=== PATIENT | female | born 1940 | race Caucasian/White ===

== ENCOUNTER 2021-01-26 09:14 | Inpatient (IN) | payer BC, OTHER ==
[2021-01-26 09:42] LABS: Absolute Lymphocytes (CBC) 0.4 K/uL (0.7-4.9); Basophils % 0.3 % (0-1.3); Hematocrit 36.2 % (36.0-45.0); Lymphocytes % 4.7 % (15.3-44.8); MPV 8.6 fL (7.6-11.3)
[2021-01-26 09:48] LABS: Protime INR 1.58
[2021-01-26 10:13] LABS: ALT/SGPT 12 U/L (12-78); AST/SGOT 20 U/L (15-37); Albumin 2.8 g/dL (3.4-5.0); Alkaline Phosphatase 105 U/L (45-117); BUN Blood Urea Nitrogen 10 mg/dL (7-18); Bicarbonate 30 mmol/L (21-32); Bilirubin Direct 0.7 mg/dL (0-0.2); Bilirubin Total 1.5 mg/dL (0.2-1.0); Glucose Level 140 mg/dL (74-106); Magnesium 1.9 mg/dL (1.8-2.4); NT PRO-BNP 5844 pg/mL (<450); Protein, Total 7.3 g/dL (6.4-8.2); Sodium Level 141 mmol/L (136-145); Troponin (Emerg Dept Use Only) < 0.02 ng/mL (0.0-0.045)
[2021-01-26 10:16] LABS: Potassium 2.9 mmol/L (3.5-5.1)
--- NOTE | 2021-01-26 10:32 | RAD REPORT ---
EXAM DESCRIPTION: RAD - Chest Single View - 01/26/2021 10:00 am CLINICAL HISTORY: Weakness COMPARISON: None TECHNIQUE: AP portable chest image was obtained 01/26/2021 10:00 am . FINDINGS: Lung volumes are very low which accentuates heart, vasculature and lung markings. Intersti tial edema or infiltrate could be masked in this setting. Mild failure that could also be masked. Rig ht hemidiaphragm elevation is present. Heart size is upper normal. Trachea is midline. No measurable pleural effusion and no pneumothorax. No acute bony abnormality seen. No acute aortic findings suspec mora. IMPRESSION: Significantly limited portable study shows no peripheral mass or consolidation. Interstitial edema, interstitial infiltrate or mild failure could be masked by the exam limitations.
[2021-01-26 10:35] LABS: Blood Morphology Comment NOT SEEN (NOT SEEN); Platelet Estimate ADEQ; White Blood Cell Scan OK (OK)
[2021-01-26] MEDS ORDERED: KCL 20 MEQ/100 mL IVPB 20 MEQ/100 ML BAG IV ONE (12:06)
[2021-01-26] MEDS ORDERED: POTASSIUM CL SA 10 MEQ TAB PO ONE (12:06)
--- NOTE | 2021-01-26 12:21 | ER ---
Nurse's Notes [facility] Name: Nanci Balderas Age: 80 yrs Sex: Female : 1940 Arrival Date: 01/26/2021 Time: :17 Bed 2 Private MD: Diagnosis: Weakness;Hypokalemia;Unspecified atrial fibrillation;Chronic atrial fibrillation-Poorly controlled Presentation: 01/26 09:19 Chief complaint: EMS states: pt from home. was using bedside commode and slid off it. tw2 denies LOC. pt can bear weight but just pivots. c/o RIGHT hip pain on palpation only. on EKG was A-fib w/RVR. we initially gave 10 mg Cardizem. it slowed her rated down a little bit but it came right back up. so we gave 15 mg Cardizem then with the same results. she does report taking Eliquis. c/o weakness increasing over the past 2 weeks with 2 falls that she refused to come to the ER for. family requested she come here d/t insurance. Coronavirus screen: At this time, the client does not indicate any symptoms associated with coronavirus-19. Ebola Screen: Patient denies travel to an Ebola-affected area in the 21 days before illness onset. Initial Sepsis Screen: Does the patient meet any 2 criteria? HR > 90 bpm. Does the patient have a suspected source of infection? No. Patient's initial sepsis screen is negative. Risk Assessment: Do you want to hurt yourself or someone else? Patient reports no desire to harm self or others. Note provider at bedside at this time. Onset of symptoms was January 26, 2021. 09:19 Acuity: PEPPER 2 tw2 09:19 Method Of Arrival: EMS: [facility] tw2 Triage Assessment: 09:25 General: Appears in no apparent distress. obese, Behavior is calm, cooperative, tw2 appropriate for age. General: Smells of body odor. Pain: Complains of pain in RIGHT hip. Respiratory: Airway is patent Respiratory effort is even, unlabored, Respiratory pattern is regular. Musculoskeletal: Range of motion: intact in all extremities. Historical: - Allergies: 09:23 Codeine; tw2 - Home Meds: :23 Amiodarone Oral [Active]; Eliquis oral [Active]; gabapentin oral [Active]; atorvastatin tw2 oral [Active]; valsartan oral [Active]; amlodipine-benazepril oral [Active]; - PMHx: 09:23 Atrial fibrillation; Hypercholesterolemia; Hypertensive disorder; tw2 - Immunization history:: Adult Immunizations. - Social history:: Smoking status: . Screenin:37 Abuse screen: Denies threats or abuse. Nutritional screening: No deficits noted. tw2 Tuberculosis screening: No symptoms or risk factors identified. Fall Risk None identified. Assessment: 09:37 Reassessment: see triage assessment. tw2 11:04 Reassessment: Patient appears in no apparent distress at this time. No changes from tw2 previously documented assessment. Patient and/or family updated on plan of care and expected duration. Pain level reassessed. Patient is alert, oriented x 3, equal unlabored respirations, skin warm/dry/pink. 11:30 Reassessment: No changes from previously documented assessment. Patient and/or family tw2 updated on plan of care and expected duration. Pain level reassessed. Patient is alert, oriented x 3, equal unlabored respirations, skin warm/dry/pink. Step Daughter's number [phone]. Step daughter states she is at home with patient's and to call with any update or if needing any additional information. 12:31 Reassessment: Dr. Cai at bedside at this time. tw2 12:35 Reassessment: Patient appears in no apparent distress at this time. No changes from tw2 previously documented assessment. Patient and/or family updated on plan of care and expected duration. Pain level reassessed. Patient is alert, oriented x 3, equal unlabored respirations, skin warm/dry/pink. 14:14 Reassessment: pt c/o back pain. medicated with Ultram per Shirley Mae's. 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 pt placed on bed moss. Angelo tw2 Tech assisted pt in rolling to side and then back on bedpan at this time. 18:09 Reassessment: Patient appears in no apparent distress at this time. No changes from tw2 previously documented assessment. Patient and/or family updated on plan of care and expected duration. Pain level reassessed. Patient is alert, oriented x 3, equal unlabored respirations, skin warm/dry/pink. Vital Signs: 09:19 Pulse 97; Resp 20; Temp 98.6(TE); Pulse Ox 96% on R/A; tw2 09:45 BP 160 / 77; Pulse 96; Resp 20; Pulse Ox 96% on R/A; tw2 11:03 BP 144 / 85; Pulse 85; Resp 19; Pulse Ox 97% on R/A; tw2 12:16 BP 122 / 84; Pulse 127; Resp 22; Pulse Ox 96% ; jl7 13:00 BP 107 / 89; Pulse 114; Resp 19; Pulse Ox 97% on R/A; tw2 14:47 BP 142 / 97; Pulse 112; Resp 19; Pulse Ox 95% on R/A; tw2 16:38 BP 150 / 106; Pulse 113; Resp 22; Pulse Ox 97% on R/A; tw2 17:33 BP 168 / 97; Pulse 107; Resp 19; Pulse Ox 95% on R/A; tw2 18:08 BP 146 / 89; Pulse 99; Resp 19; Pulse Ox 99% on R/A; tw2 ED Course: 09:17 Patient arrived in ED. ss 09:17 Bed in low position. Call light in reach. Side rails up X2. color television console monitor on. Pulse tw2 ox on. NIBP on. Warm blanket given. 09:19 Aaliyah Esparza RN is Primary Nurse. tw2 09:22 Triage completed. tw2 09:22 Arm band placed on. EKG completed in triage. Results shown to MD. tw2 09:23 Viktor Bearden MD is Attending Physician. kdr 09:37 Maintain EMS IV. Dressing intact. Good blood return noted. Site clean \T\ dry. Gauge \T\ tw 2 site: 20 G RIGHT ac. 10:00 XRAY Chest (1 view) In Process Unspecified. EDMS 12:19 Jorge Cai DO is Hospitalizing Provider. kdr 12:46 White cath inserted, using sterile technique, 18 Fr., by nh, balloon inflated, to tw2 gravity drainage, urine specimen collected. lou Trinh RN served as wood tile installer. returned negro urine. Patient tolerated well. 13:04 CT Head Brain wo Cont In Process Unspecified. EDMS 13:15 Hip Right 2 View XRAY In Process Unspecified. EDMS 18:08 No provider procedures requiring assistance completed. Patient admitted, IV remains in tw2 place. Administered Medications: 12:15 Drug: Potassium Chloride 20 mEq Route: IV; Rate: calculated rate; Site: right jl7 antecubital; 15:00 Follow up: IV Status: Completed infusion; IV Intake: 100ml tw2 12:15 Drug: Potassium Chloride 40 mEq Route: PO; jl7 12:31 Follow up: Response: No adverse reaction tw2 Intake: 15:00 IV: 100ml; Total: 100ml. tw2 Output: 14:31 Urine: 400ml (Straight Cath); Total: 400ml. tw2 Outcome: 12:21 Decision to Hospitalize by Provider. kdr 18:12 Admitted to Med/surg accompanied by tech, via stretcher, room 230, with chart, Report tw2 called to AMANDA Chirinos 18:12 Condition: stable 18:12 Instructed on the need for admit. 18:23 Patient left the ED. tw2 Signatures: Dispatcher [employer] EDMS Viktor Bearden MD MD kdr Annie Todd RN RN Aaliyah Esparza RN RN tw2 Ed Childress RN RN jl7 Corrections: (The following items were deleted from the chart) 09:27 09:19 Chief complaint: EMS states: pt from home. was using bedside commode and slid off tw2 it. denies LOC. c/o RIGHT hip pain on palpation only. on EKG was A-fib w/RVR. we initially gave 10 mg Cardizem. it slowed her rated down a little bit but it came right back up. so we gave 15 mg Cardizem then with the same results. she does report taking Eliquis. c/o weakness increasing over the past 2 weeks with 2 falls that she refused to come to the ER for. family requested she come here d/t insurance. tw2 12:35 11:30 Reassessment: Step Daughter's number [phone]. Step daughter states she is at tw2 home with patient's and to call with any update or if needing any additional information. 14:47 13:00 BP 142 / 97; Pulse 112bpm; Resp 19bpm; Pulse Ox 95% RA; tw2 tw2
--- NOTE | 2021-01-26 12:21 | EDPHYS ---
Physician Documentation [facility] Name: Nanci Balderas Age: 80 yrs Sex: Female : 1940 Arrival Date: 01/26/2021 Time: : Bed 2 Private MD: ED Physician Viktor Bearden HPI: 01/26 09:24 This 80 yrs old Female presents to ER via EMS with complaints of Weakness, kdr fall from standing. 09:24 The patient is essentially bed bound for the past week. This morning she attempted to kdr get up to the bedside commode and she slipped and fell on the floor. She indicated that she did not fall abruptly but rather eased herself to the floor without injury. She denies any head injury or any current pain anywhere in her body.. Onset: The symptoms/episode began/occurred gradually, 1 week(s) ago. Severity of symptoms: At their worst the symptoms were mild incapacitating just prior to arrival, in the emergency department the symptoms are unchanged. The patient has not experienced similar symptoms in the past. The patient has not recently seen a physician, Her physician is Dr. Pacheco and she has not been to this facility previously. 11:56 Patient was also noted by EMS to have atrial fibrillation with rapid ventricular kdr response. She was given an initial 10 mg dose of Cardizem. That had minimal effect. She then was given the additional 15 mg IV. That subsequently brought her rate down to approximately 100 bpm. Her rate has been stable since her arrival to the ED. Historical: - Allergies: 09:23 Codeine; tw2 - Home Meds: 09:23 Amiodarone Oral [Active]; Eliquis oral [Active]; gabapentin oral [Active]; atorvastatin tw2 oral [Active]; valsartan oral [Active]; amlodipine-benazepril oral [Active]; - PMHx: 09:23 Atrial fibrillation; Hypercholesterolemia; Hypertensive disorder; tw2 - Immunization history:: Adult Immunizations. - Social history:: Smoking status: . ROS: 09:24 Constitutional: Negative for fever, chills, and weight loss, Eyes: Negative for injury, kdr pain, redness, and discharge, ENT: Negative for injury, pain, and discharge, Neck: Negative for injury, pain, and swelling, Cardiovascular: Negative for chest pain, palpitations, and edema, Respiratory: Negative for shortness of breath, cough, wheezing, and pleuritic chest pain, Abdomen/GI: Negative for abdominal pain, nausea, vomiting, diarrhea, and constipation, Back: Negative for injury and pain, : Negative for injury, bleeding, discharge, and swelling, MS/Extremity: Negative for injury and deformity, Skin: Negative for injury, rash, and discoloration, Psych: Negative for depression, anxiety, suicide ideation, homicidal ideation, and hallucinations, Allergy/Immunology: Negative for hives, rash, and allergies, Endocrine: Negative for neck swelling, polydipsia, polyuria, polyphagia, and marked weight changes, Hematologic/Lymphatic: Negative for swollen nodes, abnormal bleeding, and unusual bruising. 09:24 Neuro: Positive for weakness, Negative for altered mental status, dizziness, gait disturbance, headache, hearing loss, numbness, seizure activity, speech changes, syncope, near syncope, tremor. Exam: 09:24 Constitutional: This is a well developed, well nourished obese patient who is awake, kdr alert, and in no acute distress. Head/Face: Normocephalic, atraumatic. Eyes: Pupils equal round and reactive to light, extra-ocular motions intact. Lids and lashes normal. Conjunctiva and sclera are non-icteric and not injected. Cornea within normal limits. Periorbital areas with no swelling, redness, or edema. Neck: Trachea midline, no thyromegaly or masses palpated, and no cervical lymphadenopathy. Supple, full range of motion without nuchal rigidity, or vertebral point tenderness. No Meningismus. Chest/axilla: Normal chest wall appearance and motion. Nontender with no deformity. No lesions are appreciated. Cardiovascular: Regular rate and rhythm with a normal S1 and S2. No gallops, murmurs, or rubs. Normal PMI, no JVD. No pulse deficits. Respiratory: Lungs have equal breath sounds bilaterally, clear to auscultation and percussion. No rales, rhonchi or wheezes noted. No increased work of breathing, no retractions or nasal flaring. Abdomen/GI: Soft, non-tender, with normal bowel sounds. No distension or tympany. No guarding or rebound. No evidence of tenderness throughout. Back: No spinal tenderness. No costovertebral tenderness. Full range of motion. Skin: Warm, dry with normal turgor. Normal color with no rashes, no lesions, and no evidence of cellulitis. MS/ Extremity: Pulses equal, no cyanosis. Neurovascular intact. Full, normal range of motion. Neuro: Awake and alert, GCS 15, oriented to person, place, time, and situation. Cranial nerves II-XII grossly intact. Motor strength 5/5 in all extremities. Sensory grossly intact. Cerebellar exam normal. Normal gait. Psych: Awake, alert, with orientation to person, place and time. Behavior, mood, and affect are within normal limits. 09:24 Abdomen/GI: Inspection: obese 10:43 ECG was reviewed by the Attending Physician. kdr Vital Signs: 09:19 Pulse 97; Resp 20; Temp 98.6(TE); Pulse Ox 96% on R/A; tw2 09:45 BP 160 / 77; Pulse 96; Resp 20; Pulse Ox 96% on R/A; tw2 11:03 BP 144 / 85; Pulse 85; Resp 19; Pulse Ox 97% on R/A; tw2 12:16 BP 122 / 84; Pulse 127; Resp 22; Pulse Ox 96% ; jl7 13:00 BP 107 / 89; Pulse 114; Resp 19; Pulse Ox 97% on R/A; tw2 14:47 BP 142 / 97; Pulse 112; Resp 19; Pulse Ox 95% on R/A; tw2 16:38 BP 150 / 106; Pulse 113; Resp 22; Pulse Ox 97% on R/A; tw2 17:33 BP 168 / 97; Pulse 107; Resp 19; Pulse Ox 95% on R/A; tw2 18:08 BP 146 / 89; Pulse 99; Resp 19; Pulse Ox 99% on R/A; tw2 MDM: 11:57 Data reviewed: vital signs, nurses notes, lab test result(s), EKG, radiologic studies. kdr Counseling: I had a detailed discussion with the patient and/or guardian regarding: the historical points, exam findings, and any diagnostic results supporting the discharge/admit diagnosis, lab results, radiology results. 12:21 Patient medically screened. kdr 01/26 09:24 Order name: Basic Metabolic Panel; Complete Time: 11:54 kdr 01/26 09:24 Order name: CBC with Diff; Complete Time: 11:54 kdr 01/26 09:24 Order name: LFT's; Complete Time: 11:54 kdr 01/26 09:24 Order name: Magnesium; Complete Time: :54 kdr 01/26 09:24 Order name: NT PRO-BNP; Complete Time: 11:54 kdr 01/26 09:24 Order name: PT-INR; Complete Time: 11:54 kdr 01/26 09:24 Order name: Troponin (emerg Dept Use Only); Complete Time: 11:54 kdr 01/26 09:24 Order name: XRAY Chest (1 view); Complete Time: 11:54 kdr 01/26 10:35 Order name: CBC Smear Scan; Complete Time: 11:54 EDMS 01/26 12:37 Order name: Hip Right 2 View XRAY kdr 01/26 13:07 Order name: Urine Microscopic Only eb 01/26 13:08 Order name: COVID-19 SARS RT PCR (Document "Date of Onset" if Symptomatic) eb 01/26 13:08 Order name: Urine Dipstick-Ancillary EDNC 01/26 13:09 Order name: SARS-COV-2 RT PCR EDNC 01/26 09:24 Order name: EKG; Complete Time: 09:25 kdr 01/26 09:24 Order name: Cardiac monitoring; Complete Time: 09:24 kdr 01/26 09:24 Order name: EKG - Nurse/Tech; Complete Time: 09:25 kdr 01/26 09:24 Order name: IV Saline Lock; Complete Time: 09:25 kdr 01/26 09:24 Order name: Labs collected and sent; Complete Time: 09:25 kdr 01/26 09:24 Order name: O2 Per Protocol; Complete Time: 09:25 kdr 01/26 09:24 Order name: O2 Sat Monitoring; Complete Time: 09:25 kdr 01/26 12:16 Order name: Urine Dipstick-Ancillary (obtain specimen); Complete Time: 12:54 kdr 01/26 12:37 Order name: CT Head Brain wo Cont kdr 01/26 12:50 Order name: White; Complete Time: 12:50 tw2 EC:43 Rate is 96 beats/min. Rhythm is irregularly irregular, A fib with No ectopy. QRS [place] kdr is Normal. IA interval is normal. QRS interval is normal. QT interval is normal. Clinical impression: Atrial Fibrillation. Administered Medications: 12:15 Drug: Potassium Chloride 20 mEq Route: IV; Rate: calculated rate; Site: right jl7 antecubital; 15:00 Follow up: IV Status: Completed infusion; IV Intake: 100ml tw2 12:15 Drug: Potassium Chloride 40 mEq Route: PO; jl7 12:31 Follow up: Response: No adverse reaction tw2 Disposition Summary: 01/26/21 12:21 Hospitalization Ordered Hospitalization Status: Observation kdr Provider: Jorge Cai kdr Condition: Fair kdr Problem: an acute exacerbation kdr Symptoms: have improved kdr Bed/Room Type: Standard kdr Location: Telemetry/MedSurg (observation)(01/26/21 16:40) eb Room Assignment: 230(01/26/21 16:40) eb Diagnosis - Weakness kdr - Hypokalemia kdr - Unspecified atrial fibrillation kdr - Chronic atrial fibrillation - Poorly controlled kdr Forms: - Medication Reconciliation Form kdr - SBAR form kdr Signatures: Dispatcher [employer] EDViktor Terrell MD MD kdr Aaliyah Esparza RN RN tw2 Ed Childress RN RN jl7 Tomasz Brewer RN RN ja1 Mare Carranza Corrections: (The following items were deleted from the chart) 15:21 12:21 kdr eb 15:22 12:21 Telemetry/MedSurg (observation) kdr ja1 15:22 15:21 218 eb ja1 16:40 15:22 [facility] ER HOLD ja1 eb 16:40 15:22 ja1 eb
[2021-01-26 13:08] LABS: Urine Blood Trace-intact (Negative); Urine Glucose Negative (Negative); Urine Protein 2+ (Negative); Urine Specific Gravity 1.025 (1.005-1.030); Urine pH 6.5 (5.0-7.0)
--- NOTE | 2021-01-26 13:16 | RAD REPORT ---
EXAM DESCRIPTION: CT - Head Brain Wo Cont - 01/26/2021 1:04 pm CLINICAL HISTORY: Fall from standing COMPARISON: No comparisons TECHNIQUE: All CT scans are performed using dose optimization technique as appropriate and may inclu de automated exposure control or mA/KV adjustment according to patient size. FINDINGS: No intracranial hemorrhage, hydrocephalus or extra-axial fluid collection.No areas of brai n edema or evidence of midline shift. The paranasal sinuses and mastoids are clear. The calvarium is intact. IMPRESSION: No acute intracranial abnormality.
--- NOTE | 2021-01-26 13:22 | RAD REPORT ---
EXAM DESCRIPTION: RAD - Hip Right 2 View - 01/26/2021 1:15 pm CLINICAL HISTORY: PAIN COMPARISON: No comparisons FINDINGS: No pelvic fracture is identified. Status post left total hip arthroplasty. No evidence of hardware complications. The right hip is located. No right hip fracture seen. Degenerative changes ar e present in the lower spine. IMPRESSION: No pelvic or right hip fractures identified. No left hip arthroplasty is intact.
[2021-01-26] MEDS ORDERED: HYDROCODONE/APAP 7.5/325 MG TAB PO PRN (13:39)
[2021-01-26] MEDS ORDERED: TRAMADOL HCL 50 MG TAB PO PRN (13:39)
--- NOTE | 2021-01-26 13:39 | P.HP ---
Certification for Inpatient Patient admitted to: Observation With expected LOS: <2 Midnights Patient will require the following post-hospital care: Other (Home with home health and caregiver services) Practitioner: I am a practitioner with admitting privileges, knowledge of patient current condition, hospital course, and medical plan of care. Services: Services provided to patient in accordance with Admission requirements found in Title 42 Section 412.3 of the Code of Federal Regulations Patient History Date of Service: 01/26/21 Physical Examination - Studies Laboratory Data (last 24 hrs) 01/26/21 09:30: PT 18.2 H, INR 1.58 01/26/21 09:30: WBC 8.20, Hgb 11.7 L, Hct 36.2, Plt Count 160 01/26/21 09:30: Sodium 141, Potassium 2.9 L*, BUN 10, Creatinine 0.94, Glucose 140 H, Magnesium 1.9, Total Bilirubin 1.5 H, AST 20, ALT 12, Alkaline Phosphatase 105 Assessment and Plan - Plan COVID: Pending Chest x-ray: COMPARISON: None TECHNIQUE: AP portable chest image was obtained 01/26/2021 10:00 am . FINDINGS: Lung volumes are very low which accentuates heart, vasculature and lung markings. Interstitial edema or infiltrate could be masked in this setting. Mild failure that could also be masked. Right hemidiaphragm elevation is present. Heart size is upper normal. Trachea is midline. No measurable pleural effusion and no pneumothorax. No acute bony abnormality seen. No acute aortic findings suspected. IMPRESSION: Significantly limited portable study shows no peripheral mass or consolidation. Interstitial edema, interstitial infiltrate or mild failure could be masked by the exam limitations. CT head: COMPARISON: No comparisons TECHNIQUE: All CT scans are performed using dose optimization technique as appropriate and may include automated exposure control or mA/KV adjustment according to patient size. FINDINGS: No intracranial hemorrhage, hydrocephalus or extra-axial fluid collection.No areas of brain edema or evidence of midline shift. The paranasal sinuses and mastoids are clear. The calvarium is intact. IMPRESSION: No acute intracranial abnormality. Right Hip xray: COMPARISON: No comparisons FINDINGS: No pelvic fracture is identified. Status post left total hip arthroplasty. No evidence of hardware complications. The right hip is located. No right hip fracture seen. Degenerative changes are present in the lower spine. IMPRESSION: No pelvic or right hip fractures identified. No left hip arthroplasty is intact. Physical Exam: GENERAL: The patient is a well-developed, well-nourished, in no apparent distress. Alert and oriented x3. VITAL SIGNS: Reviewed HEENT: Head is normocephalic and atraumatic. Extraocular muscles are intact. Pupils are equal, round, and reactive to light and accommodation. Nares appeared normal. Mouth is well hydrated and without lesions. Mucous membranes are moist. NECK: Supple. No carotid bruits. No lymphadenopathy or thyromegaly. LUNGS: Clear to auscultation. No crackles or wheezes are heard. HEART: Regular rate and rhythm, no appreciable gallops, rubs, murmurs or extra heart sounds ABDOMEN: Soft, nontender, and nondistended. Positive bowel sounds. No hepatosplenomegaly was noted. EXTREMITIES: Without any cyanosis, clubbing, rash, lesions or peripheral edema. NEUROLOGIC: The patient is oriented to person, place and time. Strength and sensation are grossly intact. Face is symmetric. SKIN: Normal color, turgor and temperature. No ulcerations or rashes noted. Impression: Weakness and fall from sitting position Atrial fibrillation on chronic anticoagulation therapy Chronic diastolic CHF Hypokalemia Hypertension CAD with prior stents Chronic pain Obesity Plan: Weakness and fall from sitting position: Patient will be admitted for further evaluation and treatment. We will continue with home medications but will need to obtain and reconcile medications. Will have physical therapy and Occupational Therapy evaluate. Electrolyte protocol in place to replace potassium. Patient uses a walker at home. She is mainly homebound. Patient has home care at home. Will need to continue with home care and home health and physical therapy at discharge. Anticipate discharge likely tomorrow. Atrial fibrillation on chronic anticoagulation therapy: Will need to continue with metoprolol and Eliquis. Will need to verify home medication. Chronic diastolic CHF: Will continue with Lasix. Will replace potassium. Continue 1500 cc/day fluid restriction and low-salt diet. Hypokalemia: Replace potassium Hypertension: Continue metoprolol and losartan. Will make adjustments accordingly. Need to update home medication CAD with prior stents: Continue with home medication will need to verify home medication Chronic pain: We will provide medication for pain. Obesity: Lifestyle modification education provided Code Status: This was discussed in detail with patient. Patient is DO NOT RESUSCITATE. DVT prophylaxis: Eliquis Advanced Care Planning-30 minutes: Patient will be discharged home with home health and physical therapy along with home care that she has at home. Discharge Plan: Home Plan to discharge in: 24 Hours - Advance Directives Does patient have a Living Will: No Does patient have a Durable POA for Healthcare: No - Code Status/Comfort Care Code Status Assessed: Yes (Patient is DO NOT RESUSCITATE) Time Spent Managing Pts Care (In Minutes): 55
[2021-01-26 13:48] LABS: Urine Bacteria LOADED /HPF (<20); Urine RBC NONE SEEN /HPF (NONE SEEN)
[2021-01-26] MEDS ORDERED: TRAMADOL HCL 50 MG TAB ONE (14:08)
[2021-01-26] MEDS ORDERED: ONDANSETRON 4 MG/2 ML VIAL IV PRN (18:28)
[2021-01-26 19:28] LABS: Creatine Phosphokinase 14 U/L (26-192); Troponin I < 0.02 ng/mL (0.0-0.045)
[2021-01-26 19:31] LABS: CKMB Creatine Kinase MB < 1.0 ng/mL (1.0-3.6)
[2021-01-26] MEDS: ATORVASTATIN 40 MG TAB PO SCH (20:18)
[2021-01-26] MEDS: APIXABAN 5 MG TABLET PO SCH (20:19)
[2021-01-26] MEDS: METOPROLOL TAR 25 MG TAB PO SCH (20:19)
[2021-01-26] MEDS: MELATONIN 5 MG TABLET PO PRN (20:19)
[2021-01-26] MEDS: LOSARTAN POTASSIUM 50 MG TABLET PO SCH (20:19)
[2021-01-26] MEDS: FAMOTIDINE 20 MG TAB PO SCH (21:00)
[2021-01-27 01:45] LABS: Creatine Phosphokinase 14 U/L (26-192)
[2021-01-27 01:47] LABS: CKMB Creatine Kinase MB < 1.0 ng/mL (1.0-3.6)
[2021-01-27] MEDS: METOPROLOL TAR 25 MG TAB PO SCH ×4 (05:23→18:00)
[2021-01-27 05:47] LABS: Absolute Lymphocytes (CBC) 0.5 K/uL (0.7-4.9); Basophils % 0.6 % (0-1.3); Hematocrit 34.5 % (36.0-45.0); Lymphocytes % 6.6 % (15.3-44.8); MPV 9.2 fL (7.6-11.3); RBC Red Blood Cell Count 3.87 M/uL (3.86-4.86)
--- NOTE | 2021-01-27 05:54 | P.DS ---
Admission Date: 01/26/21 Discharge Date: 01/27/21 Primary Care Provider: Dr. Pacheco Disposition: DC HOME/HOME HEALTH CARE Discharge Condition: GOOD Reason for Admission: Fall Consultations: none Procedures: COVID: negative Chest x-ray: COMPARISON: None TECHNIQUE: AP portable chest image was obtained 01/26/2021 10:00 am . FINDINGS: Lung volumes are very low which accentuates heart, vasculature and lung markings. Interstitial edema or infiltrate could be masked in this setting. Mild failure that could also be masked. Right hemidiaphragm elevation is present. Heart size is upper normal. Trachea is midline. No measurable pleural effusion and no pneumothorax. No acute bony abnormality seen. No acute aortic findings suspected. IMPRESSION: Significantly limited portable study shows no peripheral mass or consolidation. Interstitial edema, interstitial infiltrate or mild failure could be masked by the exam limitations. CT head: COMPARISON: No comparisons TECHNIQUE: All CT scans are performed using dose optimization technique as appropriate and may include automated exposure control or mA/KV adjustment according to patient size. FINDINGS: No intracranial hemorrhage, hydrocephalus or extra-axial fluid collection.No areas of brain edema or evidence of midline shift. The paranasal sinuses and mastoids are clear. The calvarium is intact. IMPRESSION: No acute intracranial abnormality. Right Hip xray: COMPARISON: No comparisons FINDINGS: No pelvic fracture is identified. Status post left total hip arthroplasty. No evidence of hardware complications. The right hip is located. No right hip fracture seen. Degenerative changes are present in the lower spine. IMPRESSION: No pelvic or right hip fractures identified. No left hip arthroplasty is intact. Medical Problem List: Weakness and fall from sitting position Atrial fibrillation on chronic anticoagulation therapy Chronic diastolic CHF Hypokalemia Hypertension CAD with prior stents Chronic pain Obesity Brief History of Present Illness: 80-year-old female with history of atrial fibrillation, CHF, chronic anticoagulation therapy, hypertension, CAD with prior stent, hyperlipidemia, and obesity. Patient presented to emergency room after she fell from a sitting position at home. Patient is homebound. She has home care 5 days out of the week with home health and physical therapy. She was not able to get out of the floor. She laid on the ground. She continued to have increasing back pain. EMS was called. EMS noted elevated heart rate. Patient was given Cardizem. By the time she arrived blood pressure and heart rate were better controlled. Patient denied any fever, chills. No shortness of breath noted. In the ER patient was evaluated. Vital signs stable. Chest x-ray unremarkable. CT head unremarkable. Right hip showed no fracture. White count 8.2, hemoglobin 11.7. Sodium 141. Potassium 2.9. Creatinine 0.9 with a GFR 57. Glucose 140. BNP 5000. Troponin unremarkable. Calcium 10.8. Patient was admitted for further evaluation and treatment. Hospital Course: Plan: Weakness and fall from sitting position: Patient will be admitted for further evaluation and treatment. We will continue with home medications but will need to obtain and reconcile medications. Will have physical therapy and Occupational Therapy evaluate. Electrolyte protocol in place to replace potassium. Patient uses a walker at home. She is mainly homebound. Patient has home care at home. Will need to continue with home care and home health and physical therapy at discharge. Anticipate discharge likely tomorrow. Atrial fibrillation on chronic anticoagulation therapy: Will need to continue with metoprolol and Eliquis. Will need to verify home medication. Chronic diastolic CHF: Will continue with Lasix. Will replace potassium. Continue 1500 cc/day fluid restriction and low-salt diet. Hypokalemia: Replace potassium Hypertension: Continue metoprolol and losartan. Will make adjustments accordingly. Need to update home medication CAD with prior stents: Continue with home medication will need to verify home medication Chronic pain: We will provide medication for pain. Obesity: Lifestyle modification education provided Code Status: This was discussed in detail with patient. Patient is DO NOT RESUSCITATE. DVT prophylaxis: Eliquis Advanced Care Planning-30 minutes: Patient will be discharged home with home health and physical therapy along with home care that she has at home. Discharge Plan: Home Plan to discharge in: 24 Hours - Advance Directives Does patient have a Living Will: No Does patient have a Durable POA for Healthcare: No - Code Status/Comfort Care Code Status Assessed: Yes (Patient is DO NOT RESUSCITATE) Time Spent Managing Pts Care (In Minutes): 55 Vital Signs/Physical Exam: Temp Pulse Resp BP Pulse Ox 98.1 F 68 16 125/60 98 01/27/21 05:35 01/27/21 05:35 01/27/21 05:35 01/27/21 05:35 01/27/21 05:35 Laboratory Data at Discharge: WBC 7.80 K/uL (4.3-10.9) 01/27/21 05:31 Hgb 11.1 g/dL (12.0-15.0) L 01/27/21 05:31 Hct 34.5 % (36.0-45.0) L 01/27/21 05:31 Plt Count 162 K/uL (152-406) 01/27/21 05:31 PT 18.2 SECONDS (9.5-12.5) H 01/26/21 09:30 INR 1.58 01/26/21 09:30 Sodium 141 mmol/L (136-145) 01/26/21 09:30 Potassium 2.9 mmol/L (3.5-5.1) L* 01/26/21 09:30 BUN 10 mg/dL (7-18) 01/26/21 09:30 Creatinine 0.94 mg/dL (0.55-1.3) 01/26/21 09:30 Glucose 140 mg/dL (74-106) H 01/26/21 09:30 Magnesium 1.9 mg/dL (1.8-2.4) 01/26/21 09:30 Total Bilirubin 1.5 mg/dL (0.2-1.0) H 01/26/21 09:30 AST 20 U/L (15-37) 01/26/21 09:30 ALT 12 U/L (12-78) 01/26/21 09:30 Alkaline Phosphatase 105 U/L (45-117) 01/26/21 09:30 Troponin I < 0.02 ng/mL (0.0-0.045) 01/26/21 19:02 Home Medications: Unobtainable 01/27/21 Followup: NONE,NONE [Primary Care Provider] -
[2021-01-27 06:09] LABS: Albumin 2.6 g/dL (3.4-5.0); Bilirubin Total 1.4 mg/dL (0.2-1.0); Magnesium 2.1 mg/dL (1.8-2.4); Potassium 3.5 mmol/L (3.5-5.1); Protein, Total 6.8 g/dL (6.4-8.2); Thyroid Stimulating Hormone 2.3 uIU/mL (0.360-3.740)
[2021-01-27] MEDS: APIXABAN 5 MG TABLET PO SCH ×2 (08:43→20:15)
[2021-01-27] MEDS: FUROSEMIDE 40 MG TABLET PO SCH (08:43)
[2021-01-27] MEDS: FOLIC ACID 1 MG TABLET PO SCH (08:43)
[2021-01-27] MEDS: THIAMINE HCL 100 MG TABLET PO SCH (08:43)
[2021-01-27] MEDS: LOSARTAN POTASSIUM 50 MG TABLET PO SCH (08:44)
[2021-01-27] MEDS: FAMOTIDINE 20 MG TAB PO SCH ×2 (08:48→20:15)
[2021-01-27] MEDS ORDERED: POTASSIUM CL SA 10 MEQ TAB PO ONE (09:00)
--- NOTE | 2021-01-27 09:03 | P.PN ---
Subjective Date of Service: 01/27/21 Primary Care Provider: Dr. Pacheco Chief Complaint: Fall Subjective: Other (Patient still reports some weakness.) Physical Examination - Vital Signs Temperature: 98.1 F Blood Pressure: 196/105 Pulse: 93 Respirations: 16 Pulse Ox (%): 98 - Studies Laboratory Data (last 24 hrs) 01/26/21 09:30: PT 18.2 H, INR 1.58 01/26/21 09:30: WBC 8.20, Hgb 11.7 L, Hct 36.2, Plt Count 160 01/26/21 09:30: Sodium 141, Potassium 2.9 L*, BUN 10, Creatinine 0.94, Glucose 140 H, Magnesium 1.9, Total Bilirubin 1.5 H, AST 20, ALT 12, Alkaline Phosphatase 105 Assessment & Plan Discharge Plan: Home Plan to discharge in: 24 Hours Physician Review Additional Text: COVID: Negative Chest x-ray: COMPARISON: None TECHNIQUE: AP portable chest image was obtained 01/26/2021 10:00 am . FINDINGS: Lung volumes are very low which accentuates heart, vasculature and lung markings. Interstitial edema or infiltrate could be masked in this setting. Mild failure that could also be masked. Right hemidiaphragm elevation is present. Heart size is upper normal. Trachea is midline. No measurable pleural effusion and no pneumothorax. No acute bony abnormality seen. No acute aortic findings suspected. IMPRESSION: Significantly limited portable study shows no peripheral mass or consolidation. Interstitial edema, interstitial infiltrate or mild failure could be masked by the exam limitations. CT head: COMPARISON: No comparisons TECHNIQUE: All CT scans are performed using dose optimization technique as appropriate and may include automated exposure control or mA/KV adjustment according to patient size. FINDINGS: No intracranial hemorrhage, hydrocephalus or extra-axial fluid collection.No areas of brain edema or evidence of midline shift. The paranasal sinuses and mastoids are clear. The calvarium is intact. IMPRESSION: No acute intracranial abnormality. Right Hip xray: COMPARISON: No comparisons FINDINGS: No pelvic fracture is identified. Status post left total hip ar throplasty. No evidence of hardware complications. The right hip is located. No right hip fracture seen. Degenerative changes are present in the lower spine. IMPRESSION: No pelvic or right hip fractures identified. No left hip arthroplasty is intact. Physical Exam: GENERAL: The patient is a well-developed, well-nourished, in no apparent distress. Alert and oriented x3. VITAL SIGNS: Reviewed HEENT: Dry mucous membranes LUNGS: Clear to auscultation. No crackles or wheezes are heard. HEART: A. fib rate controlled ABDOMEN: Soft, nontender, and nondistended. Positive bowel sounds. No hepatosplenomegaly was noted. EXTREMITIES: Without any cyanosis, clubbing, rash, lesions or peripheral edema. NEUROLOGIC: The patient is oriented to person, place and time. Strength and sensation are grossly intact. Face is symmetric. SKIN: Normal color, turgor and temperature. No ulcerations or rashes noted. Impression: Weakness and fall from sitting position UTI Atrial fibrillation on chronic anticoagulation therapy Chronic diastolic CHF Hypokalemia Hypercalcemia Hypertension CAD with prior stents Chronic pain Obesity Plan: Weakness and fall from sitting position: Discussed case with [id number]. Patient is homebound has home caregivers but no home health. Will have physical therapy and Occupational Therapy evaluate patient. Await their recommendations. Patient also found to have a UTI. Will start IV Rocephin. Will check procalcitonin. White count normal. Patient with hypercalcemia. Will consult nephrology for further recommendation. Will obtain PTH, ionized calcium and procalcitonin. Await recommendations from physical therapy and Occupational Therapy. Social work consulted to help arrange for home health and physical therapy at discharge unless physical therapy says patient is not safe to be discharged and will need to consider skilled placement. Will check options for patient. We will also discuss with son about plan of care. Left message with son. UTI: We will start Rocephin. White count normal. Will check procalcitonin. Atrial fibrillation on chronic anticoagulation therapy: Need to obtain and review start home medication. We will increase metoprolol for better rate control. Continue Eliquis. Chronic diastolic CHF: Will continue with Lasix. Will replace potassium. Continue 1500 cc/day fluid restriction and low-salt diet. Hypokalemia: Replace potassium Hypercalcemia: We will consult nephrology for further recommendation. Will check PTH and ionized calcium. Hypertension: We will increase metoprolol. Continue losartan. Will need to verify home medication. CAD with prior stents: Verify and restart home medication Chronic pain: We will provide medication for pain Obesity: Lifestyle modification education provided Code Status: This was discussed in detail with patient. Patient is DO NOT RESUSCITATE. DVT prophylaxis: Eliquis Advanced Care Planning-30 minutes: Consider home with home health and physical therapy and continued home care at home. Other option would be skilled placement. Await recommendations from physical therapy. Care discussed with [id number]. Need to discuss further with son. Time Spent Managing Pts Care (In Minutes): 55
[2021-01-27] MEDS: CEFTRIAXONE 1,000 MG in NA CHLORIDE 0.9% 50 ML IVPB SCH (09:42)
[2021-01-27] MEDS ORDERED: METOPROLOL TAR 25 MG TAB PO ONE (10:01)
[2021-01-27] MEDS ORDERED: NA CHLORIDE 0.9% 1,000 ML IV ONE (10:16)
[2021-01-27] MEDS: HYDRALAZINE HCL 20 MG/ML VIAL IV PRN (12:46)
[2021-01-27 13:14] LABS: Urine Appearance CLEAR (Clear); Urine Bilirubin NEGATIVE (Negative); Urine Blood NEGATIVE (Negative); Urine Color YELLOW (Yellow); Urine Glucose NEGATIVE (Negative); Urine Protein NEGATIVE (Negative); Urine Specific Gravity <=1.005 (1.005-1.030); Urine pH 7.5 (5.0-7.0)
[2021-01-27 13:15] LABS: Urine Microscopic Reflex NO UMIC
[2021-01-27] MEDS: NA CHLORIDE 0.9% 1,000 ML IV SCH ×2 (14:39→20:17)
--- NOTE | 2021-01-27 14:54 | CON ---
Date of Consultation: 01/27/2021 Additional Consulting Physician: Jorge Cai D.O. Reason For Consultation: Hypercalcemia. History Of Present Illness: All the information has been obtained from the record. The patient pleasantly confused. This is a 80-year-old female with significant past medical history of CAD complicated with congestive heart failure, atrial fibrillation on anticoagulation, hyperlipidemia, obesity, and bedbound. The patient came to the hospital complaining of palpitation and fall. Upon arrival to the hospital, the patient had tachycardia, found to have elevation, and calcium 10.8. For that reason, we have been consulted. The patient denied taking any calcium. Denied taking any vitamin D. Again, the patient confused. Past Medical History: 1. Atrial fibrillation. 2. Congestive heart failure. 3. Coronary artery disease, status post PCI. 4. Hypertension. 5. Hyperlipidemia. 6. Morbid obesity. Past Surgical History: Include PCI, cardiac cath. Family History: None obtainable. Social History: None obtainable. Review of Systems: None obtainable. Physical Examination: General: When I saw the patient lying in bed, not on any distress. Vital Signs: Blood pressure 190/100, pulse of 83, and afebrile. Chest: Clear to auscultation. Heart: S1 and S2. Regular. Tachy. Abdomen: Soft, nontender. Extremities: No edema. Neurologic: Confused. Laboratory Data: WBC 7.8, H and H 11.1/34.5. Sodium 143, potassium 3.5, bicarb 30, BUN 10, creatinine 0.8, calcium 10.8, magnesium 2.1, albumin 2.6, and corrected calcium is 13. TSH 2.3. Urine analysis is +2 protein. Assessment And Plan: 1. Hypercalcemia. Normal kidney function. The patient is bed bound. Possible secondary to questionable of intake with the presence of proteinuria to rule out any light chain disease. I am going to go ahead and send for protein creatinine to quantify the proteinuria. Send for serum protein electrophoresis, PTH, and vitamin D and we will follow up. I will start the patient on IV hydration and we will monitor. We will consider diuresis after complete full tank hopefully tomorrow. 2. Hypertension, not controlled. I am going to go ahead and increase her losartan to 100 mg daily and we will follow up the patient. Also, I am going to go ahead and hold her Lasix today. 3. Given the tachycardia, I am going to go ahead and increase her metoprolol to 50. We will follow up response. time spend exam the patient face to face placing order , reviewing lab and radiology data , discussing the case with the nursing staff and other pipe or steam fitter furnace installer including hospitalist and other events solutions consultant on the case 65 min CHAPO Voice ID: [id number] Report ID: [id number] MTDNo
--- NOTE | 2021-01-27 16:09 | CON ---
Date of Consultation: 01/27/2021 Addendum: Assessment And Plan: 1. Hypercalcemia as above. 2. Hypertension. Increase losartan to 100 mg daily. Metoprolol has just increase. 3. Atrial fibrillation with rapid ventricular response. Increase metoprolol. Follow up with the primary. 4. Urinary tract infection. The patient was started on antibiotic. We will follow up with culture. 5. Altered mental status secondary to hypercalcemia/metabolic secondary to urinary tract infection. Urinary tract infection start been treated. We will follow up. Continue hydration. 6. Proteinuria with the presence of hypercalcemia. I am going to go ahead and send for serum protein electrophoresis. We will follow up quantification of the proteinuria. Resume losartan. time spend exam the patient face to face placing order , reviewing lab and radiology data , discussing the case with the nursing staff and other team assembly line machine operator including hospitalist and other peoplesoft consultant on the case 65 min CHAPO Voice ID: [id number] Report ID: [id number] JUAQUIN
[2021-01-27] MEDS ORDERED: METOPROLOL TAR 25 MG TAB PO SCH (18:00)
[2021-01-27] MEDS: AMLODIPINE 5 MG TAB PO SCH (20:14)
[2021-01-27] MEDS: MELATONIN 5 MG TABLET PO PRN (20:15)
[2021-01-27] MEDS: ATORVASTATIN 40 MG TAB PO SCH (20:15)
[2021-01-27] MEDS: ISOSORBIDE MONO SR 30 MG TAB PO SCH (20:15)
[2021-01-27] MEDS ORDERED: METOPROLOL TAR 50 MG TAB PO ONE (22:59)
[2021-01-28] MEDS: NA CHLORIDE 0.9% 1,000 ML IV SCH (05:31)
[2021-01-28] MEDS: METOPROLOL TAR 25 MG TAB PO SCH ×2 (05:31→16:58)
--- NOTE | 2021-01-28 06:08 | P.PN ---
Subjective Date of Service: 01/28/21 Primary Care Provider: Dr. Pacheco Chief Complaint: Fall Subjective: Improving, Doing well Physical Examination - Vital Signs Temperature: 97.5 F Blood Pressure: 132/70 Pulse: 62 Respirations: 17 Pulse Ox (%): 98 - Studies Laboratory Data (last 24 hrs) 01/27/21 05:01: Sodium 142, Potassium 3.5, BUN 10, Creatinine 0.84, Glucose 102, Magnesium 2.1, Total Bilirubin 1.4 H, AST 22, ALT 15, Alkaline Phosphatase 95, Triglycerides 105, Cholesterol 97, HDL Cholesterol 29 L, Cholesterol/HDL Ratio 3.34 Assessment & Plan Discharge Plan: Other (Home with home health versus skilled placement) Plan to discharge in: 24 Hours Physician Review Additional Text: COVID: Negative Chest x-ray: COMPARISON: None TECHNIQUE: AP portable chest image was obtained 01/26/2021 10:00 am . FINDINGS: Lung volumes are very low which accentuates heart, vasculature and lung markings. Interstitial edema or infiltrate could be masked in this setting. Mild failure that could also be masked. Right hemidiaphragm elevation is present. Heart size is upper normal. Trachea is midline. No measurable pleural effusion and no pneumothorax. No acute bony abnormality seen. No acute aortic findings suspected. IMPRESSION: Significantly limited portable study shows no peripheral mass or consolidation. Interstitial edema, interstitial infiltrate or mild failure could be masked by the exam limitations. CT head: COMPARISON: No comparisons TECHNIQUE: All CT scans are performed using dose optimization technique as appropriate and may include automated exposure control or mA/KV adjustment according to patient size. FINDINGS: No intracranial hemorrhage, hydrocephalus or extra-axial fluid collection.No areas of brain edema or evidence of midline shift. The paranasal sinuses and mastoids are clear. The calvarium is intact. IMPRESSION: No acute intracranial abnormality. Right Hip xray: COMPARISON: No comparisons FINDINGS: No pelvic fracture is identified. Status post left total hip arthroplasty. No evidence of hardware complications. The right hip is located. No right hip fracture seen. Degenerative changes are present in the lower spine. IMPRESSION: No pelvic or right hip fractures identified. No left hip arthroplasty is intact. Physical Exam: GENERAL: The patient is a well-developed, well-nourished, in no apparent distress. Alert and oriented x3. VITAL SIGNS: Reviewed HEENT: Dry mucous membranes LUNGS: Clear to auscultation. No crackles or wheezes are heard. HEART: A. fib rate controlled ABDOMEN: Soft, nontender, and nondistended. Positive bowel sounds. No hepatosplenomegaly was noted. EXTREMITIES: Without any cyanosis, clubbing, rash, lesions or peripheral edema. NEUROLOGIC: The patient is oriented to person, place and time. Strength and sensation are grossly intact. Face is symmetric. SKIN: Normal color, turgor and temperature. No ulcerations or rashes noted. Impression: Weakness and fall from sitting position UTI with urine culture showing Klebsiella pneumoniae Atrial fibrillation on chronic anticoagulation therapy Chronic diastolic CHF Hypokalemia Hypercalcemia Hypertension CAD with prior stents Chronic pain Obesity Plan: Weakness and fall from sitting position: Physical therapy and Occupational Therapy to evaluate patient. Await recommendations from physical therapy as the patient may require home health and physical therapy versus skilled placement. Patient has caregivers at home. Patient is homebound. Patient found to have UTI with Klebsiella pneumoniae. Will change IV antibiotic therapy to oral Ceftin 500 mg 1 pill twice daily. Patient will need 7-day treatment. Blood pressure medications were added for better control. Blood pressure improved. Overall stable. Plan of care discussed with son yesterday. Await recommendations from physical therapy to determine possible discharge. I will turn the service over to the hospitalist team tomorrow. I will go over the plan of care with him. UTI with urine culture showing Klebsiella pneumoniae: DC IV antibiotic therapy and change to Ceftin 500 mg 1 pill twice daily Atrial fibrillation on chronic anticoagulation therapy: Medication has been adjusted for better rate control. Continue metoprolol 50 mg 1 pill twice daily. Continue Eliquis 5 mg 1 pill twice daily. Chronic diastolic CHF: Patient receiving IV fluids. Overall improved. Will hold Lasix. Continue electrolyte protocol. Continue 1500 cc/day fluid restriction and low-salt diet. Will discuss with nephrology about the possibility of discontinuing Lasix at discharge. Hypokalemia: Electrolyte protocol in place. Hypercalcemia: Nephrology consulted. Continue with IV fluids. Anticipate possible discontinuation of IV fluids today. Await further recommendations. Hypertension: Blood pressure elevated yesterday. Additional medication was added for better control. New medication includes Norvasc 5 mg daily and losartan 100 mg daily. Metoprolol was adjusted to 50 mg 1 pill twice daily. B lood pressure overall improved. CAD with prior stents: Continue Imdur 30 twice daily Chronic pain: Continue with medication for pain. Obesity: Lifestyle modification education provided Code Status: This was discussed in detail with patient. Patient is DO NOT RESUSCITATE. DVT prophylaxis: Richard Advanced Care Planning-30 minutes: Await recommendations from physical therapy. Need to consider home health and physical therapy at discharge or skilled placement. Plan of care discussed with son yesterday. Await recommendations from physical therapy today to determine plan of care. Time Spent Managing Pts Care (In Minutes): 55
[2021-01-28 07:18] LABS: Absolute Lymphocytes (CBC) 0.6 K/uL (0.7-4.9); Basophils % 0.6 % (0-1.3); Hematocrit 34.9 % (36.0-45.0); Lymphocytes % 6.4 % (15.3-44.8); MPV 8.9 fL (7.6-11.3); RBC Red Blood Cell Count 3.97 M/uL (3.86-4.86)
[2021-01-28 07:35] LABS: Albumin 2.5 g/dL (3.4-5.0); Magnesium 1.8 mg/dL (1.8-2.4); Phosphorus 2.9 mg/dL (2.5-4.9); Potassium 3.3 mmol/L (3.5-5.1); Uric Acid 5.3 mg/dL (2.6-6.0)
[2021-01-28] MEDS ORDERED: MAGNESIUM SULFATE 1 gm IVPB 1 GM/100 ML BAG IV ONE (07:38)
[2021-01-28] MEDS: FAMOTIDINE 20 MG TAB PO SCH ×2 (08:56→20:35)
[2021-01-28] MEDS: CEFTRIAXONE 1,000 MG in NA CHLORIDE 0.9% 50 ML IVPB SCH (08:56)
[2021-01-28] MEDS: APIXABAN 5 MG TABLET PO SCH ×2 (08:56→20:34)
[2021-01-28] MEDS: FOLIC ACID 1 MG TABLET PO SCH (08:56)
[2021-01-28] MEDS: ANASTROZOLE 1 MG TAB PO SCH (08:56)
[2021-01-28] MEDS: THIAMINE HCL 100 MG TABLET PO SCH (08:56)
[2021-01-28] MEDS: ISOSORBIDE MONO SR 30 MG TAB PO SCH ×2 (08:57→20:34)
[2021-01-28] MEDS: AMLODIPINE 5 MG TAB PO SCH (08:57)
[2021-01-28] MEDS: FUROSEMIDE 40 MG TABLET PO SCH (08:57)
[2021-01-28] MEDS: LOSARTAN POTASSIUM 50 MG TABLET PO SCH (08:57)
[2021-01-28 11:23] VITALS: BMI 44.2
[2021-01-28] MEDS: NS KCL 40MEQ 40 MEQ/1,000 ML BAG IV SCH ×2 (13:00→23:00)
--- NOTE | 2021-01-28 13:09 | PN ---
Subjective: The patient was admitted with acute kidney injury and hypercalcemia. Physical Examination: Vital Signs: Blood pressure 132/70, pulse of 62, and afebrile. Chest: Clear to auscultation. Heart: S1, S2. Systolic murmur. Abdomen: Soft and nontender. Extremities: No edema. Neurologic: The patient confused. No focality. Laboratory Data: WBC 9.9, H and H 11.2/34.9, sodium 140, potassium 3.3, bicarb 28, BUN 13, creatinin e is 0.7, and calcium 10.2 trending down. Albumin 2.5, corrected calcium is 11.4. Serum protein eren ctrophoresis is still pending. Procalcitonin within normal limit. PTH of 17. Vitamin D still pendi ng. Medications: Current medications the patient is on are include: 1.Normal saline. 2.Arimidex. 3.Eliquis. 4.Amlodipine. 5.Losartan 100. 6.Isosorbide 30. 7.Metoprolol 50 b.i.d. 8.Magnesium oxide. Assessment And Plan: 1.Hypercalcemia secondary to immobilization and dehydration, on recovery phase. Calcium is trending down. I am going to continue hydration. I will give single dose of Lasix for establishing calcium diuresis and we will follow up. 2.Hypertension, not controlled. Losartan has been increased yesterday. The patient was started on isosorbide and amlodipine. We will follow up. 3.Atrial fibrillation with rapid ventricular response, rate controlled on metoprolol. We will follo w up with the primary. 4.Urinary tract infection secondary to Klebsiella pneumonia. The patient is on cefuroxime. We will follow up with the primary. ALEJA/MAKAYLA Voice ID: [id number] Report ID: [id number]
[2021-01-28 16:07] LABS: UR PROTEIN 40.8 mg/dL (<11.9); Urine Protein/Creatinine Ratio 0.91 ratio (<0.15)
[2021-01-28] MEDS: CEFUROXIME 250 MG TAB PO SCH (20:34)
[2021-01-28] MEDS: ATORVASTATIN 40 MG TAB PO SCH (20:35)
[2021-01-29] MEDS: METOPROLOL TAR 25 MG TAB PO SCH ×2 (05:36→18:58)
[2021-01-29 06:27] LABS: Absolute Lymphocytes (CBC) 0.4 K/uL (0.7-4.9); Basophils % 0.3 % (0-1.3); Hematocrit 33.9 % (36.0-45.0); Lymphocytes % 4.8 % (15.3-44.8); RBC Red Blood Cell Count 3.84 M/uL (3.86-4.86)
[2021-01-29 06:36] LABS: Albumin 2.5 g/dL (3.4-5.0); Magnesium 1.8 mg/dL (1.8-2.4); Phosphorus 2.6 mg/dL (2.5-4.9); Potassium 3.4 mmol/L (3.5-5.1)
[2021-01-29 07:12] LABS: Blood Morphology Comment NOT SEEN (NOT SEEN); Platelet Estimate ADEQ; White Blood Cell Scan OK (OK)
[2021-01-29] MEDS ORDERED: MAGNESIUM SULFATE 1 gm IVPB 1 GM/100 ML BAG IV ONE (09:00)
[2021-01-29] MEDS: NS KCL 40MEQ 40 MEQ/1,000 ML BAG IV SCH ×2 (09:00→13:12)
[2021-01-29] MEDS: ANASTROZOLE 1 MG TAB PO SCH (09:00)
[2021-01-29] MEDS: AMLODIPINE 5 MG TAB PO SCH (09:49)
[2021-01-29] MEDS: THIAMINE HCL 100 MG TABLET PO SCH (09:49)
[2021-01-29] MEDS: FOLIC ACID 1 MG TABLET PO SCH (09:49)
[2021-01-29] MEDS: LOSARTAN POTASSIUM 50 MG TABLET PO SCH (09:49)
[2021-01-29] MEDS: CEFUROXIME 250 MG TAB PO SCH ×2 (09:49→21:23)
[2021-01-29] MEDS: FAMOTIDINE 20 MG TAB PO SCH ×2 (09:49→21:24)
[2021-01-29] MEDS: APIXABAN 5 MG TABLET PO SCH ×2 (09:49→21:23)
[2021-01-29] MEDS: ISOSORBIDE MONO SR 30 MG TAB PO SCH ×2 (09:49→21:23)
[2021-01-29] MEDS ORDERED: ENSURE HIGH PROTEIN 237 ML CAN PO PRN (14:38)
[2021-01-29] MEDS ORDERED: HALOPERIDOL LACT 5 MG/ML INJ IV PRN (14:59)
[2021-01-29] MEDS: ATORVASTATIN 40 MG TAB PO SCH (21:24)
[2021-01-30] MEDS: HYDRALAZINE HCL 20 MG/ML VIAL IV PRN (00:55)
[2021-01-30] MEDS ORDERED: METOPROLOL TARTRATE 5 MG/5 ML INJ IV ONE ×2 (01:48→01:49)
[2021-01-30] MEDS: NS KCL 40MEQ 40 MEQ/1,000 ML BAG IV SCH ×2 (02:35→15:00)
--- NOTE | 2021-01-30 03:11 | PN ---
Date of Progress Note: 01/29/2021 Chief Complaint: Acute kidney injury associated with hypercalcemia. History Of Present Illness: Patient was found to have elevated calcium level. Corrected calcium was 11.4. Procalcitonin within normal limits. PTH of 17 and vitamin D is pending. Review of Systems: Patient is confused. She denies fever and chills. She denies pain. Physical Examination: Lungs: Clear to auscultation bilaterally. Heart: S1, S2. Abdomen: Soft, benign. Extremities: Trace edema. Neurologic: No tremor. Laboratory Data: Sodium 140, potassium 3.3, bicarbonate 28, BUN 13, creatinine 0.7, calcium correcte d 11.4, albumin 2.5. Impression And Plan: 1.Hypercalcemia secondary to volume depletion. Patient is on IV fluids. Calcium level is improving . Plan is to re-evaluate vitamin D level to rule out vitamin D toxicity. The patient received Lasix to treat hypercalcemia. Continue hydration and monitor fluid balance. 2.Hypertension. The patient is on losartan. She was started on amlodipine and isosorbide as well. 3.Atrial fibrillation with rapid ventricular response. Patient is on metoprolol for rate control. 4.Urinary tract infection due to Klebsiella pneumonia. Continue antibiotics. EB/MODL Voice ID: [id number] Report ID: [id number]
[2021-01-30 04:03] LABS: Absolute Lymphocytes (CBC) 0.5 K/uL (0.7-4.9); Basophils % 0.9 % (0-1.3); Hematocrit 34.5 % (36.0-45.0); Lymphocytes % 4.8 % (15.3-44.8); MPV 9.2 fL (7.6-11.3); RBC Red Blood Cell Count 3.94 M/uL (3.86-4.86)
[2021-01-30 04:18] LABS: Albumin 2.4 g/dL (3.4-5.0); Magnesium 1.9 mg/dL (1.8-2.4); Phosphorus 2.4 mg/dL (2.5-4.9)
[2021-01-30] MEDS: METOPROLOL TAR 25 MG TAB PO SCH ×2 (05:54→18:00)
--- NOTE | 2021-01-30 08:29 | P.PN ---
Subjective Date of Service: 01/29/21 Patient still confused. Patient is still not interacting that well. She really does not talk to me much. I did have to talk with her quite a bit and she did answer most of my questions fairly well. But she just would not give me answers on her own. Patient denies any other new complaints. Review of Systems 10-point ROS is otherwise unremarkable Physical Examination - Vital Signs Temperature: 97.4 F Blood Pressure: 156/90 Pulse: 95 Respirations: 19 Pulse Ox (%): 94 - Physical Exam General: Alert, In no apparent distress, Oriented x2, Demented, Confused Respiratory: Clear to auscultation bilaterally, Normal air movement Cardiovascular: Regular rate/rhythm, Normal S1 S2, No murmurs Gastrointestinal: Normal bowel sounds, Soft and benign, Non-distended, No tenderness Musculoskeletal: No clubbing, No swelling, No tenderness Neurological: Abnormal strength, Abnormal sensation, Abnormal cranial nerve function - Studies Medications List Reviewed: Yes Assessment & Plan - Problems (Diagnosis) (1) AMS (altered mental status) Current Visit: Yes Status: Acute (2) Atrial fibrillation Current Visit: Yes Status: Acute (3) CAD (coronary artery disease) Current Visit: Yes Status: Acute (4) UTI (urinary tract infection) Current Visit: Yes Status: Acute Qualifiers: Urinary tract infection type: acute cystitis - Plan Plan: 1. IV antibiotics 2. Monitor cardiac status 3. Physical therapy evaluation 4. Out of bed into a chair with meals 5. She may need medication for delirium and may start her on mood stabilizer 6. Patient would probably benefit from placement at a group home facility 7. GI and DVT prophylaxis Discharge Plan: Home Plan to discharge in: Greater than 2 days - Advance Directives Does patient have a Living Will: No Does patient have a Durable POA for Healthcare: No - Code Status/Comfort Care Code Status Assessed: Yes Code Status: Full Code Critical Care: No
--- NOTE | 2021-01-30 08:43 | P.PN ---
Date of Service: 01/30/21 Subjective Patient went into atrial fibrillation last night. Rate controlled with beta- suresh therapy. Review of Systems 10-point ROS is otherwise unremarkable Physical Examination - Vital Signs Reviewed - Physical Exam General: Alert, In no apparent distress, Oriented x2, Demented, Confused Respiratory: Clear to auscultation bilaterally, Normal air movement Cardiovascular: Regular rate/rhythm, Normal S1 S2, No murmurs Gastrointestinal: Normal bowel sounds, Soft and benign, Non-distended, No tenderness Musculoskeletal: No clubbing, No swelling, No tenderness Neurological: Abnormal strength, Abnormal sensation, Abnormal cranial nerve function - Studies Medications List Reviewed: Yes Assessment & Plan - Problems (Diagnosis) (1) AMS (altered mental status) Current Visit: Yes Status: Acute (2) Atrial fibrillation Current Visit: Yes Status: Acute (3) CAD (coronary artery disease) Current Visit: Yes Status: Acute (4) UTI (urinary tract infection) Current Visit: Yes Status: Acute Qualifiers: Urinary tract infection type: acute cystitis - Plan Plan: 1. Continue with oral antibiotic therapy 2. Monitor cardiac status; continue with beta-suresh therapy; echocardiogram pending 3. Physical therapy in get patient out of bed to ambulate 4. Strict blood sugar control 5. Status post Haldol last night. Started on Depakote 6. Patient would probably benefit from placement at a assisted facility 7. GI and DVT prophylaxis
[2021-01-30] MEDS: CEFUROXIME 250 MG TAB PO SCH ×2 (11:40→21:00)
[2021-01-30] MEDS: LOSARTAN POTASSIUM 50 MG TABLET PO SCH (11:40)
[2021-01-30] MEDS: FOLIC ACID 1 MG TABLET PO SCH (11:40)
[2021-01-30] MEDS: ANASTROZOLE 1 MG TAB PO SCH (11:40)
[2021-01-30] MEDS: FAMOTIDINE 20 MG TAB PO SCH ×2 (11:41→21:00)
[2021-01-30] MEDS: AMLODIPINE 5 MG TAB PO SCH (11:41)
[2021-01-30] MEDS: DIVALPROEX DR 500MG TAB PO SCH ×2 (11:41→21:00)
[2021-01-30] MEDS: THIAMINE HCL 100 MG TABLET PO SCH (11:41)
[2021-01-30] MEDS: APIXABAN 5 MG TABLET PO SCH ×2 (11:41→21:00)
[2021-01-30] MEDS: ISOSORBIDE MONO SR 30 MG TAB PO SCH ×2 (11:42→21:00)
--- NOTE | 2021-01-30 14:17 | P.PN ---
Subjective Date of Service: 01/30/21 Primary Care Provider: Dr. Pacheco Chief Complaint: Fall Subjective: Other (Remains bedridden.) Physical Examination - Vital Signs Temperature: 97.0 F Blood Pressure: 188/91 Pulse: 91 Respirations: 18 Pulse Ox (%): 95 - Physical Exam General: Other (Frail-looking) HEENT: Atraumatic, Normocephalic Neck: Supple, JVD not distended Respiratory: Other (Symmetric chest expansion) Cardiovascular: No rubs, No murmurs Gastrointestinal: Soft and benign, Non-distended Musculoskeletal: No clubbing Neurological: Other (No new focal deficits) Urinary: Other (No bladder distention) - Studies Medications List Reviewed: Yes Assessment And Plan - Plan # Hypercalcemia, non-PTH mediated, likely 2/2 immobility aggravated by volume depletion Corrected serum Ca 11.2 iPTH appropriately low/suppressed F/u PTH-rP, 25OHD, 1,25 OH2D Received IV fluids. [place] po fluid intake. Increase OOB mobility & weightbearing activities w/ PT/OT Hold off on bisphosphonate # Htn BP above goal Amlodipine increased to 10 mg po daily Cont Losartan 100 mg po daily Cont Metoprolol 75 mg po bid # Afib HR controlled F/u TTE On Metoprolol + Eliquis # Klebsiella UTI On Cefuroxime # HypoPO4 Neutraphos repletion today # Mechanical fall PT/OT
[2021-01-30] MEDS ORDERED: AMLODIPINE 5 MG TAB PO ONE (14:45)
[2021-01-30] MEDS ORDERED: POTASS/SODIUM PHOSPHATE 1 PKT POWD.PACK PO ONE (16:00)
[2021-01-30] MEDS: ATORVASTATIN 40 MG TAB PO SCH (21:00)
[2021-01-30] MEDS: METOPROLOL TARTRATE 5 MG/5 ML INJ IV PRN (21:40)
[2021-01-31] MEDS: NS KCL 40MEQ 40 MEQ/1,000 ML BAG IV SCH ×2 (01:31→11:00)
[2021-01-31 04:14] LABS: Albumin 2.4 g/dL (3.4-5.0); Magnesium 2.1 mg/dL (1.8-2.4); Phosphorus 2.1 mg/dL (2.5-4.9); Potassium 4.5 mmol/L (3.5-5.1)
[2021-01-31] MEDS: HYDRALAZINE HCL 20 MG/ML VIAL IV PRN ×2 (04:32→12:51)
[2021-01-31] MEDS: METOPROLOL TAR 25 MG TAB PO SCH ×2 (05:41→18:00)
--- NOTE | 2021-01-31 07:38 | ECHO ---
HEIGHT: 5 ft 3 in WEIGHT: 250 lb 0 oz DATE OF STUDY: 01/30/[address]: Clara Snider MD 2-DIMENSIONAL: YES M.MODE: YES DOPPLER: YES COLOR FLOW: YES TDS: NO PORTABLE: NO DEFINITY: NO BUBBLE STUDY: NO DIAGNOSIS: ATRIAL FIBRILLATION WITH RAPID VENTRICULAR RESPONSE CARDIAC HISTORY: CATHERIZATION: NO SURGERY: NO PROSTHETIC VALVE: NO PACEMAKER: NO MEASUREMENTS (cm) DIASTOLIC (NORMALS) SYSTOLIC (NORMALS) IVSd 1.2 (0.6-1.2) LA Diam 3.5 (1.9-4.0) LVEF 47% LVIDd 4.0 (3.5-5.7) LVIDs 3.1 (2.0-3.5) %FS 23% LVPWd 1.2 (0.6-1.2) Ao Diam 3.3 (2.0-3.7) 2 DIMENSIONAL ASSESSMENT: RIGHT ATRIUM: NORMAL LEFT ATRIUM: NORMAL RIGHT VENTRICLE: NORMAL LEFT VENTRICLE: NORMAL TRICUSPID VALVE: NORMAL MITRAL VALVE: NORMAL PULMONIC VALVE: NORMAL AORTIC VALVE: NORMAL PERICARDIAL EFFUSION: NONE AORTIC ROOT: NORMAL LEFT VENTRICULAR WALL MOTION: MILD GLOBAL HYPOKINESIS. DOPPLER/COLOR FLOW: MILD MITRAL AND TRICUSPID REGURGITATION. COMMENTS: MILD GLOBAL HYPOKINESIS. MILD MITRAL AND TRICUSPID REGURGITATION. NO THROMBUS. LEFT VENTRICULAR EJECTION FRACTION 47%. TECHNOLOGIST: Mariano ANG
[2021-01-31] MEDS: METOPROLOL TARTRATE 5 MG/5 ML INJ IV PRN (08:29)
[2021-01-31] MEDS: APIXABAN 5 MG TABLET PO SCH (09:00)
[2021-01-31] MEDS: CEFUROXIME 250 MG TAB PO SCH (09:00)
[2021-01-31] MEDS ORDERED: AMLODIPINE 10 MG TAB PO SCH (09:00)
[2021-01-31] MEDS: ANASTROZOLE 1 MG TAB PO SCH (09:00)
[2021-01-31] MEDS: FOLIC ACID 1 MG TABLET PO SCH (09:00)
[2021-01-31] MEDS: DIVALPROEX DR 500MG TAB PO SCH (09:00)
[2021-01-31] MEDS: FAMOTIDINE 20 MG TAB PO SCH (09:00)
[2021-01-31] MEDS: THIAMINE HCL 100 MG TABLET PO SCH (09:00)
[2021-01-31] MEDS: ISOSORBIDE MONO SR 30 MG TAB PO SCH (09:00)
[2021-01-31] MEDS: LOSARTAN POTASSIUM 50 MG TABLET PO SCH (09:00)
[2021-01-31] MEDS ORDERED: METOPROLOL TARTRATE 5 MG/5 ML INJ IV STA (13:10)
[2021-01-31] MEDS: METOPROLOL TARTRATE 5 MG/5 ML INJ IV SCH ×2 (14:00→22:18)
[2021-01-31] MEDS ORDERED: CEFTRIAXONE 1,000 MG in NA CHLORIDE 0.9% 50 ML IVPB ONE (14:00)
--- NOTE | 2021-01-31 14:48 | RAD REPORT ---
EXAM DESCRIPTION: CT - Head Brain Wo Cont - 01/31/2021 2:30 pm CLINICAL HISTORY: CVA COMPARISON: Head Brain Wo Cont dated 01/26/2021 TECHNIQUE: Axial 5 mm thick images of the head were obtained without IV contrast. All CT scans are performed using dose optimization technique as appropriate and may include automated exposure control or mA/KV adjustment according to patient size. FINDINGS: No intracranial hemorrhage, mass, edema or shift of mid-line structures. No acute infarcti on changes seen. No cortical edema or sulcal effacement. Atrophy and chronic ischemic changes are mil d. Ventricles are in proportion to the volume loss. Mastoid air cells and visualized portions of the paranasal sinuses are clear. No acute bony findings. IMPRESSION: Negative non-contrast CT head examination. No significant change from comparison. Chronic ischemic changes can mask non hemorrhagic CVA.
--- NOTE | 2021-01-31 14:56 | P.PN ---
Subjective Date of Service: 01/31/21 Primary Care Provider: Dr. Pacheco Chief Complaint: Fall Subjective: Other (Remains on npo d/t dysphagia.) Physical Examination - Vital Signs Temperature: 97.5 F Blood Pressure: 189/114 Pulse: 109 Respirations: 20 Pulse Ox (%): 95 - Physical Exam General: Other (Appears chronically ill) HEENT: Atraumatic, Normocephalic Neck: JVD not distended Respiratory: Other (Symmetric chest expansion) Cardiovascular: No rubs, No murmurs Gastrointestinal: Soft and benign, Non-distended Musculoskeletal: No clubbing Integumentary: No warmth Neurological: Other (+AMS) Urinary: Other (No bladder distention) External genitalia: Deferred Rectal: Deferred - Studies Medications List Reviewed: Yes Assessment And Plan - Plan # Hypercalcemia, non-PTH mediated, likely 2/2 immobility aggravated by volume depletion Corrected serum Ca 11.4 iPTH appropriately low/suppressed 25OHD wnl F/u PTH-rP & 1,25 OH2D Received IV fluids. Remains on npo d/t dysphagia Increase OOB mobility & weightbearing activities w/ PT/OT Hold off on bisphosphonate # Htn BP above goal Unable to take po Amlodipine, Losartan, Metoprolol Hydralazine 10 mg IV q4h prn & Labetalol 10 mg IV q4h prn for SBP > 160 mmHg # Afib HR controlled F/u TTE On Metoprolol + Eliquis # Klebsiella UTI On Cefuroxime # HypoPO4 Phos IV repletion today # Nutrition NPO currently d/t dysphagia & AMS Dc NS gtt Start Clinimix 60 cc/hr PPN # AMS Seems to be more acute than chronic Headt CT on 01/31 unremarkable Discussed w/ attending, Dr. Snider, in pursuing lumbar tap & starting empiric antibiotic/antiviral therapy/dexamethasone for ? encephalitis # Mechanical fall PT/OT
[2021-01-31] MEDS ORDERED: POTASS/SODIUM PHOSPHATE 1 PKT POWD.PACK PO ONE (15:30)
[2021-01-31] MEDS ORDERED: POTASSIUM PHOS 10 MM in NA CHLORIDE 0.9% 250 ML IV ONE (16:00)
[2021-01-31] MEDS ORDERED: LIPIDS IV SCH ×3 (17:00)
[2021-01-31] MEDS ORDERED: [UNRECOGNIZED DRUG - OTHER] IV SCH ×3 (17:00)
[2021-01-31] MEDS ORDERED: AA 5%/D20W/ELECTROLYTES-TPN 2,000 ML, Lipids 20% 250 ML with MULTIVITAMINS INJ 10 ML IV SCH ×3 (17:00)
[2021-01-31] MEDS ORDERED: MULTIVITAMINS IV SCH ×3 (17:00)
[2021-01-31] MEDS ORDERED: D5 IV SCH ×3 (17:00)
[2021-01-31] MEDS ORDERED: ELECTROLYTES IV SCH ×3 (17:00)
[2021-01-31] MEDS: LABETALOL 20 MG/4ML SYRINGE IV PRN (17:13)
[2021-01-31] MEDS ORDERED: LORazepam 2 MG/ML VIAL IV PRN (18:11)
[2021-01-31] MEDS ORDERED: CLONIDINE 0.1 MG/PATCH TD SCH (18:30)
[2021-01-31] MEDS ORDERED: CEFTRIAXONE 1000 MG/VIAL ONE (22:04)
[2021-01-31] MEDS ORDERED: NA CHLORIDE 0.9% 100 ML ONE (22:10)
[2021-01-31] MEDS: CEFTRIAXONE 1,000 MG in NA CHLORIDE 0.9% 50 ML IVPB SCH (22:21)
[2021-02-01] MEDS: METOPROLOL TARTRATE 5 MG/5 ML INJ IV SCH ×4 (03:49→20:12)
[2021-02-01 04:07] LABS: Albumin 2.3 g/dL (3.4-5.0); Phosphorus 2.9 mg/dL (2.5-4.9); Potassium 4.3 mmol/L (3.5-5.1)
[2021-02-01 04:32] LABS: Albumin, (SPE) 2.9 g/dL (3.8-4.8); Alpha-1-Globulins 0.5 g/dL (0.2-0.3); INTERPRETATION REPORT
[2021-02-01] MEDS: METOPROLOL TAR 25 MG TAB PO SCH ×2 (06:00→17:30)
[2021-02-01] MEDS ORDERED: DEXTROSE 10%-WATER 500 ML IV SCH ×3 (09:00→15:00)
--- NOTE | 2021-02-01 09:39 | RAD REPORT ---
EXAM DESCRIPTION: MRI - Brain Wo Cont - 02/01/2021 9:27 am CLINICAL HISTORY: AMS; aphasia COMPARISON: Head Brain Wo Cont dated 01/31/2021; Hip Right 2 View dated 01/26/2021 TECHNIQUE: Multi-sequence, multiplanar MR imaging of the brain was performed without contrast. FINDINGS: Motion degraded study is submitted. No intracranial hemorrhage, hydrocephalus or extra-axial fluid collections.Moderate T2 FLAIR hyperint ensity periventricular deep white matter is most compatible with chronic microvascular ischemic dietrich es. No edema or shift of midline structures. No findings to suspect brain mass. DWI is negative for a cute CVA. Midline structures are normally formed. Mastoid air cells and paranasal sinuses are clear. IMPRESSION: Negative for acute CVA or other acute intracranial process.
[2021-02-01] MEDS: CEFTRIAXONE 1,000 MG in NA CHLORIDE 0.9% 50 ML IVPB SCH ×2 (10:00→20:14)
--- NOTE | 2021-02-01 10:58 | P.PN ---
Date of Service: 01/31/21 Subjective Patient's symptoms are stable. CT of the brain did not reveal an acute infarct. MRI is pending. Review of Systems 10-point ROS is otherwise unremarkable Physical Examination - Vital Signs Reviewed - Physical Exam General: Still confused and only answers to yes and no questions. Does not respond appropriately to my questions Respiratory: Clear to auscultation bilaterally, Normal air movement Cardiovascular: Regular rate/rhythm, Normal S1 S2, No murmurs Gastrointestinal: Normal bowel sounds, Soft and benign, Non-distended, No tenderness Musculoskeletal: No clubbing, No swelling, No tenderness Neurological: Abnormal strength, Abnormal sensation, Abnormal cranial nerve function - Studies Medications List Reviewed: Yes Assessment & Plan - Problems (Diagnosis) (1) AMS (altered mental status) Current Visit: Yes Status: Acute (2) Atrial fibrillation Current Visit: Yes Status: Acute (3) CAD (coronary artery disease) Current Visit: Yes Status: Acute (4) UTI (urinary tract infection) Current Visit: Yes Status: Acute Qualifiers: Urinary tract infection type: acute cystitis (5) uncontrolled hypertension Current Visit: Yes Status: Acute (6) SERENA Current Visit: Yes Status: Acute - Plan Plan: 1. Patient not tolerating oral so will change to IV antibiotics; lumbar puncture as well 2. Echocardiogram with no significant abnormalities 3. Physical therapy to get patient out of bed to ambulate 4. Strict blood sugar control 5. Status post Haldol last night. Started on Depakote; change to IV 6. Patient would probably benefit from placement at a fpc facility; family contemplating hospice care 7. CT of the brain negative so will do MRI in the morning and get neurology consultation 8. GI and DVT prophylaxis
--- NOTE | 2021-02-01 11:10 | PN ---
Date of Progress Note: 02/01/2021 Subjective: The patient was admitted to the hospital for hypercalcemia, altered mental status, dysph agia. The patient is on TPN, hypercalcemia, with appropriate suppression of PTH. The patient was st arted on TPN. Physical Examination: General: When I saw the patient; patient is sleepy. Vital signs: Blood pressure 185/105, afebrile. Chest: Clear to auscultation. Heart: S1, S2. Systolic murmur. Abdomen: Soft, nontender. Extremity: No edema. Neuro: Alert, confused. No focality. Laboratory Data: WBC 10.9, H and H 11.1/34.5. Sodium 142, potassium 4.3, bicarb 23, BUN 16, creatin ine 0.6, calcium 10.6, albumin 2.3. Current Medications: The patient on include; 1.TPN. 2.Clonidine 0.1. 3.Metoprolol 75 b.i.d. 4.Dextrose. 5.Zofran. Assessment And Plan: 1.Hypercalcemia secondary to immobility. We are going to continue the patient holding on any vitami n D. I am going to change the TPN concentration without any calcium. 2.Hypernatremia, change on the TPN. We will follow up with primary. 3.Deconditioning. Continue PT/OT. 4.Hypertension, not controlled. Given that the patient n.p.o., I am going to increase her clonidine patch and we will follow up. ALEJA/MAKAYLA Voice ID: [id number] Report ID: [id number]
[2021-02-01] MEDS: CLONIDINE 0.2 MG/PATCH TD SCH (12:39)
[2021-02-01] MEDS: HYDRALAZINE HCL 20 MG/ML VIAL IV PRN ×2 (12:41→18:11)
[2021-02-01] MEDS: LABETALOL 20 MG/4ML SYRINGE IV PRN (15:59)
[2021-02-01] MEDS ORDERED: LIPIDS 20% IV SCH ×8 (17:00)
[2021-02-01] MEDS ORDERED: WATER IV SCH ×19 (17:00)
[2021-02-01] MEDS ORDERED: MULTIVITAMINS IV SCH ×7 (17:00)
[2021-02-01] MEDS ORDERED: DEXTROSE 10% IV SCH ×15 (17:00)
[2021-02-01] MEDS ORDERED: WATER FOR INJ STERILE IV SCH ×4 (17:00)
[2021-02-01] MEDS ORDERED: AMINO ACIDS 10% IV SCH ×19 (17:00)
[2021-02-01] MEDS ORDERED: DEXTROSE 50% IV SCH ×4 (17:00)
[2021-02-01] MEDS ORDERED: [UNRECOGNIZED DRUG - OTHER] IV SCH ×8 (17:00)
[2021-02-01] MEDS ORDERED: AA 4.25 %/D5W/ELECTROLYTES 2,000 ML IV SCH ×2 (17:00)
[2021-02-01] MEDS ORDERED: [UNRECOGNIZED DRUG - OTHER] IV SCH ×4 (17:00)
[2021-02-01] MEDS ORDERED: [UNRECOGNIZED DRUG - OTHER] IV SCH ×7 (17:00)
[2021-02-01] MEDS ORDERED: CEFTRIAXONE 1000 MG/VIAL ONE (19:59)
[2021-02-01] MEDS ORDERED: NA CHLORIDE 0.9% 0 ML ONE (20:02)
[2021-02-02] MEDS: METOPROLOL TARTRATE 5 MG/5 ML INJ IV SCH ×4 (02:00→20:19)
[2021-02-02] MEDS: METOPROLOL TAR 25 MG TAB PO SCH ×3 (06:00→18:25)
--- NOTE | 2021-02-02 06:34 | P.PN ---
Subjective Date of Service: 02/02/21 Primary Care Provider: Dr. Pacheco Chief Complaint: Fall Subjective: Other (Underwent lumbar puncture today.) Physical Examination - Vital Signs Temperature: 97.0 F Blood Pressure: 159/75 Pulse: 90 Respirations: 18 Pulse Ox (%): 94 - Physical Exam General: Other (Frail looking) HEENT: Normocephalic Neck: Supple, JVD not distended Respiratory: Other (Symmetric chest expansion) Cardiovascular: No rubs, No murmurs Gastrointestinal: Soft and benign Musculoskeletal: No clubbing Integumentary: No warmth Neurological: Other (+AMS) Urinary: Other (No bladder distention) External genitalia: Deferred Rectal: Deferred - Studies Medications List Reviewed: Yes Assessment And Plan - Plan # Hypercalcemia, non-PTH mediated, likely 2/2 immobility aggravated by volume depletion Corrected serum Ca 11.9 iPTH appropriately low/suppressed 25OHD & 1,25 OH2D wnl F/u PTH-rP Received IV fluids. Remains on npo d/t dysphagia Increase OOB mobility & weightbearing activities w/ PT/OT Hold off on bisphosphonate # Htn BP better controlled Unable to take po Amlodipine, Losartan, Metoprolol Hydralazine 10 mg IV q4h prn & Labetalol 10 mg IV q4h prn for SBP > 160 mmHg # Afib HR controlled F/u TTE On Metoprolol + Eliquis # Klebsiella UTI On Ceftriaxone # HypoPO4 Monitor/replete prn # Nutrition NPO currently d/t dysphagia & AMS Dc NS gtt Started Clinimix 60 cc/hr PPN on 02/01 # AMS Seems to be more acute than chronic Headt CT on 01/31 unremarkable S/p lumbar tap on 02/02. Empiric antibiotic/antiviral/HSV therapy/dexamethasone for ? encephalitis per other services # Mechanical fall PT/OT
[2021-02-02] MEDS ORDERED: NA CHLORIDE 0.9% 50 ML ONE (09:09)
[2021-02-02] MEDS ORDERED: CEFTRIAXONE 1000 MG/VIAL ONE (09:10)
[2021-02-02 09:31] LABS: Vitamin D 1,25-Dihydroxy Total 21 pg/mL (18-72); Vitamin D,1,25-OH2, D2 <8 pg/mL
--- NOTE | 2021-02-02 09:34 | P.PN ---
Date of Service: 02/01/21 Subjective Patient's MRI also did not reveal any acute abnormality. Nephrology did recommend getting a lumbar puncture. However, family is not wanting to much aggressive done anymore. If this comes back unremarkable then we probably should proceed with hospice care. She probably has progression of her vascular dementia. Review of Systems 10-point ROS is otherwise unremarkable Physical Examination - Vital Signs Reviewed - Physical Exam General: Still confused and only answers to yes and no questions. Does not respond appropriately to my questions Respiratory: Clear to auscultation bilaterally, Normal air movement Cardiovascular: Regular rate/rhythm, Normal S1 S2, No murmurs Gastrointestinal: Normal bowel sounds, Soft and benign, Non-distended, No tenderness Musculoskeletal: No clubbing, No swelling, No tenderness Neurological: Abnormal strength, Abnormal sensation, Abnormal cranial nerve function - Studies Medications List Reviewed: Yes Assessment & Plan - Problems (Diagnosis) (1) AMS (altered mental status) Current Visit: Yes Status: Acute (2) Atrial fibrillation Current Visit: Yes Status: Acute (3) CAD (coronary artery disease) Current Visit: Yes Status: Acute (4) UTI (urinary tract infection) Current Visit: Yes Status: Acute Qualifiers: Urinary tract infection type: acute cystitis (5) uncontrolled hypertension Current Visit: Yes Status: Acute (6) SERENA Current Visit: Yes Status: Acute - Plan Plan: 1. Patient not tolerating oral so will change to IV antibiotics; lumbar puncture as well 2. Echocardiogram with no significant abnormalities; minimally decreased ejection fraction at 47% 3. Physical therapy to get patient out of bed to ambulate; however, patient does not really follow commands. May be best suited for hospice care 4. Strict blood sugar control 5. Status post Haldol last night. Started on Depakote; change to IV 6. Patient would probably benefit from placement in hospice care 7. MRI is unremarkable 8. GI and DVT prophylaxis
[2021-02-02] MEDS: CEFTRIAXONE 1,000 MG in NA CHLORIDE 0.9% 50 ML IVPB SCH ×2 (09:52→20:20)
[2021-02-02 16:42] LABS: CSF Glucose 66 mg/dL (40-70)
[2021-02-02] MEDS ORDERED: AMINO ACIDS 10% IV SCH ×25 (17:00)
[2021-02-02] MEDS ORDERED: [UNRECOGNIZED DRUG - OTHER] IV SCH ×16 (17:00)
[2021-02-02] MEDS ORDERED: [UNRECOGNIZED DRUG - OTHER] IV SCH ×4 (17:00)
[2021-02-02] MEDS ORDERED: WATER IV SCH ×25 (17:00)
[2021-02-02] MEDS ORDERED: DEXTROSE 50% IV SCH ×5 (17:00)
[2021-02-02] MEDS ORDERED: LIPIDS 20% IV SCH ×21 (17:00)
[2021-02-02] MEDS ORDERED: [UNRECOGNIZED DRUG - OTHER] IV SCH ×5 (17:00)
[2021-02-02] MEDS ORDERED: DEXTROSE IV SCH ×4 (17:00)
[2021-02-02] MEDS ORDERED: WATER FOR INJ STERILE IV SCH ×4 (17:00)
[2021-02-02] MEDS ORDERED: AA 4.25 %/D5W/ELECTROLYTES 2,000 ML, Lipids 20% 250 ML with MULTIVITAMINS INJ 10 ML IV SCH ×6 (17:00)
[2021-02-02] MEDS ORDERED: DEXTROSE 10% IV SCH ×16 (17:00)
[2021-02-02] MEDS: LIPIDS 20% IV SCH ×3 (18:08)
[2021-02-02] MEDS: MULTIVITAMINS IV SCH ×3 (18:08)
[2021-02-02 19:19] LABS: Appearance CLEAR (CLEAR); Body Fluid Source CSF; Body Fluid WBC 3 /mm^3; Color of fluid Colorless (COLORLESS)
[2021-02-02 19:21] LABS: Appearance CLEAR (CLEAR); Body Fluid Source CSF; Color of fluid Colorless (COLORLESS); Fluid Total Volume 8.25 ml
[2021-02-02 19:22] LABS: Body Fluid WBC 3 /mm^3
[2021-02-03] MEDS: METOPROLOL TARTRATE 5 MG/5 ML INJ IV SCH ×4 (01:21→21:22)
[2021-02-03 05:59] LABS: Absolute Lymphocytes (CBC) 0.8 K/uL (0.7-4.9); Basophils % 0.3 % (0-1.3); Hematocrit 34.1 % (36.0-45.0); Lymphocytes % 10.1 % (15.3-44.8); MPV 9.1 fL (7.6-11.3); RBC Red Blood Cell Count 3.87 M/uL (3.86-4.86)
[2021-02-03] MEDS: METOPROLOL TAR 25 MG TAB PO SCH ×2 (06:00→18:00)
[2021-02-03 06:12] LABS: Albumin 2.1 g/dL (3.4-5.0); Magnesium 2.2 mg/dL (1.8-2.4); Phosphorus 2.1 mg/dL (2.5-4.9); Potassium 3.3 mmol/L (3.5-5.1)
[2021-02-03] MEDS ORDERED: KCL 20 MEQ/100 mL IVPB 20 MEQ/100 ML BAG IV SCH (07:00)
--- NOTE | 2021-02-03 08:32 | RAD REPORT ---
EXAM DESCRIPTION: RAD - Lumbar Puncture For Dx - 02/02/2021 2:51 pm CLINICAL HISTORY: Altered mental status COMPARISON: None. TECHNIQUE: The procedure, risks and alternatives to the procedure were discussed with the patient in detail. After answering all questions, both oral and written consent were obtained. Time-out procedu re was performed. The patient was placed in an oblique prone position on the fluoroscopic table. The skin of the lower back was prepped and draped in the usual sterile fashion. After anesthetizing the skin and deeper sof t tissues with 1% lidocaine, a 22 gauge needle was advanced into the thecal sac at the L4-5 level. At the conclusion of the procedure the needle was withdrawn and a sterile bandage placed over the pun cture site. The patient tolerated the procedure well without immediate complications. Post-procedure care and precaution instructions were discussed with the patient before the LP procedure. IMPRESSION: Successful fluoroscopic guided lumbar puncture. All obtained fluid was sent to the lab f or studies requested by the referring physician.
[2021-02-03] MEDS ORDERED: POTASSIUM PHOS IN 0.9 % NACL 15 MMOL/250 ML BAG IV ONE (09:00)
[2021-02-03] MEDS: CEFTRIAXONE 1,000 MG in NA CHLORIDE 0.9% 50 ML IVPB SCH ×2 (09:39→21:23)
[2021-02-03] MEDS ORDERED: AMINO ACIDS 10% IV SCH ×7 (17:00)
[2021-02-03] MEDS ORDERED: [UNRECOGNIZED DRUG - OTHER] IV SCH ×7 (17:00)
[2021-02-03] MEDS ORDERED: MULTIVITAMINS IV SCH ×7 (17:00)
[2021-02-03] MEDS ORDERED: DEXTROSE 10% IV SCH ×7 (17:00)
[2021-02-03] MEDS ORDERED: WATER IV SCH ×7 (17:00)
[2021-02-03] MEDS: MULTIVITAMINS IV SCH ×2 (18:09)
[2021-02-03] MEDS ORDERED: CEFTRIAXONE 1000 MG/VIAL ONE (20:15)
--- NOTE | 2021-02-03 20:24 | P.PN ---
Date of Service: 02/02/21 Subjective Spoke with family and patient's family does not want feeding tube. They are contemplating comfort measures. No aggressive intervention at this time. MRI was negative. LP did not show a significant amount white blood cells. Protein was elevated. Will discuss the case with Dr. Torres neurology. However, after LP she does appear to be much more talkative. She answering more of my questions more appropriately. May get physical therapy to reassess. TPN per Nephrology. Review of Systems 10-point ROS is otherwise unremarkable Physical Examination - Vital Signs Reviewed - Physical Exam General: Patient is much more talkative. Respiratory: Clear to auscultation bilaterally, Normal air movement Cardiovascular: Regular rate/rhythm, Normal S1 S2, No murmurs Gastrointestinal: Normal bowel sounds, Soft and benign, Non-distended, No tenderness Musculoskeletal: No clubbing, No swelling, No tenderness Neurological: Abnormal strength, Abnormal sensation, Abnormal cranial nerve function - Studies Medications List Reviewed: Yes Assessment & Plan - Problems (Diagnosis) (1) AMS (altered mental status) Current Visit: Yes Status: Acute (2) Atrial fibrillation Current Visit: Yes Status: Acute (3) CAD (coronary artery disease) Current Visit: Yes Status: Acute (4) UTI (urinary tract infection) Current Visit: Yes Status: Acute Qualifiers: Urinary tract infection type: acute cystitis (5) uncontrolled hypertension Current Visit: Yes Status: Acute (6) SERENA Current Visit: Yes Status: Acute - Plan Plan: 1. Status post lumbar puncture. Patient more awake and alert. Patient with elevated protein in the spinal fluid but no significant white blood cells. Neurology consultation pending. 2. Echocardiogram with no significant abnormalities; minimally decreased ejection fraction at 47% 3. Reassess with physical therapy. Family not wanting feeding tube at this time. 4. Strict blood sugar control; calcium level slightly elevated 5. Hold off on antipsychotics 6. If no significant improvement possible hospice care 7. MRI is unremarkable 8. GI and DVT prophylaxis
--- NOTE | 2021-02-03 20:29 | P.PN ---
Date of Service: 02/03/21 Subjective Patient continues to be more talkative today. Showing some improvement neurologically. Patient with protein elevation in spinal fluid. Will go ahead and give dose of steroids to see how patient responds. Will discuss the case with Neurology as well. 02/02 Spoke with family and patient's family does not want feeding tube. They are contemplating comfort measures. No aggressive intervention at this time. MRI was negative. LP did not show a significant amount white blood cells. Protein was elevated. Will discuss the case with Dr. Torres neurology. However, after LP she does appear to be much more talkative. She answering more of my questions more appropriately. May get physical therapy to reassess. TPN per Nephrology. Review of Systems 10-point ROS is otherwise unremarkable Physical Examination - Vital Signs Reviewed - Physical Exam General: Patient is much more talkative. Respiratory: Clear to auscultation bilaterally, Normal air movement Cardiovascular: Regular rate/rhythm, Normal S1 S2, No murmurs Gastrointestinal: Normal bowel sounds, Soft and benign, Non-distended, No tenderness Musculoskeletal: No clubbing, No swelling, No tenderness Neurological: Abnormal strength, Abnormal sensation, Abnormal cranial nerve function - Studies Medications List Reviewed: Yes Assessment & Plan - Problems (Diagnosis) (1) AMS (altered mental status) Current Visit: Yes Status: Acute (2) Atrial fibrillation Current Visit: Yes Status: Acute (3) CAD (coronary artery disease) Current Visit: Yes Status: Acute (4) UTI (urinary tract infection) Current Visit: Yes Status: Acute Qualifiers: Urinary tract infection type: acute cystitis (5) uncontrolled hypertension Current Visit: Yes Status: Acute (6) SERENA Current Visit: Yes Status: Acute - Plan Plan: 1. Status post lumbar puncture. Patient more awake and alert. Patient with elevated protein in the spinal fluid but no significant white blood cells. Neurology consultation pending. 2. Echocardiogram with no significant abnormalities; minimally decreased ejection fraction at 47% 3. Reassess with physical therapy. Family not wanting feeding tube at this time. 4. Strict blood sugar control; calcium level slightly elevated 5. Hold off on antipsychotics 6. If no significant improvement possible hospice care 7. MRI is unremarkable 8. GI and DVT prophylaxis
[2021-02-03 21:44] LABS: Phosphorus 2.2 mg/dL (2.5-4.9); Potassium 3.6 mmol/L (3.5-5.1)
--- NOTE | 2021-02-03 23:20 | PN ---
Date of Progress Note: 02/03/2021 Chief Complaint: Altered mental status, status post fall. History Of Present Illness: The patient was found to have hypercalcemia, which was [id number] likely secondary to immobility and volume contraction. Corrected sodium was 11.9. The patient was f ound to have volume depletion. Intact PTH was appropriately suppressed and remained low and 25-hydro xy vitamin D level was within normal limits. Review of Systems: The patient appears to be lethargic and she is arousable. Denies complaints. Physical Examination: Lungs: Clear to auscultation bilaterally. Heart: S1, S2. Abdomen: Soft and benign. Extremities: No edema. Impression And Plan: 1.Hypercalcemia. PTH was adequately suppressed and 25-hydroxy vitamin D level was not elevated. Th e patient has hypercalcemia due to immobility and volume depletion. Continue hydration. The patient was encouraged to continue p.o. fluid. Bisphosphonates are on hold. Bisphosphonate effect likely a lso contributory to hypercalcemia. The patient completed intravenous fluids. Currently, she is n. p .o. due to dysphagia and p.o. intake is limited. Adjust IV fluids accordingly. Monitor fluid balanc e. 2.Hypertension. Blood pressure control. Continue losartan, metoprolol, amlodipine, IV hydralazine on p.r.n. 3.Atrial fibrillation, rate controlled. 4.Urinary tract infection due to Klebsiella infection, on ceftriaxone, monitor. 5.Nutrition. Continue Clinimix . The patient is currently n.p.o. OSMAN/MAKAYLA Voice ID: [id number] Report ID: [id number]
[2021-02-04] MEDS ORDERED: POTASSIUM PHOS IN 0.9 % NACL 15 MMOL/250 ML BAG IV ONE (00:43)
[2021-02-04] MEDS: METOPROLOL TARTRATE 5 MG/5 ML INJ IV SCH ×4 (02:11→21:31)
[2021-02-04] MEDS: HYDRALAZINE HCL 20 MG/ML VIAL IV PRN (05:23)
[2021-02-04] MEDS: METOPROLOL TAR 25 MG TAB PO SCH ×2 (05:43→17:42)
[2021-02-04 06:37] LABS: Absolute Lymphocytes (CBC) 0.8 K/uL (0.7-4.9); Basophils % 0.3 % (0-1.3); Lymphocytes % 9.7 % (15.3-44.8); MPV 9.5 fL (7.6-11.3)
[2021-02-04 06:59] LABS: ALT/SGPT 14 U/L (12-78); AST/SGOT 25 U/L (15-37); Albumin 2.3 g/dL (3.4-5.0); Alkaline Phosphatase 100 U/L (45-117); BUN Blood Urea Nitrogen 22 mg/dL (7-18); Bicarbonate 25 mmol/L (21-32); Bilirubin Total 0.6 mg/dL (0.2-1.0); Glucose Level 91 mg/dL (74-106); Magnesium 1.9 mg/dL (1.8-2.4); NT PRO-BNP 5386 pg/mL (<450); Potassium 3.5 mmol/L (3.5-5.1); Protein, Total 6.7 g/dL (6.4-8.2); Sodium Level 139 mmol/L (136-145)
[2021-02-04] MEDS ORDERED: KCL 20 MEQ/100 mL IVPB 20 MEQ/100 ML BAG IV SCH (09:00)
[2021-02-04] MEDS: CEFTRIAXONE 1,000 MG in NA CHLORIDE 0.9% 50 ML IVPB SCH ×2 (10:19→21:00)
[2021-02-04] MEDS: MULTIVITAMINS IV SCH ×2 (17:44)
[2021-02-04] MEDS ORDERED: CEFTRIAXONE 1000 MG/VIAL ONE (20:58)
[2021-02-04] MEDS ORDERED: NA CHLORIDE 0.9% 100 ML ONE (21:03)
--- NOTE | 2021-02-04 21:28 | P.PN ---
Date of Service: 02/04/21 Subjective Patient continues to be more awake and alert. She is able to eat much better. I started her on a diet. Will also start physical therapy. Her long-term prognosis remains poor. Probably needs to go to a [place] [facility] 02/03 Patient continues to be more talkative today. Showing some improvement neurologically. Patient with protein elevation in spinal fluid. Will go ahead and give dose of steroids to see how patient responds. Will discuss the case with Neurology as well. Review of Systems 10-point ROS is otherwise unremarkable Physical Examination - Vital Signs Reviewed - Physical Exam General: Patient is much more talkative. Respiratory: Clear to auscultation bilaterally, Normal air movement Cardiovascular: Regular rate/rhythm, Normal S1 S2, No murmurs Gastrointestinal: Normal bowel sounds, Soft and benign, Non-distended, No tenderness Musculoskeletal: No clubbing, No swelling, No tenderness Neurological: Abnormal strength, Abnormal sensation, Abnormal cranial nerve function - Studies Medications List Reviewed: Yes Assessment & Plan - Problems (Diagnosis) (1) AMS (altered mental status) Current Visit: Yes Status: Acute (2) Atrial fibrillation Current Visit: Yes Status: Acute (3) CAD (coronary artery disease) Current Visit: Yes Status: Acute (4) UTI (urinary tract infection) Current Visit: Yes Status: Acute Qualifiers: Urinary tract infection type: acute cystitis (5) uncontrolled hypertension Current Visit: Yes Status: Acute (6) SERENA Current Visit: Yes Status: Acute - Plan Plan: 1. Status post lumbar puncture. Patient more awake and alert. Patient with elevated protein in the spinal fluid but no significant white blood cells. Neurology consultation pending. Continue with IV steroids 2. Echocardiogram with no significant abnormalities; minimally decreased ejection fraction at 47% 3. Reassess with physical therapy. Family not wanting feeding tube at this time. Advance diet as tolerated 4. Strict blood sugar control; calcium level slightly elevated 5. Hold off on antipsychotics 6. Since she has improved then may need PT and SNF placement 7. MRI is unremarkable 8. GI and DVT prophylaxis
[2021-02-04] MEDS: METHYLPREDNISOLONE 125 MG INJ IV SCH (22:00)
--- NOTE | 2021-02-04 23:15 | PN ---
Date of Progress Note: 02/04/2021 Chief Complaint: Hypercalcemia, altered mental status, status post fall. History Of Present Illness: The patient was found to have severe hypercalcemia, which was non-PTH-me diated likely secondary to immobility and volume contraction. Corrected calcium was 11.9. The patie nt was found to have volume depletion. Intact PTH was appropriately suppressed and remained low and 25-hydroxy vitamin D level was within normal limits. Review of Systems: The patient denies complaints. Physical Examination: Lungs: Clear to auscultation bilaterally. Heart: S1, S2. Abdomen: Soft and benign. Extremities: No edema. Impression And Plan: 1.Hypercalcemia, improved. PTH was adequately suppressed and 25-hydroxy vitamin D level was not eren vated. The patient will continue vitamin D. Avoid calcium supplement. The patient is to continue h ydration. The patient has limited p.o. intake and may need IV fluids. Bisphosphonate on hold likely bisphosphonate effect is contributory to hypercalcemia. 2.Hypertension. Blood pressure control. Continue current medications. 3.Atrial fibrillation, rate controlled. 4.Urinary tract infection, Klebsiella infection, on ceftriaxone. Continue current treatment. 5.Hypercalcemia. Plan is to check serum protein electrophoresis with immunofixation. EB/MODL Voice ID: [id number] Report ID: [id number]
[2021-02-05] MEDS: METOPROLOL TARTRATE 5 MG/5 ML INJ IV SCH ×2 (02:16→08:00)
[2021-02-05] MEDS: METHYLPREDNISOLONE 125 MG INJ IV SCH ×4 (05:35→20:24)
[2021-02-05] MEDS: METOPROLOL TAR 25 MG TAB PO SCH ×2 (05:35→19:02)
--- NOTE | 2021-02-05 06:16 | P.PN ---
Subjective Date of Service: 02/05/21 Primary Care Provider: Dr. Pacheco Chief Complaint: Fall Subjective: Improving (Patient more alert today.) Physical Examination - Vital Signs Temperature: 96.8 F Blood Pressure: 144/91 Pulse: 74 Respirations: 19 Pulse Ox (%): 97 - Studies Medications List Reviewed: Yes Assessment & Plan Discharge Plan: Other (halfway facility) Plan to discharge in: 48 Hours Physician Review Additional Text: COVID: Negative Chest x-ray: COMPARISON: None TECHNIQUE: AP portable chest image was obtained 01/26/2021 10:00 am . FINDINGS: Lung volumes are very low which accentuates heart, vasculature and lung markings. Interstitial edema or infiltrate could be masked in this setting. Mild failure that could also be masked. Right hemidiaphragm elevation is present. Heart size is upper normal. Trachea is midline. No measurable pleural effusion and no pneumothorax. No acute bony abnormality seen. No acute aortic findings suspected. IMPRESSION: Significantly limited portable study shows no peripheral mass or consolidation. Interstitial edema, interstitial infiltrate or mild failure could be masked by the exam limitations. CT head: COMPARISON: No comparisons TECHNIQUE: All CT scans are performed using dose optimization technique as appropriate and may include automated exposure control or mA/KV adjustment according to patient size. FINDINGS: No intracranial hemorrhage, hydrocephalus or extra-axial fluid collection.No areas of brain edema or evidence of midline shift. The paranasal sinuses and mastoids are clear. The calvarium is intact. IMPRESSION: No acute intracranial abnormality. Right Hip xray: COMPARISON: No comparisons FINDINGS: No pelvic fracture is identified. Status post left total hip arthroplasty. No evidence of hardware complications. The right hip is located. No right hip fracture seen. Degenerative changes are present in the lower spine. IMPRESSION: No pelvic or right hip fractures identified. No left hip arthroplasty is intact. Physical Exam: GENERAL: Patient more alert today. VITAL SIGNS: Reviewed HEENT: Dry mucous membranes LUNGS: Clear to auscultation. No crackles or wheezes are heard. HEART: A. fib rate controlled ABDOMEN: Soft, nontender, and nondistended. Positive bowel sounds. No hepatosplenomegaly was noted. EXTREMITIES: Without any cyanosis, clubbing, rash, lesions or peripheral edema. NEUROLOGIC: The patient is oriented to person, place and time. Strength and sensation are grossly intact. Face is symmetric. SKIN: Normal color, turgor and temperature. No ulcerations or rashes noted. Impression: Weakness and fall from sitting position with altered mental status status post lumbar tap UTI with urine culture showing Klebsiella pneumoniae Atrial fibrillation on chronic anticoagulation therapy Chronic diastolic CHF Hypokalemia Hypercalcemia Hypertension CAD with prior stents Chronic pain Obesity Plan: Weakness and fall from sitting position with altered mental status status post lumbar tap: Physical therapy and Occupational Therapy to continue to further evaluate. Patient status post lumbar puncture with improvement. Will discuss with neurology on further recommendations. Will need to pursue skilled placement. Patient remains on IV antibiotic therapy Rocephin. Will recheck urine culture. Patient on IV steroid. Await recommendations from neurology. Will discuss with nephrology as well. UTI with urine culture showing Klebsiella pneumoniae: Patient remains on IV Rocephin. Recheck urine culture. Will need 7-day treatment. Atrial fibrillation on chronic anticoagulation therapy: Rate better controlled. Currently on metoprolol 75 mg 1 pill twice daily. Currently off Eliquis. She was on Eliquis before. Chronic diastolic CHF: Continue with nephrology recommendations. Off Lasix. Hypokalemia: Electrolyte protocol in place. Hypercalcemia: Continue with nephrology recommendations. Hypertension: Currently on clonidine and metoprolol. Blood pressure stable. CAD with prior stents: Off Imdur Chronic pain: Continue with medication for pain. Obesity: Lifestyle modification education provided Code Status: This was discussed in detail with patient. Patient is DO NOT RESUSCITATE. DVT prophylaxis: SCD Advanced Care Planning-30 minutes: Physical therapy to assess ambulation. Will recommend skilled placement. Will discuss with family. Time Spent Managing Pts Care (In Minutes): 55
[2021-02-05] MEDS: CEFTRIAXONE 1,000 MG in NA CHLORIDE 0.9% 50 ML IVPB SCH ×2 (09:00→20:22)
[2021-02-05] MEDS ORDERED: NA CHLORIDE 0.9% 50 ML ONE ×2 (10:31→19:45)
[2021-02-05] MEDS: CEFTRIAXONE 1000 MG/VIAL ONE ×2 (10:35→10:39)
[2021-02-05] MEDS: MULTIVITAMINS IV SCH ×3 (18:59)
[2021-02-05] MEDS: LIPIDS 20% IV SCH ×3 (18:59)
[2021-02-05] MEDS ORDERED: CEFTRIAXONE 1000 MG/VIAL ONE (19:46)
[2021-02-05] MEDS: ENSURE ENLIVE 237 ML CAN PO SCH (20:23)
--- NOTE | 2021-02-06 03:36 | PN ---
Date of Progress Note: 02/05/2021 Chief Complaint: Hypercalcemia, altered mental status, status post fall. History Of Present Illness: The patient was found to have severe hypercalcemia which was non PTH med iated, likely secondary to immobility and volume contraction. Corrected sodium was 11.9 and has impr christa with IV fluid, intact PTH was appropriately suppressed and remained low and 25-hydroxyvitamin D level was within normal limits. Review of Systems: The patient cannot provide review of systems. Physical Examination: General: She is lethargic, arousable. Lungs: Clear to auscultation bilaterally. Heart: S1, S2. Abdomen: Soft, benign. Extremities: No edema. Impression And Plan: 1.Hypercalcemia, improved. PTH was adequately suppressed and 25-hydroxyvitamin D level was not elev ated. The patient will continue vitamin D calcium supplements. The patient is to continu e hydration by mouth. The patient p.o. intake and may need IV fluids. Bisphosphonate on h old, likely bisphosphonate effect is contributory to hypercalcemia in this particular case. 2.Hypertension, blood pressure controlled. Continue current medication, atrial fibrillation, rate c ontrol. 3.Urinary tract infection with Klebsiella, ceftriaxone, continue current treatment. 4.Hypercalcemia. Plan is to check electrophoresis, serum protein with immunofixation. EB/MODL Voice ID: [id number] Report ID: [id number]
[2021-02-06] MEDS: METOPROLOL TAR 25 MG TAB PO SCH ×2 (05:10→18:23)
--- NOTE | 2021-02-06 05:59 | P.PN ---
Subjective Date of Service: 02/06/21 Primary Care Provider: Dr. Pacheco Chief Complaint: Fall Subjective: Improving, Doing well Physical Examination - Vital Signs Temperature: 96.9 F Blood Pressure: 184/96 Pulse: 82 Respirations: 18 Pulse Ox (%): 94 - Studies Medications List Reviewed: Yes Assessment & Plan Discharge Plan: Other ([facility] facility) Plan to discharge in: 48 Hours Physician Review Additional Text: COVID: Negative Chest x-ray: COMPARISON: None TECHNIQUE: AP portable chest image was obtained 01/26/2021 10:00 am . FINDINGS: Lung volumes are very low which accentuates heart, vasculature and lung markings. Interstitial edema or infiltrate could be masked in this setting. Mild failure that could also be masked. Right hemidiaphragm elevation is present. Heart size is upper normal. Trachea is midline. No measurable pleural effusion and no pneumothorax. No acute bony abnormality seen. No acute aortic findings suspected. IMPRESSION: Significantly limited portable study shows no peripheral mass or consolidation. Interstitial edema, interstitial infiltrate or mild failure could be masked by t he exam limitations. CT head: COMPARISON: No comparisons TECHNIQUE: All CT scans are performed using dose optimization technique as appropriate and may include automated exposure control or mA/KV adjustment according to patient size. FINDINGS: No intracranial hemorrhage, hydrocephalus or extra-axial fluid collection.No areas of brain edema or evidence of midline shift. The paranasal sinuses and mastoids are clear. The calvarium is intact. IMPRESSION: No acute intracranial abnormality. Right Hip xray: COMPARISON: No comparisons FINDINGS: No pelvic fracture is identified. Status post left total hip arthroplasty. No evidence of hardware complications. The right hip is located. No right hip fracture seen. Degenerative changes are present in the lower spine. IMPRESSION: No pelvic or right hip fractures identified. No left hip arthroplasty is intact. Physical Exam: GENERAL: Patient alert, cooperative. VITAL SIGNS: Reviewed HEENT: Dry mucous membranes LUNGS: Clear to auscultation. No crackles or wheezes are heard. HEART: A. fib rate controlled ABDOMEN: Soft, nontender, and nondistended. Positive bowel sounds. No hepatosplenomegaly was noted. EXTREMITIES: Without any cyanosis, clubbing, rash, lesions or peripheral edema. NEUROLOGIC: The patient is oriented to person, place and time. Strength and sensation are grossly intact. Face is symmetric. SKIN: Normal color, turgor and temperature. No ulcerations or rashes noted. Impression: Weakness and fall from sitting position with altered mental status status post lumbar tap UTI with urine culture showing Klebsiella pneumoniae Atrial fibrillation on chronic anticoagulation therapy Chronic diastolic CHF Hypokalemia Hypercalcemia Hypertension CAD with prior stents Chronic pain Obesity Plan: Weakness and fall from sitting position with altered mental status status post lumbar tap: Patient more alert today. Case discussed with neurology. Continue with steroid. Will discontinue IV steroid and switch over to oral steroid then taper. Continue physical therapy and Occupational Therapy. Repeat urine culture obtained. Case discussed with son. We will pursue skilled placement. UTI with urine culture showing Klebsiella pneumoniae: Repeat culture obtained. Patient has received 7-day treatment of medication. Will discontinue medicationRocephin. Atrial fibrillation on chronic anticoagulation therapy: Rate better controlled. Currently on metoprolol 75 mg 1 pill twice daily. Restart Eliquis Chronic diastolic CHF: Continue with nephrology recommendations. Off Lasix. Hypokalemia: Electrolyte protocol in place. Hypercalcemia: Continue with nephrology recommendations. Hypertension: Currently on clonidine and metoprolol. Blood pressure still elevated. We will add Norvasc 2.5 mg daily CAD with prior stents: Off Imdur Chronic pain: Continue with medication for pain. Obesity: Lifestyle modification education provided Code Status: This was discussed in detail with patient. Patient is DO NOT RESUSCITATE. DVT prophylaxis: SCD Advanced Care Planning-30 minutes: Continue physical therapy. Will pursue skilled placement Time Spent Managing Pts Care (In Minutes): 55
[2021-02-06 06:31] LABS: Absolute Lymphocytes (CBC) 0.5 K/uL (0.7-4.9); Basophils % 0.2 % (0-1.3); Hematocrit 35.9 % (36.0-45.0); Lymphocytes % 4.6 % (15.3-44.8); MPV 9.9 fL (7.6-11.3); RBC Red Blood Cell Count 4.07 M/uL (3.86-4.86)
[2021-02-06 06:40] LABS: BUN Blood Urea Nitrogen 31 mg/dL (7-18); Bicarbonate 22 mmol/L (21-32); Glucose Level 203 mg/dL (74-106); Magnesium 2.1 mg/dL (1.8-2.4); Potassium 3.7 mmol/L (3.5-5.1); Sodium Level 140 mmol/L (136-145)
--- NOTE | 2021-02-06 07:09 | P.PN ---
Subjective Date of Service: 02/06/21 Primary Care Provider: Dr. Pacheco Chief Complaint: Fall Subjective: No new changes Physical Examination - Vital Signs Temperature: 96.9 F Blood Pressure: 184/96 Pulse: 82 Respirations: 18 Pulse Ox (%): 94 - Physical Exam General: In no apparent distress HEENT: Atraumatic, Normocephalic Neck: Supple, JVD not distended Respiratory: Diminished Cardiovascular: No rubs, No murmurs Gastrointestinal: Soft and benign, Non-distended Musculoskeletal: No clubbing Integumentary: No warmth Neurological: Normal tone Urinary: Other (no bladder distention) External genitalia: Deferred Rectal: Deferred - Studies Medications List Reviewed: Yes Assessment And Plan - Plan # Hypercalcemia, non-PTH mediated, likely 2/2 immobility aggravated by volume depletion Corrected serum Ca 12.1, monitor iPTH appropriately low/suppressed 25OHD & 1,25 OH2D wnl F/u PTH-rP IV fluids as needed Increase OOB mobility & weightbearing activities w/ PT/OT Hold off on bisphosphonate # Htn Cont current BP med regimen # Afib HR controlled On Metoprolol + Eliquis # Klebsiella UTI Abx per primary team # HypoPO4 Monitor/replete prn # Nutrition Clinimix d/c'ed on 02/06 Per primary team # AMS Seems to be more acute than chronic Headt CT on 01/31 unremarkable S/p lumbar tap on 02/02. CSF + elevated protein. Defer to primary team & Neurology regarding IV acyclovir for ? HSV encephalitis # Mechanical fall PT/OT # Dispo DC plan to SNF ongoing
[2021-02-06 08:19] LABS: Blood Morphology Comment NOT SEEN (NOT SEEN); Platelet Estimate ADEQ
[2021-02-06] MEDS ORDERED: POTASSIUM 25 MEQ EFFERV TAB PO ONE (09:00)
[2021-02-06] MEDS: ENSURE ENLIVE 237 ML CAN PO SCH ×3 (09:00→21:24)
[2021-02-06] MEDS: CEFTRIAXONE 1,000 MG in NA CHLORIDE 0.9% 50 ML IVPB SCH (09:00)
[2021-02-06] MEDS ORDERED: CEFTRIAXONE 1000 MG/VIAL ONE (10:06)
[2021-02-06] MEDS: METHYLPREDNISOLONE 125 MG INJ IV SCH (10:21)
[2021-02-06] MEDS: AMLODIPINE 5 MG TAB PO SCH (14:57)
[2021-02-06 15:30] LABS: Urine Appearance Clear (Clear); Urine Bilirubin Negative (Negative); Urine Blood Trace-intact (Negative); Urine Color Yellow (Yellow); Urine Glucose Negative (Negative); Urine Protein 3+ (Negative); Urine Specific Gravity >=1.030 (1.005-1.030); Urine Urobilinogen 0.2 mg/dL (0.2-1.0)
[2021-02-06 15:43] LABS: Urine Microscopic Reflex ORDER UMIC
[2021-02-06 16:22] LABS: Urine Amorphous Sediment 1+ /HPF (NONE SEEN); Urine Bacteria <20 /HPF (<20); Urine Mucus 3+ /HPF (NONE SEEN); Urine RBC <5 /HPF (NONE SEEN)
[2021-02-06] MEDS: HYDRALAZINE HCL 20 MG/ML VIAL IV PRN (17:18)
[2021-02-06] MEDS: predniSONE 20 MG TAB PO SCH (21:24)
[2021-02-06] MEDS: APIXABAN 5 MG TABLET PO SCH (21:24)
[2021-02-07] MEDS: METOPROLOL TAR 25 MG TAB PO SCH ×2 (05:47→17:49)
--- NOTE | 2021-02-07 05:58 | P.PN ---
Subjective Date of Service: 02/07/21 Primary Care Provider: Dr. Pacheco Chief Complaint: Fall Subjective: Doing well Physical Examination - Vital Signs Temperature: 96.9 F Blood Pressure: 125/70 Pulse: 71 Respirations: 18 Pulse Ox (%): 97 - Studies Medications List Reviewed: Yes Assessment & Plan Discharge Plan: Other (sen[facility] living facility) Plan to discharge in: 24 Hours Physician Review Additional Text: COVID: Negative Chest x-ray: COMPARISON: None TECHNIQUE: AP portable chest image was obtained 01/26/2021 10:00 am . FINDINGS: Lung volumes are very low which accentuates heart, vasculature and lung markings. Interstitial edema or infiltrate could be masked in this setting. Mild failure that could also be masked. Right hemidiaphragm elevation is present. Heart size is upper normal. Trachea is midline. No measurable pleural effusion and no pneumothorax. No acute bony abnormality seen. No acute aortic findings suspected. IMPRESSION: Significantly limited portable study shows no peripheral mass or consolidation. Interstitial edema, interstitial infiltrate or mild failure could be masked by the exam limitations. CT head: COMPARISON: No comparisons TECHNIQUE: All CT scans are performed using dose optimization technique as appropriate and may include automated exposure control or mA/KV adjustment according to patient size. FINDINGS: No intracranial hemorrhage, hydrocephalus or extra-axial fluid collection.No areas of brain edema or evidence of midline shift. The paranasal sinuses and mastoids are clear. The calvarium is intact. IMPRESSION: No acute intracranial abnormality. Right Hip xray: COMPARISON: No comparisons FINDINGS: No pelvic fracture is identified. Status post left total hip arthroplasty. No evidence of hardware complications. The right hip is located. No right hip fracture seen. Degenerative changes are present in the lower spine. IMPRESSION: No pelvic or right hip fractures identified. No left hip arthroplasty is intact. Physical Exam: GENERAL: Patient alert, cooperative. VITAL SIGNS: Reviewed HEENT: Dry mucous membranes LUNGS: Clear to auscultation. No crackles or wheezes are heard. HEART: A. fib rate controlled ABDOMEN: Soft, nontender, and nondistended. Positive bowel sounds. No hepatosplenomegaly was noted. EXTREMITIES: Without any cyanosis, clubbing, rash, lesions or peripheral edema. NEUROLOGIC: The patient is oriented to person, place and time. Strength and sensation are grossly intact. Face is symmetric. SKIN: Normal color, turgor and temperature. No ulcerations or rashes noted. Impression: Weakness and fall from sitting position with altered mental status status post lumbar tap UTI with urine culture showing Klebsiella pneumoniae Atrial fibrillation on chronic anticoagulation therapy Chronic diastolic CHF Hypokalemia Hypercalcemia Hypertension CAD with prior stents Chronic pain Obesity Plan: Weakness and fall from sitting position with altered mental status status post lumbar tap: Patient stable at this time. Patient continues with steroid taper. Case discussed at length with neurology and nephrology. No need for acyclovir as HSV encephalitis is not likely. Neurology suspects likely underlying autoimmune process. No further intervention required. Continue physical therapy and Occupational Therapy. Awaiting approval for skilled placement. Once approved patient can be discharged. Continue to discuss with patient and family. I will turn to service over to the hospitalist team tomorrow. I will go over plan of care with him. UTI with urine culture showing Klebsiella pneumoniae: Patient has completed treatment for UTI. Repeat culture obtained to monitor resolution. Atrial fibrillation on chronic anticoagulation therapy: Rate better controlled. Continue metoprolol 75 mg 1 pill twice daily and Eliquis 5 mg 1 pill twice daily. Chronic diastolic CHF: Continue with nephrology recommendations. Currently off Lasix Hypokalemia: Electrolyte protocol in place. Hypercalcemia: Continue with nephrology recommendations. Hypertension: Currently on clonidine patch 0.2 every 7 days, metoprolol 75 mg 1 pill twice daily and Norvasc 5 mg daily. Blood pressure well controlled. CAD with prior stents: Off Imdur Chronic pain: Continue with medication for pain. Obesity: Lifestyle modification education provided Code Status: This was discussed in detail with patient. Patient is DO NOT RESUSCITATE. DVT prophylaxis: SCD Advanced Care Planning-30 minutes: Awaiting approval for skilled placementmed resort. Will discuss with social work. Time Spent Managing Pts Care (In Minutes): 55
--- NOTE | 2021-02-07 06:09 | P.PN ---
Subjective Date of Service: 02/07/21 Primary Care Provider: Dr. Pacheco Chief Complaint: Fall Physical Examination - Vital Signs Temperature: 96.9 F Blood Pressure: 125/70 Pulse: 71 Respirations: 18 Pulse Ox (%): 97 - Studies Medications List Reviewed: Yes Assessment And Plan - Plan # Hypercalcemia, non-PTH mediated, likely 2/2 immobility aggravated by volume depletion Corrected serum Ca 12.5, monitor iPTH appropriately low/suppressed 25OHD & 1,25 OH2D wnl F/u PTH-rP IV fluids as needed Increase OOB mobility & weightbearing activities w/ PT/OT Pamidronate 60 mg IV given on 02/07 # Htn Cont current BP med regimen # Afib HR controlled On Metoprolol + Eliquis # Klebsiella UTI Abx per primary team # HypoPO4 Monitor/replete prn # Nutrition Clinimix d/c'ed on 02/06 Per primary team # AMS Seems to be more acute than chronic Headt CT on 01/31 unremarkable S/p lumbar tap on 02/02. CSF + elevated protein. Defer to primary team & Neurology regarding IV acyclovir for ? HSV encephalitis # Mechanical fall PT/OT # Dispo DC plan to SNF ongoing
[2021-02-07 06:18] LABS: Absolute Lymphocytes (CBC) 0.4 K/uL (0.7-4.9); Basophils % 0.1 % (0-1.3); Hematocrit 38.8 % (36.0-45.0); Lymphocytes % 3.6 % (15.3-44.8); MPV 9.6 fL (7.6-11.3); RBC Red Blood Cell Count 4.34 M/uL (3.86-4.86)
[2021-02-07 06:34] LABS: Albumin 2.6 g/dL (3.4-5.0); Magnesium 2.1 mg/dL (1.8-2.4); Phosphorus 2.5 mg/dL (2.5-4.9)
[2021-02-07 07:13] LABS: Blood Morphology Comment NOT SEEN (NOT SEEN); Platelet Estimate DECR; White Blood Cell Scan OK (OK)
[2021-02-07] MEDS: ENSURE ENLIVE 237 ML CAN PO SCH ×3 (09:00→20:37)
[2021-02-07] MEDS ORDERED: AMLODIPINE 5 MG TAB PO SCH (09:00)
[2021-02-07] MEDS: APIXABAN 5 MG TABLET PO SCH ×2 (09:00→20:36)
[2021-02-07] MEDS ORDERED: AMLODIPINE 2.5 MG TAB PO SCH (09:00)
[2021-02-07] MEDS: POTASS/SODIUM PHOSPHATE 1 PKT POWD.PACK PO SCH ×3 (09:00→11:01)
[2021-02-07] MEDS: AMLODIPINE 5 MG TAB PO SCH (09:00)
[2021-02-07] MEDS: predniSONE 20 MG TAB PO SCH ×2 (09:00→20:36)
[2021-02-07 16:31] LABS: Albumin, (SPE) 2.3 g/dL (3.8-4.8); Alpha-1-Globulins 0.4 g/dL (0.2-0.3); Alpha-2-Globulins 0.9 g/dL (0.5-0.9); Gamma Globulins 0.9 g/dL (0.8-1.7); INTERPRETATION REPORT
[2021-02-07 17:35] LABS: KAPPA LIGHT CHAIN, FREE SERUM 33.6 mg/L (3.3-19.4)
[2021-02-07] MEDS ORDERED: PAMIDRONATE DISOD 30 MG VIAL IV ONE ×2 (20:10→21:02)
[2021-02-07] MEDS ORDERED: NA CHLORIDE 0.9% IV ONE (21:00)
[2021-02-07] MEDS ORDERED: PAMIDRONATE IV ONE (21:00)
[2021-02-07] MEDS ORDERED: NA CHLORIDE 0.9% 250 ML ONE (21:24)
[2021-02-08] MEDS: HYDRALAZINE HCL 20 MG/ML VIAL IV PRN (00:22)
[2021-02-08 06:18] LABS: Absolute Lymphocytes (CBC) 0.5 K/uL (0.7-4.9); Basophils % 0.2 % (0-1.3); Hematocrit 34.6 % (36.0-45.0); Lymphocytes % 4.9 % (15.3-44.8); MPV 9.9 fL (7.6-11.3); RBC Red Blood Cell Count 3.95 M/uL (3.86-4.86)
[2021-02-08] MEDS: METOPROLOL TAR 25 MG TAB PO SCH ×2 (06:25→17:56)
[2021-02-08 06:32] LABS: Albumin 2.4 g/dL (3.4-5.0); Magnesium 2.2 mg/dL (1.8-2.4); Phosphorus 2.7 mg/dL (2.5-4.9)
--- NOTE | 2021-02-08 06:41 | P.PN ---
Subjective Date of Service: 02/08/21 Primary Care Provider: Dr. Pacheco Chief Complaint: Fall Subjective: No new changes Physical Examination - Vital Signs Temperature: 97.6 F Blood Pressure: 150/74 Pulse: 80 Respirations: 18 Pulse Ox (%): 94 - Physical Exam General: In no apparent distress HEENT: Atraumatic, Normocephalic Neck: Supple, JVD not distended Respiratory: Clear to auscultation bilaterally Cardiovascular: No rubs, No murmurs Gastrointestinal: Soft and benign, Non-distended Musculoskeletal: No clubbing Integumentary: No warmth Neurological: Normal tone Lymphatics: No axilla or inguinal lymphadenopathy Urinary: Other (No bladder distention) External genitalia: Deferred Rectal: Deferred - Studies Medications List Reviewed: Yes Assessment And Plan - Plan # Hypercalcemia, non-PTH mediated, likely 2/2 immobility aggravated by volume depletion Corrected serum Ca 12.5--> 12.4 today, monitor iPTH appropriately low/suppressed 25OHD & 1,25 OH2D wnl F/u PTH-rP IV fluids as needed Increase OOB mobility & weightbearing activities w/ PT/OT Pamidronate 60 mg IV given on 02/07 # Htn Cont current BP med regimen # Afib HR controlled On Metoprolol + Eliquis # Klebsiella UTI Abx per primary team # HypoPO4 Monitor/replete prn # Nutrition Clinimix d/c'ed on 02/06 Encouraged po intake # AMS Seems to be more acute than chronic Headt CT on 01/31 unremarkable S/p lumbar tap on 02/02. CSF + elevated protein. Defer to primary team & Neuro logy regarding IV acyclovir for ? HSV encephalitis # Mechanical fall PT/OT # Dispo DC plan to SNF ongoing
[2021-02-08] MEDS: ENSURE ENLIVE 237 ML CAN PO SCH ×3 (09:00→21:00)
[2021-02-08] MEDS: CLONIDINE 0.2 MG/PATCH TD SCH (09:00)
[2021-02-08] MEDS: AMLODIPINE 5 MG TAB PO SCH (09:39)
[2021-02-08] MEDS: predniSONE 20 MG TAB PO SCH ×2 (09:39→21:12)
[2021-02-08] MEDS: APIXABAN 5 MG TABLET PO SCH ×2 (09:39→21:13)
--- NOTE | 2021-02-08 14:19 | P.PN ---
Subjective Date of Service: 02/08/21 Primary Care Provider: Dr. Pacheco Chief Complaint: Fall she is lying in bed comfortable, no CP or SOB no abd pain no fever or chills over night Physical Examination - Vital Signs Temperature: 97.8 F Blood Pressure: 151/71 Pulse: 81 Respirations: 19 Pulse Ox (%): 96 - Studies Medications List Reviewed: Yes Assessment & Plan Physician Review: Patient Assessed, Agree with Above Assessment and Plan Physician Review Additional Text: COVID: Negative Chest x-ray: COMPARISON: None TECHNIQUE: AP portable chest image was obtained 01/26/2021 10:00 am . FINDINGS: Lung volumes are very low which accentuates heart, vasculature and lung markings. Interstitial edema or infiltrate could be masked in this setting. Mild failure that could also be masked. Right hemidiaphragm elevation is present. Heart size is upper normal. Trachea is midline. No measurable pleural effusion and no pneumothorax. No acute bony abnormality seen. No acute aortic findings suspected. IMPRESSION: Significantly limited portable study shows no peripheral mass or consolidation. Interstitial edema, interstitial infiltrate or mild failure could be masked by the exam limitations. CT head: COMPARISON: No comparisons TECHNIQUE: All CT scans are performed using dose optimization technique as appropriate and may include automated exposure control or mA/KV adjustment according to patient size. FINDINGS: No intracranial hemorrhage, hydrocephalus or extra-axial fluid collection.No areas of brain edema or evidence of midline shift. The paranasal sinuses and mastoids are clear. The calvarium is intact. IMPRESSION: No acute intracranial abnormality. Right Hip xray: COMPARISON: No comparisons FINDINGS: No pelvic fracture is identified. Status post left total hip arthroplasty. No evidence of hardware complications. The right hip is located. No right hip fracture seen. Degenerative changes are present in the lower spine. IMPRESSION: No pelvic or right hip fractures identified. No left hip arthroplasty is intact. Physical Exam: GENERAL: Patient alert, cooperative.not fully oriented VITAL SIGNS: Reviewed HEENT: Dry mucous membranes LUNGS: Clear to auscultation. No crackles or wheezes are heard. HEART: A. fib rate controlled ABDOMEN: overweight Soft, nontender, and nondistended. Positive bowel sounds. No hepatosplenomegaly was noted. EXTREMITIES: Without any cyanosis, clubbing, rash, lesions or peripheral edema. NEUROLOGIC: The patient is oriented to person, place and time. Strength and sensation are grossly intact. Face is symmetric. SKIN: Normal color, turgor and temperature. No ulcerations or rashes noted. Impression: Weakness and fall from sitting position with altered mental status status post lumbar tap UTI with urine culture showing Klebsiella pneumoniae Atrial fibrillation on chronic anticoagulation therapy Chronic diastolic CHF Hypokalemia Hypercalcemia Hypertension CAD with prior stents Chronic pain Obesity Plan: Weakness and fall from sitting position with altered mental status status post lumbar tap: -Patient stable at this timeon steroid tapering dose prednison 20 mg bid , Dr Langford discussed at length with neurology and nephrology. No need for acyclovir as HSV encephalitis is not likely. Neurology suspects likely underlying autoimmune process. No further intervention required. Continue physical therapy and Occupational Therapy. Awaiting approval for skilled placement hopefully in AM . Once approved patient can be discharged. UTI with urine culture showing Klebsiella pneumoniae: -Patient has completed treatment for UTI. Repeat culture neg Atrial fibrillation on chronic anticoagulation therapy: -Heart Rate well controlled today . Continue metoprolol 75 mg 1 pill twice daily and Eliquis 5 mg 1 pill twice daily. Chronic diastolic CHF: -Continue with nephrology recommendations. Currently off Lasix Hypokalemia: -resolved , Electrolyte protocol in place. clinimex stopped Hypercalcemia: -Continue with nephrology recommendations.pamindronate given on 02/07 , related to immobility, not related to PTH Hypertension: -Currently on clonidine patch 0.2 every 7 days, metoprolol 75 mg 1 pill twice daily and Norvasc 5 mg daily. Blood pressure well controlled. Hyperglycemia -? steroids related -will check HGBA1c, if glucose cont to be high will start ISS CAD with prior stents: -Off Imdur Chronic pain: -Continue with medication for pain. Obesity: -Lifestyle modification education provided Code Status: This was discussed in detail with patient. Patient is DO NOT RESUSCITATE. DVT prophylaxis: SCD Advanced Care Planning-30 minutes: Awaiting approval for [facility]. Will discuss with social work.
[2021-02-08] MEDS ORDERED: GLUCAGON 1 MG/VIAL IM PRN (14:33)
[2021-02-08] MEDS ORDERED: D50W 25 GM/50 ML SYRINGE IV PRN (14:33)
[2021-02-08] MEDS: INSULIN -REGULAR HUMAN 50 UNIT/0.5 ML ML SQ SCH ×2 (16:13→21:00)
[2021-02-09] MEDS: METOPROLOL TAR 25 MG TAB PO SCH ×2 (05:09→17:34)
--- NOTE | 2021-02-09 06:04 | P.PN ---
Subjective Date of Service: 02/10/21 Primary Care Provider: Dr. Pacheco Chief Complaint: Fall Subjective: No new changes Physical Examination - Vital Signs Temperature: 97.3 F Blood Pressure: 176/98 Pulse: 69 Respirations: 18 Pulse Ox (%): 97 - Physical Exam General: In no apparent distress HEENT: Atraumatic, Normocephalic Neck: Supple, JVD not distended Respiratory: Other (Symmetric chest expansion) Cardiovascular: No rubs, No murmurs Gastrointestinal: Soft and benign Musculoskeletal: No clubbing Integumentary: No warmth Neurological: Normal tone Lymphatics: No axilla or inguinal lymphadenopathy Urinary: Other (No bladder distention) External genitalia: Deferred Rectal: Deferred - Studies Medications List Reviewed: Yes Assessment And Plan - Plan # Hypercalcemia, non-PTH mediated, likely 2/2 immobility aggravated by volume depletion Corrected serum Ca 12.5--> 12.3 today, monitor iPTH appropriately low/suppressed 25OHD & 1,25 OH2D wnl F/u PTH-rP IV fluids as needed Increase OOB mobility & weightbearing activities w/ PT/OT Pamidronate 60 mg IV given on 02/07 # Htn BP above goal Start hydralazine 50 mg po bid Cont rest of BP meds same dose # Afib HR controlled On Metoprolol + Eliquis # Klebsiella UTI Abx per primary team # HypoPO4 Monitor/replete prn # Nutrition Clinimix d/c'ed on 02/06 Encouraged po intake # AMS Seems to be more acute than chronic Headt CT on 01/31 unremarkable S/p lumbar tap on 02/02. CSF + elevated protein. Defer to primary team & Neurology regarding IV acyclovir for ? HSV encephalitis # Mechanical fall PT/OT # Dispo DC plan to SNF ongoing Physician Review: Patient Assessed, Agree with Above Assessment and Plan
[2021-02-09 06:26] LABS: Albumin 2.5 g/dL (3.4-5.0); Magnesium 2.3 mg/dL (1.8-2.4); Phosphorus 2.7 mg/dL (2.5-4.9); Potassium 4.5 mmol/L (3.5-5.1)
[2021-02-09] MEDS: INSULIN -REGULAR HUMAN 50 UNIT/0.5 ML ML SQ SCH ×4 (07:30→21:00)
[2021-02-09] MEDS: ENSURE ENLIVE 237 ML CAN PO SCH ×3 (09:00→21:00)
[2021-02-09] MEDS: AMLODIPINE 5 MG TAB PO SCH (09:28)
[2021-02-09] MEDS: APIXABAN 5 MG TABLET PO SCH ×2 (09:28→21:10)
[2021-02-09] MEDS: predniSONE 20 MG TAB PO SCH ×2 (09:28→21:10)
--- NOTE | 2021-02-09 11:39 | P.PN ---
Subjective Date of Service: 02/09/21 Primary Care Provider: Dr. Pacheco Chief Complaint: Fall she is lying in bed comfortable, no CP or SOB no abd pain no fever or chills over night she is confused still Physical Examination - Vital Signs Temperature: 97.8 F Blood Pressure: 174/86 Pulse: 69 Respirations: 18 Pulse Ox (%): 97 - Studies Medications List Reviewed: Yes Assessment & Plan Physician Review: Patient Assessed, Agree with Above Assessment and Plan Physician Review Additional Text: CT head: COMPARISON: No comparisons TECHNIQUE: All CT scans are performed using dose optimization technique as appropriate and may include automated exposure control or mA/KV adjustment according to patient size. FINDINGS: No intracranial hemorrhage, hydrocephalus or extra-axial fluid collection.No areas of brain edema or evidence of midline shift. The paranasal sinuses and mastoids are clear. The calvarium is intact. IMPRESSION: No acute intracranial abnormality. Right Hip xray: COMPARISON: No comparisons FINDINGS: No pelvic fracture is identified. Status post left total hip arthroplasty. No evidence of hardware complications. The right hip is located. No right hip fracture seen. Degenerative changes are present in the lower spine. IMPRESSION: No pelvic or right hip fractures identified. No left hip arthroplasty is intact. Physical Exam: GENERAL: Patient alert, cooperative.not fully oriented VITAL SIGNS: Reviewed HEENT: Dry mucous membranes LUNGS: Clear to auscultation. No crackles or wheezes are heard. HEART: A. fib rate controlled ABDOMEN: overweight Soft, nontender, and nondistended. Positive bowel sounds. No hepatosplenomegaly was noted. EXTREMITIES: Without any cyanosis, clubbing, rash, lesions or peripheral edema. NEUROLOGIC: The patient is oriented to person, place and time. Strength and sensation are grossly intact. Face is symmetric. SKIN: Normal color, turgor and temperature. No ulcerations or rashes noted. Impression: Weakness and fall from sitting position with altered mental status status post lumbar tap UTI with urine culture showing Klebsiella pneumoniae Atrial fibrillation on chronic anticoagulation therapy Chronic diastolic CHF Hypokalemia Hypercalcemia Hypertension CAD with prior stents Chronic pain Obesity Plan: Weakness and fall from sitting position with altered mental status status post lumbar tap: -Patient stable at this time on steroid tapering dose prednison 20 mg bid , Dr Langford discussed at length with neurology and nephrology. No need for acyclovir as HSV encephalitis is not likely. Neurology suspects likely underlying autoimmune process. No further intervention required. Continue physical therapy and Occupational Therapy. Awaiting approval for skilled placement disucssed with [employer] , will be not till friday ?? UTI with urine culture showing Klebsiella pneumoniae: -Patient has completed treatment for UTI. Repeat culture cont to be negative Atrial fibrillation on chronic anticoagulation therapy: -Heart Rate well controlled today . Continue metoprolol 75 mg 1 pill twice daily and Eliquis 5 mg 1 pill twice daily. Chronic diastolic CHF: -Continue with nephrology recommendations. Currently off Lasix Hypokalemia: -resolved , Electrolyte protocol in place. clinimex stopped Hypercalcemia: -Continue with nephrology recommendations.pamindronate given on 02/07 , related to immobility, not related to PTH Hypertension: -worse, will increase clonidine patch 0.3 every 7 days, metoprolol 75 mg 1 pill twice daily and increase Norvasc to 10mg daily. Blood pressure well controlled. Hyperglycemia -? steroids related -HGBA1c ordered but not resulted , if glucose cont to be high will start ISS CAD with prior stents: -Off Imdur Chronic pain: -Continue with medication for pain. Obesity: -Lifestyle modification education provided Code Status: This was discussed in detail with patient. Patient is DO NOT RESUSCITATE. DVT prophylaxis: SCD Advanced Care Planning-30 minutes: Awaiting approval for [facility]. Will discuss with social work.
[2021-02-09] MEDS: CLONIDINE 0.3 MG/PATCH TD SCH (13:39)
[2021-02-09] MEDS: HYDRALAZINE HCL 25 MG TABLET PO SCH ×2 (16:41→21:10)
[2021-02-09] MEDS: ACETAMINOPHEN 500 MG TAB PO PRN (16:44)
[2021-02-10 04:28] LABS: Absolute Lymphocytes (CBC) 0.4 K/uL (0.7-4.9); Basophils % 0.1 % (0-1.3); Hematocrit 37.6 % (36.0-45.0); MPV 9.9 fL (7.6-11.3); RBC Red Blood Cell Count 4.25 M/uL (3.86-4.86)
[2021-02-10 04:42] LABS: Albumin 2.5 g/dL (3.4-5.0); Magnesium 2.2 mg/dL (1.8-2.4); Phosphorus 2.1 mg/dL (2.5-4.9); Potassium 4.2 mmol/L (3.5-5.1)
[2021-02-10] MEDS: METOPROLOL TAR 25 MG TAB PO SCH ×2 (06:00→17:16)
--- NOTE | 2021-02-10 06:12 | P.PN ---
Subjective Date of Service: 02/10/21 Primary Care Provider: Dr. Pacheco Chief Complaint: Fall Subjective: No new changes Physical Examination - Vital Signs Temperature: 98.0 F Blood Pressure: 157/77 Pulse: 82 Respirations: 20 Pulse Ox (%): 94 - Physical Exam General: In no apparent distress HEENT: Atraumatic, Normocephalic Neck: Supple Respiratory: Normal air movement Cardiovascular: No rubs, No murmurs Gastrointestinal: Soft and benign, Non-distended Musculoskeletal: No clubbing Integumentary: No warmth - Studies Medications List Reviewed: Yes Assessment And Plan - Plan # Hypercalcemia, non-PTH mediated, likely 2/2 immobility aggravated by volume depletion Corrected serum Ca 12.3 iPTH appropriately low/suppressed 25OHD & 1,25 OH2D wnl F/u PTH-rP IV fluids as needed Increase OOB mobility & weightbearing activities w/ PT/OT Pamidronate 60 mg IV given on 02/07 # Htn Cont current BP meds # Afib HR controlled On Metoprolol + Eliquis # Klebsiella UTI Abx per primary team # HypoPO4 NeutraPhos po today # Nutrition Clinimix d/c'ed on 02/06 Encouraged po intake # AMS Seems to be more acute than chronic Headt CT on 01/31 unremarkable S/p lumbar tap on 02/02. CSF + elevated protein. Defer to primary team & Neurology regarding IV acyclovir for ? HSV encephalitis # Mechanical fall PT/OT # Dispo DC plan to SNF ongoing Physician Review: Patient Assessed, Agree with Above Assessment and Plan Physician Review Additional Text: CT head: COMPARISON: No comparisons TECHNIQUE: All CT scans are performed using dose optimization technique as appropriate and may include automated exposure control or mA/KV adjustment according to patient size. FINDINGS: No intracranial hemorrhage, hydrocephalus or extra-axial fluid collection.No areas of brain edema or evidence of midline shift. The paranasal sinuses and mastoids are clear. The calvarium is intact. IMPRESSION: No acute intracranial abnormality. Right Hip xray: COMPARISON: No comparisons FINDINGS: No pelvic fracture is identified. Status post left total hip arthroplasty. No evidence of hardware complications. The right hip is located. No right hip fracture seen. Degenerative changes are present in the lower spine. IMPRESSION: No pelvic or right hip fractures identified. No left hip arthroplasty is intact. Physical Exam: GENERAL: Patient alert, cooperative.not fully oriented VITAL SIGNS: Reviewed HEENT: Dry mucous membranes LUNGS: Clear to auscultation. No crackles or wheezes are heard. HEART: A. fib rate controlled ABDOMEN: overweight Soft, nontender, and nondistended. Positive bowel sounds. No hepatosplenomegaly was noted. EXTREMITIES: Without any cyanosis, clubbing, rash, lesions or peripheral edema. NEUROLOGIC: The patient is oriented to person, place and time. Strength and sensation are grossly intact. Face is symmetric. SKIN: Normal color, turgor and temperature. No ulcerations or rashes noted. Impression: Weakness and fall from sitting position with altered mental status status post lumbar tap UTI with urine culture showing Klebsiella pneumoniae Atrial fibrillation on chronic anticoagulation therapy Chronic diastolic CHF Hypokalemia Hypercalcemia Hypertension CAD with prior stents Chronic pain Obesity Plan: Weakness and fall from sitting position with altered mental status status post lumbar tap: -Patient stable at this time on steroid tapering dose prednison 20 mg bid , Dr Langford discussed at length with neurology and nephrology. No need for acyclovir as HSV encephalitis is not likely. Neurology suspects likely underlying autoimmune process. No further intervention required. Continue physical therapy and Occupational Therapy. Awaiting approval for skilled placement disucssed with [employer] , will be not till friday ?? UTI with urine culture showing Klebsiella pneumoniae: -Patient has completed treatment for UTI. Repeat culture cont to be negative Atrial fibrillation on chronic anticoagulation therapy: -Heart Rate well controlled today . Continue metoprolol 75 mg 1 pill twice daily and Eliquis 5 mg 1 pill twice daily. Chronic diastolic CHF: -Continue with nephrology recommendations. Currently off Lasix Hypokalemia: -resolved , Electrolyte protocol in place. clinimex stopped Hypercalcemia: -Continue with nephrology recommendations.pamindronate given on 02/07 , related to immobility, not related to PTH Hypertension: -worse, will increase clonidine patch 0.3 every 7 days, metoprolol 75 mg 1 pill twice daily and increase Norvasc to 10mg daily. Blood pressure well controlled. Hyperglycemia -? steroids related -HGBA1c ordered but not resulted , if glucose cont to be high will start ISS CAD with prior stents: -Off Imdur Chronic pain: -Continue with medication for pain. Obesity: -Lifestyle modification education provided Code Status: This was discussed in detail with patient. Patient is DO NOT RESUSCITATE. DVT prophylaxis: SCD Advanced Care Planning-30 minutes: Awaiting approval for [facility] resort. Will discuss with social work.
[2021-02-10] MEDS: INSULIN -REGULAR HUMAN 50 UNIT/0.5 ML ML SQ SCH ×4 (07:30→21:00)
[2021-02-10] MEDS: HYDRALAZINE HCL 25 MG TABLET PO SCH ×2 (09:23→21:53)
[2021-02-10] MEDS: APIXABAN 5 MG TABLET PO SCH ×2 (09:23→21:53)
[2021-02-10] MEDS: predniSONE 20 MG TAB PO SCH ×2 (09:23→21:53)
[2021-02-10] MEDS: AMLODIPINE 10 MG TAB PO SCH (09:23)
[2021-02-10] MEDS: ENSURE ENLIVE 237 ML CAN PO SCH ×3 (09:24→21:57)
[2021-02-10] MEDS: ACETAMINOPHEN 500 MG TAB PO PRN (09:28)
--- NOTE | 2021-02-10 11:17 | P.PN ---
Subjective Date of Service: 02/10/21 Primary Care Provider: Dr. Pacheco Chief Complaint: Fall she is lying in bed comfortable, no CP or SOB no abd pain no fever or chills , she is confused still Physical Examination - Vital Signs Temperature: 97.0 F Blood Pressure: 137/76 Pulse: 67 Respirations: 18 Pulse Ox (%): 97 - Studies Medications List Reviewed: Yes Assessment & Plan Physician Review: Patient Assessed, Agree with Above Assessment and Plan Physician Review Additional Text: CT head: COMPARISON: No comparisons TECHNIQUE: All CT scans are performed using dose optimization technique as appr opriate and may include automated exposure control or mA/KV adjustment according to patient size. FINDINGS: No intracranial hemorrhage, hydrocephalus or extra-axial fluid collection.No areas of brain edema or evidence of midline shift. The paranasal sinuses and mastoids are clear. The calvarium is intact. IMPRESSION: No acute intracranial abnormality. Right Hip xray: COMPARISON: No comparisons FINDINGS: No pelvic fracture is identified. Status post left total hip arthroplasty. No evidence of hardware complications. The right hip is located. No right hip fracture seen. Degenerative changes are present in the lower spine. IMPRESSION: No pelvic or right hip fractures identified. No left hip arthroplasty is intact. Physical Exam: GENERAL: Patient alert, cooperative.not fully oriented VITAL SIGNS: Reviewed HEENT: Dry mucous membranes LUNGS: Clear to auscultation. No crackles or wheezes are heard. HEART: A. fib rate controlled ABDOMEN: overweight Soft, nontender, and nondistended. Positive bowel sounds. No hepatosplenomegaly was noted. EXTREMITIES: Without any cyanosis, clubbing, rash, lesions or peripheral edema. NEUROLOGIC: The patient is oriented to person, place and time. Strength and sensation are grossly intact. Face is symmetric. SKIN: Normal color, turgor and temperature. No ulcerations or rashes noted. Impression: Weakness and fall from sitting position with altered mental status status post lumbar tap UTI with urine culture showing Klebsiella pneumoniae Atrial fibrillation on chronic anticoagulation therapy Chronic diastolic CHF Hypokalemia Hypercalcemia Hypertension CAD with prior stents Chronic pain Obesity Plan: Weakness and fall from sitting position with altered mental status status post lumbar tap: -Patient stable at this time on steroid tapering dose prednison 20 mg bid , Dr Langford discussed at length with neurology and nephrology. No need for acyclovir as HSV encephalitis is not likely. Neurology suspects likely underlying autoimmune process. No further intervention required. Continue physical therapy and Occupational Therapy. Awaiting approval for skilled placement disucssed with [employer] , will be not till friday ?? UTI with urine culture showing Klebsiella pneumoniae: -Patient has completed treatment for UTI. Repeat culture cont to be negative Atrial fibrillation on chronic anticoagulation therapy: -Heart Rate well controlled . Continue metoprolol 75 mg 1 pill twice daily and Eliquis 5 mg 1 pill twice daily. Chronic diastolic CHF: -Continue with nephrology recommendations. Currently off Lasix Hypercalcemia: -10.3 today ,Continue with nephrology recommendations.pamindronate given on 02/07 , related to immobility, not related to PTH Hypertension: -well controlled today, I increased clonidine patch to 0.3 every 7 days yesterday, Cont metoprolol 75 mg 1 pill twice daily and increase Norvasc to 10mg daily. Blood pressure well controlled. Hyperglycemia -? steroids related glucose in around 150s -HGBA1c ordered but not resulted , if glucose cont to be high will start ISS CAD with prior stents: -Off Imdur Chronic pain: -Continue with medication for pain. Obesity: -Lifestyle modification education provided Code Status: This was discussed in detail with patient. Patient is DO NOT RESUSCITATE. DVT prophylaxis: SCD Advanced Care Planning-30 minutes: Awaiting approval for [facility]. Will discuss with social work.
[2021-02-10] MEDS ORDERED: POTASS/SODIUM PHOSPHATE 1 PKT POWD.PACK PO ONE (15:00)
[2021-02-10] MEDS: BENZONATATE 100 MG CAP PO PRN (23:19)
[2021-02-11 03:43] LABS: Albumin 2.4 g/dL (3.4-5.0); Magnesium 2.2 mg/dL (1.8-2.4); Phosphorus 2.3 mg/dL (2.5-4.9); Potassium 4.8 mmol/L (3.5-5.1)
[2021-02-11] MEDS: METOPROLOL TAR 25 MG TAB PO SCH ×2 (06:01→17:29)
--- NOTE | 2021-02-11 06:22 | P.PN ---
Subjective Date of Service: 02/11/21 Primary Care Provider: Dr. Pacheco Chief Complaint: Fall Subjective: No new changes Physical Examination - Vital Signs Temperature: 98.0 F Blood Pressure: 157/77 Pulse: 82 Respirations: 20 Pulse Ox (%): 94 - Physical Exam General: In no apparent distress HEENT: Atraumatic, Normocephalic Neck: Supple, JVD not distended Respiratory: Other (Symmetric chest expansion) Cardiovascular: No rubs, No murmurs Gastrointestinal: Soft and benign, Non-distended Musculoskeletal: No clubbing Integumentary: No erythema Neurological: Normal tone Urinary: Other (No bladder distention) External genitalia: Deferred Rectal: Deferred - Studies Medications List Reviewed: Yes Assessment And Plan - Plan # Hypercalcemia, non-PTH mediated, likely 2/2 immobility aggravated by volume depletion Corrected serum Ca 11.4 iPTH appropriately low/suppressed 25OHD & 1,25 OH2D wnl F/u PTH-rP IV fluids as needed Increase OOB mobility & weightbearing activities w/ PT/OT Pamidronate 60 mg IV given on 02/07 # Htn Cont current BP meds # Afib HR controlled On Metoprolol + Eliquis # Klebsiella UTI Abx per primary team # HypoPO4 Phos repletion ordered # Nutrition Clinimix d/c'ed on 02/06 Encouraged po intake # AMS Seems to be more acute than chronic Headt CT on 01/31 unremarkable S/p lumbar tap on 02/02. CSF + elevated protein. Defer IV acyclovir for ? HSV encephalitis, as mental status slowly improved. # Mechanical fall PT/OT # Dispo DC plan to SNF ongoing Physician Review: Patient Assessed, Agree with Above Assessment and Plan
[2021-02-11] MEDS: INSULIN -REGULAR HUMAN 50 UNIT/0.5 ML ML SQ SCH ×4 (07:30→21:00)
[2021-02-11] MEDS: ENSURE ENLIVE 237 ML CAN PO SCH ×3 (09:00→21:24)
[2021-02-11] MEDS: POTASSIUM PHOS IN 0.9 % NACL 15 MMOL/250 ML BAG IV ONE ×2 (09:00→10:19)
[2021-02-11] MEDS: HYDRALAZINE HCL 25 MG TABLET PO SCH ×2 (10:10→21:22)
[2021-02-11] MEDS: AMLODIPINE 10 MG TAB PO SCH (10:10)
[2021-02-11] MEDS: predniSONE 20 MG TAB PO SCH ×2 (10:10→21:27)
[2021-02-11] MEDS: APIXABAN 5 MG TABLET PO SCH ×2 (10:10→21:22)
--- NOTE | 2021-02-11 10:30 | P.PN ---
Subjective Date of Service: 02/11/21 Primary Care Provider: Dr. Pacheco Chief Complaint: Fall she is lying in bed comfortable, awake but she does not communicate, no CP or SOB no abd pain, no fever or chills , she is confused Physical Examination - Vital Signs Temperature: 97.0 F Blood Pressure: 163/78 Pulse: 70 Respirations: 18 Pulse Ox (%): 96 - Studies Medications List Reviewed: Yes Assessment & Plan Physician Review: Patient Assessed, Agree with Above Assessment and Plan Physician Review Additional Text: CT head: COMPARISON: No comparisons TECHNIQUE: All CT scans are performed using dose optimization technique as appropriate and may include automated exposure control or mA/KV adjustment according to patient size. FINDINGS: No intracranial hemorrhage, hydrocephalus or extra-axial fluid collection.No areas of brain edema or evidence of midline shift. The paranasal sinuses and mastoids are clear. The calvarium is intact. IMPRESSION: No acute intracranial abnormality. Right Hip xray: COMPARISON: No comparisons FINDINGS: No pelvic fracture is identified. Status post left total hip arthroplasty. No evidence of hardware complications. The right hip is located. No right hip fracture seen. Degenerative changes are present in the lower spine. IMPRESSION: No pelvic or right hip fractures identified. No left hip arthroplasty is intact. Physical Exam: GENERAL: Patient alert, cooperative, confused VITAL SIGNS: Reviewed HEENT: Dry mucous membranes LUNGS: Clear to auscultation. No crackles or wheezes are heard. HEART: A. fib rate controlled ABDOMEN: overweight Soft, nontender, and nondistended. Positive bowel sounds. No hepatosplenomegaly was noted. EXTREMITIES: Without any cyanosis, clubbing, rash, lesions or peripheral edema. NEUROLOGIC: The patient is oriented to person, place and time. Strength and sensation are grossly intact. Face is symmetric. SKIN: Normal color, turgor and temperature. No ulcerations or rashes noted. Impression: Weakness and fall from sitting position with altered mental status status post lumbar tap UTI with urine culture showing Klebsiella pneumoniae Atrial fibrillation on chronic anticoagulation therapy Chronic diastolic CHF Hypokalemia Hypercalcemia Hypertension CAD with prior stents Chronic pain Obesity Plan: Weakness and fall from sitting position with altered mental status ,status post lumbar tap: -Patient stable at this time on steroid tapering dose prednison 20 mg bid , Dr Langford discussed at length with neurology and nephrology. No need for acyclovir as HSV encephalitis is not likely. Neurology suspects likely underlying autoimmune process. No further intervention required. Continue physical therapy and Occupational Therapy. Awaiting approval for skilled placement discussed with DIRECTOR OF GOVERNMENT SALES , will be not till Friday ?? UTI with urine culture showing Klebsiella pneumoniae: -Patient has completed treatment for UTI. Repeat culture cont to be negative Atrial fibrillation on chronic anticoagulation therapy: -Rate controlled, Continue metoprolol 75 mg 1 pill twice daily and Eliquis 5 mg 1 pill twice daily. Chronic diastolic CHF: -Continue with nephrology recommendations. Currently off Lasix Hypercalcemia: -Continue with nephrology recommendations.pamindronate given on 02/07 , related to immobility, not related to PTH Hypertension: -still not well controlled, I did increase clonidine patch 0.3 every 7 days, metoprolol 75 mg 1 pill twice daily and increase Norvasc to 10mg daily. reassess in am Hyperglycemia -? steroids related -HGBA1c 5, pt does not have DM CAD with prior stents: -Off Imdur Chronic pain: -Continue with medication for pain. Code Status: This was discussed in detail with patient. Patient is DO NOT RESUSCITATE. DVT prophylaxis: SCD Advanced Care Planning-30 minutes: Awaiting approval for skilled placement[facility] in AM
[2021-02-11] MEDS: BENZONATATE 100 MG CAP PO PRN (21:23)
[2021-02-12 06:08] LABS: Absolute Lymphocytes (CBC) 0.5 K/uL (0.7-4.9); Basophils % 0.3 % (0-1.3); Hematocrit 37.1 % (36.0-45.0); Lymphocytes % 3.9 % (15.3-44.8); MPV 10.3 fL (7.6-11.3); RBC Red Blood Cell Count 4.14 M/uL (3.86-4.86)
[2021-02-12 06:13] LABS: Albumin 2.2 g/dL (3.4-5.0); Phosphorus 2.5 mg/dL (2.5-4.9)
[2021-02-12] MEDS: METOPROLOL TAR 25 MG TAB PO SCH ×2 (06:16→17:11)
[2021-02-12 06:18] LABS: Magnesium 2.3 mg/dL (1.8-2.4)
[2021-02-12] MEDS: INSULIN -REGULAR HUMAN 50 UNIT/0.5 ML ML SQ SCH ×4 (07:30→21:11)
[2021-02-12 07:54] LABS: Blood Morphology Comment NOT SEEN (NOT SEEN); Platelet Estimate ADEQ
[2021-02-12] MEDS: ENSURE ENLIVE 237 ML CAN PO SCH ×3 (09:00→21:10)
[2021-02-12] MEDS: APIXABAN 5 MG TABLET PO SCH ×2 (10:18→21:06)
[2021-02-12] MEDS: predniSONE 20 MG TAB PO SCH ×2 (10:18→21:07)
[2021-02-12] MEDS: HYDRALAZINE HCL 25 MG TABLET PO SCH ×2 (10:18→21:07)
[2021-02-12] MEDS: AMLODIPINE 10 MG TAB PO SCH (10:19)
--- NOTE | 2021-02-13 01:27 | PN ---
Date of Progress Note: 02/12/2021 Chief Complaint: Acute kidney injury, hypercalcemia, prerenal azotemia. History Of Present Illness: Patient has encephalopathy. The patient received pamidronate IV on , for hypercalcemia. Review of Systems: Denies fever, chills. Physical Examination: Lungs: Clear to auscultation bilaterally. Heart: S1, S2. Abdomen: Soft, benign. Extremities: No edema. Impression And Plan: 1.Hypercalcemia, non-PTH mediated, likely secondary to immobility and aggravated by volume depletion . Corrected calcium was 11.4. PTH was appropriately suppressed by hypercalcemia. Patient received IV fluids and subsequently she required pamidronate IV given on February 07. 2.Encephalopathy. Altered mental status is improving. 3.Urinary tract infection with Klebsiella, antibiotic as before according to urine culture. 4.Altered mental status. CT scan done on January 31 is unremarkable. The patient had lumbar tap on February 02, which showed positive elevated protein on cerebrospinal fluid examination. Patient may need treatment for HCV encephalitis. Further recommendation from primary t eam. BREWER/MAKAYLA Voice ID: [id number] Report ID: [id number]
[2021-02-13] MEDS: METOPROLOL TAR 25 MG TAB PO SCH ×2 (05:29→17:46)
[2021-02-13] MEDS: INSULIN -REGULAR HUMAN 50 UNIT/0.5 ML ML SQ SCH ×4 (07:30→21:38)
[2021-02-13] MEDS: ENSURE ENLIVE 237 ML CAN PO SCH ×3 (09:00→21:00)
[2021-02-13] MEDS: AMLODIPINE 10 MG TAB PO SCH (09:01)
[2021-02-13] MEDS: predniSONE 20 MG TAB PO SCH ×2 (09:01→21:35)
[2021-02-13] MEDS: APIXABAN 5 MG TABLET PO SCH ×2 (09:01→21:35)
[2021-02-13] MEDS: HYDRALAZINE HCL 25 MG TABLET PO SCH ×2 (09:01→21:34)
--- NOTE | 2021-02-13 09:15 | RAD REPORT ---
EXAM DESCRIPTION: RAD - Chest Single View - 02/13/2021 5:26 am CLINICAL HISTORY: SOB Chest pain. COMPARISON: Chest Single View dated 01/26/2021 FINDINGS: Portable technique limits examination quality. Elevation of the right hemidiaphragm is noted, unchanged. Mild bilateral pulmonary opacities are pres ent most compatible with mild pulmonary edema, unchanged. The heart is upper limit normal in size. Ao rtic atherosclerosis.
[2021-02-13] MEDS ORDERED: FUROSEMIDE 40 MG/4 ML VIAL IV ONE (12:22)
--- NOTE | 2021-02-13 12:48 | PN ---
Date of Progress Note: 02/13/2021 Subjective: The patient was admitted with acute kidney injury secondary to hypercalcemia secondary to immobilization. The patient received pamidronate. The patient after hydration, kidney function has been normalized and calcium normalized. Physical Examination: Vital Signs: When I saw the patient, blood pressure 147/89, pulse of 76, afebrile. Chest: Faint rales bilateral. Heart: S1, S2. Regular. Abdomen: Soft, nontender. Extremities: No edema. Neuro: Alert, pleasantly confused. Laboratory Data: For the patient dated yesterday, sodium 138, potassium 5, bicarb 29, BUN 35, creatinine 0.7, calcium 9.1, albumin 2.2. Current Medications: The patient on includes Eliquis 5 b.i.d., amlodipine, clonidine, hydralazine 50 b.i.d., Ensure, Zofran. Assessment And Plan: 1. Acute kidney injury secondary to calcium diuresis, recovered, resolved. 2. Hypercalcemia secondary to immobilization. PTH was appropriately suppressed. Vitamin D within normal limit. I again will keep holding on any hydration for the time being. We will monitor the patient. 3. Hypertension, controlled, optimal. Continue current medication. 4. Shortness of breath. Chest x-ray showing marginal congestion. I am going to give the patient single dose of Lasix today and will follow up the patient on a daily basis. 5. Urinary tract infection status post treatment, recovered, resolved. time spend exam the patient face to face placing order , reviewing lab and radiology data , discussing the case with the nursing staff and other [employer] team leader including hospitalist and other industrial rehabilitation consultant on the case 35 min CHAPO Voice ID: [id number] Report ID: [id number] MTDD
[2021-02-14] MEDS: METOPROLOL TAR 25 MG TAB PO SCH ×2 (05:53→17:16)
[2021-02-14] MEDS: INSULIN -REGULAR HUMAN 50 UNIT/0.5 ML ML SQ SCH ×4 (07:30→22:05)
[2021-02-14] MEDS: AMLODIPINE 10 MG TAB PO SCH (08:51)
[2021-02-14] MEDS: HYDRALAZINE HCL 25 MG TABLET PO SCH ×2 (08:52→20:22)
[2021-02-14] MEDS: APIXABAN 5 MG TABLET PO SCH ×2 (08:52→20:23)
[2021-02-14] MEDS: ENSURE ENLIVE 237 ML CAN PO SCH ×3 (08:53→20:23)
[2021-02-14] MEDS: predniSONE 20 MG TAB PO SCH ×2 (08:53→20:23)
--- NOTE | 2021-02-14 11:19 | P.PN ---
Date of Service: 02/12/21 Subjective Patient continues to be more awake and alert. Awaiting for jail facility placement. Review of Systems 10-point ROS is otherwise unremarkable Physical Examination - Vital Signs Reviewed - Physical Exam General: Patient is much more talkative. Respiratory: Clear to auscultation bilaterally, Normal air movement Cardiovascular: Regular rate/rhythm, Normal S1 S2, No murmurs Gastrointestinal: Normal bowel sounds, Soft and benign, Non-distended, No tenderness Musculoskeletal: No clubbing, No swelling, No tenderness Neurological: Abnormal strength, Abnormal sensation, Abnormal cranial nerve function - Studies Medications List Reviewed: Yes Assessment & Plan - Problems (Diagnosis) (1) AMS (altered mental status) Current Visit: Yes Status: Acute (2) Atrial fibrillation Current Visit: Yes Status: Acute (3) CAD (coronary artery disease) Current Visit: Yes Status: Acute (4) UTI (urinary tract infection) Current Visit: Yes Status: Acute Qualifiers: Urinary tract infection type: acute cystitis (5) uncontrolled hypertension Current Visit: Yes Status: Acute (6) SERENA Current Visit: Yes Status: Acute - Plan Plan: Continue with plan of care as mentioned below: 1. Patient is more awake and alert. Continue with oral steroids 2. Echocardiogram reviewed 3. Continue with physical therapy. Family not wanting feeding tube at this time. Advance diet as tolerated 4. Strict blood sugar control; calcium level slightly elevated 5. Strict blood pressure control 6. Awaiting SNF placement 7. MRI is unremarkable 8. GI and DVT prophylaxis
--- NOTE | 2021-02-14 11:21 | P.PN ---
Date of Service: 02/13/21 Subjective Patient continues to do well. Symptoms are stable Review of Systems 10-point ROS is otherwise unremarkable Physical Examination - Vital Signs Reviewed - Physical Exam General: Patient is much more talkative. Respiratory: Clear to auscultation bilaterally, Normal air movement Cardiovascular: Regular rate/rhythm, Normal S1 S2, No murmurs Gastrointestinal: Normal bowel sounds, Soft and benign, Non-distended, No tenderness Musculoskeletal: No clubbing, No swelling, No tenderness Neurological: Abnormal strength, Abnormal sensation, Abnormal cranial nerve function - Studies Medications List Reviewed: Yes Assessment & Plan - Problems (Diagnosis) (1) AMS (altered mental status) Current Visit: Yes Status: Acute (2) Atrial fibrillation Current Visit: Yes Status: Acute (3) CAD (coronary artery disease) Current Visit: Yes Status: Acute (4) UTI (urinary tract infection) Current Visit: Yes Status: Acute Qualifiers: Urinary tract infection type: acute cystitis (5) uncontrolled hypertension Current Visit: Yes Status: Acute (6) SERENA Current Visit: Yes Status: Acute - Plan Plan: Continue with plan of care as mentioned below: 1. Neurological E doing well. Continue with oral steroids 2. Echocardiogram reviewed 3. Continue with physical therapy. Family not wanting feeding tube at this time. Advance diet as tolerated 4. Strict blood sugar control; calcium level slightly elevated 5. Strict blood pressure control 6. Awaiting SNF placement 7. MRI is unremarkable 8. GI and DVT prophylaxis
[2021-02-14] MEDS ORDERED: FUROSEMIDE 20 MG/ 2ML VIAL IV ONE (12:18)
--- NOTE | 2021-02-14 12:44 | PN ---
Date of Progress Note: 02/14/2021 Subjective: The patient was admitted with hypercalcemia secondary to immobilization. The patient tr eated with hydration. Kidney function improved and hypercalcemia resolved. The patient yesterday barth s shortness of breath secondary to over volume giving dose of Lasix, feeling better, still requiring oxygen. Physical Examination: Vital Signs: Blood pressure 140/68, pulse of 69, afebrile. The patient had good urine output of 210 0, negative of 1300. Chest: Faint rales bilateral. Heart: S1 and S2. Systolic murmur. Abdomen: Soft and nontender. Extremities: +1 edema. Neurologic: Alert, pleasantly confused. No focality. Laboratory Data: WBC 12.5, H and H 11.9/37.1, sodium 138, potassium 5, bicarb 29, BUN 35, creatinine 0.7, calcium 9.1, phosphorus 2.5, and magnesium 2.3. Assessment And Plan: 1.Acute kidney injury secondary to calcium diuresis, recovered, resolved. 2.Hypercalcemia secondary to immobilization. PTH appropriately suppressed. Vitamin D on acceptable range. We will continue holding hydration for the time being. 3.Over volume, status post Lasix. I am going to continue to monitor the patient. We will give extr a dose of Lasix today and we will follow up the patient. 4.Urinary tract infection, status post treatment, resolved. ALEJA/MAKAYLA Voice ID: [id number] Report ID: [id number]
[2021-02-14] MEDS: MELATONIN 5 MG TABLET PO PRN (22:06)
[2021-02-15] MEDS: METOPROLOL TAR 25 MG TAB PO SCH ×2 (05:27→17:57)
[2021-02-15] MEDS: INSULIN -REGULAR HUMAN 50 UNIT/0.5 ML ML SQ SCH ×4 (07:30→20:15)
[2021-02-15 07:34] LABS: Albumin 2.3 g/dL (3.4-5.0); Phosphorus 2.2 mg/dL (2.5-4.9); Potassium 5.1 mmol/L (3.5-5.1)
[2021-02-15] MEDS: AMLODIPINE 10 MG TAB PO SCH (09:41)
[2021-02-15] MEDS: APIXABAN 5 MG TABLET PO SCH ×2 (09:43→20:15)
[2021-02-15] MEDS: HYDRALAZINE HCL 25 MG TABLET PO SCH ×2 (09:43→20:16)
[2021-02-15] MEDS: predniSONE 20 MG TAB PO SCH ×2 (09:43→20:15)
[2021-02-15] MEDS: ENSURE ENLIVE 237 ML CAN PO SCH ×3 (09:43→20:16)
[2021-02-15] MEDS ORDERED: BISACODYL E.C. 5 MG TAB PO ONE (15:00)
--- NOTE | 2021-02-15 15:51 | PN ---
Date of Progress Note: 02/15/2021 Subjective: The patient was admitted with acute kidney injury, hypercalcemia secondary to immobiliza tion. The patient was treated, recovered. After hydration, kidney function normalized. Physical Examination: Vital Signs: Blood pressure 145/62, pulse of 80, afebrile. The patient had good urine output, recei jarrod Lasix yesterday, had 2100, negative of 1300. Chest: Faint crackles bilateral. Heart: S1, S2. Systolic murmur. Abdomen: Soft, nontender. Extremity: Trace edema. Neuro: Alert. Pleasantly confused. Laboratory Data: WBC 12.5, H and H 11.9/37.1. Sodium 138, potassium 5.1, bicarb 32, BUN 51, creatin ine 0.7, calcium 8.7, phosphorus 2.2, albumin 2.3, corrected calcium is 10.3. Current Medications: The patient on include clonidine 0.3 patch weekly, amlodipine 10 mg, hydralazin e 50 b.i.d., metoprolol 75, Lasix was received yesterday, prednisone. Assessment And Plan: 1.Acute kidney injury secondary to prerenal, secondary to dehydration, superimposed with calcium diu resis, recovered, resolved. 2.Hypercalcemia secondary to immobility, recovered, resolved. 3.Urinary tract infection secondary to Klebsiella pneumonia, status post treatment, recovered and re solved. The patient cleared from the Renal standpoint for discharge planning to follow up in the office in 2-3 weeks. CHAPO Voice ID: [id number] Report ID: [id number]
[2021-02-15] MEDS: MELATONIN 5 MG TABLET PO PRN (20:15)
[2021-02-15] MEDS: ACETAMINOPHEN 500 MG TAB PO PRN (22:58)
[2021-02-16] MEDS: METOPROLOL TAR 25 MG TAB PO SCH ×2 (05:46→17:00)
--- NOTE | 2021-02-16 06:31 | P.PN ---
Subjective Date of Service: 02/16/21 Primary Care Provider: Dr. Pacheco Chief Complaint: Fall Subjective: Other (Reports she is able to get up & sit on edge of bed. No urinary complaints.) Physical Examination - Vital Signs Temperature: 97.0 F Blood Pressure: 129/74 Pulse: 76 Respirations: 16 Pulse Ox (%): 97 - Physical Exam General: Other (Frail looking) HEENT: Normocephalic Neck: Supple, JVD not distended Respiratory: Other (symmetric chest expansion) Cardiovascular: No rubs, No murmurs Gastrointestinal: Soft and benign, No guarding Musculoskeletal: No clubbing Integumentary: No warmth Neurological: Normal speech, Normal tone Urinary: Other (No bladder distention) External genitalia: Deferred Rectal: Deferred - Studies Medications List Reviewed: Yes Assessment And Plan - Plan # Hypercalcemia, non-PTH mediated, likely 2/2 immobility aggravated by volume depletion Corrected serum Ca improved to 10.0 iPTH appropriately low/suppressed 25OHD & 1,25 OH2D wnl F/u PTH-rP IV fluids prn Encouraged liberal po fluid intake Increase OOB mobility & weightbearing activities w/ PT/OT Pamidronate 60 mg IV given on 02/07 # Hyperkalemia NS IV bolus + IV lasix today # Htn Cont current BP meds # Afib HR controlled On Metoprolol + Eliquis # Klebsiella UTI Received abx # Nutrition Clinimix d/c'ed on 02/06 Encouraged po intake # AMS Improved Headt CT on 01/31 unremarkable Monitor # Mechanical fall PT/OT # Dispo DC plan to [facility] ongoing Physician Review: Patient Assessed, Agree with Above Assessment and Plan
[2021-02-16 06:39] LABS: Albumin 2.3 g/dL (3.4-5.0); Phosphorus 2.1 mg/dL (2.5-4.9)
[2021-02-16 06:40] LABS: Potassium 5.7 mmol/L (3.5-5.1)
[2021-02-16] MEDS: INSULIN -REGULAR HUMAN 50 UNIT/0.5 ML ML SQ SCH ×4 (07:30→21:00)
[2021-02-16] MEDS: CLONIDINE 0.3 MG/PATCH TD SCH (08:52)
[2021-02-16] MEDS: ACETAMINOPHEN 500 MG TAB PO PRN (08:54)
[2021-02-16] MEDS: predniSONE 20 MG TAB PO SCH ×2 (08:54→20:15)
[2021-02-16] MEDS: HYDRALAZINE HCL 25 MG TABLET PO SCH ×2 (08:54→20:14)
[2021-02-16] MEDS: APIXABAN 5 MG TABLET PO SCH ×2 (08:54→20:14)
[2021-02-16] MEDS: AMLODIPINE 10 MG TAB PO SCH (08:54)
[2021-02-16] MEDS: ENSURE ENLIVE 237 ML CAN PO SCH ×3 (08:55→20:19)
[2021-02-16] MEDS ORDERED: POTASS/SODIUM PHOSPHATE 1 PKT POWD.PACK PO ONE (12:30)
[2021-02-16] MEDS: MELATONIN 5 MG TABLET PO PRN (20:15)
[2021-02-16] MEDS: DOCUSATE NA 100 MG CAP PO PRN (22:43)
[2021-02-17] MEDS: ACETAMINOPHEN 500 MG TAB PO PRN (00:24)
[2021-02-17] MEDS ORDERED: NA CHLORIDE 0.9% 500 ML IV ONE (01:08)
[2021-02-17] MEDS ORDERED: FUROSEMIDE 40 MG/4 ML VIAL IV ONE (01:10)
[2021-02-17] MEDS: METOPROLOL TAR 25 MG TAB PO SCH ×2 (05:17→17:20)
[2021-02-17 06:28] LABS: Albumin 2.3 g/dL (3.4-5.0); Magnesium 2.4 mg/dL (1.8-2.4); Phosphorus 2.6 mg/dL (2.5-4.9); Potassium 4.8 mmol/L (3.5-5.1)
[2021-02-17] MEDS: INSULIN -REGULAR HUMAN 50 UNIT/0.5 ML ML SQ SCH ×4 (07:30→21:03)
[2021-02-17] MEDS: ENSURE ENLIVE 237 ML CAN PO SCH ×3 (09:39→21:03)
[2021-02-17] MEDS: HYDRALAZINE HCL 25 MG TABLET PO SCH ×2 (09:41→21:01)
[2021-02-17] MEDS: APIXABAN 5 MG TABLET PO SCH ×2 (09:41→21:02)
[2021-02-17] MEDS: predniSONE 20 MG TAB PO SCH (09:41)
[2021-02-17] MEDS: AMLODIPINE 10 MG TAB PO SCH (09:41)
--- NOTE | 2021-02-17 16:43 | PN ---
Date of Progress Note: 02/17/2021 Nephrology Followup Subjective: The patient was admitted with hypercalcemia, acute kidney injury secondary to calcium di uresis. After hydration, calcium normalized. Physical Examination: Vital Signs: Blood pressure 121/64, pulse of 78, afebrile. Chest: Clear to auscultation. Heart: S1, S2. Regular. Abdomen: Soft, nontender. Extremities: Trace edema. Neurologic: Alert. No focality. Laboratory Data: WBC 12.5, H and H of 11.9/37.1. Sodium 137, potassium 4.8, bicarb 30, BUN 48, crea tinine 0.7, calcium 8.8, phosphorus 2.6, magnesium 2.4, albumin 2.3, corrected calcium is 10. Current Medications: The patient on, include Eliquis, amlodipine 10, clonidine 0.3 t.i.d., hydralazi ne 50 b.i.d., metoprolol 75 b.i.d. Ensure. Prednisone. Melatonin. Assessment And Plan: 1.Acute kidney injury secondary to prerenal, recovered, resolved. 2.Hypercalcemia secondary to immobilization, resolved. 3.Hypertension, controlled, optimal. Continue current medication. 4.Deconditioning. Continue PT/OT. ALEJA/MODL Voice ID: [id number] Report ID: [id number]
[2021-02-17] MEDS: DOCUSATE NA 100 MG CAP PO PRN (17:20)
[2021-02-17] MEDS: MELATONIN 5 MG TABLET PO PRN (21:08)
[2021-02-18] MEDS: METOPROLOL TAR 25 MG TAB PO SCH ×2 (05:45→17:49)
[2021-02-18 05:53] LABS: Absolute Lymphocytes (CBC) 0.9 K/uL (0.7-4.9); Basophils % 0.3 % (0-1.3); Hematocrit 35.7 % (36.0-45.0); Lymphocytes % 7.1 % (15.3-44.8); RBC Red Blood Cell Count 4.06 M/uL (3.86-4.86)
[2021-02-18 06:08] LABS: Magnesium 2.6 mg/dL (1.8-2.4); Potassium 4.6 mmol/L (3.5-5.1)
[2021-02-18] MEDS: INSULIN -REGULAR HUMAN 50 UNIT/0.5 ML ML SQ SCH ×4 (07:30→21:00)
[2021-02-18 08:33] LABS: Blood Morphology Comment NOT SEEN (NOT SEEN); Hypersegmented Neutrophils PRESENT; Platelet Estimate ADEQ
[2021-02-18] MEDS: ENSURE ENLIVE 237 ML CAN PO SCH ×3 (09:00→22:12)
[2021-02-18] MEDS: AMLODIPINE 10 MG TAB PO SCH (11:00)
[2021-02-18] MEDS: HYDRALAZINE HCL 25 MG TABLET PO SCH ×2 (11:00→22:08)
[2021-02-18] MEDS: APIXABAN 5 MG TABLET PO SCH ×2 (11:00→22:08)
[2021-02-18] MEDS ORDERED: FUROSEMIDE 40 MG/4 ML VIAL IV ONE (13:22)
--- NOTE | 2021-02-18 15:20 | PN ---
Date of Progress Note: 02/18/2021 Subjective: The patient was admitted with hypercalcemia secondary to immobilization with acute kidne y injury. After hydration, kidney function has been normalized. Physical Examination: Vital Signs: Blood pressure 119/54, pulse of 88. Chest: Faint rales bilateral. Heart: S1, S2. Systolic murmur. Abdomen: Soft and nontender. Extremities: Trace edema. Neuro: Alert. Follow command. Laboratory Data: WBC 13, H and H 11.4/35.7. Sodium 139, potassium 4.6, bicarb 32, BUN 48, creatinin e 0.7, and calcium 8.5. Current Medications: The patient on include docusate, melatonin, Zofran, Ensure. Assessment And Plan: 1.Acute kidney injury secondary to calcium diuresis, dehydration, recovered, resolved. Looked to me on the over volume side. I am going to give her extra dose of Lasix. 2.Hypercalcemia secondary to immobilization. All workup negative, recovered, resolved. 3.Urinary tract infection, status post treatment, resolved. 4.Hypertension, controlled, optimal. Continue current treatment. ALEJA/MAKAYLA Voice ID: [id number] Report ID: [id number]
--- NOTE | 2021-02-18 15:31 | P.PN ---
Date of Service: 02/14/21 Subjective Patient continues to do well. Symptoms are stable; awaiting placement Review of Systems 10-point ROS is otherwise unremarkable Physical Examination - Vital Signs Reviewed - Physical Exam General: Patient is more awake and alert. Cardiovascular: Regular rate/rhythm, Normal S1 S2, No murmurs Gastrointestinal: Normal bowel sounds, Soft and benign, Non-distended, No tenderness Musculoskeletal: No clubbing, No swelling, No tenderness Neurological: Abnormal strength, no focal deficits noted - Studies Medications List Reviewed: Yes Assessment & Plan - Problems (Diagnosis) (1) AMS (altered mental status) Current Visit: Yes Status: Acute (2) Atrial fibrillation Current Visit: Yes Status: Acute (3) CAD (coronary artery disease) Current Visit: Yes Status: Acute (4) UTI (urinary tract infection) Current Visit: Yes Status: Acute Qualifiers: Urinary tract infection type: acute cystitis (5) Uncontrolled hypertension Current Visit: Yes Status: Acute (6) SERENA Current Visit: Yes Status: Acute - Plan Plan: Continue with plan of care as mentioned below: 1. Patient doing much better. Awaiting for placement 2. Strict blood pressure control 3. Continue with physical therapy. Tolerating diet 4. Strict blood sugar control; 5. Strict blood pressure control 6. Awaiting SNF placement 7. GI and DVT prophylaxis
--- NOTE | 2021-02-18 15:32 | P.PN ---
Date of Service: 02/15/21 Subjective Patient clinically stable. Awaiting placement Review of Systems 10-point ROS is otherwise unremarkable Physical Examination - Vital Signs Reviewed - Physical Exam General: Patient is more awake and alert. Cardiovascular: Regular rate/rhythm, Normal S1 S2, No murmurs Gastrointestinal: Normal bowel sounds, Soft and benign, Non-distended, No tend erness Musculoskeletal: No clubbing, No swelling, No tenderness Neurological: Abnormal strength, no focal deficits noted - Studies Medications List Reviewed: Yes Assessment & Plan - Problems (Diagnosis) (1) AMS (altered mental status) Current Visit: Yes Status: Acute (2) Atrial fibrillation Current Visit: Yes Status: Acute (3) CAD (coronary artery disease) Current Visit: Yes Status: Acute (4) UTI (urinary tract infection) Current Visit: Yes Status: Acute Qualifiers: Urinary tract infection type: acute cystitis (5) Uncontrolled hypertension Current Visit: Yes Status: Acute (6) SERENA Current Visit: Yes Status: Acute - Plan Continue with plan of care as mentioned below: 1. Awaiting for placement 2. Continue with strict blood pressure control 3. Continue with physical therapy. Tolerating diet 4. Strict blood sugar control; 5. Strict blood pressure control 6. GI and DVT prophylaxis
--- NOTE | 2021-02-18 15:33 | P.PN ---
Date of Service: 02/16/21 Subjective No new changes; tolerating diet; working with therapy Review of Systems 10-point ROS is otherwise unremarkable Physical Examination - Vital Signs Reviewed - Physical Exam General: Patient is more awake and alert. Cardiovascular: Regular rate/rhythm, Normal S1 S2, No murmurs Gastrointestinal: Normal bowel sounds, Soft and benign, Non-distended, No tenderness Musculoskeletal: No clubbing, No swelling, No tenderness Neurological: Abnormal strength, no focal deficits noted - Studies Medications List Reviewed: Yes Assessment & Plan - Problems (Diagnosis) (1) AMS (altered mental status) Current Visit: Yes Status: Acute (2) Atrial fibrillation Current Visit: Yes Status: Acute (3) CAD (coronary artery disease) Current Visit: Yes Status: Acute (4) UTI (urinary tract infection) Current Visit: Yes Status: Acute Qualifiers: Urinary tract infection type: acute cystitis (5) Uncontrolled hypertension Current Visit: Yes Status: Acute (6) SERENA Current Visit: Yes Status: Acute - Plan Continue with plan of care as mentioned below: 1. Awaiting for placement 2. Continue with strict blood pressure and blood sugar control 3. Continue with physical therapy. Tolerating diet 4. GI and DVT prophylaxis
--- NOTE | 2021-02-18 15:34 | P.PN ---
Date of Service: 02/17/21 Subjective Continuing to do well. Patient is clinically improving. Review of Systems 10-point ROS is otherwise unremarkable Physical Examination - Vital Signs Reviewed - Physical Exam General: Patient is more awake and alert. Cardiovascular: Regular rate/rhythm, Normal S1 S2, No murmurs Gastrointestinal: Normal bowel sounds, Soft and benign, Non-distended, No tenderness Musculoskeletal: No clubbing, No swelling, No tenderness Neurological: Abnormal strength, no focal deficits noted - Studies Medications List Reviewed: Yes Assessment & Plan - Problems (Diagnosis) (1) AMS (altered mental status) Current Visit: Yes Status: Acute (2) Atrial fibrillation Current Visit: Yes Status: Acute (3) CAD (coronary artery disease) Current Visit: Yes Status: Acute (4) UTI (urinary tract infection) Current Visit: Yes Status: Acute Qualifiers: Urinary tract infection type: acute cystitis (5) Uncontrolled hypertension Current Visit: Yes Status: Acute (6) SERENA Current Visit: Yes Status: Acute - Plan Continue with plan of care as mentioned below: 1. Awaiting for placement 2. Continue with strict blood pressure and blood sugar control 3. Continue with physical therapy. Tolerating diet 4. Continue with cardiac meds 5. GI and DVT prophylaxis
--- NOTE | 2021-02-18 15:36 | P.PN ---
Date of Service: 02/18/21 Subjective Patient interacting appropriately. Able to sit at the side of the bed. Strength is improving Review of Systems 10-point ROS is otherwise unremarkable Physical Examination - Vital Signs Reviewed - Physical Exam General: Patient is more awake and alert. Cardiovascular: Regular rate/rhythm, Normal S1 S2, No murmurs Gastrointestinal: Normal bowel sounds, Soft and benign, Non-distended, No tenderness Musculoskeletal: No clubbing, No swelling, No tenderness Neurological: Abnormal strength, no focal deficits noted - Studies Medications List Reviewed: Yes Assessment & Plan - Problems (Diagnosis) (1) AMS (altered mental status) Current Visit: Yes Status: Acute (2) Atrial fibrillation Current Visit: Yes Status: Acute (3) CAD (coronary artery disease) Current Visit: Yes Status: Acute (4) UTI (urinary tract infection) Current Visit: Yes Status: Acute Qualifiers: Urinary tract infection type: acute cystitis (5) Uncontrolled hypertension Current Visit: Yes Status: Acute (6) SERENA Current Visit: Yes Status: Acute - Plan Continue with plan of care as mentioned below: 1. Continues awaiting for placement; may need to go home if no other options. Family thinking of private pay at [facility]. 2. Continue with strict blood pressure and blood sugar control 3. Continue with physical therapy. Tolerating diet 4. Continue with cardiac meds 5. GI and DVT prophylaxis
[2021-02-18] MEDS: MELATONIN 5 MG TABLET PO PRN (23:29)
[2021-02-18] MEDS: BENZONATATE 100 MG CAP PO PRN (23:29)
[2021-02-18] MEDS: ACETAMINOPHEN 500 MG TAB PO PRN (23:29)
[2021-02-19] MEDS: METOPROLOL TAR 25 MG TAB PO SCH ×2 (05:53→17:36)
[2021-02-19] MEDS: INSULIN -REGULAR HUMAN 50 UNIT/0.5 ML ML SQ SCH ×4 (07:30→20:29)
[2021-02-19] MEDS: AMLODIPINE 10 MG TAB PO SCH (09:00)
[2021-02-19] MEDS: HYDRALAZINE HCL 25 MG TABLET PO SCH ×2 (09:00→20:27)
[2021-02-19] MEDS: ENSURE ENLIVE 237 ML CAN PO SCH ×3 (09:00→20:28)
[2021-02-19] MEDS: ACETAMINOPHEN 500 MG TAB PO PRN (10:28)
[2021-02-19] MEDS: APIXABAN 5 MG TABLET PO SCH ×2 (10:29→20:28)
[2021-02-19] MEDS: POTASSIUM CL SA 10 MEQ TAB PO SCH (10:30)
[2021-02-19] MEDS: FUROSEMIDE 20 MG TABLET PO SCH (10:30)
[2021-02-19] MEDS: DOCUSATE NA 100 MG CAP PO PRN ×2 (10:32→20:28)
--- NOTE | 2021-02-19 15:57 | P.PN ---
Subjective Date of Service: 02/19/21 Primary Care Provider: Dr. Pacheco Chief Complaint: Fall Subjective: Improving, Doing well Physical Examination - Vital Signs Temperature: 97.9 F Blood Pressure: 111/62 Pulse: 80 Respirations: 14 Pulse Ox (%): 98 - Studies Medications List Reviewed: Yes Assessment & Plan Discharge Plan: Other ([facility] facility) Plan to discharge in: 24 Hours Physician Review Additional Text: CT head: COMPARISON: No comparisons TECHNIQUE: All CT scans are performed using dose optimization technique as appropriate and may include automated exposure control or mA/KV adjustment according to patient size. FINDINGS: No intracranial hemorrhage, hydrocephalus or extra-axial fluid collection.No areas of brain edema or evidence of midline shift. The paranasal sinuses and mastoids are clear. The calvarium is intact. IMPRESSION: No acute intracranial abnormality. Right Hip xray: COMPARISON: No comparisons FINDINGS: No pelvic fracture is identified. Status post left total hip arthroplasty. No evidence of hardware complications. The right hip is located. No right hip fracture seen. Degenerative changes are present in the lower spine. IMPRESSION: No pelvic or right hip fractures identified. No left hip arthroplasty is intact. Physical Exam: GENERAL: Patient alert, cooperative.not fully oriented VITAL SIGNS: Reviewed HEENT: Dry mucous membranes LUNGS: Clear to auscultation. No crackles or wheezes are heard. HEART: A. fib rate controlled ABDOMEN: overweight Soft, nontender, and nondistended. Positive bowel sounds. No hepatosplenomegaly was noted. EXTREMITIES: Without any cyanosis, clubbing, rash, lesions or peripheral edema. NEUROLOGIC: The patient is oriented to person, place and time. Strength and sensation are grossly intact. Face is symmetric. SKIN: Normal color, turgor and temperature. No ulcerations or rashes noted. Impression: Weakness and fall from sitting position with altered mental status status post lumbar tap UTI with urine culture showing Klebsiella pneumoniae Atrial fibrillation on chronic anticoagulation therapy Chronic diastolic CHF Hypokalemia Hypercalcemia Hypertension CAD with prior stents Chronic pain Obesity Plan: Weakness and fall from sitting position with altered mental status status post lumbar tap: Patient doing well at this time. Awaiting approval for placement. Patient tapered off prednisone. UTI with urine culture showing Klebsiella pneumoniae: -Patient has completed treatment for UTI. Repeat culture cont to be negative Atrial fibrillation on chronic anticoagulation therapy: -Heart Rate well controlled today . Continue metoprolol 75 mg 1 pill twice daily and Eliquis 5 mg 1 pill twice daily. Chronic diastolic CHF: -Continue with nephrology recommendations. Currently off Lasix Hypokalemia: -resolved , Electrolyte protocol in place. clinimex stopped Hypercalcemia: -Continue with nephrology recommendations.pamindronate given on 02/07 , related to immobility, not related to PTH Hypertension: -worse, will increase clonidine patch 0.3 every 7 days, metoprolol 75 mg 1 pill twice daily and increase Norvasc to 10mg daily. Blood pressure well controlled. Hyperglycemia -? steroids related -HGBA1c ordered but not resulted , if glucose cont to be high will start ISS CAD with prior stents: -Off Imdur Chronic pain: -Continue with medication for pain. Obesity: -Lifestyle modification education provided Code Status: This was discussed in detail with patient. Patient is DO NOT RESUSCITATE. DVT prophylaxis: SCD Advanced Care Planning-30 minutes: Awaiting approval for skilled placement. Time Spent Managing Pts Care (In Minutes): 55
[2021-02-19] MEDS: BENZONATATE 100 MG CAP PO PRN (20:27)
[2021-02-19] MEDS: MELATONIN 5 MG TABLET PO PRN (20:28)
[2021-02-19] MEDS ORDERED: FAMOTIDINE 20 MG/2 ML VIAL IV PRN (22:37)
--- NOTE | 2021-02-20 02:37 | CON ---
Date of Consultation: 02/19/2021 Chief Complaint: Hypercalcemia, acute kidney injury and volume depletion. History Of Present Illness: Patient came to the hospital because of altered mental status. She was encephalopathic. Calcium level has improved and renal function improving in response to hydration. Patient today denies complaints. Physical Examination: Lungs: Few rhonchi. Heart: S1, S2. Abdomen: Soft, benign. Extremities: Trace edema. Impression And Plan: 1.Acute kidney injury secondary to volume depletion, complicated by hypercalcemia. The patient zoey l continue adequate hydration. Patient developed some fluid overload and received Lasix. Continue t o monitor fluid balance. 2.Hypercalcemia, resolved and patient had workup done to rule out other etiologies. 3.Urinary tract infection, status post treatment. The patient is asymptomatic. 4.Hypertension, controlled. Continue current medication. EB/MODL Voice ID: [id number] Report ID: [id number]
[2021-02-20] MEDS: METOPROLOL TAR 25 MG TAB PO SCH (05:16)
--- NOTE | 2021-02-20 06:09 | P.PN ---
Subjective Date of Service: 02/20/21 Primary Care Provider: Dr. Pacheco Chief Complaint: Fall Subjective: Improving, Doing well Physical Examination - Vital Signs Temperature: 97.7 F Blood Pressure: 134/69 Pulse: 93 Respirations: 19 Pulse Ox (%): 92 - Studies Medications List Reviewed: Yes Assessment & Plan Discharge Plan: Other (SNF) Plan to discharge in: 24 Hours Physician Review Additional Text: CT head: COMPARISON: No comparisons TECHNIQUE: All CT scans are performed using dose optimization technique as appropriate and may include automated exposure control or mA/KV adjustment according to patient size. FINDINGS: No intracranial hemorrhage, hydrocephalus or extra-axial fluid collection.No areas of brain edema or evidence of midline shift. The paranasal sinuses and mastoids are clear. The calvarium is intact. IMPRESSION: No acute intracranial abnormality. Right Hip xray: COMPARISON: No comparisons FINDINGS: No pelvic fracture is identified. Status post left total hip arthroplasty. No evidence of hardware complications. The right hip is located. No right hip fracture seen. Degenerative changes are present in the lower spine. IMPRESSION: No pelvic or right hip fractures identified. No left hip arthroplasty is intact. Physical Exam: GENERAL: Patient alert, cooperative.not fully oriented VITAL SIGNS: Reviewed HEENT: Dry mucous membranes LUNGS: Clear to auscultation. No crackles or wheezes are heard. HEART: A. fib rate controlled ABDOMEN: overweight Soft, nontender, and nondistended. Positive bowel sounds. No hepatosplenomegaly was noted. EXTREMITIES: Without any cyanosis, clubbing, rash, lesions or peripheral edema. NEUROLOGIC: The patient is oriented to person, place and time. Strength and sensation are grossly intact. Face is symmetric. SKIN: Normal color, turgor and temperature. No ulcerations or rashes noted. Impression: Weakness and fall from sitting position with altered mental status status post lumbar tap UTI with urine culture showing Klebsiella pneumoniae Atrial fibrillation on chronic anticoagulation therapy Chronic diastolic CHF Hypokalemia Hypercalcemia Hypertension CAD with prior stents Chronic pain Obesity Plan: Weakness and fall from sitting position with altered mental status status post lumbar tap: Patient doing well at this time. Awaiting approval for placement. Patient tapered off prednisone. UTI with urine culture showing Klebsiella pneumoniae: -Patient has completed treatment for UTI. Repeat culture cont to be negative Atrial fibrillation on chronic anticoagulation therapy: -Heart Rate well controlled today . Continue metoprolol 75 mg 1 pill twice daily and Eliquis 5 mg 1 pill twice daily. Chronic diastolic CHF: -Continue with nephrology recommendations. Currently off Lasix Hypokalemia: -resolved , Electrolyte protocol in place. clinimex stopped Hypercalcemia: -Continue with nephrology recommendations.pamindronate given on 02/07 , related to immobility, not related to PTH Hypertension: -worse, will increase clonidine patch 0.3 every 7 days, metoprolol 75 mg 1 pill twice daily and increase Norvasc to 10mg daily. Blood pressure well controlled. Hyperglycemia -? steroids related -HGBA1c ordered but not resulted , if glucose cont to be high will start ISS CAD with prior stents: -Off Imdur Chronic pain: -Continue with medication for pain. Obesity: -Lifestyle modification education provided Code Status: This was discussed in detail with patient. Patient is DO NOT RESUSCITATE. DVT prophylaxis: SCD Advanced Care Planning-30 minutes: Awaiting approval for skilled placement. Time Spent Managing Pts Care (In Minutes): 55
[2021-02-20] MEDS: INSULIN -REGULAR HUMAN 50 UNIT/0.5 ML ML SQ SCH ×3 (07:30→16:30)
[2021-02-20] MEDS: ACETAMINOPHEN 500 MG TAB PO PRN (08:42)
[2021-02-20] MEDS: FUROSEMIDE 20 MG TABLET PO SCH (08:43)
[2021-02-20] MEDS: POTASSIUM CL SA 10 MEQ TAB PO SCH (08:43)
[2021-02-20] MEDS: DOCUSATE NA 100 MG CAP PO PRN (08:43)
[2021-02-20] MEDS: ENSURE ENLIVE 237 ML CAN PO SCH ×2 (08:43→14:00)
[2021-02-20] MEDS: APIXABAN 5 MG TABLET PO SCH (08:46)
[2021-02-20] MEDS: AMLODIPINE 10 MG TAB PO SCH (09:00)
[2021-02-20] MEDS: HYDRALAZINE HCL 25 MG TABLET PO SCH (09:00)
[2021-02-20] MEDS ORDERED: FAMOTIDINE 20 MG TAB PO PRN (10:39)
[2021-02-20 11:09] LABS: Albumin 2.1 g/dL (3.4-5.0); Bilirubin Total 0.9 mg/dL (0.2-1.0); Potassium 4.7 mmol/L (3.5-5.1); Protein, Total 5.4 g/dL (6.4-8.2)
--- NOTE | 2021-02-20 14:06 | PN ---
Date of Progress Note: 02/20/2021 Subjective: The patient was admitted with acute kidney injury; hypercalcemia secondary to immobiliza tion. After hydration, calcium normalized, kidney function improved. Physical Examination: Vital Signs: When I saw the patient, blood pressure 119/70, pulse of 88, afebrile. The patient had good urine output. Chest: Faint rales on the left base. Heart: S1, S2, systolic murmur. Abdomen: Sof, nontender. Extremity: Trace edema. Neuro: Alert, pleasantly confused. No focality. Laboratory Data: H and H 11.4/35.7. Sodium 139, potassium 4.7 bicarb 32, BUN 35, creatinine 0.7, ca lcium 8.8, albumin 2.1. Corrected calcium is 10.4. Current Medications: The patient on include amlodipine, clonidine 0.3 patch, metoprolol 75 b.i.d., h ydralazine 50 b.i.d., Pepcid, Lasix 20 daily, melatonin, KCl. Assessment And Plan: 1.Acute kidney injury secondary to prerenal, recovered, resolved. 2.Hypertension, controlled, optimal. Continue current medication. 3.Hypercalcemia secondary to immobilization. All workup was negative. Calcium normalized. We will monitor. 4.Urinary tract infection, status post treatment, recovered, resolved. 5.Intermittent over volume. The patient maintained currently on Lasix 20 mg daily. Given the red nal elevation in the calcium, I am going to go ahead and change it to every other day and we will follow up the patient. CHAPO Voice ID: [id number] Report ID: [id number]
--- NOTE | 2021-02-20 14:08 | P.DS ---
Admission Date: 01/27/21 Discharge Date: 02/20/21 Primary Care Provider: Dr. Pacheco Disposition: TRANSFER TO SNF - MEDICAL Discharge Condition: GOOD Reason for Admission: Fall Consultations: Neurology-Dr. Torres Nephrology-Dr. Magallon Procedures: CT head: COMPARISON: No comparisons TECHNIQUE: All CT scans are performed using dose optimization technique as appropriate and may include automated exposure control or mA/KV adjustment according to patient size. FINDINGS: No intracranial hemorrhage, hydrocephalus or extra-axial fluid collection.No areas of brain edema or evidence of midline shift. The paranasal sinuses and mastoids are clear. The calvarium is intact. IMPRESSION: No acute intracranial abnormality. Right Hip xray: COMPARISON: No comparisons FINDINGS: No pelvic fracture is identified. Status post left total hip arthroplasty. No evidence of hardware complications. The right hip is located. No right hip fracture seen. Degenerative changes are present in the lower spine. IMPRESSION: No pelvic or right hip fractures identified. No left hip arthroplasty is intact. Physical Exam: GENERAL: Patient alert, cooperative.not fully oriented VITAL SIGNS: Reviewed HEENT: Dry mucous membranes LUNGS: Clear to auscultation. No crackles or wheezes are heard. HEART: A. fib rate controlled ABDOMEN: overweight Soft, nontender, and nondistended. Positive bowel sounds. No hepatosplenomegaly was noted. EXTREMITIES: Without any cyanosis, clubbing, rash, lesions or peripheral edema. NEUROLOGIC: The patient is oriented to person, place and time. Strength and sensation are grossly intact. Face is symmetric. SKIN: Normal color, turgor and temperature. No ulcerations or rashes noted. Medical problem list: Weakness and fall from sitting position with altered mental status status post lumbar tap UTI with urine culture showing Klebsiella pneumoniae Atrial fibrillation on chronic anticoagulation therapy Chronic diastolic CHF Hypokalemia Hypercalcemia Hypertension CAD with prior stents Chronic pain Obesity Brief History of Present Illness: 80-year-old female with history of atrial fibrillation, CHF, chronic anticoagulation therapy, hypertension, CAD with prior stent, hyperlipidemia, and obesity. Patient presented to emergency room after she fell from a sitting position at home. Patient is homebound. She has home care 5 days out of the week with home health and physical therapy. She was not able to get out of the floor. She laid on the ground. She continued to have increasing back pain. EMS was called. EMS noted elevated heart rate. Patient was given Cardizem. By the time she arrived blood pressure and heart rate were better controlled. Patient denied any fever, chills. No shortness of breath noted. In the ER patient was evaluated. Vital signs stable. Chest x-ray unremarkable. CT head unremarkable. Right hip showed no fracture. White count 8.2, hemoglobin 11.7. Sodium 141. Potassium 2.9. Creatinine 0.9 with a GFR 57. Glucose 140. BNP 5000. Troponin unremarkable. Calcium 10.8. Patient was admitted for further evaluation and treatment. Hospital Course: Patient presented with weakness and fall. Patient with other chronic conditions including chronic diastolic CHF, atrial fibrillation on chronic anticoagulation therapy, hypertension, CAD and chronic pain. During the course of her stay patient developed encephalopathy likely viral infection. Patient also had hypercalcemia, hypokalemia. Neurology and nephrology were consulted. Patient had lumbar tap which showed no evidence of bacterial infection. Patient was treated with steroids which improved her symptoms. Since then patient has improved. Prednisone has been tapered off. Patient was evaluated for skilled placement. Patient was finally approved to go to a skilled placement with the help of her family. At discharge patient will continue with her current medications. Patient currently on 1 L per nasal cannula to maintain sats above 93%. Patient will continue with her current medications including metoprolol 75 mg 1 pill twice daily, hydralazine 50 mg 1 pill twice daily, Norvasc 10 mg daily, clonidine patch 0.3 every 7 days, Eliquis 5 mg 1 pill twice daily, Pepcid 20 mg 1 pill twice daily, Lasix 20 mg every 48 hours along with Klor-Con 10 mEq daily. Patient will continue with physical therapy at the facility. Patient will likely require long-term care at the facility. Patient with underlying atrial fibrillation on chronic anticoagulation therapy. Overall stable. As mentioned above patient will continue with Eliquis 5 mg 1 pill twice daily. Patient will continue with her medication including metoprolol 75 mg 1 pill twice daily. Patient may follow-up with cardiology in 2 to 4 weeks to follow-up this hospitalization. Patient with chronic diastolic CHF. Overall stable. Medications have been adjusted. At discharge patient will continue with Lasix 20 mg every 48 hours along with Klor-Con 10 mEq daily. Recommend to recheck labBMP in 1 week to monitor her progress. Patient will continue with the 1500 cc/day fluid restriction and low-salt diet. Patient with hypertension. As mentioned above patient will continue with her current medications including metoprolol 75 mg 1 pill twice daily, hydralazine 50 mg 1 pill twice daily, Norvasc 10 mg daily, and clonidine patch 0.3 mg every 7 days. Recommend to maintain blood pressure less than 130/80. Further adjustment Coumadin per PCP. Patient was found to have a UTI early on during the course of her stay. Klebsiella pneumonia he was treated. Repeat culture negative. UTI prevention provided. No need for White catheter at discharge. Patient with GERD. At discharge patient will continue with Pepcid 20 mg 1 pill twice daily. Patient with mild nutrition. Patient will continue with Ensure 1 can 3 times a day. Advance care directives addressed in detail. Patient is DO NOT RESUSCITATE. Vital Signs/Physical Exam: Temp Pulse Resp BP Pulse Ox 97.7 F 93 H 19 134/69 92 02/20/21 14:07 02/20/21 14:07 02/20/21 14:07 02/20/21 14:07 02/20/21 14:07 General: Alert, In no apparent distress, Oriented x3, Cooperative HEENT: Atraumatic Neck: Supple Respiratory: Clear to auscultation bilaterally, Normal air movement, Other (Currently on 1 L per nasal cannula) Cardiovascular: Normal pulses, Regular rate/rhythm Gastrointestinal: Normal bowel sounds, No tenderness, No masses, No rebound, No guarding Musculoskeletal: No erythema, No tenderness, No warmth Integumentary: No tenderness/swelling Neurological: Normal speech, Normal strength at 5/5 x4 extr, Normal tone, Normal affect Laboratory Data at Discharge: WBC 13.00 K/uL (4.3-10.9) H 02/18/21 05:40 Hgb 11.4 g/dL (12.0-15.0) L 02/18/21 05:40 Hct 35.7 % (36.0-45.0) L 02/18/21 05:40 Plt Count 116 K/uL (152-406) L 02/18/21 05:40 PT 18.2 SECONDS (9.5-12.5) H 01/26/21 09:30 INR 1.58 01/26/21 09:30 Sodium 139 mmol/L (136-145) 02/20/21 10:30 Potassium 4.7 mmol/L (3.5-5.1) 02/20/21 10:30 BUN 35 mg/dL (7-18) H 02/20/21 10:30 Creatinine 0.74 mg/dL (0.55-1.3) 02/20/21 10:30 Glucose 151 mg/dL (74-106) H 02/20/21 10:30 Uric Acid 5.3 mg/dL (2.6-6.0) 01/28/21 07:03 Phosphorus 2.6 mg/dL (2.5-4.9) 02/17/21 05:56 Magnesium 2.6 mg/dL (1.8-2.4) H 02/18/21 05:40 Total Bilirubin 0.9 mg/dL (0.2-1.0) 02/20/21 10:30 AST 29 U/L (15-37) 02/20/21 10:30 ALT 56 U/L (12-78) 02/20/21 10:30 Alkaline Phosphatase 109 U/L (45-117) 02/20/21 10:30 Troponin I < 0.02 ng/mL (0.0-0.045) 01/26/21 19:02 Triglycerides 105 mg/dL (<150) 01/27/21 05:01 Cholesterol 97 mg/dL (<200) 01/27/21 05:01 HDL Cholesterol 29 mg/dL (40-60) L 01/27/21 05:01 Cholesterol/HDL Ratio 3.34 01/27/21 05:01 Home Medications: Anastrozole 1 mg PO DAILY 01/27/21 Apixaban [Eliquis] 5 mg PO BID 01/27/21 Amlodipine [Norvasc*] 10 mg PO DAILY #30 tab 02/20/21 Clonidine Patch [Catapres-Tts 3*] 0.3 mg TD EVERY 7TH DAY #4 patch.tdwk 02/20/21 Docusate [Colace Cap*] 100 mg PO DAILY PRN #30 cap 02/20/21 Ensure Enlive 237 ml PO TID #90 can 02/20/21 Famotidine [Pepcid*] 20 mg PO BID #60 tab 02/20/21 Furosemide [Lasix*] 20 mg PO Q48H #15 tab 02/20/21 Hydralazine HCl 50 mg PO BID #60 tablet 02/20/21 Metoprolol Tartrate [Lopressor*] 75 mg PO BID 6AM 6PM #180 tab 02/20/21 Potassium Oral Tab [Klor-Con 10 mEq Tab*] 10 meq PO DAILY #30 tab 02/20/21 New Medications: Clonidine Patch [Catapres-Tts 3*] 0.3 mg TD EVERY 7TH DAY #4 patch.tdwk Docusate [Colace Cap*] 100 mg PO DAILY PRN #30 cap PRN Reason: Constipation Ensure Enlive 237 ml PO TID #90 can Hydralazine HCl 50 mg PO BID #60 tablet Potassium Oral Tab [Klor-Con 10 mEq Tab*] 10 meq PO DAILY #30 tab Furosemide [Lasix*] 20 mg PO Q48H #15 tab Metoprolol Tartrate [Lopressor*] 75 mg PO BID 6AM 6PM #180 tab Amlodipine [Norvasc*] 10 mg PO DAILY #30 tab Famotidine [Pepcid*] 20 mg PO BID #60 tab Physician Discharge Instructions: Patient presented with weakness and fall. Patient with other chronic conditions including chronic diastolic CHF, atrial fibrillation on chronic anticoagulation therapy, hypertension, CAD and chronic pain. During the course of her stay patient developed encephalopathy likely viral infection. Patient also had hypercalcemia, hypokalemia. Neurology and nephrology were consulted. Patient had lumbar tap which showed no evidence of bacterial infection. Patient was treated with steroids which improved her symptoms. Since then patient has improved. Prednisone has been tapered off. Patient was evaluated for skilled placement. Patient was finally approved to go to a skilled placement with the help of her family. At discharge patient will continue with her current medications. Patient currently on 1 L per nasal cannula to maintain sats above 93%. Patient will continue with her current medications including metoprolol 75 mg 1 pill twice daily, hydralazine 50 mg 1 pill twice daily, Norvasc 10 mg daily, clonidine patch 0.3 every 7 days, Eliquis 5 mg 1 pill twice daily, Pepcid 20 mg 1 pill twice daily, Lasix 20 mg every 48 hours along with Klor-Con 10 mEq daily. Patient will continue with physical therapy at the facility. Patient will likely require long-term care at the facility. Patient with underlying atrial fibrillation on chronic anticoagulation therapy. Overall stable. As mentioned above patient will continue with Eliquis 5 mg 1 pill twice daily. Patient will continue with her medication including metoprolol 75 mg 1 pill twice daily. Patient may follow-up with cardiology in 2 to 4 weeks to follow-up this hospitalization. Patient with chronic diastolic CHF. Overall stable. Medications have been adjusted. At discharge patient will continue with Lasix 20 mg every 48 hours along with Klor-Con 10 mEq daily. Recommend to recheck labBMP in 1 week to monitor her progress. Patient will continue with the 1500 cc/day fluid restriction and low-salt diet. Patient with hypertension. As mentioned above patient will continue with her current medications including metoprolol 75 mg 1 pill twice daily, hydralazine 50 mg 1 pill twice daily, Norvasc 10 mg daily, and clonidine patch 0.3 mg every 7 days. Recommend to maintain blood pressure less than 130/80. Further adjustment Coumadin per PCP. Patient was found to have a UTI early on during the course of her stay. Klebsiella pneumonia he was treated. Repeat culture negative. UTI prevention provided. No need for White catheter at discharge. Patient with GERD. At discharge patient will continue with Pepcid 20 mg 1 pill twice daily. Patient with mild nutrition. Patient will continue with Ensure 1 can 3 times a day. Advance care directives addressed in detail. Patient is DO NOT RESUSCITATE. Diet: AHA Activity: Fall precautions Followup: NONE,NONE [Primary Care Provider] - Time spent managing pt's care (in minutes): 55
[2021-02-20 16:28] VITALS: O2SAT 95
[2021-02-20 17:31] VITALS: BP 122/69; TEMP 97.3
[2021-02-22] MEDS ORDERED: FUROSEMIDE 20 MG TABLET PO SCH (09:00)
== END 2021-02-20 18:17 | DRG 689 ==
LOC: ER 09:14 → ERHOLD 13:08 → 2ND 18:12 → OBSVTOIN 01-27 14:47
PROVIDERS: ADMIT Family Medicine; ATTEND Family Medicine
PROC: 009U3ZX Drainage of Spinal Canal, Percutaneous Approach, Diagnostic (ICD-10-PCS; principal; 2021-02-02)
DX: N30.00 Acute cystitis without hematuria (principal); G93.41 Metabolic encephalopathy; G92.8 Other toxic encephalopathy; N17.9 Acute kidney failure, unspecified; I48.20 Chronic atrial fibrillation, unspecified; Z68.44 Body mass index [BMI] 60.0-69.9, adult; I50.32 Chronic diastolic (congestive) heart failure; E87.0 Hyperosmolality and hypernatremia; E83.52 Hypercalcemia; Z88.5 Allergy status to narcotic agent; Z79.01 Long term (current) use of anticoagulants; Z79.899 Other long term (current) drug therapy; E87.6 Hypokalemia; I25.10 Atherosclerotic heart disease of native coronary artery without angina pectoris; Z95.5 Presence of coronary angioplasty implant and graft; E78.5 Hyperlipidemia, unspecified; E66.9 Obesity, unspecified; G89.29 Other chronic pain; M54.9 Dorsalgia, unspecified; W18.30XA Fall on same level, unspecified, initial encounter; I11.0 Hypertensive heart disease with heart failure; Z66 Do not resuscitate; Z20.822 Contact with and (suspected) exposure to COVID-19; Z74.01 Bed confinement status; R00.0 Tachycardia, unspecified; B96.1 Klebsiella pneumoniae [K. pneumoniae] as the cause of diseases classified elsewhere; E86.0 Dehydration; E83.39 Other disorders of phosphorus metabolism; F01.50 Vascular dementia, unspecified severity, without behavioral disturbance, psychotic disturbance, mood disturbance, and anxiety; R73.9 Hyperglycemia, unspecified
CPT/HCPCS: 36415; 51702; 70450; 70551; 71045; 77003; 80048; 80053; 80061; 80069; 80076; 81003; 81015; 82040; 82306; 82330; 82550; 82553; 82570; 82652; 82945; 82947; 83036; 83519; 83520; 83735; 83880; 83970; 84100; 84132; 84145; 84156; 84157; 84165; 84439; 84443; 84484; 84550; 85025; 85610; 87070; 87077; 87086; 87088; 87186; 89050; 92526; 92610; 93005; 93306; 96365; 96366; 97110; 97112; 97161; 97168; 97530; 99285; G0378; J0360; J1940; J2430; J2930; J3475; J3480; J7030; J7040; J7050; J7512; J7799; U0003

== ENCOUNTER 2021-04-24 14:54 | Inpatient (IN) | payer OTHER ==
--- OUTSIDE RECORDS SUMMARY | 2021-04-24 15:10 | XMS REPORT | Continuity of Care Document ---
:1940 Author Organization [facility] t Address [address] [place] [address] Care Team Providers Name Role Phone JUNIOR Primary Care Physician Unavailable Kaylee BAH Attending Clinician Unavailable MARIA FORDE Attending Clinician Unavailable Mindi BUTTERFIELD Attending Clinician Unavailable Daria OTOOLE Attending Clinician Unavailable Daria Otoole DO Attending Clinician Junior ISRAEL Attending Clinician JUNIOR Attending Clinician Unavailable Doctor Unassigned, Name Attending Clinician Unavailable Leni ROYAL Attending Clinician Unavailable JESSE Attending Clinician Unavailable Ray PORTILLO Attending Clinician RAY Attending Clinician Unavailable Kaylee OROURKE Attending Clinician Unavailable Kaylee Orourke MD Attending Clinician Leni Royal MD Attending Clinician Only, Test Attending Clinician Unavailable 2, Lab Attending Clinician Unavailable Kevin ISRAEL, Romaine Attending Clinician Citlaly ISRAEL, S Attending Clinician Olvin ISRAEL, S Attending Clinician Ana Mathews CRNA Attending Clinician Zoltan Means MD Attending Clinician Ana OLIVEIRA Attending Clinician Unavailable Radiology Attending Clinician Unavailable RADIOLOGY Attending Clinician Unavailable Lab, Fam Pob I Attending Clinician Unavailable Michel ISRAEL Attending Clinician Jesse ISRAEL Attending Clinician MICHEL STEPHENS Attending Clinician Unavailable LEELEE, Kvng Attending Clinician Unavailable Svitlana ROGERS Attending Clinician Rosa PATEL Attending Clinician Unavailable Lisa Julien Attending Clinician Aguila ISRAEL Attending Clinician Kvng Stevenson Attending Clinician Kaylee BAH Admitting Clinician Unavailable JOEL Admitting Clinician Unavailable Daria OTOOLE Admitting Clinician Unavailable Kaylee Bah MD Admitting Clinician Aguila ISRAEL Admitting Clinician Payers Payer Name Policy Type Policy Number Effective Date Expiration Date S evin AET MEDICARE ADV [id number] 2016 00:00:00 AET MEDICARE HMO [id number] 2019 POS 00:00:00 Problems Condition Condition Condition Status Onset Resolution Last Treating Co mments Source Name Details Category Date Date Treatment Clinician Date Chronic Chronic Disease Active Univers pain pain 4-02 ity of 00:00: [place] 00 Medical Branch 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 Added automatic ally from request for surgery [id number] Acute on Acute on Disease Active Unive rs chronic chronic 8-03 [place] of diastolic diastolic [place] congestive congestive 00 Me dical heart heart Branch failure failure SERENA (acute SERENA (acute Disease Active U nivers kidney kidney 8-03 ity of injury) injury) 00:00: [place] 00 Medical Branch PAF PAF Disease Active Univers (paroxysma (paroxysma 10-17 it y of l atrial l atrial 00:00: [place] fibrillati fibrillati 00 Me dical on) on) Branch Sepsis Sepsis Disease Active Univers 7-31 ity of 00:00: [place] 00 Medical Branch Medicare Medicare Disease Active Unive rs annual annual 6-21 ity of wellness wellness 00:00: [place] visit, visit, 00 Medical subsequent subsequent Br anch Essential Essential Disease Active Uni vers hypertensi hypertensi 6-21 it y of on on 00:00: [place] [facility] Hyperlipid Hyperlipid Disease Active U magali emia emia 6 ity of 00:00: [place] [facility] Hair loss Hair loss Disease Active Uni vers 6 ity of 00:00: [place] 00 Medical Branch Decreased Decreased Disease Active Uni vers energy energy 09-04 ity of 00:00: Medical Branch Elevated Elevated Disease Active Unive rs hemoglobin hemoglobin 6-21 it y of A1c A1c 00:00: [place] [facility] Cataracts, Cataracts, Disease Active U nivers bilateral bilateral 2-04 ity of 00:00: [place] 00 Medical Branch Allergies, Adverse Reactions, Alerts Allergy Allergy Status Severity Reaction(s) Onset Inactive Treating Comm ents Source Name Type Date Date Clinician CODEINE Allergy Active Low Anxiety 2020-[address] [facility] Codeine Propensi Active Anxiety Crawl the Uni vers ty to 7 harvey, ity of adverse 00:00: makes her [place] reaction 00 feel Medical s anxiety Branch CODEINE DRUG Active Anxiety Univers INGREDI 7- ity of 00:00: [place] 00 Medical Branch NO KNOWN Allergy Active LEONID MCDONALD S Social History Social Habit Start Date Stop Date Quantity Comments Source History SDOH University o f Alcohol Frequency [place] M edical Branch History SDOH University o f Alcohol Std [place] Medical Drinks Branch History SDOH University o f Alcohol Binge [place] [facility] al Branch Exposure to Not sure University of SARS-CoV-2 [place] Medical (event) Branch Alcohol intake 2021-02-27 2021-02-27 Current drinker Unive rsity of 00:00:00 00:00:00 of alcohol [facility] (finding) Branch Tobacco use and 2020-07-27 2020-07-27 Former user Universi ty of exposure 00:00:00 00:00:00 [facility] Alcohol Comment 2015-09-05 2015-09-05 occasional Universit y of 00:00:00 00:00:00 [facility] Tobacco Comment 2015-09-05 2015-09-05 smoked a couple Univ ersity of 00:00:00 00:00:00 of months- few [place] [facility] claudia cigarettes daily. Branch History of 1958-05-01 Cigarette Smoker Universi ty of tobacco use 00:00:00 [facility] Sex Assigned At [birth year] Universit y of 00:00:00 00:00:00 [facility] Smoking Status Start Date Stop Date Source Former smoker 2020-07-27 00:00:00 2020-07-27 00:00:00 Universi ty of [facility] Medications Ordered Filled Start Stop Current Ordering Indication Dosage Frequency Signature Comments Components Source Medication Medication Date Date Medication? Clinician (SIG) Name Name furosemide 2020-03- No 40mg 40 mg, IV U nivers (LASIX) 2-14 12-14 Push, ity of injection 19:45: 20:28 ONCE, 1 [place] 40 mg 00 :00 dose, On Medical Tue Branch 02/27/21 at 1345, SERGO ALBUTEROL 2020-03 Yes [id number] TAKE 2 U nivers 90 1-04 PUFFS BY ity of mcg/actuati 00:00: MOUTH [place] on inhaler 00 EVERY 6 Medica l HOURS Branch NEEDED FOR WHEEZE OR FOR SHORTNESS OF BREATH ALBUTEROL 2020-03 Yes [id number] TAKE 2 U nivers 90 1-04 PUFFS BY ity of mcg/actuati 00:00: MOUTH [place] on inhaler 00 EVERY 6 Medica l HOURS Branch NEEDED FOR WHEEZE OR FOR SHORTNESS OF BREATH GABAPENTIN 2020-03 Yes [id number] TAKE 1 Univers 400 mg 1-01 CAPSULE BY ity of capsule 00:00: MOUTH [place] 00 THREE Medical TIMES A Branch DAY GABAPENTIN 2020-03 Yes [id number] TAKE 1 Univers 400 mg 1-01 CAPSULE BY ity of capsule 00:00: MOUTH [place] 00 THREE Medical TIMES A Branch DAY GABAPENTIN 2021-1 Yes [id number] TAKE 1 Univers 400 mg 1-01 CAPSULE BY ity of capsule 00:00: MOUTH [place] 00 THREE Medical TIMES A Branch DAY GABAPENTIN 2021-0 Yes [id number] TAKE 1 Univers 400 mg 9-24 CAPSULE BY ity of capsule 00:00: MOUTH [place] 00 THREE Medical TIMES A Branch DAY GABAPENTIN 2021-0 2021- No [id number] TAKE 1 Univers 400 mg 9-24 11- CAPSULE BY ity of capsule 00:00: 00:00 MOUTH [place] 00 :00 THREE Medical TIMES A Branch DAY GABAPENTIN 2021-0 Yes [id number] TAKE 1 Univers 400 mg 8-09 CAPSULE BY ity of capsule 00:00: MOUTH [place] 00 THREE Medical TIMES A Branch DAY GABAPENTIN 2021-0 Yes [id number] TAKE 1 Univers 400 mg 8-09 CAPSULE BY ity of capsule 00:00: [facility] 00 THREE Medical TIMES A Branch DAY GABAPENTIN 2021-0 Yes [id number] TAKE 1 Univers 400 mg 8-09 CAPSULE BY ity of capsule 00:00: MOUTH [place] 00 THREE Medical TIMES A Branch DAY GABAPENTIN 2021-0 Yes [id number] TAKE 1 Univers 400 mg 8-09 CAPSULE BY ity of capsule 00:00: MOUTH [place] 00 THREE Medical TIMES A Branch DAY GABAPENTIN 2021-0 Yes [id number] TAKE 1 Univers 400 mg 8-09 CAPSULE BY ity of capsule 00:00: [facility] 00 THREE Medical TIMES A Branch DAY GABAPENTIN 2021-0 Yes [id number] TAKE 1 Univers 400 mg 8-09 CAPSULE BY ity of capsule 00:00: [facility] 00 THREE Medical TIMES A Branch DAY GABAPENTIN 2021-0 2021- No [id number] TAKE 1 Univers 400 mg 8-09 -24 CAPSULE BY ity of capsule 00:00: 00:00 MOUTH [place] 00 :00 THREE Medical TIMES A Branch DAY GABAPENTIN 2021-0 Yes [id number] TAKE 1 Univers 400 mg 7-07 CAPSULE BY ity of capsule 00:00: [facility] 00 THREE Medical TIMES A Branch DAY GABAPENTIN 2021-0 2021- No [id number] TAKE 1 Univers 400 mg 7-07 08-09 CAPSULE BY ity of capsule 00:00: 00:00 MOUTH [place] 00 :00 THREE Medical TIMES A Branch DAY ATORVASTATI 2021-0 Yes [id number] TAKE 1 Univers N 20 mg 6-08 TABLET AT ity of tablet 00:00: BEDTIME [facility] ATORVASTATI Yes [id number] TAKE 1 Univers N 20 mg 6-08 TABLET AT ity of tablet 00:00: BEDTIME [facility] ATORVASTATI Yes [id number] TAKE 1 Univers N 20 mg 6-08 TABLET AT ity of tablet 00:00: BEDTIME [facility] ATORVASTATI Yes [id number] TAKE 1 Univers N 20 mg 6-08 TABLET AT ity of tablet 00:00: BEDTIME [facility] ATORVASTA Yes [id number] TAKE 1 Univers N 20 mg 6-08 TABLET AT ity of tablet 00:00: BEDTIME [facility] ATORVASTA Yes [id number] TAKE 1 Univers N 20 mg 6-08 TABLET AT ity of tablet 00:00: BEDTIME [facility] ATORVASTA Yes [id number] TAKE 1 Univers N 20 mg 6-08 TABLET AT ity of tablet 00:00: BEDTIME [facility] ATORVASTATI Yes [id number] TAKE 1 Univers N 20 mg 6-08 TABLET AT ity of tablet 00:00: BEDTIME [facility] ATORVASTATI Yes [id number] TAKE 1 Univers N 20 mg 6-08 TABLET AT ity of tablet 00:00: BEDTIME [facility] ATORVASTATI Yes [id number] TAKE 1 Univers N 20 mg 6-08 TABLET AT ity of tablet 00:00: BEDTIME [facility] ATORVASTATI Yes [id number] TAKE 1 Univers N 20 mg 6-08 TABLET AT ity of tablet 00:00: BEDTIME [facility] ATORVASTATI Yes [id number] TAKE 1 Univers N 20 mg 6-08 TABLET AT ity of tablet 00:00: BEDTIME [facility] ATORVASTATI Yes [id number] TAKE 1 Univers N 20 mg 6-08 TABLET AT ity of tablet 00:00: BEDTIME [facility] ATORVASTATI Yes [id number] TAKE 1 Univers N 20 mg 6-08 TABLET AT ity of tablet 00:00: BEDTIME [place] 00 Medical Branch Selenium Yes 1{tbl} Take 1 Unive rs 200 mcg Tab 5-26 tablet by ity of 19:00: mouth [place] 40 daily. Medical Branch calcium Yes 1{tbl} Take 1 Univer s carb/vitami 5-26 tablet by ity of n D2/vit K1 19:00: mouth [place] (CALCIUM- 40 daily. [facility] D-VITAMIN K ORAL) Selenium Yes 1{tbl} Take 1 Unive rs 200 mcg Tab 5-26 tablet by ity of 19:00: mouth [place] 40 daily. Medical Branch calcium Yes 1{tbl} Take 1 Univer s carb/vitami 5-26 tablet by ity of n D2/vit K1 19:00: mouth [place] (CALCIUM- 40 daily. [facility]ica [facility] D-VITAMIN K ORAL) Selenium Yes 1{tbl} Take 1 Unive rs 200 mcg Tab 5-26 tablet by ity of 19:00: mouth [place] 40 daily. Medical Branch calcium Yes 1{tbl} Take 1 Univer s carb/vitami 5-26 tablet by ity of n D2/vit K1 19:00: mouth [place] [facility]CALCIUM- [facility]. [facility]) Selenium Yes 1{tbl} Take 1 Unive rs 200 mcg Tab 5-26 tablet by ity of 19:00: mouth [place] 40 daily. Medical Branch calcium Yes 1{tbl} Take 1 Univer s carb/vitami 5-26 tablet by ity of n D2/vit K1 19:00: mouth [place] (CALCIUM- 40 daily. [facility]ica [facility] D-VITAMIN K ORAL) Selenium Yes 1{tbl} Take 1 Unive rs 200 mcg Tab 5-26 tablet by ity of 19:00: mouth [place] 40 daily. Medical Branch calcium Yes 1{tbl} Take 1 Univer s carb/vitami 5-26 tablet by ity of n D2/vit K1 19:00: mouth [place] (CALCIUM- 40 daily. [facility] D-VITAMIN K ORAL) Selenium Yes 1{tbl} Take 1 Unive rs 200 mcg Tab 5-26 tablet by ity of 19:00: mouth [place] 40 daily. Medical Branch calcium Yes 1{tbl} Take 1 Univer s carb/vitami 5-26 tablet by ity of n D2/vit K1 19:00: mouth [place] (CALCIUM- 40 daily. [facility]ica [facility] D-VITAMIN K ORAL) Selenium Yes 1{tbl} Take 1 Unive rs 200 mcg Tab 5-26 tablet by ity of 19:00: mouth [place] 40 daily. Medical Branch calcium Yes 1{tbl} Take 1 Univer s carb/vitami 5-26 tablet by ity of n D2/vit K1 19:00: mouth [place] (CALCIUM- 40 daily. [facility]AL) Selenium Yes 1{tbl} Take 1 Unive rs 200 mcg Tab 5-26 tablet by ity of 19:00: mouth [place] 40 daily. Medical Branch calcium Yes 1{tbl} Take 1 Univer s carb/vitami 5-26 tablet by ity of n D2/vit K1 19:00: mouth [place] (CALCIUM- 40 daily. [facility]AL) Selenium Yes 1{tbl} Take 1 Unive rs 200 mcg Tab 5-26 tablet by ity of 19:00: mouth [place] 40 daily. Medical Branch calcium Yes 1{tbl} Take 1 Univer s carb/vitami 5-26 tablet by ity of n D2/vit K1 19:00: mouth [place] (CALCIUM- 40 daily. [facility]ica [facility] D-VITAMIN K ORAL) Selenium Yes 1{tbl} Take 1 Unive rs 200 mcg Tab 5-26 tablet by ity of 19:00: mouth [place] 40 daily. Medical Branch calcium Yes 1{tbl} Take 1 Univer s carb/vitami 5-26 tablet by ity of n D2/vit K1 19:00: mouth [place] (CALCIUM- 40 daily. [facility] D-VITAMIN K ORAL) Selenium Yes 1{tbl} Take 1 Unive rs 200 mcg Tab 5-26 tablet by ity of 19:00: mouth [place] 40 daily. Medical Branch calcium Yes 1{tbl} Take 1 Univer s carb/vitami 5-26 tablet by ity of n D2/vit K1 19:00: mouth [place] (CALCIUM- 40 daily. Medica l TAMIN Branch D-VITAMIN K ORAL) Selenium Yes 1{tbl} Take 1 Unive rs 200 mcg Tab 5-26 tablet by ity of 19:00: mouth [place] 40 daily. Medical Branch calcium Yes 1{tbl} Take 1 Univer s carb/vitami 5-26 tablet by ity of n D2/vit K1 19:00: mouth [place] (CALCIUM- 40 daily. [facility] D-VITAMIN K ORAL) Selenium Yes 1{tbl} Take 1 Unive rs 200 mcg Tab 5-26 tablet by ity of 14:00: mouth [place] 40 daily. Medical Branch calcium Yes 1{tbl} Take 1 Univer s carb/vitami 5-26 tablet by ity of n D2/vit K1 14:00: mouth [place] (CALCIUM- 40 daily. [facility]ica [facility] D-VITAMIN K ORAL) Selenium Yes 1{tbl} Take 1 Unive rs 200 mcg Tab 5-26 tablet by ity of 14:00: mouth [place] 40 daily. Medical Branch calcium Yes 1{tbl} Take 1 Univer s carb/vitami 5-26 tablet by ity of n D2/vit K1 14:00: mouth [place] (CALCIUM- 40 daily. [facility] D-VITAMIN K ORAL) Selenium Yes 1{tbl} Take 1 Unive rs 200 mcg Tab 5-26 tablet by ity of 14:00: mouth [place] 40 daily. Medical Branch calcium Yes 1{tbl} Take 1 Univer s carb/vitami 5-26 tablet by ity of n D2/vit K1 14:00: mouth [place] (CALCIUM- 40 daily. Medica l TAMIN Branch D-VITAMIN K ORAL) Selenium Yes 1{tbl} Take 1 Unive rs 200 mcg Tab 5-26 tablet by ity of 14:00: mouth [place] 40 daily. Medical Branch Selenium Yes 1{tbl} Take 1 Unive rs 200 mcg Tab 5-26 tablet by ity of 14:00: mouth [place] 40 daily. Medical Branch calcium Yes 1{tbl} Take 1 Univer s carb/vitami 5-26 tablet by ity of n D2/vit K1 14:00: mouth [place] (CALCIUM- 40 daily. [facility] D-VITAMIN K ORAL) calcium Yes 1{tbl} Take 1 Univer s carb/vitami 5-26 tablet by ity of n D2/vit K1 14:00: mouth [place] (CALCIUM- 40 daily. [facility] D-VITAMIN K ORAL) Selenium Yes 1{tbl} Take 1 Unive rs 200 mcg Tab 5-26 tablet by ity of 14:00: mouth [place] 40 daily. Medical Branch calcium Yes 1{tbl} Take 1 Univer s carb/vitami 5-26 tablet by ity of n D2/vit K1 14:00: mouth [place] (CALCIUM- 40 daily. [facility] D-VITAMIN K ORAL) Selenium Yes 1{tbl} Take 1 Unive rs 200 mcg Tab 5-26 tablet by ity of 14:00: mouth [place] 40 daily. Medical Branch calcium Yes 1{tbl} Take 1 Univer s carb/vitami 5-26 tablet by ity of n D2/vit K1 14:00: mouth [place] (CALCIUM- 40 daily. [facility] D-VITAMIN K ORAL) Selenium Yes 1{tbl} Take 1 Unive rs 200 mcg Tab 5-26 tablet by ity of 14:00: mouth [place] 40 daily. Medical Branch calcium Yes 1{tbl} Take 1 Univer s carb/vitami 5-26 tablet by ity of n D2/vit K1 14:00: mouth [place] (CALCIUM- 40 daily. [facility] D-VITAMIN K ORAL) anastrozole 2021- No [id number] 1mg Take 1 Univers (ARIMIDEX) 5-18 05-19 tablet by ity of 1 mg tablet 00:00: 04:59 [place] 00 :00 daily [facility] Branch anastrozole 2021- No [id number] 1mg Take 1 Univers (ARIMIDEX) 5-18 05-19 tablet by ity of 1 mg tablet 00:00: 04:59 [place] 00 :00 daily Medical Branch anastrozole 2021- No [id number] 1mg Take 1 Univers (ARIMIDEX) 5-18 05-19 tablet by ity of 1 mg tablet 00:00: 04:59 [place] 00 :00 daily [facility] Branch anastrozole 2021- No [id number] 1mg Take 1 Univers (ARIMIDEX) 5-18 05-19 tablet by ity of 1 mg tablet 00:00: 04:59 [place] 00 :00 daily Medical Branch anastrozole 2021- No [id number] 1mg Take 1 Univers (ARIMIDEX) 5-18 05-19 tablet by ity of 1 mg tablet 00:00: 04:59 [place] 00 :00 daily [facility] Branch anastrozole 2021- No [id number] 1mg Take 1 Univers (ARIMIDEX) 5-18 05-19 tablet by ity of 1 mg tablet 00:00: 04:59 [place] 00 :00 daily [facility] Branch anastrozole 2021- No [id number] 1mg Take 1 Univers (ARIMIDEX) 5-18 05-19 tablet by ity of 1 mg tablet 00:00: 04:59 [place] 00 :00 daily [facility] Branch anastrozole 2021- No [id number] 1mg Take 1 Univers (ARIMIDEX) 5-18 05-19 tablet by ity of 1 mg tablet 00:00: 04:59 mouth [place] 00 :00 daily [facility] Branch anastrozole 2021- No [id number] 1mg Take 1 Univers (ARIMIDEX) 5-18 05-19 tablet by ity of 1 mg tablet 00:00: 04:59 [place] 00 :00 daily Medical Branch anastrozole 2021- No [id number] 1mg Take 1 Univers (ARIMIDEX) 5-18 05-19 tablet by ity of 1 mg tablet 00:00: 04:59 [place] 00 :00 daily Medical [facility] anastrozole 2021- No [id number] 1mg Take 1 Univers (ARIMIDEX) 5-18 05-19 tablet by ity of 1 mg tablet 00:00: 04:59 mouth [place] 00 :00 daily Medical Branch anastrozole 2020-0 2021- No [id number] 1mg Take 1 Univers (ARIMIDEX) 5-18 05-19 tablet by ity of 1 mg tablet 00:00: 04:59 mouth [place] 00 :00 daily Medical Branch anastrozole 2021- No [id number] 1mg Take 1 Univers (ARIMIDEX) 5-18 05-19 tablet by ity of 1 mg tablet 00:00: 04:59 mouth [place] 00 :00 daily Medical Branch anastrozole 2021- No [id number] 1mg Take 1 Univers (ARIMIDEX) 5-18 05-19 tablet by ity of 1 mg tablet 00:00: 04:59 mouth [place] 00 :00 daily Medical Branch anastrozole 2021- No [id number] 1mg Take 1 Univers (ARIMIDEX) 5-18 05-19 tablet by ity of 1 mg tablet 00:00: 04:59 mouth [place] 00 :00 daily Medical Branch anastrozole 0 2021- No [id number] 1mg Take 1 Univers (ARIMIDEX) 5-18 05-19 tablet by ity of 1 mg tablet 00:00: 04:59 [place] 00 :00 daily Medical Branch anastrozole 2021- No [id number] 1mg Take 1 Univers (ARIMIDEX) 5-18 05-19 tablet by ity of 1 mg tablet 00:00: 04:59 mouth [place] 00 :00 daily Medical Branch anastrozole 2020-0 2021- No [id number] 1mg Take 1 Univers (ARIMIDEX) 5-18 05-19 tablet by ity of 1 mg tablet 00:00: 04:59 [place] 00 :00 daily Medical Branch furosemide 2020-0 Yes 20mg Take 20 mg U nivers 20 mg 5-12 by mouth ity of tablet 00:00: daily. [place] [facility] furosemide 2020-0 Yes 20mg Take 20 mg U nivers 20 mg 5-12 by mouth ity of tablet 00:00: daily. [place] [facility] Branch furosemide 2021-0 Yes 20mg Take 20 mg U nivers 20 mg 5-12 by mouth ity of tablet 00:00: daily. [place] [facility] Branch furosemide 2021-0 Yes 20mg Take 20 mg U nivers 20 mg 5-12 by mouth ity of tablet 00:00: daily. [place] [facility] Branch furosemide 2021-0 Yes 20mg Take 20 mg U nivers 20 mg 5-12 by mouth ity of tablet 00:00: daily. [place] [facility] Branch furosemide 2021-0 Yes 20mg Take 20 mg U nivers 20 mg 5-12 by mouth ity of tablet 00:00: daily. [place] [facility] furosemide 2021-0 Yes 20mg Take 20 mg U nivers 20 mg 5-12 by mouth ity of tablet 00:00: daily. [place] [facility] furosemide 2021-0 Yes 20mg Take 20 mg U nivers 20 mg 5-12 by mouth ity of tablet 00:00: daily. [place] [facility] furosemide 2021-0 Yes 20mg Take 20 mg U nivers 20 mg 5-12 by mouth ity of tablet 00:00: daily. [place] [facility] furosemide 2021-0 Yes 20mg Take 20 mg U nivers 20 mg 5-12 by mouth ity of tablet 00:00: daily. [place] [facility] furosemide 2021-0 Yes 20mg Take 20 mg U nivers 20 mg 5-12 by mouth ity of tablet 00:00: daily. [place] [facility] furosemide 2021-0 Yes 20mg Take 20 mg U nivers 20 mg 5-12 by mouth ity of tablet 00:00: daily. [place] [facility] furosemide 2021-0 Yes 20mg Take 20 mg U nivers 20 mg 5-12 by mouth ity of tablet 00:00: daily. [place] [facility] furosemide 2021-0 Yes 20mg Take 20 mg U nivers 20 mg 5-12 by mouth ity of tablet 00:00: daily. [place] [facility] furosemide 2021-0 Yes 20mg Take 20 mg U nivers 20 mg 5-12 by mouth ity of tablet 00:00: daily. [address] furosemide 2021-0 Yes 20mg Take 20 mg U nivers 20 mg 5-12 by mouth ity of tablet 00:00: daily. [address] furosemide 2021-0 Yes 20mg Take 20 mg U nivers 20 mg 5-12 by mouth ity of tablet 00:00: daily. [place] [facility] furosemide Yes 20mg Take 20 mg U nivers 20 mg 5-12 by mouth ity of tablet 00:00: daily. [place] [facility] furosemide Yes 20mg Take 20 mg U nivers 20 mg 5-12 by mouth ity of tablet 00:00: daily. [address] furosemide Yes 20mg Take 20 mg U nivers 20 mg 5-12 by mouth ity of tablet 00:00: daily. [place] [facility] acetaminoph 2020- No 1000mg 1,000 mg, Univers en ADULT 06-06 IV ity of (OFIRMEV) 16:30: 15:48 [place]fusion, [place] injection 00 :00 Administer Medi claudia 1,000 mg over 15 Branch Minutes, ONCE, 1 dose, [facility] 06/06/20 at 1130, Routine, PACU
Indicatio n: Perioperat caity Patient ceFAZolin 2020- No Slow IV Univ ers (ANCEF) 06-06 Push, ONCE ity o f injection 12:51: 14:26 INTRA [place] 00 :58 PROCEDURE, [facility] Starting [facility] 06/06/20 at 0751, Until Discontinu ed, SERGO, Intra-op propofoL IV 2020- No Intravenou Univers infusion 06-06 s, ONCE ity of 12:38: 14:26 INTRA [place] 00 :58 PROCEDURE, [facility] Starting [facility] 06/06/20 at 0738, Until Discontinu ed, Routine, Intra-op lactated 2020- No IV Univers ringers IV 06-06 Infusion, ity of infusion 12:30: 14:26 CONTINUOUS [place] 00 :58 PRN, [facility] Starting [facility] 06/06/20 at 0730, Until Discontinu ed, Routine, Intra-op lactated 2020- No 1000mL at 42 Unive rs ringers IV 06-06 mL/hr, ity of infusion 11:45: 11:54 1,000 mL, [place] 1,000 mL 00 :00 IV Medical Infusion, Branch ONCE, 1 dose, [facility] 06/06/20 at 0645, Routine, [facility] Pre-op acetaminoph 2020- No [id number] 1000mg Take 2 Univers en 500 mg 06-06 tablets by ity of tablet 00:00: 04:59 mouth [place] 00 :00 every 8 Medical (eight) Branch hours for 7 days. gabapentin 2020- No [id number] 600mg Take 12 mL Univers 300 mg/6 mL 06-06 by mouth ity of (6 mL) 00:00: 04:59 every 8 [place] solution 00 :00 (eight) Medical hours for Branch 7 days. acetaminoph 2020- No [id number] 1000mg Take 2 Univers en 500 mg 06-06 tablets by ity of tablet 00:00: 04:59 mouth [place] 00 :00 every 8 Medical (eight) Branch hours for 7 days. gabapentin 2020- No [id number] 600mg Take 12 mL Univers 300 mg/6 mL 06-06 by mouth ity of (6 mL) 00:00: 04:59 every 8 [place] solution 00 :00 (eight) Medical hours for Branch 7 days. celecoxib 2020- No [id number] 100mg Take 1 Univers 100 mg 06-06 capsule by ity of capsule 00:00: 04:59 mouth 2 [place] 00 :00 (two) Medical times Branch daily with meals for 5 days. celecoxib 2020- No [id number] 100mg Take 1 Univers 100 mg 06-06 capsule by ity of capsule 00:00: 04:59 mouth 2 [place] 00 :00 (two) Medical times Branch daily with meals for 5 days. lidocaine Yes PRN, Univers 1% (PF) 2-03 Starting ity of (XYLOCAINE) 19:29: 04/19/20 [place] injection 00 at 1329, [facility] Discontinu ed, Routine albuterol 2019-03 Yes [id number] 2{puff} Inhale 2 [facility] 90 0-28 Puffs ity of mcg/actuati 00:00: every 6 [place] on inhaler 00 (six) Medical hours as Branch needed for Wheezing or Shortness of Breath. albuterol 2019-03 Yes [id number] 2{puff} Inhale 2 [facility] 90 0-28 Puffs ity of mcg/actuati 00:00: every 6 [place] on inhaler 00 (six) Medical hours as Branch needed for Wheezing or Shortness of Breath. albuterol 2019-03 Yes [id number] 2{puff} Inhale 2 [facility] 90 0-28 Puffs ity of mcg/actuati 00:00: every 6 [place] on inhaler 00 (six) Medical hours as Branch needed for Wheezing or Shortness of Breath. albuterol 2019-03 Yes [id number] 2{puff} Inhale 2 [facility] 90 0-28 Puffs ity of mcg/actuati 00:00: every 6 [place] on inhaler 00 (six) Medical hours as Branch needed for Wheezing or Shortness of Breath. albuterol 2019-03 Yes [id number] 2{puff} Inhale 2 [facility] 90 0-28 Puffs ity of mcg/actuati 00:00: every 6 [place] on inhaler 00 (six) Medical hours as Branch needed for Wheezing or Shortness of Breath. albuterol 2019-03 Yes [id number] 2{puff} Inhale 2 [facility] 90 0-28 Puffs ity of mcg/actuati 00:00: every 6 [place] on inhaler 00 (six) Medical hours as Branch needed for Wheezing or Shortness of Breath. albuterol 2019-03 Yes [id number] 2{puff} Inhale 2 [facility] 90 0-28 Puffs ity of mcg/actuati 00:00: every 6 [place] on inhaler 00 (six) Medical hours as Branch needed for Wheezing or Shortness of Breath. albuterol 2019-03 Yes [id number] 2{puff} Inhale 2 [facility] 90 0-28 Puffs ity of mcg/actuati 00:00: every 6 [place] on inhaler 00 (six) Medical hours as Branch needed for Wheezing or Shortness of Breath. albuterol 2019-03 Yes [id number] 2{puff} Inhale 2 [facility] 90 0-28 Puffs ity of mcg/actuati 00:00: every 6 [place] on inhaler 00 (six) Medical hours as Branch needed for Wheezing or Shortness of Breath. albuterol 2019-03 Yes [id number] 2{puff} Inhale 2 [facility] 90 0-28 Puffs ity of mcg/actuati 00:00: every 6 [place] on inhaler 00 (six) Medical hours as Branch needed for Wheezing or Shortness of Breath. albuterol 2019-03 Yes [id number] 2{puff} Inhale 2 [facility] 90 0-28 Puffs ity of mcg/actuati 00:00: every 6 [place] on inhaler 00 (six) Medical hours as Branch needed for Wheezing or Shortness of Breath. albuterol 2019-03 Yes [id number] 2{puff} Inhale 2 [facility] 90 0-28 Puffs ity of mcg/actuati 00:00: every 6 [place] on inhaler 00 (six) Medical hours as Branch needed for Wheezing or Shortness of Breath. albuterol 2019-03 Yes [id number] 2{puff} Inhale 2 [facility] 90 0-28 Puffs ity of mcg/actuati 00:00: every 6 [place] on inhaler 00 (six) Medical hours as Branch needed for Wheezing or Shortness of Breath. albuterol 2019-03 Yes [id number] 2{puff} Inhale 2 [facility] 90 0-28 Puffs ity of mcg/actuati 00:00: every 6 [place] on inhaler 00 (six) Medical hours as Branch needed for Wheezing or Shortness of Breath. albuterol 2019-03 Yes [id number] 2{puff} Inhale 2 [facility] 90 0-28 Puffs ity of mcg/actuati 00:00: every 6 [place] on inhaler 00 (six) Medical hours as Branch needed for Wheezing or Shortness of Breath. albuterol 2019-03 Yes [id number] 2{puff} Inhale 2 [facility] 90 0-28 Puffs ity of mcg/actuati 00:00: every 6 [place] on inhaler 00 (six) Medical hours as Branch needed for Wheezing or Shortness of Breath. albuterol 2019-03 Yes [id number] 2{puff} Inhale 2 [facility] 90 0-28 Puffs ity of mcg/actuati 00:00: every 6 [place] on inhaler 00 (six) Medical hours as Branch needed for Wheezing or Shortness of Breath. albuterol 2019-03 Yes [id number] 2{puff} Inhale 2 [facility] 90 0-28 Puffs ity of mcg/actuati 00:00: every 6 [place] on inhaler 00 (six) Medical hours as Branch needed for Wheezing or Shortness of Breath. albuterol 2019-03 Yes [id number] 2{puff} Inhale 2 [facility] 90 0-28 Puffs ity of mcg/actuati 00:00: every 6 [place] on inhaler 00 (six) Medical hours as Branch needed for Wheezing or Shortness of Breath. albuterol 2019-03 Yes [id number] 2{puff} Inhale 2 [facility] 90 0-28 Puffs ity of mcg/actuati 00:00: every 6 [place] on inhaler 00 (six) Medical hours as Branch needed for Wheezing or Shortness of Breath. albuterol 2019-03 Yes [id number] 2{puff} Inhale 2 [facility] 90 0-28 Puffs ity of mcg/actuati 00:00: every 6 [place] on inhaler 00 (six) Medical hours as Branch needed for Wheezing or Shortness of Breath. albuterol 2019-03 Yes [id number] 2{puff} Inhale 2 [facility] 90 0-28 Puffs ity of mcg/actuati 00:00: every 6 [place] on inhaler 00 (six) Medical hours as Branch needed for Wheezing or Shortness of Breath. albuterol 2019-03 Yes [id number] 2{puff} Inhale 2 [facility] 90 0-28 Puffs ity of mcg/actuati 00:00: every 6 [place] on inhaler 00 (six) Medical hours as Branch needed for Wheezing or Shortness of Breath. albuterol 2019-03 Yes [id number] 2{puff} Inhale 2 [facility] 90 0-28 Puffs ity of mcg/actuati 00:00: every 6 [place] on inhaler 00 (six) Medical hours as Branch needed for Wheezing or Shortness of Breath. albuterol 2019-03 Yes [id number] 2{puff} Inhale 2 [facility] 90 0-28 Puffs ity of mcg/actuati 00:00: every 6 [place] on inhaler 00 (six) Medical hours as Branch needed for Wheezing or Shortness of Breath. albuterol 2019-03 Yes [id number] 2{puff} Inhale 2 [facility] 90 0-28 Puffs ity of mcg/actuati 00:00: every 6 [place] on inhaler 00 (six) Medical hours as Branch needed for Wheezing or Shortness of Breath. albuterol 2019-03 Yes [id number] 2{puff} Inhale 2 [facility] 90 0-28 Puffs ity of mcg/actuati 00:00: every 6 [place] on inhaler 00 (six) Medical hours as Branch needed for Wheezing or Shortness of Breath. albuterol 2019-03 Yes [id number] 2{puff} Inhale 2 [facility] 90 0-28 Puffs ity of mcg/actuati 00:00: every 6 [place] on inhaler 00 (six) Medical hours as Branch needed for Wheezing or Shortness of Breath. albuterol 2019-03 Yes [id number] 2{puff} Inhale 2 [facility] 90 0-28 Puffs ity of mcg/actuati 00:00: every 6 [place] on inhaler 00 (six) Medical hours as Branch needed for Wheezing or Shortness of Breath. albuterol 2019-03 Yes [id number] 2{puff} Inhale 2 [facility] 90 0-28 Puffs ity of mcg/actuati 00:00: every 6 [place] on inhaler 00 (six) Medical hours as Branch needed for Wheezing or Shortness of Breath. albuterol 2019-03 Yes [id number] 2{puff} Inhale 2 [facility] 90 0-28 Puffs ity of mcg/actuati 00:00: every 6 [place] on inhaler 00 (six) Medical hours as Branch needed for Wheezing or Shortness of Breath. albuterol 2019-03 Yes [id number] 2{puff} Inhale 2 [facility] 90 0-28 Puffs ity of mcg/actuati 00:00: every 6 [place] on inhaler 00 (six) Medical hours as Branch needed for Wheezing or Shortness of Breath. albuterol 2019-03 Yes [id number] 2{puff} Inhale 2 [facility] 90 0-28 Puffs ity of mcg/actuati 00:00: every 6 [place] on inhaler 00 (six) Medical hours as Branch needed for Wheezing or Shortness of Breath. albuterol 2019-03 Yes [id number] 2{puff} Inhale 2 [facility] 90 0-28 Puffs ity of mcg/actuati 00:00: every 6 [place] on inhaler 00 (six) Medical hours as Branch needed for Wheezing or Shortness of Breath. albuterol 2019-03 Yes [id number] 2{puff} Inhale 2 [facility] 90 0-28 Puffs ity of mcg/actuati 00:00: every 6 [place] on inhaler 00 (six) Medical hours as Branch needed for Wheezing or Shortness of Breath. albuterol 2019-03 Yes [id number] 2{puff} Inhale 2 [facility] 90 0-28 Puffs ity of mcg/actuati 00:00: every 6 [place] on inhaler 00 (six) Medical hours as Branch needed for Wheezing or Shortness of Breath. albuterol 2019-03 Yes [id number] 2{puff} Inhale 2 [facility] 90 0-28 Puffs ity of mcg/actuati 00:00: every 6 [place] on inhaler 00 (six) Medical hours as Branch needed for Wheezing or Shortness of Breath. albuterol 2019-03 Yes [id number] 2{puff} Inhale 2 [facility] 90 0-28 Puffs ity of mcg/actuati 00:00: every 6 [place] on inhaler 00 (six) Medical hours as Branch needed for Wheezing or Shortness of Breath. albuterol 2019-03 Yes [id number] 2{puff} Inhale 2 [facility] 90 0-28 Puffs ity of mcg/actuati 00:00: every 6 [place] on inhaler 00 (six) Medical hours as Branch needed for Wheezing or Shortness of Breath. albuterol 2019-03 Yes [id number] 2{puff} Inhale 2 [facility] 90 0-28 Puffs ity of mcg/actuati 00:00: every 6 [place] on inhaler 00 (six) Medical hours as Branch needed for Wheezing or Shortness of Breath. albuterol 2019-03 Yes [id number] 2{puff} Inhale 2 [facility] 90 0-28 Puffs ity of mcg/actuati 00:00: every 6 [place] on inhaler 00 (six) Medical hours as Branch needed for Wheezing or Shortness of Breath. albuterol 2019-03 Yes [id number] 2{puff} Inhale 2 [facility] 90 0-28 Puffs ity of mcg/actuati 00:00: every 6 [place] on inhaler 00 (six) Medical hours as Branch needed for Wheezing or Shortness of Breath. albuterol 2019-03 Yes [id number] 2{puff} Inhale 2 [facility] 90 0-28 Puffs ity of mcg/actuati 00:00: every 6 [place] on inhaler 00 (six) Medical hours as Branch needed for Wheezing or Shortness of Breath. albuterol 2019-03 Yes [id number] 2{puff} Inhale 2 [facility] 90 0-28 Puffs ity of mcg/actuati 00:00: every 6 [place] on inhaler 00 (six) Medical hours as Branch needed for Wheezing or Shortness of Breath. albuterol 2019-03 Yes [id number] 2{puff} Inhale 2 [facility] 90 0-28 Puffs ity of mcg/actuati 00:00: every 6 [place] on inhaler 00 (six) Medical hours as Branch needed for Wheezing or Shortness of Breath. albuterol 2019-03 Yes [id number] 2{puff} Inhale 2 [facility] 90 0-28 Puffs ity of mcg/actuati 00:00: every 6 [place] on inhaler 00 (six) Medical hours as Branch needed for Wheezing or Shortness of Breath. albuterol 2019-03 Yes [id number] 2{puff} Inhale 2 [facility] 90 0-28 Puffs ity of mcg/actuati 00:00: every 6 [place] on inhaler 00 (six) Medical hours as Branch needed for Wheezing or Shortness of Breath. albuterol 2019-03 Yes [id number] 2{puff} Inhale 2 [facility] 90 0-28 Puffs ity of mcg/actuati 00:00: every 6 [place] on inhaler 00 (six) Medical hours as Branch needed for Wheezing or Shortness of Breath. albuterol 2019-03 Yes [id number] 2{puff} Inhale 2 [facility] 90 0-28 Puffs ity of mcg/actuati 00:00: every 6 [place] on inhaler 00 (six) Medical hours as Branch needed for Wheezing or Shortness of Breath. albuterol 2019-03- No [id number] 2{puff} Inhale 2 [facility] 90 0-28 11-04 Puffs ity of mcg/actuati 00:00: 00:00 every 6 [place] on inhaler 00 :00 (six) Medical hours as Branch needed for Wheezing or Shortness of Breath. gabapentin 2020-0 Yes [id number] 400mg Take 1 [facility] 400 mg 9-14 capsule by ity of capsule 00:00: mouth 3 [place] 00 (three) Medical times Branch daily. isosorbide 2020-0 Yes [id number] 60mg Take 2 [facility] mononitrate 9-14 tablets by it y of 30 mg 24 hr 00:00: mouth [place] tablet 00 daily. Medical Branch amiodarone 2020-0 Yes [id number] TK 1 T PO [facility] 200 mg 9-14 QD ity of tablet 00:00: [place] 00 [facility] amLODIPine 2020-0 Yes [id number] 5mg Take 1 [facility] n[facility] 5 mg tablet 9-14 tablet by ity of 00:00: mouth [place] 00 daily. Medical Branch apixaban 5 2019-0 Yes 1358 5mg Take 1 Un[facility] rs mg tablet 9-14 tablet by ity o f 00:00: mouth 2 [place] 00 (two) Medical times Branch daily. Indication s: atrial fibrillati on atorvastati 2020-0 Yes [id number] 20mg Take 1 [facility] n 20 mg 9-14 tablet by ity of tablet 00:00: mouth at [place] 00 bedtime. Medical Branch bisoproloL- 2020-0 Yes [id number] 1{tbl} Take 1 [facility] hydrochloro 9-14 tablet by ity of thiazide 00:00: mouth [place] 10-6.25 mg 00 daily. Medical per tablet Branch telmisartan 2020-0 Yes [id number] 1{tbl} Take 1 [facility] -hydrochlor 9-14 tablet by ity of othiazide 00:00: mouth [place] 80-25 mg 00 daily. Medical per tablet Branch gabapentin 2020-0 Yes [id number] 400mg Take 1 [facility] 400 mg 9-14 capsule by ity of capsule 00:00: mouth 3 [place] 00 (three) Medical times Branch daily. isosorbide 2020-0 Yes [id number] 60mg Take 2 [facility] mononitrate 9-14 tablets by it y of 30 mg 24 hr 00:00: mouth [place] tablet 00 daily. Medical Branch amiodarone 2020-0 Yes [id number] TK 1 T PO [facility] 200 mg 9-14 QD ity of tablet 00:00: [place] 00 [facility] amLODIPine 2020-0 Yes [id number] 5mg Take 1 [facility] nivers 5 mg tablet 9-14 tablet by ity of 00:00: mouth [place] 00 daily. Medical Branch apixaban 5 2019-0 Yes 1358 5mg Take 1 Un[facility] rs mg tablet 9-14 tablet by ity o f 00:00: mouth 2 [place] 00 (two) Medical times Branch daily. Indication s: atrial fibrillati on atorvastati 2020-0 Yes [id number] 20mg Take 1 [facility] n 20 mg 9-14 tablet by ity of tablet 00:00: mouth at [place] 00 bedtime. Medical Branch bisoproloL- 2019-0 Yes [id number] 1{tbl} Take 1 [facility] hydrochloro 9-14 tablet by ity of thiazide 00:00: mouth [place] 10-6.25 mg 00 daily. Medical per tablet Branch telmisartan 2019-0 Yes [id number] 1{tbl} Take 1 [facility] -hydrochlor 9-14 tablet by ity of othiazide 00:00: mouth [place] 80-25 mg 00 daily. Medical per tablet Branch gabapentin 2019-0 Yes [id number] 400mg Take 1 [facility] 400 mg 9-14 capsule by ity of capsule 00:00: mouth 3 [place] 00 (three) Medical times Branch daily. isosorbide 2019-0 Yes [id number] 60mg Take 2 [facility] mononitrate 9-14 tablets by it y of 30 mg 24 hr 00:00: mouth [place] tablet 00 daily. Medical Branch amiodarone 2019-0 Yes [id number] TK 1 T PO [facility] 200 mg 9-14 QD ity of tablet 00:00: [place] 00 [facility] amLODIPine 2019-0 Yes [id number] 5mg Take 1 [facility] nivers 5 mg tablet 9-14 tablet by ity of 00:00: mouth [place] 00 daily. Medical Branch apixaban 5 2019-0 Yes 1358 5mg Take 1 Un[facility] rs mg tablet 9-14 tablet by ity o f 00:00: mouth 2 [place] 00 (two) Medical times Branch daily. Indication s: atrial fibrillati on atorvastati 2019-0 Yes [id number] 20mg Take 1 [facility] n 20 mg 9-14 tablet by ity of tablet 00:00: mouth at [place] 00 bedtime. Medical Branch bisoproloL- 2019-0 Yes [id number] 1{tbl} Take 1 [facility] hydrochloro 9-14 tablet by ity of thiazide 00:00: mouth [place] 10-6.25 mg 00 daily. Medical per tablet Branch telmisartan 2019-0 Yes [id number] 1{tbl} Take 1 [facility] -hydrochlor 9-14 tablet by ity of othiazide 00:00: mouth [place] 80-25 mg 00 daily. Medical per tablet Branch gabapentin 2019-0 Yes [id number] 400mg Take 1 [facility] 400 mg 9-14 capsule by ity of capsule 00:00: mouth 3 [place] 00 (three) Medical times Branch daily. isosorbide 2020-0 Yes [id number] 60mg Take 2 [facility] mononitrate 9-14 tablets by it y of 30 mg 24 hr 00:00: mouth [place] tablet 00 daily. Medical Branch amiodarone 2019-0 Yes [id number] TK 1 T PO [facility] 200 mg 9-14 QD ity of tablet 00:00: [place] 00 [facility] amLODIPine 2019-0 Yes [id number] 5mg Take 1 U nivers 5 mg tablet 9-14 tablet by ity of 00:00: mouth [place] 00 daily. Medical Branch apixaban 5 2019-0 Yes 1358 5mg Take 1 Un[facility] rs mg tablet 9-14 tablet by ity o f 00:00: mouth 2 [place] 00 (two) Medical times Branch daily. Indication s: atrial fibrillati on atorvastati 2019-0 Yes [id number] 20mg Take 1 [facility] n 20 mg 9-14 tablet by ity of tablet 00:00: mouth at [place] 00 bedtime. Medical Branch bisoproloL- 2019-0 Yes [id number] 1{tbl} Take 1 [facility] hydrochloro 9-14 tablet by ity of thiazide 00:00: mouth [place] 10-6.25 mg 00 daily. Medical per tablet Branch telmisartan 2020-0 Yes [id number] 1{tbl} Take 1 [facility] -hydrochlor 9-14 tablet by ity of othiazide 00:00: mouth [place] 80-25 mg 00 daily. Medical per tablet Branch gabapentin 2019-0 Yes [id number] 400mg Take 1 [facility] 400 mg 9-14 capsule by ity of capsule 00:00: mouth 3 [place] 00 (three) Medical times Branch daily. isosorbide 2020-0 Yes [id number] 60mg Take 2 [facility] mononitrate 9-14 tablets by it y of 30 mg 24 hr 00:00: mouth [place] tablet 00 daily. Medical Branch amiodarone 2019-0 Yes [id number] TK 1 T PO [facility] 200 mg 9-14 QD ity of tablet 00:00: [place] 00 [facility] amLODIPine 2020-0 Yes [id number] 5mg Take 1 U nivers 5 mg tablet 9-14 tablet by ity of 00:00: mouth [place] 00 daily. Medical Branch apixaban 5 2020-0 Yes 1358 5mg Take 1 Un[facility] rs mg tablet 9-14 tablet by ity o f 00:00: mouth 2 [place] 00 (two) Medical times Branch daily. Indication s: atrial fibrillati on atorvastati 2020-0 Yes [id number] 20mg Take 1 [facility] n 20 mg 9-14 tablet by ity of tablet 00:00: mouth at [place] 00 bedtime. Medical Branch bisoproloL- 2020-0 Yes [id number] 1{tbl} Take 1 [facility] hydrochloro 9-14 tablet by ity of thiazide 00:00: mouth [place] 10-6.25 mg 00 daily. Medical per tablet Branch telmisartan 2020-0 Yes [id number] 1{tbl} Take 1 [facility] -hydrochlor 9-14 tablet by ity of othiazide 00:00: mouth [place] 80-25 mg 00 daily. Medical per tablet Branch gabapentin 2019-0 Yes [id number] 400mg Take 1 [facility] 400 mg 9-14 capsule by ity of capsule 00:00: mouth 3 [place] 00 (three) Medical times Branch daily. isosorbide 2020-0 Yes [id number] 60mg Take 2 [facility] mononitrate 9-14 tablets by it y of 30 mg 24 hr 00:00: mouth [place] tablet 00 daily. Medical Branch amiodarone 2020-0 Yes [id number] TK 1 T PO [facility] 200 mg 9-14 QD ity of tablet 00:00: [place] 00 [facility] amLODIPine 2020-0 Yes [id number] 5mg Take 1 U nivers 5 mg tablet 9-14 tablet by ity of 00:00: mouth [place] 00 daily. Medical Branch apixaban 5 2020-0 Yes 1358 5mg Take 1 Un[facility] rs mg tablet 9-14 tablet by ity o f 00:00: mouth 2 [place] 00 (two) Medical times Branch daily. Indication s: atrial fibrillati on amLODIPine 2020-0 Yes [id number] 5mg Take 1 U nivers 5 mg tablet 9-14 tablet by ity of 00:00: mouth [place] 00 daily. Medical Branch atorvastati 2019-0 Yes [id number] 20mg Take 1 [facility] n 20 mg 9-14 tablet by ity of tablet 00:00: mouth at [place] 00 bedtime. Medical Branch bisoproloL- 2019-0 Yes [id number] 1{tbl} Take 1 [facility] hydrochloro 9-14 tablet by ity of thiazide 00:00: mouth [place] 10-6.25 mg 00 daily. Medical per tablet Branch telmisartan 2019-0 Yes [id number] 1{tbl} Take 1 [facility] -hydrochlor 9-14 tablet by ity of othiazide 00:00: mouth [place] 80-25 mg 00 daily. Medical per tablet Branch gabapentin 2019- Yes [id number] 400mg Take 1 [facility] 400 mg 9-14 capsule by ity of capsule 00:00: mouth 3 [place] 00 (three) Medical times Branch daily. isosorbide 2019-0 Yes [id number] 60mg Take 2 [facility] mononitrate 9-14 tablets by it y of 30 mg 24 hr 00:00: mouth [place] tablet 00 daily. Medical Branch amiodarone Yes [id number] TK 1 T PO [facility] 200 mg 9-14 QD ity of tablet 00:00: [place] 00 [facility] apixaban 5 2019-0 Yes 1358 5mg Take 1 Un[facility] rs mg tablet 9-14 tablet by ity o f 00:00: mouth 2 [place] 00 (two) Medical times Branch daily. Indication s: atrial fibrillati on amLODIPine Yes [id number] 5mg Take 1 U nivers 5 mg tablet 9-14 tablet by ity of 00:00: mouth [place] 00 daily. Medical Branch apixaban 5 2019-0 Yes 1358 5mg Take 1 Un[facility] rs mg tablet 9-14 tablet by ity o f 00:00: mouth 2 [place] 00 (two) Medical times Branch daily. Indication s: atrial fibrillati on atorvastati 2019- Yes [id number] 20mg Take 1 [facility] n 20 mg 9-14 tablet by ity of tablet 00:00: mouth at [place] 00 bedtime. Medical Branch bisoproloL- 2019- Yes [id number] 1{tbl} Take 1 [facility] hydrochloro 9-14 tablet by ity of thiazide 00:00: mouth [place] 10-6.25 mg 00 daily. Medical per tablet Branch bisoproloL- Yes [id number] 1{tbl} Take 1 [facility] hydrochloro 9-14 tablet by ity of thiazide 00:00: mouth [place] 10-6.25 mg 00 daily. Medical per tablet Branch telmisartan 2019- Yes [id number] 1{tbl} Take 1 [facility] -hydrochlor 9-14 tablet by ity of othiazide 00:00: mouth [place] 80-25 mg 00 daily. Medical per tablet Branch gabapentin 2019- Yes [id number] 400mg Take 1 [facility] 400 mg 9-14 capsule by ity of capsule 00:00: mouth 3 [place] 00 (three) Medical times Branch daily. isosorbide 2019-0 Yes [id number] 60mg Take 2 [facility] mononitrate 9-14 tablets by it y of 30 mg 24 hr 00:00: mouth [place] tablet 00 daily. Medical Branch amiodarone 2019- Yes [id number] TK 1 T PO [facility] 200 mg 9-14 QD ity of tablet 00:00: [place] 00 [facility] telmisartan 2019- Yes [id number] 1{tbl} Take 1 [facility] -hydrochlor 9-14 tablet by ity of othiazide 00:00: mouth [place] 80-25 mg 00 daily. Medical per tablet Branch amLODIPine 2019- Yes [id number] 5mg Take 1 U nivers 5 mg tablet 9-14 tablet by ity of 00:00: mouth [place] 00 daily. Medical Branch apixaban 5 2019-0 Yes 1358 5mg Take 1 Un[facility] rs mg tablet 9-14 tablet by ity o f 00:00: mouth 2 [place] 00 (two) Medical times Branch daily. Indication s: atrial fibrillati on atorvastati 2019- Yes [id number] 20mg Take 1 [facility] n 20 mg 9-14 tablet by ity of tablet 00:00: mouth at [place] 00 bedtime. Medical Branch bisoproloL- 2019-0 Yes [id number] 1{tbl} Take 1 [facility] hydrochloro 9-14 tablet by ity of thiazide 00:00: mouth [place] 10-6.25 mg 00 daily. Medical per tablet Branch telmisartan 2019- Yes [id number] 1{tbl} Take 1 [facility] -hydrochlor 9-14 tablet by ity of othiazide 00:00: mouth [place] 80-25 mg 00 daily. Medical per tablet Branch gabapentin 2019- Yes [id number] 400mg Take 1 [facility] 400 mg 9-14 capsule by ity of capsule 00:00: mouth 3 [place] 00 (three) Medical times Branch daily. isosorbide 2020-0 Yes [id number] 60mg Take 2 [facility] mononitrate 9-14 tablets by it y of 30 mg 24 hr 00:00: mouth [place] tablet 00 daily. Medical Branch isosorbide 2020-0 Yes [id number] 60mg Take 2 [facility] mononitrate 9-14 tablets by it y of 30 mg 24 hr 00:00: mouth [place] tablet 00 daily. Medical Branch amiodarone 2020-0 Yes [id number] TK 1 T PO [facility] 200 mg 9-14 QD ity of tablet 00:00: [place] 00 [facility] amiodarone 2020-0 Yes [id number] TK 1 T PO [facility] 200 mg 9-14 QD ity of tablet 00:00: [place] 00 [facility] amLODIPine 2019-0 Yes [id number] 5mg Take 1 U nivers 5 mg tablet 9-14 tablet by ity of 00:00: mouth [place] 00 daily. Medical Branch apixaban 5 2019-0 Yes 1358 5mg Take 1 Un[facility] rs mg tablet 9-14 tablet by ity o f 00:00: mouth 2 00 (two) Medical times Branch daily. Indication s: atrial fibrillati on atorvastati 2019-0 Yes [id number] 20mg Take 1 [facility] n 20 mg 9-14 tablet by ity of tablet 00:00: mouth at [place] 00 bedtime. Medical Branch bisoproloL- 2019-0 Yes [id number] 1{tbl} Take 1 [facility] hydrochloro 9-14 tablet by ity of thiazide 00:00: mouth [place] 10-6.25 mg 00 daily. Medical per tablet Branch telmisartan 2020-0 Yes [id number] 1{tbl} Take 1 [facility] -hydrochlor 9-14 tablet by ity of othiazide 00:00: mouth [place] 80-25 mg 00 daily. Medical per tablet Branch gabapentin 2020-0 Yes [id number] 400mg Take 1 [facility] 400 mg 9-14 capsule by ity of capsule 00:00: mouth 3 [place] 00 (three) Medical times Branch daily. isosorbide 2020-0 Yes [id number] 60mg Take 2 [facility] mononitrate 9-14 tablets by it y of 30 mg 24 hr 00:00: mouth [place] tablet 00 daily. Medical Branch amiodarone 2020-0 Yes [id number] TK 1 T PO [facility] 200 mg 9-14 QD ity of tablet 00:00: [place] 00 [facility] amLODIPine 2020-0 Yes [id number] 5mg Take 1 U nivers 5 mg tablet 9-14 tablet by ity of 00:00: mouth [place] 00 daily. Medical Branch apixaban 5 2020-0 Yes 1358 5mg Take 1 Un[facility] rs mg tablet 9-14 tablet by ity o f 00:00: mouth 2 [place] 00 (two) Medical times Branch daily. Indication s: atrial fibrillati on atorvastati 2020-0 Yes [id number] 20mg Take 1 [facility] n 20 mg 9-14 tablet by ity of tablet 00:00: mouth at [place] 00 bedtime. Medical Branch bisoproloL- 2020-0 Yes [id number] 1{tbl} Take 1 [facility] hydrochloro 9-14 tablet by ity of thiazide 00:00: mouth [place] 10-6.25 mg 00 daily. Medical per tablet Branch telmisartan 2020-0 Yes [id number] 1{tbl} Take 1 [facility] -hydrochlor 9-14 tablet by ity of othiazide 00:00: mouth [place] 80-25 mg 00 daily. Medical per tablet Branch gabapentin 2020-0 Yes [id number] 400mg Take 1 [facility] 400 mg 9-14 capsule by ity of capsule 00:00: mouth 3 [place] 00 (three) Medical times Branch daily. isosorbide 2020-0 Yes [id number] 60mg Take 2 [facility] mononitrate 9-14 tablets by it y of 30 mg 24 hr 00:00: mouth [place] tablet 00 daily. Medical Branch amiodarone 2020-0 Yes [id number] TK 1 T PO [facility] 200 mg 9-14 QD ity of tablet 00:00: [place] 00 [facility] amLODIPine 2020-0 Yes [id number] 5mg Take 1 [facility] nivers 5 mg tablet 9-14 tablet by ity of 00:00: mouth [place] 00 daily. Medical Branch apixaban 5 2020-0 Yes 1358 5mg Take 1 [facility] rs mg tablet 9-14 tablet by ity o f 00:00: mouth 2 [place] 00 (two) Medical times Branch daily. Indication s: atrial fibrillati on atorvastati 2020-0 Yes [id number] 20mg Take 1 [facility] n 20 mg 9-14 tablet by ity of tablet 00:00: mouth at [place] 00 bedtime. Medical Branch bisoproloL- 2019-0 Yes [id number] 1{tbl} Take 1 [facility] hydrochloro 9-14 tablet by ity of thiazide 00:00: mouth [place] 10-6.25 mg 00 daily. Medical per tablet Branch telmisartan 2019-0 Yes [id number] 1{tbl} Take 1 [facility] -hydrochlor 9-14 tablet by ity of othiazide 00:00: mouth [place] 80-25 mg 00 daily. Medical per tablet [facility] gabapentin 2019-0 Yes [id number] 400mg Take 1 [facility] 400 mg 9-14 capsule by [facility] capsule 00:00: mouth 3 [place] 00 (three) Medical times Branch daily. isosorbide 2019- Yes [id number] 60mg Take 2 [facility] mononitrate 9-14 tablets by [facility] y of 30 mg 24 hr 00:00: mouth [place] tablet 00 daily. [facility] amiodarone 2019-0 Yes [id number] TK 1 T PO [facility] 200 mg 9-14 QD [facility] tablet 00:00: [place] 00 [facility] amLODIPine 2019-0 Yes [id number] 5mg Take 1 [facility] 5 mg tablet 9-14 tablet by [facility] of 00:00: mouth [place] 00 daily. [facility] apixaban 5 2019-0 Yes 1358 5mg Take 1 [facility] rs mg tablet 9-14 tablet by [facility] o f 00:00: mouth 2 [place] 00 (two) Medical times Branch daily. Indication s: atrial fibrillati on atorvastati 2019-0 Yes [id number] 20mg Take 1 [facility] n 20 mg 9-14 tablet by [facility] tablet 00:00: mouth at [place] 00 bedtime. Medical [facility] bisoproloL- 2019-0 Yes [id number] 1{tbl} Take 1 [facility] hydrochloro 9-14 tablet by [facility] of thiazide 00:00: mouth [place] 10-6.25 mg 00 daily. Medical per tablet Branch telmisartan 2019-0 Yes [id number] 1{tbl} Take 1 [facility] -hydrochlor 9-14 tablet by [facility] of othiazide 00:00: mouth [place] 80-25 mg 00 daily. Medical per tablet [facility] gabapentin 2019-0 Yes [id number] 400mg Take 1 [facility] 400 mg 9-14 capsule by [facility] capsule 00:00: mouth 3 [place] 00 (three) Medical times Branch daily. isosorbide 2020-0 Yes [id number] 60mg Take 2 [facility] mononitrate 9-14 tablets by it y of 30 mg 24 hr 00:00: mouth [place] tablet 00 daily. [facility] amiodarone 2020-0 Yes [id number] TK 1 T PO [facility] 200 mg 9-14 QD [facility] of tablet 00:00: [place] 00 [facility] amLODIPine 2020-0 Yes [id number] 5mg Take 1 [facility] 5 mg tablet 9-14 tablet by [facility] of 00:00: mouth [place] 00 daily. [facility] apixaban 5 2019-0 Yes 1358 5mg Take 1 [facility] rs mg tablet 9-14 tablet by [facility] o f 00:00: mouth 2 (two) Medical times Branch daily. Indication s: atrial fibrillati on atorvastati 2019-0 Yes [id number] 20mg Take 1 [facility] n 20 mg 9-14 tablet by [facility] of tablet 00:00: mouth at [place] 00 bedtime. Medical [facility] bisoproloL- 2020-0 Yes [id number] 1{tbl} Take 1 [facility] hydrochloro 9-14 tablet by [facility] of thiazide 00:00: mouth [place] 10-6.25 mg 00 daily. Medical per tablet [facility] telmisartan 2020-0 Yes [id number] 1{tbl} Take 1 [facility] -hydrochlor 9-14 tablet by [facility] of othiazide 00:00: mouth [place] 80-25 mg 00 daily. Medical per tablet [facility] gabapentin 2020-0 Yes [id number] 400mg Take 1 [facility] 400 mg 9-14 capsule by [facility] capsule 00:00: mouth 3 [place] (three) Medical times Branch daily. isosorbide 2020-0 Yes [id number] 60mg Take 2 [facility] mononitrate 9-14 tablets by it y of 30 mg 24 hr 00:00: mouth [place] tablet 00 daily. [facility] amiodarone 2020-0 Yes [id number] TK 1 T PO [facility] 200 mg 9-14 QD [facility] of tablet 00:00: [place] 00 [facility] amLODIPine 2020-0 Yes [id number] 5mg Take 1 [facility] 5 mg tablet 9-14 tablet by [facility] of 00:00: mouth [place] 00 daily. [facility] apixaban 5 2019-0 Yes 1358 5mg Take 1 [facility] rs mg tablet 9-14 tablet by [facility] o f 00:00: mouth 2 [place] 00 (two) Medical times Branch daily. Indication s: atrial fibrillati on atorvastati 2020-0 Yes [id number] 20mg Take 1 [facility] n 20 mg 9-14 tablet by [facility] of tablet 00:00: mouth at [place] 00 bedtime. Medical [facility] bisoproloL- 2019-0 Yes [id number] 1{tbl} Take 1 [facility] hydrochloro 9-14 tablet by [facility] of thiazide 00:00: mouth [place] 10-6.25 mg 00 daily. Medical per tablet [facility] telmisartan 2019-0 Yes [id number] 1{tbl} Take 1 [facility] -hydrochlor 9-14 tablet by [facility] of othiazide 00:00: mouth [place] 80-25 mg 00 daily. Medical per tablet [facility] gabapentin 2019-0 Yes [id number] 400mg Take 1 [facility] 400 mg 9-14 capsule by [facility] of capsule 00:00: mouth 3 [place] 00 (three) Medical times Branch daily. isosorbide 2019-0 Yes [id number] 60mg Take 2 [facility] mononitrate 9-14 tablets by it y of 30 mg 24 hr 00:00: mouth [place] tablet 00 daily. [facility] amiodarone 2019-0 Yes [id number] TK 1 T PO [facility] 200 mg 9-14 QD [facility] of tablet 00:00: [place] 00 [facility] amLODIPine 2019-0 Yes [id number] 5mg Take 1 [facility] n[facility] 5 mg tablet 9-14 tablet by [facility] of 00:00: mouth [place] 00 daily. [facility] apixaban 5 2019-0 Yes 1358 5mg Take 1 [facility] rs mg tablet 9-14 tablet by ity o f 00:00: mouth 2 [place] 00 (two) Medical times Branch daily. Indication s: atrial fibrillati on atorvastati 2019-0 Yes [id number] 20mg Take 1 [facility] n 20 mg 9-14 tablet by [facility] of tablet 00:00: mouth at [place] 00 bedtime. Medical [facility] bisoproloL- 2019-0 Yes [id number] 1{tbl} Take 1 [facility] hydrochloro 9-14 tablet by [facility] of thiazide 00:00: mouth [place] 10-6.25 mg 00 daily. Medical per tablet [facility] telmisartan 2019-0 Yes [id number] 1{tbl} Take 1 [facility] -hydrochlor 9-14 tablet by [facility] of othiazide 00:00: mouth [place] 80-25 mg 00 daily. Medical per tablet [facility] gabapentin 2020-0 Yes [id number] 400mg Take 1 [facility] 400 mg 9-14 capsule by [facility] of capsule 00:00: mouth 3 00 (three) Medical times Branch daily. isosorbide 2020-0 Yes [id number] 60mg Take 2 [facility] mononitrate 9-14 tablets by it y of 30 mg 24 hr 00:00: mouth [place] tablet 00 daily. [facility] amiodarone 2020-0 Yes [id number] TK 1 T PO [facility] 200 mg 9-14 QD [facility] of tablet 00:00: [place] 00 [facility] amLODIPine 2020-0 Yes [id number] 5mg Take 1 [facility] n[facility] 5 mg tablet 9-14 tablet by [facility] of 00:00: mouth [place] 00 daily. [facility] apixaban 5 2019-0 Yes 1358 5mg Take 1 [facility] rs mg tablet 9-14 tablet by [facility] o f 00:00: mouth 2 (two) Medical times Branch daily. Indication s: atrial fibrillati on atorvastati 2020-0 Yes [id number] 20mg Take 1 [facility] n 20 mg 9-14 tablet by [facility] of tablet 00:00: mouth at [place] 00 bedtime. Medical [facility] bisoproloL- 2020-0 Yes [id number] 1{tbl} Take 1 [facility] hydrochloro 9-14 tablet by [facility] of thiazide 00:00: mouth [place] 10-6.25 mg 00 daily. Medical per tablet [facility] telmisartan 2020-0 Yes [id number] 1{tbl} Take 1 [facility] -hydrochlor 9-14 tablet by [facility] of othiazide 00:00: mouth [place] 80-25 mg 00 daily. Medical per tablet [facility] gabapentin 2020-0 Yes [id number] 400mg Take 1 [facility] 400 mg 9-14 capsule by [facility] of capsule 00:00: mouth 3 00 (three) Medical times Branch daily. isosorbide 2020-0 Yes [id number] 60mg Take 2 [facility] mononitrate 9-14 tablets by it y of 30 mg 24 hr 00:00: mouth [place] tablet 00 daily. [facility] amiodarone 2020-0 Yes [id number] TK 1 T PO [facility] 200 mg 9-14 QD [facility] of tablet 00:00: [place] 00 [facility] amLODIPine 2020-0 Yes [id number] 5mg Take 1 [facility] n[facility] 5 mg tablet 9-14 tablet by [facility] of 00:00: mouth [place] 00 daily. [facility] apixaban 5 2019-0 Yes 1358 5mg Take 1 [facility] rs mg tablet 9-14 tablet by [facility] o f 00:00: mouth 2 [place] 00 (two) Medical times Branch daily. Indication s: atrial fibrillati on atorvastati 2019-0 Yes [id number] 20mg Take 1 [facility] n 20 mg 9-14 tablet by [facility] of tablet 00:00: mouth at [place] 00 bedtime. Medical [facility] bisoproloL- 2019-0 Yes [id number] 1{tbl} Take 1 [facility] hydrochloro 9-14 tablet by [facility] of thiazide 00:00: mouth [place] 10-6.25 mg 00 daily. Medical per tablet [facility] telmisartan 2019-0 Yes [id number] 1{tbl} Take 1 [facility] -hydrochlor 9-14 tablet by [facility] of othiazide 00:00: mouth [place] 80-25 mg 00 daily. Medical per tablet [facility] gabapentin 2019-0 Yes [id number] 400mg Take 1 [facility] 400 mg 9-14 capsule by [facility] of capsule 00:00: mouth 3 [place] 00 (three) Medical times Branch daily. isosorbide 2020-0 Yes [id number] 60mg Take 2 [facility] mononitrate 9-14 tablets by it y of 30 mg 24 hr 00:00: mouth [place] tablet 00 daily. [facility] amiodarone 2019-0 Yes [id number] TK 1 T PO [facility] 200 mg 9-14 QD [facility] of tablet 00:00: [place] 00 [facility] amLODIPine 2019-0 Yes [id number] 5mg Take 1 [facility] n[facility] 5 mg tablet 9-14 tablet by [facility] of 00:00: mouth [place] 00 daily. [facility] apixaban 5 2019-0 Yes 1358 5mg Take 1 [facility] rs mg tablet 9-14 tablet by [facility] o f 00:00: mouth 2 [place] 00 (two) Medical times Branch daily. Indication s: atrial fibrillati on bisoproloL- 2019-0 Yes [id number] 1{tbl} Take 1 [facility] hydrochloro 9-14 tablet by [facility] of thiazide 00:00: mouth [place] 10-6.25 mg 00 daily. Medical per tablet [facility] amLODIPine 2019-0 Yes [id number] 5mg Take 1 [facility] n[facility] 5 mg tablet 9-14 tablet by [facility] of 00:00: mouth [place] 00 daily. [facility] apixaban 5 2019-0 Yes 1358 5mg Take 1 [facility] rs mg tablet 9-14 tablet by ity o f 00:00: mouth 2 [place] 00 (two) Medical times Branch daily. Indication s: atrial fibrillati on atorvastati 2019-0 Yes [id number] 20mg Take 1 [facility] n 20 mg 9-14 tablet by [facility] of tablet 00:00: mouth at [place] 00 bedtime. [facility] bisoproloL- 2020-0 Yes [id number] 1{tbl} Take 1 [facility] hydrochloro 9-14 tablet by [facility] of thiazide 00:00: mouth [place] 10-6.25 mg 00 daily. Medical per tablet [facility] telmisartan 2020-0 Yes [id number] 1{tbl} Take 1 [facility] -hydrochlor 9-14 tablet by [facility] of othiazide 00:00: mouth [place] 80-25 mg 00 daily. Medical per tablet [facility] telmisartan 2019-0 Yes [id number] 1{tbl} Take 1 [facility] -hydrochlor 9-14 tablet by [facility] of othiazide 00:00: mouth [place] 80-25 mg 00 daily. Medical per tablet [facility] gabapentin 2019-0 Yes [id number] 400mg Take 1 [facility] 400 mg 9-14 capsule by [facility] of capsule 00:00: mouth 3 [place] 00 (three) Medical times Branch daily. isosorbide 2020-0 Yes [id number] 60mg Take 2 [facility] mononitrate 9-14 tablets by it y of 30 mg 24 hr 00:00: mouth [place] tablet 00 daily. [facility] amiodarone 2019-0 Yes [id number] TK 1 T PO [facility] 200 mg 9-14 QD it[facility] of tablet 00:00: [place] 00 [facility] isosorbide 2020-0 Yes [id number] 60mg Take 2 [facility] mononitrate 9-14 tablets by it y of 30 mg 24 hr 00:00: mouth [place] tablet 00 daily. [facility] amiodarone 2020-0 Yes [id number] TK 1 T PO [facility] 200 mg 9-14 QD ity of tablet 00:00: [place] 00 [facility] amLODIPine 2020-0 Yes [id number] 5mg Take 1 [facility] n[facility] 5 mg tablet 9-14 tablet by [facility] of 00:00: mouth [place] 00 daily. [facility] apixaban 5 2020-0 Yes 1358 5mg Take 1 [facility] rs mg tablet 9-14 tablet by ity o f 00:00: mouth 2 [place] 00 (two) Medical times Branch daily. Indication s: atrial fibrillati on atorvastati 2020-0 Yes [id number] 20mg Take 1 [facility] n 20 mg 9-14 tablet by [facility] of tablet 00:00: mouth at [place] 00 bedtime. [facility] bisoproloL- 2019-0 Yes [id number] 1{tbl} Take 1 [facility] hydrochloro 9-14 tablet by [facility] of thiazide 00:00: mouth [place] 10-6.25 mg 00 daily. Medical per tablet [facility] telmisartan 2019-0 Yes [id number] 1{tbl} Take 1 [facility] -hydrochlor 9-14 tablet by [facility] of othiazide 00:00: mouth [place] 80-25 mg 00 daily. Medical per tablet [facility] gabapentin 2019-0 Yes [id number] 400mg Take 1 [facility] 400 mg 9-14 capsule by [facility] of capsule 00:00: mouth 3 [place] 00 (three) Medical times Branch daily. isosorbide 2019-0 Yes [id number] 60mg Take 2 [facility] mononitrate 9-14 tablets by it y of 30 mg 24 hr 00:00: mouth [place] tablet 00 daily. [facility] amiodarone 2019-0 Yes [id number] TK 1 T PO [facility] 200 mg 9-14 QD ity of tablet 00:00: [place] 00 [facility] amLODIPine 2019-0 Yes [id number] 5mg Take 1 [facility] n[facility] 5 mg tablet 9-14 tablet by [facility] of 00:00: mouth [place] 00 daily. [facility] apixaban 5 2019-0 Yes 1358 5mg Take 1 [facility] rs mg tablet 9-14 tablet by ity o f 00:00: mouth 2 [place] 00 (two) Medical times Branch daily. Indication s: atrial fibrillati on atorvastati 2019-0 Yes [id number] 20mg Take 1 [facility] n 20 mg 9-14 tablet by [facility] of tablet 00:00: mouth at [place] 00 bedtime. [facility] bisoproloL- 2019-0 Yes [id number] 1{tbl} Take 1 [facility] hydrochloro 9-14 tablet by [facility]y of thiazide 00:00: mouth [place] 10-6.25 mg 00 daily. Medical per tablet Branch telmisartan 2019-0 Yes [id number] 1{tbl} Take 1 [facility] -hydrochlor 9-14 tablet by [facility]y of othiazide 00:00: mouth [place] 80-25 mg 00 daily. Medical per tablet [facility] gabapentin 2020-0 Yes [id number] 400mg Take 1 [facility] 400 mg 9-14 capsule by [facility] of capsule 00:00: mouth 3 [place] 00 (three) Medical times Branch daily. isosorbide 2020-0 Yes [id number] 60mg Take 2 [facility] mononitrate 9-14 tablets by it y of 30 mg 24 hr 00:00: mouth [place] tablet 00 daily. [facility] amiodarone 2019-0 Yes [id number] TK 1 T PO [facility] 200 mg 9-14 QD ity of tablet 00:00: [place] 00 [facility] amLODIPine 2019-0 Yes [id number] 5mg Take 1 [facility] n[facility] 5 mg tablet 9-14 tablet by ity of 00:00: mouth [place] 00 daily. [facility] apixaban 5 2019-0 Yes 1358 5mg Take 1 [facility] rs mg tablet 9-14 tablet by ity o f 00:00: mouth 2 [place] 00 (two) Medical times Branch daily. Indication s: atrial fibrillati on atorvastati 2019-0 Yes [id number] 20mg Take 1 [facility] n 20 mg 9-14 tablet by [facility] of tablet 00:00: mouth at [place] 00 bedtime. [facility] bisoproloL- 2019-0 Yes [id number] 1{tbl} Take 1 [facility] hydrochloro 9-14 tablet by ity of thiazide 00:00: mouth [place] 10-6.25 mg 00 daily. Medical per tablet [facility] telmisartan 2019-0 Yes [id number] 1{tbl} Take 1 [facility] -hydrochlor 9-14 tablet by ity of othiazide 00:00: mouth [place] 80-25 mg 00 daily. Medical per tablet [facility] gabapentin 2020-0 Yes [id number] 400mg Take 1 [facility] 400 mg 9-14 capsule by [facility] of capsule 00:00: mouth 3 [place] 00 (three) Medical times Branch daily. isosorbide 2020-0 Yes [id number] 60mg Take 2 [facility] mononitrate 9-14 tablets by it y of 30 mg 24 hr 00:00: mouth [place] tablet 00 daily. [facility] amiodarone 2019-0 Yes [id number] TK 1 T PO [facility] 200 mg 9-14 QD ity of tablet 00:00: [place] 00 [facility] amLODIPine 2020-0 Yes [id number] 5mg Take 1 [facility] n[facility] 5 mg tablet 9-14 tablet by ity of 00:00: mouth [place] 00 daily. [facility] apixaban 5 2020-0 Yes 1358 5mg Take 1 [facility] rs mg tablet 9-14 tablet by ity o f 00:00: mouth 2 [place] 00 (two) Medical times Branch daily. Indication s: atrial fibrillati on bisoproloL- 2020-0 Yes [id number] 1{tbl} Take 1 [facility] hydrochloro 9-14 tablet by ity of thiazide 00:00: mouth [place] 10-6.25 mg 00 daily. Medical per tablet Branch telmisartan 2020-0 Yes [id number] 1{tbl} Take 1 [facility] -hydrochlor 9-14 tablet by [facility]y of othiazide 00:00: mouth [place] 80-25 mg 00 daily. Medical per tablet Branch gabapentin 2020-0 Yes [id number] 400mg Take 1 [facility] 400 mg 9-14 capsule by [facility] of capsule 00:00: mouth 3 [place] 00 (three) Medical times Branch daily. isosorbide 2020-0 Yes [id number] 60mg Take 2 [facility] mononitrate 9-14 tablets by it y of 30 mg 24 hr 00:00: mouth [place] tablet 00 daily. [facility] amiodarone 2020-0 Yes [id number] TK 1 T PO [facility] 200 mg 9-14 QD ity of tablet 00:00: [place] 00 [facility] amLODIPine 2020-0 Yes [id number] 5mg Take 1 [facility] n[facility] 5 mg tablet 9-14 tablet by ity of 00:00: mouth [place] 00 daily. [facility] apixaban 5 2020-0 Yes 1358 5mg Take 1 [facility] rs mg tablet 9-14 tablet by ity o f 00:00: mouth 2 [place] 00 (two) Medical times Branch daily. Indication s: atrial fibrillati on bisoproloL- 2020-0 Yes [id number] 1{tbl} Take 1 [facility] hydrochloro 9-14 tablet by ity of thiazide 00:00: mouth [place] 10-6.25 mg 00 daily. Medical per tablet Branch telmisartan 2020-0 Yes [id number] 1{tbl} Take 1 [facility] -hydrochlor 9-14 tablet by ity of othiazide 00:00: mouth [place] 80-25 mg 00 daily. Medical per tablet Branch gabapentin 2020-0 Yes [id number] 400mg Take 1 [facility] 400 mg 9-14 capsule by [facility] of capsule 00:00: mouth 3 00 (three) Medical times Branch daily. isosorbide 2020-0 Yes [id number] 60mg Take 2 [facility] mononitrate 9-14 tablets by it y of 30 mg 24 hr 00:00: mouth [place] tablet 00 daily. [facility] amiodarone 2020-0 Yes [id number] TK 1 T PO [facility] 200 mg 9-14 QD ity of tablet 00:00: [place] 00 [facility] amLODIPine 2020-0 Yes [id number] 5mg Take 1 [facility] n[facility] 5 mg tablet 9-14 tablet by ity of 00:00: mouth [place] 00 daily. [facility] apixaban 5 2020-0 Yes 1358 5mg Take 1 [facility] rs mg tablet 9-14 tablet by ity o f 00:00: mouth 2 (two) Medical times Branch daily. Indication s: atrial fibrillati on bisoproloL- 2020-0 Yes [id number] 1{tbl} Take 1 [facility] hydrochloro 9-14 tablet by ity of thiazide 00:00: mouth [place] 10-6.25 mg 00 daily. Medical per tablet Branch telmisartan 2020-0 Yes [id number] 1{tbl} Take 1 [facility] -hydrochlor 9-14 tablet by ity of othiazide 00:00: mouth [place] 80-25 mg 00 daily. Medical per tablet Branch gabapentin 2020-0 Yes [id number] 400mg Take 1 [facility] 400 mg 9-14 capsule by [facility] of capsule 00:00: mouth 3 00 (three) Medical times Branch daily. isosorbide 2020-0 Yes [id number] 60mg Take 2 [facility] mononitrate 9-14 tablets by it y of 30 mg 24 hr 00:00: mouth [place] tablet 00 daily. [facility] amiodarone 2020-0 Yes [id number] TK 1 T PO [facility] 200 mg 9-14 QD ity of tablet 00:00: [place] 00 [facility] amLODIPine 2020-0 Yes [id number] 5mg Take 1 [facility] nivers 5 mg tablet 9-14 tablet by [facility]y of 00:00: mouth [place] 00 daily. [facility] apixaban 5 2020-0 Yes 1358 5mg Take 1 [facility] rs mg tablet 9-14 tablet by ity o f 00:00: mouth 2 [place] 00 (two) Medical times Branch daily. Indication s: atrial fibrillati on bisoproloL- 2020-0 Yes [id number] 1{tbl} Take 1 [facility] hydrochloro 9-14 tablet by [facility]y of thiazide 00:00: mouth [place] 10-6.25 mg 00 daily. Medical per tablet Branch telmisartan 2020-0 Yes [id number] 1{tbl} Take 1 [facility] -hydrochlor 9-14 tablet by ity of othiazide 00:00: mouth [place] 80-25 mg 00 daily. Medical per tablet Branch gabapentin 2019-0 Yes [id number] 400mg Take 1 [facility] 400 mg 9-14 capsule by [facility] of capsule 00:00: mouth 3 00 (three) Medical times Branch daily. isosorbide 2019-0 Yes [id number] 60mg Take 2 [facility] mononitrate 9-14 tablets by it y of 30 mg 24 hr 00:00: mouth [place] tablet 00 daily. [facility] amiodarone 2019-0 Yes [id number] TK 1 T PO [facility] 200 mg 9-14 QD ity of tablet 00:00: [place] 00 [facility] amLODIPine 2019-0 Yes [id number] 5mg Take 1 [facility] n[facility] 5 mg tablet 9-14 tablet by [facility]y of 00:00: mouth [place] 00 daily. [facility] apixaban 5 2019-0 Yes 1358 5mg Take 1 [facility] rs mg tablet 9-14 tablet by ity o f 00:00: mouth 2 [place] 00 (two) Medical times Branch daily. Indication s: atrial fibrillati on bisoproloL- 2019-0 Yes [id number] 1{tbl} Take 1 [facility] hydrochloro 9-14 tablet by ity of thiazide 00:00: mouth [place] 10-6.25 mg 00 daily. Medical per tablet Branch telmisartan 2020-0 Yes [id number] 1{tbl} Take 1 [facility] -hydrochlor 9-14 tablet by [facility]y of othiazide 00:00: mouth [place] 80-25 mg 00 daily. Medical per tablet Branch gabapentin 2019-0 Yes [id number] 400mg Take 1 [facility] 400 mg 9-14 capsule by [facility] of capsule 00:00: mouth 3 [place] 00 (three) Medical times Branch daily. isosorbide 2020-0 Yes [id number] 60mg Take 2 [facility] mononitrate 9-14 tablets by it y of 30 mg 24 hr 00:00: mouth [place] tablet 00 daily. [facility] amiodarone 2020-0 Yes [id number] TK 1 T PO [facility] 200 mg 9-14 QD ity of tablet 00:00: [place] 00 [facility] amLODIPine 2020-0 Yes [id number] 5mg Take 1 [facility] n[facility] 5 mg tablet 9-14 tablet by [facility] of 00:00: mouth [place] 00 daily. [facility] apixaban 5 2019-0 Yes 1358 5mg Take 1 [facility] rs mg tablet 9-14 tablet by ity o f 00:00: mouth 2 [place] 00 (two) Medical times Branch daily. Indication s: atrial fibrillati on bisoproloL- 2020-0 Yes [id number] 1{tbl} Take 1 [facility] hydrochloro 9-14 tablet by ity of thiazide 00:00: mouth [place] 10-6.25 mg 00 daily. Medical per tablet Branch telmisartan 2019-0 Yes [id number] 1{tbl} Take 1 [facility] -hydrochlor 9-14 tablet by ity of othiazide 00:00: mouth [place] 80-25 mg 00 daily. Medical per tablet [facility] amLODIPine 2019-0 Yes [id number] 5mg Take 1 [facility] n[facility] 5 mg tablet 9-14 tablet by [facility] of 00:00: mouth [place] 00 daily. [facility] isosorbide 2020-0 Yes [id number] 60mg Take 2 [facility] mononitrate 9-14 tablets by it y of 30 mg 24 hr 00:00: mouth [place] tablet 00 daily. [facility] amiodarone 2019-0 Yes [id number] TK 1 T PO [facility] 200 mg 9-14 QD ity of tablet 00:00: [place] 00 [facility] apixaban 5 2019-0 Yes 1358 5mg Take 1 [facility] rs mg tablet 9-14 tablet by ity o f 00:00: mouth 2 [place] 00 (two) Medical times Branch daily. Indication s: atrial fibrillati on amLODIPine 2020-0 Yes [id number] 5mg Take 1 [facility] n[facility] 5 mg tablet 9-14 tablet by [facility] of 00:00: mouth [place] 00 daily. [facility] apixaban 5 2019-0 Yes 1358 5mg Take 1 [facility] rs mg tablet 9-14 tablet by ity o f 00:00: mouth 2 [place] 00 (two) Medical times Branch daily. Indication s: atrial fibrillati on bisoproloL- Yes [id number] 1{tbl} Take 1 [facility] hydrochloro 9-14 tablet by ity of thiazide 00:00: mouth [place] 10-6.25 mg 00 daily. Medical per tablet Branch bisoproloL- Yes [id number] 1{tbl} Take 1 [facility] hydrochloro 9-14 tablet by ity of thiazide 00:00: mouth [place] 10-6.25 mg 00 daily. Medical per tablet Branch telmisartan Yes [id number] 1{tbl} Take 1 [facility] -hydrochlor 9-14 tablet by [facility]y of othiazide 00:00: mouth [place] 80-25 mg 00 daily. Medical per tablet Branch isosorbide Yes [id number] 60mg Take 2 [facility] mononitrate 9-14 tablets by it y of 30 mg 24 hr 00:00: mouth [place] tablet 00 daily. [facility] amiodarone Yes [id number] TK 1 T PO [facility] 200 mg 9-14 QD ity of tablet 00:00: [place] 00 [facility] telmisartan Yes [id number] 1{tbl} Take 1 [facility] -hydrochlor 9-14 tablet by ity of othiazide 00:00: mouth [place] 80-25 mg 00 daily. Medical per tablet Branch isosorbide Yes [id number] 60mg Take 2 [facility] mononitrate 9-14 tablets by it y of 30 mg 24 hr 00:00: mouth [place] tablet 00 daily. [facility] amLODIPine Yes [id number] 5mg Take 1 [facility] n[facility] 5 mg tablet 9-14 tablet by [facility]y of 00:00: mouth [place] 00 daily. [facility] apixaban 5 2019- Yes 1358 5mg Take 1 [facility] rs mg tablet 9-14 tablet by ity o f 00:00: mouth 2 [place] 00 (two) Medical times Branch daily. Indication s: atrial fibrillati on bisoproloL- Yes [id number] 1{tbl} Take 1 [facility] hydrochloro 9-14 tablet by [facility]y of thiazide 00:00: mouth [place] 10-6.25 mg 00 daily. Medical per tablet Branch telmisartan Yes [id number] 1{tbl} Take 1 [facility] -hydrochlor 9-14 tablet by ity of othiazide 00:00: mouth [place] 80-25 mg 00 daily. Medical per tablet [facility] isosorbide 2020-0 Yes [id number] 60mg Take 2 [facility] mononitrate 9-14 tablets by it y of 30 mg 24 hr 00:00: mouth [place] tablet 00 daily. [facility] amiodarone 2020-0 Yes [id number] TK 1 T PO [facility] 200 mg 9-14 QD [facility]y of tablet 00:00: [place] 00 [facility] amiodarone 2020-0 Yes [id number] TK 1 T PO [facility] 200 mg 9-14 QD ity of tablet 00:00: [place] 00 [facility] amLODIPine 2020-0 Yes [id number] 5mg Take 1 [facility] n[facility] 5 mg tablet 9-14 tablet by [facility]y of 00:00: mouth [place] 00 daily. [facility] apixaban 5 2019-0 Yes 1358 5mg Take 1 [facility] rs mg tablet 9-14 tablet by ity o f 00:00: mouth 2 [place] 00 (two) Medical times Branch daily. Indication s: atrial fibrillati on bisoproloL- 2019-0 Yes [id number] 1{tbl} Take 1 [facility] hydrochloro 9-14 tablet by ity of thiazide 00:00: mouth [place] 10-6.25 mg 00 daily. Medical per tablet Branch telmisartan 2020-0 Yes [id number] 1{tbl} Take 1 [facility] -hydrochlor 9-14 tablet by ity of othiazide 00:00: mouth [place] 80-25 mg 00 daily. Medical per tablet [facility] isosorbide 2020-0 Yes [id number] 60mg Take 2 [facility] mononitrate 9-14 tablets by it y of 30 mg 24 hr 00:00: mouth [place] tablet 00 daily. [facility] amiodarone 2020-0 Yes [id number] TK 1 T PO [facility] 200 mg 9-14 QD [facility]y of tablet 00:00: [place] 00 [facility] amLODIPine 2020-0 Yes [id number] 5mg Take 1 [facility] n[facility] 5 mg tablet 9-14 tablet by [facility]y of 00:00: mouth [place] 00 daily. [facility] apixaban 5 2020-0 Yes 1358 5mg Take 1 [facility] rs mg tablet 9-14 tablet by ity o f 00:00: mouth 2 [place] 00 (two) Medical times Branch daily. Indication s: atrial fibrillati on bisoproloL- 2020-0 Yes [id number] 1{tbl} Take 1 [facility] hydrochloro 9-14 tablet by ity of thiazide 00:00: mouth [place] 10-6.25 mg 00 daily. Medical per tablet [facility] telmisartan 2020-0 Yes [id number] 1{tbl} Take 1 [facility] -hydrochlor 9-14 tablet by ity of othiazide 00:00: mouth [place] 80-25 mg 00 daily. Medical per tablet [facility] isosorbide 2020-0 Yes [id number] 60mg Take 2 [facility] mononitrate 9-14 tablets by it y of 30 mg 24 hr 00:00: mouth [place] tablet 00 daily. [facility] amiodarone 2019-0 Yes [id number] TK 1 T PO [facility] 200 mg 9-14 QD [facility]y of tablet 00:00: [place] 00 [facility] amLODIPine 2019-0 Yes [id number] 5mg Take 1 [facility] nivers 5 mg tablet 9-14 tablet by [facility]y of 00:00: mouth [place] 00 daily. [facility] apixaban 5 2019-0 Yes 1358 5mg Take 1 [facility] rs mg tablet 9-14 tablet by ity o f 00:00: mouth 2 [place] 00 (two) Medical times Branch daily. Indication s: atrial fibrillati on bisoproloL- 2019-0 Yes [id number] 1{tbl} Take 1 [facility] hydrochloro 9-14 tablet by ity of thiazide 00:00: mouth [place] 10-6.25 mg 00 daily. Medical per tablet [facility] telmisartan 2019-0 Yes [id number] 1{tbl} Take 1 [facility] -hydrochlor 9-14 tablet by [facility] of othiazide 00:00: mouth [place] 80-25 mg 00 daily. [facility] per tablet Branch isosorbide 2020-0 Yes [id number] 60mg Take 2 [facility] mononitrate 9-14 tablets by [facility] y of 30 mg 24 hr 00:00: mouth [place] tablet 00 daily. [facility] amiodarone 2019-0 Yes [id number] TK 1 T PO [facility] 200 mg 9-14 QD [facility] of tablet 00:00: [place] 00 [facility] amLODIPine 2019-0 Yes [id number] 5mg Take 1 [facility] n[facility] 5 mg tablet 9-14 tablet by [facility] of 00:00: mouth [place] 00 daily. [facility] apixaban 5 2019-0 Yes 1358 5mg Take 1 [facility] rs mg tablet 9-14 tablet by it[facility] o f 00:00: mouth 2 [place] 00 (two) Medical times Branch daily. Indication s: atrial fibrillati on bisoproloL- 2020-0 Yes [id number] 1{tbl} Take 1 [facility] hydrochloro 9-14 tablet by [facility] of thiazide 00:00: mouth [place] 10-6.25 mg 00 daily. [facility] per tablet [facility] telmisartan 2019-0 Yes [id number] 1{tbl} Take 1 [facility] -hydrochlor 9-14 tablet by [facility] of othiazide 00:00: mouth [place] 80-25 mg 00 daily. [facility] per tablet [facility] isosorbide 2019-0 Yes [id number] 60mg Take 2 [facility] mononitrate 9-14 tablets by it y of 30 mg 24 hr 00:00: mouth [place] tablet 00 daily. [facility] amiodarone 2019-0 Yes [id number] TK 1 T PO [facility] 200 mg 9-14 QD [facility] of tablet 00:00: [place] 00 [facility] amLODIPine 2019-0 Yes [id number] 5mg Take 1 [facility] nivers 5 mg tablet 9-14 tablet by [facility] of 00:00: mouth [place] 00 daily. [facility] apixaban 5 2019-0 Yes 1358 5mg Take 1 [facility] rs mg tablet 9-14 tablet by ity o f 00:00: mouth 2 [place] 00 (two) Medical times Branch daily. Indication s: atrial fibrillati on bisoproloL- 2019-0 Yes [id number] 1{tbl} Take 1 [facility] hydrochloro 9-14 tablet by [facility] of thiazide 00:00: mouth [place] 10-6.25 mg 00 daily. [facility] per tablet [facility] telmisartan 2019-0 Yes [id number] 1{tbl} Take 1 [facility] -hydrochlor 9-14 tablet by [facility] of othiazide 00:00: mouth [place] 80-25 mg 00 daily. [facility] per tablet [facility] isosorbide 2020-0 Yes [id number] 60mg Take 2 [facility] mononitrate 9-14 tablets by it y of 30 mg 24 hr 00:00: mouth [place] tablet 00 daily. [facility] amiodarone 2019-0 Yes [id number] TK 1 T PO [facility] 200 mg 9-14 QD [facility] of tablet 00:00: [place] 00 [facility] amLODIPine 2019-0 Yes [id number] 5mg Take 1 [facility] nivers 5 mg tablet 9-14 tablet by [facility] of 00:00: mouth [place] 00 daily. [facility] apixaban 5 2020-0 Yes 1358 5mg Take 1 [facility] rs mg tablet 9-14 tablet by [facility] o f 00:00: mouth 2 [place] 00 (two) Medical times Branch daily. Indication s: atrial fibrillati on atorvastati 2020-0 Yes [id number] 20mg Take 1 [facility] n 20 mg 9-14 tablet by [facility] of tablet 00:00: mouth at [place] 00 bedtime. [facility] bisoproloL- 2020-0 Yes [id number] 1{tbl} Take 1 [facility] hydrochloro 9-14 tablet by [facility] of thiazide 00:00: mouth [place] 10-6.25 mg 00 daily. [facility] per tablet [facility] telmisartan 2020-0 Yes [id number] 1{tbl} Take 1 [facility] -hydrochlor 9-14 tablet by [facility] of othiazide 00:00: mouth [place] 80-25 mg 00 daily. [facility] per tablet [facility] gabapentin 2019-0 Yes [id number] 400mg Take 1 [facility] 400 mg 9-14 capsule by [facility] of capsule 00:00: mouth 3 [place] 00 (three) Medical times Branch daily. isosorbide 2020-0 Yes [id number] 60mg Take 2 [facility] mononitrate 9-14 tablets by it y of 30 mg 24 hr 00:00: mouth [place] tablet 00 daily. [facility] amiodarone 2019-0 Yes [id number] TK 1 T PO [facility] 200 mg 9-14 QD [facility] of tablet 00:00: [place] 00 [facility] amLODIPine 2020-0 Yes [id number] 5mg Take 1 [facility] n[facility] 5 mg tablet 9-14 tablet by [facility] of 00:00: mouth [place] 00 daily. [facility] apixaban 5 2019-0 Yes 1358 5mg Take 1 [facility] rs mg tablet 9-14 tablet by it[facility] o f 00:00: mouth 2 [place] 00 (two) Medical times Branch daily. Indication s: atrial fibrillati on atorvastati 2019-0 Yes [id number] 20mg Take 1 [facility] n 20 mg 9-14 tablet by [facility] of tablet 00:00: mouth at [place] 00 bedtime. [facility] bisoproloL- 2020-0 Yes [id number] 1{tbl} Take 1 [facility] hydrochloro 9-14 tablet by [facility] of thiazide 00:00: mouth [place] 10-6.25 mg 00 daily. [facility] per tablet [facility] telmisartan 2020-0 Yes [id number] 1{tbl} Take 1 [facility] -hydrochlor 9-14 tablet by [facility] of othiazide 00:00: mouth [place] 80-25 mg 00 daily. [facility] per tablet [facility] gabapentin 2019-0 Yes [id number] 400mg Take 1 [facility] 400 mg 9-14 capsule by [facility] of capsule 00:00: mouth 3 [place] 00 (three) Medical times Branch daily. isosorbide 2019-0 Yes [id number] 60mg Take 2 [facility] mononitrate 9-14 tablets by it y of 30 mg 24 hr 00:00: mouth [place] tablet 00 daily. [facility] amiodarone 2019-0 Yes [id number] TK 1 T PO [facility] 200 mg 9-14 QD [facility] of tablet 00:00: [place] 00 [facility] amLODIPine 2019-0 Yes [id number] 5mg Take 1 [facility] nivers 5 mg tablet 9-14 tablet by [facility] of 00:00: mouth [place] 00 daily. [facility] apixaban 5 2019-0 Yes 1358 5mg Take 1 [facility] rs mg tablet 9-14 tablet by ity o f 00:00: mouth 2 [place] 00 (two) Medical times Branch daily. Indication s: atrial fibrillati on atorvastati 2019-0 Yes [id number] 20mg Take 1 [facility] n 20 mg 9-14 tablet by [facility] of tablet 00:00: mouth at [place] 00 bedtime. [facility] bisoproloL- 2019-0 Yes [id number] 1{tbl} Take 1 [facility] hydrochloro 9-14 tablet by [facility] of thiazide 00:00: mouth [place] 10-6.25 mg 00 daily. [facility] per tablet [facility] telmisartan 2019-0 Yes [id number] 1{tbl} Take 1 [facility] -hydrochlor 9-14 tablet by [facility] of othiazide 00:00: mouth [place] 80-25 mg 00 daily. [facility] per tablet [facility] gabapentin 2019-0 Yes [id number] 400mg Take 1 [facility] 400 mg 9-14 capsule by [facility] of capsule 00:00: mouth 3 [place] 00 (three) Medical times Branch daily. isosorbide 2019-0 Yes [id number] 60mg Take 2 [facility] mononitrate 9-14 tablets by it y of 30 mg 24 hr 00:00: mouth [place] tablet 00 daily. [facility] amiodarone 2019-0 Yes [id number] TK 1 T PO [facility] 200 mg 9-14 QD [facility] of tablet 00:00: [place] 00 [facility] amLODIPine 2020-0 Yes [id number] 5mg Take 1 [facility] n[facility] 5 mg tablet 9-14 tablet by [facility] of 00:00: mouth [place] 00 daily. [facility] apixaban 5 2020-0 Yes 1358 5mg Take 1 [facility] rs mg tablet 9-14 tablet by ity o f 00:00: mouth 2 [place] 00 (two) Medical times Branch daily. Indication s: atrial fibrillati on atorvastati 2020-0 Yes [id number] 20mg Take 1 [facility] n 20 mg 9-14 tablet by [facility] of tablet 00:00: mouth at [place] 00 bedtime. [facility] bisoproloL- 2020-0 Yes [id number] 1{tbl} Take 1 [facility] hydrochloro 9-14 tablet by [facility] of thiazide 00:00: mouth [place] 10-6.25 mg 00 daily. [facility] per tablet [facility] telmisartan 2020-0 Yes [id number] 1{tbl} Take 1 [facility] -hydrochlor 9-14 tablet by [facility] of othiazide 00:00: mouth [place] 80-25 mg 00 daily. [facility] per tablet [facility] gabapentin 2020-0 Yes [id number] 400mg Take 1 [facility] 400 mg 9-14 capsule by [facility] of capsule 00:00: mouth 3 [place] 00 (three) Medical times Branch daily. isosorbide 2020-0 Yes [id number] 60mg Take 2 [facility] mononitrate 9-14 tablets by it y of 30 mg 24 hr 00:00: mouth [place] tablet 00 daily. [facility] amiodarone 2020-0 Yes [id number] TK 1 T PO [facility] 200 mg 9-14 QD [facility] of tablet 00:00: [place] 00 [facility] amLODIPine 2020-0 Yes [id number] 5mg Take 1 [facility] nivers 5 mg tablet 9-14 tablet by [facility] of 00:00: mouth [place] 00 daily. [facility] apixaban 5 2020-0 Yes 1358 5mg Take 1 [facility] rs mg tablet 9-14 tablet by ity o f 00:00: mouth 2 [place] 00 (two) Medical times Branch daily. Indication s: atrial fibrillati on atorvastati 2020-0 Yes [id number] 20mg Take 1 [facility] n 20 mg 9-14 tablet by [facility] of tablet 00:00: mouth at [place] 00 bedtime. [facility] bisoproloL- 2020-0 Yes [id number] 1{tbl} Take 1 [facility] hydrochloro 9-14 tablet by [facility] of thiazide 00:00: mouth [place] 10-6.25 mg 00 daily. Medical per tablet [facility] telmisartan 2019-0 Yes [id number] 1{tbl} Take 1 [facility] -hydrochlor 9-14 tablet by [facility] of othiazide 00:00: mouth [place] 80-25 mg 00 daily. Medical per tablet [facility] gabapentin 2019-0 Yes [id number] 400mg Take 1 [facility] 400 mg 9-14 capsule by [facility] of capsule 00:00: mouth 3 [place] 00 (three) Medical times Branch daily. isosorbide 2019-0 Yes [id number] 60mg Take 2 [facility] mononitrate 9-14 tablets by it y of 30 mg 24 hr 00:00: mouth [place] tablet 00 daily. [facility] amiodarone 2019-0 Yes [id number] TK 1 T PO [facility] 200 mg 9-14 QD [facility] of tablet 00:00: [place] 00 [facility] amLODIPine 2019-0 Yes [id number] 5mg Take 1 [facility] nivers 5 mg tablet 9-14 tablet by [facility] of 00:00: mouth [place] 00 daily. [facility] apixaban 5 2019-0 Yes 1358 5mg Take 1 [facility] rs mg tablet 9-14 tablet by ity o f 00:00: mouth 2 [place] 00 (two) Medical times Branch daily. Indication s: atrial fibrillati on atorvastati 2019-0 Yes [id number] 20mg Take 1 [facility] n 20 mg 9-14 tablet by [facility] of tablet 00:00: mouth at [place] 00 bedtime. [facility] bisoproloL- 2019-0 Yes [id number] 1{tbl} Take 1 [facility] hydrochloro 9-14 tablet by [facility] of thiazide 00:00: mouth [place] 10-6.25 mg 00 daily. Medical per tablet [facility] telmisartan 2019-0 Yes [id number] 1{tbl} Take 1 [facility] -hydrochlor 9-14 tablet by [facility] of othiazide 00:00: mouth [place] 80-25 mg 00 daily. Medical per tablet [facility] gabapentin 2019-0 Yes [id number] 400mg Take 1 [facility] 400 mg 9-14 capsule by [facility] of capsule 00:00: mouth 3 [place] 00 (three) Medical times Branch daily. isosorbide 2020-0 Yes [id number] 60mg Take 2 [facility] mononitrate 9-14 tablets by it y of 30 mg 24 hr 00:00: mouth [place] tablet 00 daily. [facility] amiodarone 2020-0 Yes [id number] TK 1 T PO [facility] 200 mg 9-14 QD it[facility] of tablet 00:00: [place] 00 [facility] amLODIPine 2020-0 Yes [id number] 5mg Take 1 [facility] nivers 5 mg tablet 9-14 tablet by ity of 00:00: mouth [place] 00 daily. [facility] apixaban 5 2019-0 Yes 1358 5mg Take 1 [facility] rs mg tablet 9-14 tablet by ity o f 00:00: mouth 2 [place] 00 (two) Medical times Branch daily. Indication s: atrial fibrillati on atorvastati 2019-0 Yes [id number] 20mg Take 1 [facility] n 20 mg 9-14 tablet by [facility] of tablet 00:00: mouth at [place] 00 bedtime. [facility] bisoproloL- 2020-0 Yes [id number] 1{tbl} Take 1 [facility] hydrochloro 9-14 tablet by [facility] of thiazide 00:00: mouth [place] 10-6.25 mg 00 daily. Medical per tablet [facility] telmisartan 2020-0 Yes [id number] 1{tbl} Take 1 [facility] -hydrochlor 9-14 tablet by [facility]y of othiazide 00:00: mouth [place] 80-25 mg 00 daily. Medical per tablet Branch gabapentin 2019-0 Yes [id number] 400mg Take 1 [facility] 400 mg 9-14 capsule by [facility] of capsule 00:00: mouth 3 [place] 00 (three) Medical times Branch daily. isosorbide 2020-0 Yes [id number] 60mg Take 2 [facility] mononitrate 9-14 tablets by it y of 30 mg 24 hr 00:00: mouth [place] tablet 00 daily. [facility] amiodarone 2020-0 Yes [id number] TK 1 T PO [facility] 200 mg 9-14 QD [facility]y of tablet 00:00: [place] 00 [facility] amLODIPine 2020-0 Yes [id number] 5mg Take 1 [facility] nivers 5 mg tablet 9-14 tablet by ity of 00:00: mouth [place] 00 daily. [facility] apixaban 5 2020-0 Yes 1358 5mg Take 1 [facility] rs mg tablet 9-14 tablet by ity o f 00:00: mouth 2 [place] 00 (two) Medical times Branch daily. Indication s: atrial fibrillati on atorvastati 2020-0 Yes [id number] 20mg Take 1 [facility] n 20 mg 9-14 tablet by [facility] of tablet 00:00: mouth at [place] 00 bedtime. [facility] bisoproloL- 2020-0 Yes [id number] 1{tbl} Take 1 [facility] hydrochloro 9-14 tablet by [facility]y of thiazide 00:00: mouth [place] 10-6.25 mg 00 daily. Medical per tablet [facility] telmisartan 2019-0 Yes [id number] 1{tbl} Take 1 [facility] -hydrochlor 9-14 tablet by it[facility] of othiazide 00:00: mouth [place] 80-25 mg 00 daily. Medical per tablet [facility] gabapentin 2019-0 Yes [id number] 400mg Take 1 [facility] 400 mg 9-14 capsule by [facility] of capsule 00:00: mouth 3 [place] 00 (three) Medical times Branch daily. isosorbide 2019-0 Yes [id number] 60mg Take 2 [facility] mononitrate 9-14 tablets by it y of 30 mg 24 hr 00:00: mouth [place] tablet 00 daily. [facility] amiodarone 2019-0 Yes [id number] TK 1 T PO [facility] 200 mg 9-14 QD [facility] of tablet 00:00: [place] 00 [facility] amLODIPine 2019-0 Yes [id number] 5mg Take 1 [facility] nivers 5 mg tablet 9-14 tablet by ity of 00:00: mouth [place] 00 daily. [facility] apixaban 5 2019-0 Yes 1358 5mg Take 1 [facility] rs mg tablet 9-14 tablet by ity o f 00:00: mouth 2 [place] 00 (two) Medical times Branch daily. Indication s: atrial fibrillati on atorvastati 2019-0 Yes [id number] 20mg Take 1 [facility] n 20 mg 9-14 tablet by [facility] of tablet 00:00: mouth at [place] 00 bedtime. [facility] bisoproloL- 2019-0 Yes [id number] 1{tbl} Take 1 [facility] hydrochloro 9-14 tablet by ity of thiazide 00:00: mouth [place] 10-6.25 mg 00 daily. Medical per tablet [facility] telmisartan 2020-0 Yes [id number] 1{tbl} Take 1 [facility] -hydrochlor 9-14 tablet by it[facility] of othiazide 00:00: mouth [place] 80-25 mg 00 daily. Medical per tablet [facility] gabapentin 2020-0 Yes [id number] 400mg Take 1 [facility] 400 mg 9-14 capsule by [facility] of capsule 00:00: mouth 3 [place] 00 (three) Medical times Branch daily. isosorbide 2020-0 Yes [id number] 60mg Take 2 [facility] mononitrate 9-14 tablets by it y of 30 mg 24 hr 00:00: mouth [place] tablet 00 daily. [facility] amiodarone 2019-0 Yes [id number] TK 1 T PO [facility] 200 mg 9-14 QD [facility]y of tablet 00:00: [place] 00 [facility] amLODIPine 2020-0 Yes [id number] 5mg Take 1 [facility] nivers 5 mg tablet 9-14 tablet by ity of 00:00: mouth [place] 00 daily. [facility] apixaban 5 2019-0 Yes 1358 5mg Take 1 [facility] rs mg tablet 9-14 tablet by ity o f 00:00: mouth 2 00 (two) Medical times Branch daily. Indication s: atrial fibrillati on atorvastati 2019-0 Yes [id number] 20mg Take 1 [facility] n 20 mg 9-14 tablet by [facility] of tablet 00:00: mouth at [place] 00 bedtime. [facility] bisoproloL- 2020-0 Yes [id number] 1{tbl} Take 1 [facility] hydrochloro 9-14 tablet by ity of thiazide 00:00: mouth [place] 10-6.25 mg 00 daily. Medical per tablet [facility] telmisartan 2020-0 Yes [id number] 1{tbl} Take 1 [facility] -hydrochlor 9-14 tablet by ity of othiazide 00:00: mouth [place] 80-25 mg 00 daily. Medical per tablet [facility] gabapentin 2020-0 Yes [id number] 400mg Take 1 [facility] 400 mg 9-14 capsule by [facility] of capsule 00:00: mouth 3 [place] 00 (three) Medical times Branch daily. isosorbide 2020-0 Yes [id number] 60mg Take 2 [facility] mononitrate 9-14 tablets by it y of 30 mg 24 hr 00:00: mouth [place] tablet 00 daily. [facility] amiodarone 2020-0 Yes [id number] TK 1 T PO [facility] 200 mg 9-14 QD ity of tablet 00:00: [place] 00 [facility] amLODIPine 2020-0 Yes [id number] 5mg Take 1 [facility] nivers 5 mg tablet 9-14 tablet by ity of 00:00: mouth [place] 00 daily. [facility] apixaban 5 2020-0 Yes 1358 5mg Take 1 [facility] rs mg tablet 9-14 tablet by ity o f 00:00: mouth 2 [place] 00 (two) Medical times Branch daily. Indication s: atrial fibrillati on atorvastati 2020-0 Yes [id number] 20mg Take 1 [facility] n 20 mg 9-14 tablet by ity of tablet 00:00: mouth at [place] 00 bedtime. [facility] bisoproloL- 2020-0 Yes [id number] 1{tbl} Take 1 [facility] hydrochloro 9-14 tablet by ity of thiazide 00:00: mouth [place] 10-6.25 mg 00 daily. Medical per tablet [facility] telmisartan 2020-0 Yes [id number] 1{tbl} Take 1 [facility] -hydrochlor 9-14 tablet by ity of othiazide 00:00: mouth [place] 80-25 mg 00 daily. Medical per tablet Branch gabapentin 2019-0 Yes [id number] 400mg Take 1 [facility] 400 mg 9-14 capsule by [facility] of capsule 00:00: mouth 3 [place] 00 (three) Medical times Branch daily. isosorbide 2020-0 Yes [id number] 60mg Take 2 [facility] mononitrate 9-14 tablets by it y of 30 mg 24 hr 00:00: mouth [place] tablet 00 daily. [facility] amiodarone 2019-0 Yes [id number] TK 1 T PO [facility] 200 mg 9-14 QD ity of tablet 00:00: [place] 00 [facility] amLODIPine 2020-0 Yes [id number] 5mg Take 1 [facility] nivers 5 mg tablet 9-14 tablet by ity of 00:00: mouth [place] 00 daily. [facility] apixaban 5 2019-0 Yes 1358 5mg Take 1 [facility] rs mg tablet 9-14 tablet by ity o f 00:00: mouth 2 [place] 00 (two) Medical times Branch daily. Indication s: atrial fibrillati on atorvastati 2020-0 Yes [id number] 20mg Take 1 [facility] n 20 mg 9-14 tablet by [facility]y of tablet 00:00: mouth at [place] 00 bedtime. [facility] bisoproloL- 2020-0 Yes [id number] 1{tbl} Take 1 [facility] hydrochloro 9-14 tablet by [facility]y of thiazide 00:00: mouth [place] 10-6.25 mg 00 daily. Medical per tablet Branch telmisartan 2019-0 Yes [id number] 1{tbl} Take 1 [facility] -hydrochlor 9-14 tablet by ity of othiazide 00:00: mouth [place] 80-25 mg 00 daily. Medical per tablet [facility] gabapentin 2019-0 Yes [id number] 400mg Take 1 [facility] 400 mg 9-14 capsule by [facility] of capsule 00:00: mouth 3 [place] 00 (three) Medical times Branch daily. isosorbide 2019-0 Yes [id number] 60mg Take 2 [facility] mononitrate 9-14 tablets by it y of 30 mg 24 hr 00:00: mouth [place] tablet 00 daily. [facility] amiodarone 2019-0 Yes [id number] TK 1 T PO [facility] 200 mg 9-14 QD ity of tablet 00:00: [place] 00 [facility] amLODIPine 2019-0 Yes [id number] 5mg Take 1 [facility] nivers 5 mg tablet 9-14 tablet by ity of 00:00: mouth [place] 00 daily. [facility] apixaban 5 2019-0 Yes 1358 5mg Take 1 [facility] rs mg tablet 9-14 tablet by ity o f 00:00: mouth 2 [place] 00 (two) Medical times Branch daily. Indication s: atrial fibrillati on atorvastati 2019- Yes [id number] 20mg Take 1 [facility] n 20 mg 9-14 tablet by [facility] of tablet 00:00: mouth at [place] 00 bedtime. [facility] bisoproloL- 2019-0 Yes [id number] 1{tbl} Take 1 [facility] hydrochloro 9-14 tablet by [facility]y of thiazide 00:00: mouth [place] 10-6.25 mg 00 daily. Medical per tablet Branch telmisartan 2019-0 Yes [id number] 1{tbl} Take 1 [facility] -hydrochlor 9-14 tablet by ity of othiazide 00:00: mouth [place] 80-25 mg 00 daily. Medical per tablet Branch gabapentin 2019-0 Yes [id number] 400mg Take 1 [facility] 400 mg 9-14 capsule by [facility] of capsule 00:00: mouth 3 [place] 00 (three) Medical times Branch daily. isosorbide 2019-0 Yes [id number] 60mg Take 2 [facility] mononitrate 9-14 tablets by it y of 30 mg 24 hr 00:00: mouth [place] tablet 00 daily. [facility] amiodarone 2020-0 Yes [id number] TK 1 T PO [facility] 200 mg 9-14 QD [facility] of tablet 00:00: [place] 00 [facility] amLODIPine 2020-0 Yes [id number] 5mg Take 1 [facility] nivers 5 mg tablet 9-14 tablet by ity of 00:00: mouth [place] 00 daily. [facility] apixaban 5 2020-0 Yes 1358 5mg Take 1 [facility] rs mg tablet 9-14 tablet by ity o f 00:00: mouth 2 [place] 00 (two) Medical times Branch daily. Indication s: atrial fibrillati on atorvastati 2020-0 Yes [id number] 20mg Take 1 [facility] n 20 mg 9-14 tablet by [facility] of tablet 00:00: mouth at [place] 00 bedtime. [facility] bisoproloL- 2020-0 Yes [id number] 1{tbl} Take 1 [facility] hydrochloro 9-14 tablet by [facility]y of thiazide 00:00: mouth [place] 10-6.25 mg 00 daily. Medical per tablet [facility] telmisartan 2020-0 Yes [id number] 1{tbl} Take 1 [facility] -hydrochlor 9-14 tablet by [facility]y of othiazide 00:00: mouth [place] 80-25 mg 00 daily. Medical per tablet [facility] gabapentin 2020-0 Yes [id number] 400mg Take 1 [facility] 400 mg 9-14 capsule by [facility] of capsule 00:00: mouth 3 [place] 00 (three) Medical times Branch daily. isosorbide 2020-0 Yes [id number] 60mg Take 2 [facility] mononitrate 9-14 tablets by it y of 30 mg 24 hr 00:00: mouth [place] tablet 00 daily. [facility] amiodarone 2020-0 Yes [id number] TK 1 T PO [facility] 200 mg 9-14 QD [facility] of tablet 00:00: [place] 00 [facility] amLODIPine 2020-0 Yes [id number] 5mg Take 1 [facility] n[facility] 5 mg tablet 9-14 tablet by [facility]y of 00:00: mouth [place] 00 daily. [facility] apixaban 5 2020-0 Yes 1358 5mg Take 1 [facility] rs mg tablet 9-14 tablet by ity o f 00:00: mouth 2 [place] 00 (two) Medical times Branch daily. Indication s: atrial fibrillati on atorvastati 2020-0 Yes [id number] 20mg Take 1 [facility] n 20 mg 9-14 tablet by [facility] of tablet 00:00: mouth at [place] 00 bedtime. [facility] bisoproloL- 2019-0 Yes [id number] 1{tbl} Take 1 [facility] hydrochloro 9-14 tablet by [facility]y of thiazide 00:00: mouth [place] 10-6.25 mg 00 daily. Medical per tablet [facility] telmisartan 2019-0 Yes [id number] 1{tbl} Take 1 [facility] -hydrochlor 9-14 tablet by ity of othiazide 00:00: mouth [place] 80-25 mg 00 daily. Medical per tablet [facility] gabapentin 2019-0 Yes [id number] 400mg Take 1 [facility] 400 mg 9-14 capsule by [facility] of capsule 00:00: mouth 3 [place] 00 (three) Medical times Branch daily. isosorbide 2019- Yes [id number] 60mg Take 2 [facility] mononitrate 9-14 tablets by it y of 30 mg 24 hr 00:00: mouth [place] tablet 00 daily. [facility] amiodarone 2019-0 Yes [id number] TK 1 T PO [facility] 200 mg 9-14 QD [facility]y of tablet 00:00: [place] 00 [facility] amLODIPine 2019-0 Yes [id number] 5mg Take 1 [facility] n[facility] 5 mg tablet 9-14 tablet by ity of 00:00: mouth [place] 00 daily. [facility] apixaban 5 2019-0 Yes 1358 5mg Take 1 [facility] rs mg tablet 9-14 tablet by ity o f 00:00: mouth 2 [place] 00 (two) Medical times Branch daily. Indication s: atrial fibrillati on atorvastati 2019-0 Yes [id number] 20mg Take 1 [facility] n 20 mg 9-14 tablet by [facility] of tablet 00:00: mouth at [place] 00 bedtime. [facility] bisoproloL- 2019-0 Yes [id number] 1{tbl} Take 1 [facility] hydrochloro 9-14 tablet by ity of thiazide 00:00: mouth [place] 10-6.25 mg 00 daily. Medical per tablet Branch telmisartan 2019-0 Yes [id number] 1{tbl} Take 1 [facility] -hydrochlor 9-14 tablet by [facility]y of othiazide 00:00: mouth [place] 80-25 mg 00 daily. Medical per tablet Branch gabapentin 2019-0 Yes [id number] 400mg Take 1 [facility] 400 mg 9-14 capsule by [facility] of capsule 00:00: mouth 3 [place] 00 (three) Medical times Branch daily. isosorbide 2020-0 Yes [id number] 60mg Take 2 [facility] mononitrate 9-14 tablets by it y of 30 mg 24 hr 00:00: mouth [place] tablet 00 daily. [facility] amiodarone 2020-0 Yes [id number] TK 1 T PO [facility] 200 mg 9-14 QD [facility]y of tablet 00:00: [place] 00 [facility] amLODIPine 2020-0 Yes [id number] 5mg Take 1 [facility] n[facility] 5 mg tablet 9-14 tablet by [facility]y of 00:00: mouth [place] 00 daily. [facility] apixaban 5 2019-0 Yes 1358 5mg Take 1 [facility] rs mg tablet 9-14 tablet by ity o f 00:00: mouth 2 (two) Medical times Branch daily. Indication s: atrial fibrillati on atorvastati 2019-0 Yes [id number] 20mg Take 1 [facility] n 20 mg 9-14 tablet by [facility] of tablet 00:00: mouth at [place] 00 bedtime. [facility] bisoproloL- 2020-0 Yes [id number] 1{tbl} Take 1 [facility] hydrochloro 9-14 tablet by ity of thiazide 00:00: mouth [place] 10-6.25 mg 00 daily. Medical per tablet [facility] telmisartan 2020-0 Yes [id number] 1{tbl} Take 1 [facility] -hydrochlor 9-14 tablet by ity of othiazide 00:00: mouth [place] 80-25 mg 00 daily. Medical per tablet Branch gabapentin 2020-0 Yes [id number] 400mg Take 1 [facility] 400 mg 9-14 capsule by [facility] of capsule 00:00: mouth 3 [place] (three) Medical times Branch daily. isosorbide 2020-0 Yes [id number] 60mg Take 2 [facility] mononitrate 9-14 tablets by it y of 30 mg 24 hr 00:00: mouth [place] tablet 00 daily. [facility] amiodarone 2020-0 Yes [id number] TK 1 T PO [facility] 200 mg 9-14 QD [facility]y of tablet 00:00: [place] 00 [facility] amLODIPine 2020-0 Yes [id number] 5mg Take 1 [facility] n[facility] 5 mg tablet 9-14 tablet by ity of 00:00: mouth [place] 00 daily. [facility] apixaban 5 2019-0 Yes 1358 5mg Take 1 [facility] rs mg tablet 9-14 tablet by ity o f 00:00: mouth 2 [place] 00 (two) Medical times Branch daily. Indication s: atrial fibrillati on atorvastati 2020-0 Yes [id number] 20mg Take 1 [facility] n 20 mg 9-14 tablet by [facility] of tablet 00:00: mouth at [place] 00 bedtime. [facility] bisoproloL- 2019-0 Yes [id number] 1{tbl} Take 1 [facility] hydrochloro 9-14 tablet by ity of thiazide 00:00: mouth [place] 10-6.25 mg 00 daily. Medical per tablet [facility] telmisartan 2019-0 Yes [id number] 1{tbl} Take 1 [facility] -hydrochlor 9-14 tablet by ity of othiazide 00:00: mouth [place] 80-25 mg 00 daily. Medical per tablet [facility] gabapentin 2019-0 Yes [id number] 400mg Take 1 [facility] 400 mg 9-14 capsule by [facility] of capsule 00:00: mouth 3 [place] 00 (three) Medical times Branch daily. isosorbide 2019-0 Yes [id number] 60mg Take 2 [facility] mononitrate 9-14 tablets by it y of 30 mg 24 hr 00:00: mouth [place] tablet 00 daily. [facility] amiodarone 2019-0 Yes [id number] TK 1 T PO [facility] 200 mg 9-14 QD [facility]y of tablet 00:00: [place] 00 [facility] amLODIPine 2019-0 Yes [id number] 5mg Take 1 [facility] n[facility] 5 mg tablet 9-14 tablet by [facility]y of 00:00: mouth [place] 00 daily. [facility] apixaban 5 2019-0 Yes 1358 5mg Take 1 [facility] rs mg tablet 9-14 tablet by ity o f 00:00: mouth 2 [place] 00 (two) Medical times Branch daily. Indication s: atrial fibrillati on atorvastati 2019-0 Yes [id number] 20mg Take 1 [facility] n 20 mg 9-14 tablet by [facility] of tablet 00:00: mouth at [place] 00 bedtime. [facility] bisoproloL- 2019-0 Yes [id number] 1{tbl} Take 1 [facility] hydrochloro 9-14 tablet by [facility]y of thiazide 00:00: mouth [place] 10-6.25 mg 00 daily. Medical per tablet Branch telmisartan 2019-0 Yes [id number] 1{tbl} Take 1 [facility] -hydrochlor 9-14 tablet by [facility] of othiazide 00:00: mouth [place] 80-25 mg 00 daily. Medical per tablet Branch gabapentin 2020-0 Yes [id number] 400mg Take 1 [facility] 400 mg 9-14 capsule by [facility] of capsule 00:00: mouth 3 00 (three) Medical times Branch daily. isosorbide 2020-0 Yes [id number] 60mg Take 2 [facility] mononitrate 9-14 tablets by it y of 30 mg 24 hr 00:00: mouth [place] tablet 00 daily. [facility] amiodarone 2020-0 Yes [id number] TK 1 T PO [facility] 200 mg 9-14 QD ity of tablet 00:00: [place] 00 [facility] amLODIPine 2020-0 Yes [id number] 5mg Take 1 [facility] nivers 5 mg tablet 9-14 tablet by ity of 00:00: mouth [place] 00 daily. [facility] apixaban 5 2019-0 Yes 1358 5mg Take 1 Un[facility] rs mg tablet 9-14 tablet by ity o f 00:00: mouth 2 (two) Medical times Branch daily. Indication s: atrial fibrillati on atorvastati 2020-0 Yes [id number] 20mg Take 1 [facility] n 20 mg 9-14 tablet by [facility] of tablet 00:00: mouth at [place] 00 bedtime. Medical [facility] bisoproloL- 2020-0 Yes [id number] 1{tbl} Take 1 [facility] hydrochloro 9-14 tablet by [facility]y of thiazide 00:00: mouth [place] 10-6.25 mg 00 daily. Medical per tablet Branch telmisartan 2020-0 Yes [id number] 1{tbl} Take 1 [facility] -hydrochlor 9-14 tablet by [facility]y of othiazide 00:00: mouth [place] 80-25 mg 00 daily. Medical per tablet Branch gabapentin 2020-0 Yes [id number] 400mg Take 1 [facility] 400 mg 9-14 capsule by [facility] of capsule 00:00: mouth 3 00 (three) Medical times Branch daily. isosorbide 2020-0 Yes [id number] 60mg Take 2 [facility] mononitrate 9-14 tablets by it y of 30 mg 24 hr 00:00: mouth [place] tablet 00 daily. [facility] amiodarone 2020-0 Yes [id number] TK 1 T PO [facility] 200 mg 9-14 QD ity of tablet 00:00: [place] 00 [facility] amLODIPine 2020-0 Yes [id number] 5mg Take 1 [facility] nivers 5 mg tablet 9-14 tablet by ity of 00:00: mouth [place] 00 daily. [facility] apixaban 5 2020-0 Yes 1358 5mg Take 1 [facility] rs mg tablet 9-14 tablet by ity o f 00:00: mouth 2 [place] 00 (two) Medical times Branch daily. Indication s: atrial fibrillati on atorvastati 2020-0 Yes [id number] 20mg Take 1 [facility] n 20 mg 9-14 tablet by ity of tablet 00:00: mouth at [place] 00 bedtime. [facility] bisoproloL- 2020-0 Yes [id number] 1{tbl} Take 1 [facility] hydrochloro 9-14 tablet by [facility]y of thiazide 00:00: mouth [place] 10-6.25 mg 00 daily. Medical per tablet Branch telmisartan 2019-0 Yes [id number] 1{tbl} Take 1 [facility] -hydrochlor 9-14 tablet by [facility]y of othiazide 00:00: mouth [place] 80-25 mg 00 daily. Medical per tablet Branch gabapentin 2019-0 Yes [id number] 400mg Take 1 [facility] 400 mg 9-14 capsule by [facility] of capsule 00:00: mouth 3 [place] 00 (three) Medical times Branch daily. isosorbide 2020-0 Yes [id number] 60mg Take 2 [facility] mononitrate 9-14 tablets by it y of 30 mg 24 hr 00:00: mouth [place] tablet 00 daily. [facility] amiodarone 2019-0 Yes [id number] TK 1 T PO [facility] 200 mg 9-14 QD ity of tablet 00:00: [place] 00 [facility] amLODIPine 2020-0 Yes [id number] 5mg Take 1 [facility] nivers 5 mg tablet 9-14 tablet by ity of 00:00: mouth [place] 00 daily. [facility] apixaban 5 2019-0 Yes 1358 5mg Take 1 [facility] rs mg tablet 9-14 tablet by ity o f 00:00: mouth 2 [place] 00 (two) Medical times Branch daily. Indication s: atrial fibrillati on atorvastati 2019-0 Yes [id number] 20mg Take 1 [facility] n 20 mg 9-14 tablet by ity of tablet 00:00: mouth at [place] 00 bedtime. [facility] bisoproloL- 2020-0 Yes [id number] 1{tbl} Take 1 [facility] hydrochloro 9-14 tablet by [facility]y of thiazide 00:00: mouth [place] 10-6.25 mg 00 daily. Medical per tablet Branch telmisartan 2020-0 Yes [id number] 1{tbl} Take 1 [facility] -hydrochlor 9-14 tablet by [facility]y of othiazide 00:00: mouth [place] 80-25 mg 00 daily. Medical per tablet Branch gabapentin 2019-0 Yes [id number] 400mg Take 1 [facility] 400 mg 9-14 capsule by [facility] of capsule 00:00: mouth 3 [place] 00 (three) Medical times Branch daily. isosorbide 2020-0 Yes [id number] 60mg Take 2 [facility] mononitrate 9-14 tablets by it y of 30 mg 24 hr 00:00: mouth [place] tablet 00 daily. [facility] amiodarone 2019-0 Yes [id number] TK 1 T PO [facility] 200 mg 9-14 QD ity of tablet 00:00: [place] 00 [facility] amLODIPine 2019-0 Yes [id number] 5mg Take 1 [facility] nivers 5 mg tablet 9-14 tablet by ity of 00:00: mouth [place] 00 daily. [facility] apixaban 5 2019-0 Yes 1358 5mg Take 1 [facility] rs mg tablet 9-14 tablet by ity o f 00:00: mouth 2 [place] 00 (two) Medical times Branch daily. Indication s: atrial fibrillati on atorvastati 2019-0 Yes [id number] 20mg Take 1 [facility] n 20 mg 9-14 tablet by ity of tablet 00:00: mouth at [place] 00 bedtime. [facility] bisoproloL- 2019-0 Yes [id number] 1{tbl} Take 1 [facility] hydrochloro 9-14 tablet by [facility]y of thiazide 00:00: mouth [place] 10-6.25 mg 00 daily. Medical per tablet Branch telmisartan 2019-0 Yes [id number] 1{tbl} Take 1 [facility] -hydrochlor 9-14 tablet by [facility]y of othiazide 00:00: mouth [place] 80-25 mg 00 daily. Medical per tablet Branch gabapentin 2019-0 Yes [id number] 400mg Take 1 [facility] 400 mg 9-14 capsule by [facility]y of capsule 00:00: mouth 3 [place] 00 (three) Medical times Branch daily. isosorbide 2020-0 Yes [id number] 60mg Take 2 [facility] mononitrate 9-14 tablets by it y of 30 mg 24 hr 00:00: mouth [place] tablet 00 daily. Medical [facility] amiodarone Yes [id number] TK 1 T PO [facility] 200 mg 9-14 QD ity of tablet 00:00: [place] 00 [facility] amLODIPine Yes [id number] 5mg Take 1 [facility] nivers 5 mg tablet 9-14 tablet by ity of 00:00: mouth [place] 00 daily. [facility] apixaban 5 Yes 1358 5mg Take 1 [facility] rs mg tablet 9-14 tablet by ity o f 00:00: mouth 2 [place] 00 (two) Medical times Branch daily. Indication s: atrial fibrillati on atorvastati Yes [id number] 20mg Take 1 [facility] n 20 mg 9-14 tablet by ity of tablet 00:00: mouth at [place] 00 bedtime. [facility] bisoproloL- Yes [id number] 1{tbl} Take 1 [facility] hydrochloro 9-14 tablet by ity of thiazide 00:00: mouth [place] 10-6.25 mg 00 daily. Medical per tablet Branch telmisartan Yes [id number] 1{tbl} Take 1 [facility] -hydrochlor 9-14 tablet by ity of othiazide 00:00: mouth [place] 80-25 mg 00 daily. Medical per tablet Branch gabapentin 2020- No [id number] 400mg Take 1 [facility] 400 mg 9- 07-07 capsule by ity of capsule 00:00: 00:00 mouth 3 [place] 00 :00 (three) Medical times Branch daily. atorvastati 2020- No [id number] 20mg Take 1 [facility] n 20 mg 9-14 06-08 tablet by ity of tablet 00:00: 00:00 mouth at [place] 00 :00 bedtime. Medical [facility] atorvastati 2020- No [id number] 20mg Take 1 [facility] n 20 mg 9-14 06-08 tablet by ity of tablet 00:00: 00:00 mouth at [place] 00 :00 bedtime. [facility] atorvastati 2020- No [id number] 20mg Take 1 [facility] n 20 mg 9-14 06-08 tablet by ity of tablet 00:00: 00:00 mouth at [place] 00 :00 bedtime. [facility] bisoproloL- Yes 1{tbl} Take 1 [facility] hydrochloro 9-08 tablet by ity of thiazide 00:00: mouth [place] 10-6.25 mg 00 daily. Medical per tablet Branch atorvastati Yes [id number] 20mg Take 1 [facility] n 20 mg 9-08 tablet by ity of tablet 00:00: mouth at [place] 00 bedtime. [facility] amLODIPine Yes 5mg Take 1 [facility] rs 5 mg tablet 9-08 tablet by ity of 00:00: mouth [place] 00 daily. [facility] telmisartan Yes [id number] 1{tbl} Take 1 [facility] -hydrochlor 9-08 tablet by ity of othiazide 00:00: mouth [place] 80-25 mg 00 daily. Medical per tablet Branch apixaban 5 Yes 1358 5mg Take 1 [facility] rs mg tablet 9-08 tablet by ity o f 00:00: mouth 2 [place] 00 (two) Medical times Branch daily. Indication s: atrial fibrillati on bisoproloL- 2019- No 1{tbl} Take 1 [facility] nivers hydrochloro 11-22 tablet by it y of thiazide 00:00: 00:00 mouth [place] 10-6.25 mg 00 :00 daily. Medical per tablet Branch atorvastati 2020- No [id number] 20mg Take 1 [facility] n 20 mg 11-22 tablet by ity of tablet 00:00: 00:00 mouth at [place] 00 :00 bedtime. Medical [facility] amLODIPine 2019- No 5mg Take 1 [facility] ers 5 mg tablet 11-22 tablet by it y of 00:00: 00:00 mouth [place] 00 :00 daily. [facility] telmisartan 2020- No [id number] 1{tbl} Take 1 [facility] -hydrochlor 11-22-14 tablet by it y of othiazide 00:00: 00:00 mouth [place] 80-25 mg 00 :00 daily. Medical per tablet Branch apixaban 5 2020- No 1358 5mg Take 1 [facility] ers mg tablet 11-22 tablet by ity of 00:00: 00:00 mouth 2 [place] 00 :00 (two) Medical times Branch daily. Indication s: atrial fibrillati on bisoproloL- 2020- No 1{tbl} Take 1 [facility] nivers hydrochloro 11-22 tablet by it y of thiazide 00:00: 00:00 mouth [place] 10-6.25 mg 00 :00 daily. Medical per tablet Branch atorvastati 2020- No [id number] 20mg Take 1 [facility] n 20 mg 11-22 tablet by ity of tablet 00:00: 00:00 mouth at [place] 00 :00 bedtime. Medical Branch amLODIPine 2019- No 5mg Take 1 [facility] ers 5 mg tablet 11-22 tablet by it y of 00:00: 00:00 mouth [place] 00 :00 daily. Medical Branch telmisartan 2020- No [id number] 1{tbl} Take 1 [facility] -hydrochlor 11-22 tablet by it y of othiazide 00:00: 00:00 mouth [place] 80-25 mg 00 :00 daily. Medical per tablet Branch apixaban 5 2019- No 1358 5mg Take 1 [facility] ers mg tablet 11-22 tablet by ity of 00:00: 00:00 mouth 2 [place] 00 :00 (two) Medical times Branch daily. Indication s: atrial fibrillati on tetanus-dip 2020- No .5mL 0.5 mL, Un ricki htheria 11-04 Intramuscu ity o f toxoids 20:15: 19:05 lar, ONCE, [place] as (TDVAX) 2-2 00 :00 1 dose, Medic al Lf unit/0.5 Fri Branch mL 11/05/19 at injection 1515, 0.5 mL Routine gabapentin 2020-0 Yes [id number] 400mg Take 1 [facility] 400 mg 7-21 capsule by ity of capsule 00:00: mouth 3 [place] 00 (three) Medical times Branch daily. gabapentin 2020-0 Yes [id number] 400mg Take 1 [facility] 400 mg 7-21 capsule by ity of capsule 00:00: mouth 3 [place] 00 (three) Medical times Branch daily. gabapentin 2020-0 Yes [id number] 400mg Take 1 [facility] 400 mg 7-21 capsule by ity of capsule 00:00: mouth 3 [place] 00 (three) Medical times Branch daily. gabapentin 2020-0 Yes [id number] 400mg Take 1 [facility] 400 mg 7-21 capsule by ity of capsule 00:00: mouth 3 [place] 00 (three) Medical times Branch daily. gabapentin 2020-0 Yes [id number] 400mg Take 1 [facility] 400 mg 7-21 capsule by ity of capsule 00:00: mouth 3 [place] 00 (three) Medical times Branch daily. gabapentin 2020-0 Yes [id number] 400mg Take 1 [facility] 400 mg 7-21 capsule by ity of capsule 00:00: mouth 3 [place] 00 (three) Medical times Branch daily. gabapentin 2020-0 2020- No [id number] 400mg Take 1 [facility] 400 mg 7-21 -14 capsule by ity of capsule 00:00: 00:00 mouth 3 [place] 00 :00 (three) Medical times Branch daily. gabapentin 2020-0 2020- No [id number] 400mg Take 1 [facility] 400 mg 7-21 - capsule by ity of capsule 00:00: 00:00 mouth 3 [place] 00 :00 (three) Medical times Branch daily. amLODIPine 2020-0 Yes 5mg Take 1 [facility] rs 5 mg tablet 4-21 tablet by ity of 00:00: mouth [place] 00 daily. Medical Branch bisoproloL- 2020-0 Yes 1{tbl} Take 1 [facility] hydrochloro 4-21 tablet by ity of thiazide 00:00: mouth [place] 10-6.25 mg 00 daily. Medical per tablet Branch amLODIPine 2020-0 Yes 5mg Take 1 [facility] rs 5 mg tablet 4-21 tablet by ity of 00:00: mouth [place] 00 daily. Medical Branch bisoproloL- 2020-0 Yes 1{tbl} Take 1 [facility] hydrochloro 4-21 tablet by ity of thiazide 00:00: mouth [place] 10-6.25 mg 00 daily. Medical per tablet Branch amLODIPine 2020-0 Yes 5mg Take 1 [facility] rs 5 mg tablet 4-21 tablet by ity of 00:00: mouth [place] 00 daily. Medical Branch bisoproloL- 2020-0 Yes 1{tbl} Take 1 [facility] hydrochloro 4-21 tablet by ity of thiazide 00:00: mouth [place] 10-6.25 mg 00 daily. Medical per tablet Branch amLODIPine 2020-0 Yes 5mg Take 1 [facility] rs 5 mg tablet 4-21 tablet by ity of 00:00: mouth [place] 00 daily. Medical Branch bisoproloL- 2020-0 Yes 1{tbl} Take 1 [facility] hydrochloro 4-21 tablet by ity of thiazide 00:00: mouth [place] 10-6.25 mg 00 daily. Medical per tablet Branch amLODIPine 2020-0 Yes 5mg Take 1 [facility] rs 5 mg tablet 4-21 tablet by ity of 00:00: mouth [place] 00 daily. Medical [facility] bisoproloL- 2020-0 Yes 1{tbl} Take 1 [facility] hydrochloro 4-21 tablet by ity of thiazide 00:00: mouth [place] 10-6.25 mg 00 daily. Medical per tablet Branch amLODIPine 2020-0 Yes 5mg Take 1 [facility] rs 5 mg tablet 4-21 tablet by ity of 00:00: mouth [place] 00 daily. [facility] bisoproloL- 2020-0 Yes 1{tbl} Take 1 [facility] r[facility] hydrochloro 4-21 tablet by ity of thiazide 00:00: mouth [place] 10-6.25 mg 00 daily. Medical per tablet Branch amLODIPine 2020-0 Yes 5mg Take 1 [facility] rs 5 mg tablet 4-21 tablet by ity of 00:00: mouth [place] 00 daily. Medical [facility] bisoproloL- 2020-0 Yes 1{tbl} Take 1 [facility] hydrochloro 4-21 tablet by ity of thiazide 00:00: mouth [place] 10-6.25 mg 00 daily. Medical per tablet Branch amLODIPine 2020-0 Yes 5mg Take 1 [facility] rs 5 mg tablet 4-21 tablet by ity of 00:00: mouth [place] 00 daily. Medical [facility] bisoproloL- 2020-0 Yes 1{tbl} Take 1 [facility] hydrochloro 4-21 tablet by ity of thiazide 00:00: mouth [place] 10-6.25 mg 00 daily. Medical per tablet Branch amLODIPine 2020-0 2020- No 5mg Take 1 [facility] ers 5 mg tablet 4-21 -08 tablet by it y of 00:00: 00:00 mouth [place] 00 :00 daily. Medical Branch bisoproloL- 2020-0 2020- No 1{tbl} Take 1 [facility] nivers hydrochloro 4-21 -08 tablet by it y of thiazide 00:00: 00:00 mouth [place] 10-6.25 mg 00 :00 daily. Medical per tablet Branch isosorbide 2020-0 Yes [id number] 60mg Take 2 [facility] mononitrate 3-18 tablets by it y of 30 mg 24 hr 00:00: mouth [place] tablet 00 daily. [facility] apixaban 5 2020-0 Yes 1358 5mg Take 1 [facility] rs mg tablet 3-18 tablet by ity o f 00:00: mouth 2 [place] 00 (two) Medical times Branch daily. Indication s: atrial fibrillati on isosorbide 2020-0 Yes [id number] 60mg Take 2 [facility] mononitrate 3-18 tablets by it y of 30 mg 24 hr 00:00: mouth [place] tablet 00 daily. [facility] apixaban 5 2020-0 Yes 1358 5mg Take 1 [facility] rs mg tablet 3-18 tablet by ity o f 00:00: mouth 2 [place] 00 (two) Medical times Branch daily. Indication s: atrial fibrillati on isosorbide 2020-0 Yes [id number] 60mg Take 2 [facility] mononitrate 3-18 tablets by it y of 30 mg 24 hr 00:00: mouth [place] tablet 00 daily. [facility] apixaban 5 2020-0 Yes 1358 5mg Take 1 [facility] rs mg tablet 3-18 tablet by ity o f 00:00: mouth 2 [place] 00 (two) Medical times Branch daily. Indication s: atrial fibrillati on isosorbide 2020-0 Yes [id number] 60mg Take 2 [facility] mononitrate 3-18 tablets by it y of 30 mg 24 hr 00:00: mouth [place] tablet 00 daily. [facility] apixaban 5 2020-0 Yes 1358 5mg Take 1 [facility] rs mg tablet 3-18 tablet by ity o f 00:00: mouth 2 [place] 00 (two) Medical times Branch daily. Indication s: atrial fibrillati on isosorbide 2020-0 Yes [id number] 60mg Take 2 [facility] mononitrate 3-18 tablets by it y of 30 mg 24 hr 00:00: mouth [place] tablet 00 daily. [facility] apixaban 5 2020-0 Yes 1358 5mg Take 1 [facility] rs mg tablet 3-18 tablet by ity o f 00:00: mouth 2 [place] 00 (two) Medical times Branch daily. Indication s: atrial fibrillati on isosorbide 2020-0 Yes [id number] 60mg Take 2 [facility] mononitrate 3-18 tablets by it y of 30 mg 24 hr 00:00: mouth [place] tablet 00 daily. [facility] apixaban 5 2020-0 Yes 1358 5mg Take 1 [facility] rs mg tablet 3-18 tablet by ity o f 00:00: mouth 2 [place] 00 (two) Medical times Branch daily. Indication s: atrial fibrillati on isosorbide 2020-0 Yes [id number] 60mg Take 2 [facility] mononitrate 3-18 tablets by it y of 30 mg 24 hr 00:00: mouth [place] tablet 00 daily. [facility] apixaban 5 2020-0 Yes 1358 5mg Take 1 [facility] rs mg tablet 3-18 tablet by ity o f 00:00: mouth 2 [place] 00 (two) Medical times Branch daily. Indication s: atrial fibrillati on isosorbide 2020-0 Yes [id number] 60mg Take 2 [facility] mononitrate 3-18 tablets by it y of 30 mg 24 hr 00:00: mouth [place] tablet 00 daily. [facility] apixaban 5 2020-0 Yes 1358 5mg Take 1 [facility] rs mg tablet 3-18 tablet by ity o f 00:00: mouth 2 [place] 00 (two) Medical times Branch daily. Indication s: atrial fibrillati on isosorbide 2020-0 Yes [id number] 60mg Take 2 [facility] mononitrate 3-18 tablets by it y of 30 mg 24 hr 00:00: mouth [place] tablet 00 daily. [facility] apixaban 5 2020-0 Yes 1358 5mg Take 1 [facility] rs mg tablet 3-18 tablet by ity o f 00:00: mouth 2 [place] 00 (two) Medical times Branch daily. Indication s: atrial fibrillati on isosorbide 2020-0 Yes [id number] 60mg Take 2 [facility] mononitrate 3-18 tablets by it y of 30 mg 24 hr 00:00: mouth [place] tablet 00 daily. [facility] apixaban 5 2020-0 Yes 1358 5mg Take 1 [facility] rs mg tablet 3-18 tablet by ity o f 00:00: mouth 2 [place] 00 (two) Medical times Branch daily. Indication s: atrial fibrillati on isosorbide 2020-0 Yes [id number] 60mg Take 2 [facility] mononitrate 3-18 tablets by it y of 30 mg 24 hr 00:00: mouth [place] tablet 00 daily. [facility] isosorbide 2020-0 2020- No [id number] 60mg Take 2 [facility] mononitrate 3-18 -14 tablets by i ty of 30 mg 24 hr 00:00: 00:00 mouth [place] tablet 00 :00 daily. [facility] isosorbide 2020-0 2020- No [id number] 60mg Take 2 [facility] mononitrate 3-18 -14 tablets by i ty of 30 mg 24 hr 00:00: 00:00 mouth [place] tablet 00 :00 daily. [facility] apixaban 5 2019-0 2020- No 1358 5mg Take 1 [facility] ers mg tablet 06-01- tablet by ity of 00:00: 00:00 mouth 2 [place] 00 :00 (two) Medical times Branch daily. Indication s: atrial fibrillati on isosorbide Yes [id number] 60mg Take 2 [facility] mononitrate 3-06 tablets by it y of 30 mg 24 hr 00:00: mouth [place] tablet 00 daily. [facility] isosorbide 2020-0 Yes [id number] 60mg Take 2 [facility] mononitrate 3-06 tablets by it y of 30 mg 24 hr 00:00: mouth [place] tablet 00 daily. [facility] isosorbide 2020-0 2020- No [id number] 60mg Take 2 [facility] mononitrate 3-06 -18 tablets by i ty of 30 mg 24 hr 00:00: 00:00 mouth [place] tablet 00 :00 daily. [facility] aspirin 81 2020-0 2020- No 81mg Take 81 mg [facility] mg tablet 2-12 -12 by mouth ity o f 12:29: 00:00 daily. [place] 58 :00 Medical Branch aspirin 81 2020-0 2020- No 81mg Take 81 mg [facility] mg tablet 212 -12 by mouth ity o f 12:29: 00:00 daily. [place] 58 :00 Medical Branch aspirin 81 2020-0 Yes [id number] 81mg Take 1 [facility] mg chewable 2-12 tablet by ity of tablet 00:00: mouth [place] 00 daily. [facility] aspirin 81 2020-0 Yes [id number] 81mg Take 1 [facility] mg chewable 2-12 tablet by ity of tablet 00:00: mouth [place] 00 daily. [facility] aspirin 81 2020-0 Yes [id number] 81mg Take 1 [facility] mg chewable 2-12 tablet by ity of tablet 00:00: mouth [place] 00 daily. [facility] aspirin 81 2020-0 Yes [id number] 81mg Take 1 [facility] mg chewable 2-12 tablet by ity of tablet 00:00: mouth [place] 00 daily. [facility] aspirin 81 2020-0 Yes [id number] 81mg Take 1 [facility] mg chewable 2-12 tablet by ity of tablet 00:00: mouth [place] 00 daily. [facility] aspirin 81 2020-0 Yes [id number] 81mg Take 1 [facility] mg chewable 2-12 tablet by ity of tablet 00:00: mouth [place] 00 daily. [facility] aspirin 81 2020-0 Yes [id number] 81mg Take 1 [facility] mg chewable 2-12 tablet by ity of tablet 00:00: mouth [place] 00 daily. [facility] aspirin 81 2020-0 Yes [id number] 81mg Take 1 [facility] mg chewable 2-12 tablet by ity of tablet 00:00: mouth [place] 00 daily. [facility] aspirin 81 2020-0 Yes [id number] 81mg Take 1 [facility] mg chewable 2-12 tablet by ity of tablet 00:00: mouth [place] 00 daily. [facility] aspirin 81 2020-0 Yes [id number] 81mg Take 1 [facility] mg chewable 2-12 tablet by ity of tablet 00:00: mouth [place] 00 daily. [facility] aspirin 81 2020-0 Yes [id number] 81mg Take 1 [facility] mg chewable 2-12 tablet by ity of tablet 00:00: mouth [place] 00 daily. [facility] aspirin 81 2020-0 Yes [id number] 81mg Take 1 [facility] mg chewable 2-12 tablet by ity of tablet 00:00: mouth [place] 00 daily. [facility] aspirin 81 2020-0 Yes [id number] 81mg Take 1 [facility] mg chewable 2-12 tablet by ity of tablet 00:00: mouth [place] 00 daily. [facility] aspirin 81 2020-0 Yes [id number] 81mg Take 1 [facility] mg chewable 2-12 tablet by ity of tablet 00:00: mouth [place] 00 daily. [facility] aspirin 81 2020-0 Yes [id number] 81mg Take 1 [facility] mg chewable 2-12 tablet by ity of tablet 00:00: mouth [place] 00 daily. [facility] aspirin 81 2020-0 Yes [id number] 81mg Take 1 [facility] mg chewable 2-12 tablet by ity of tablet 00:00: mouth [place] 00 daily. [facility] aspirin 81 2020-0 Yes [id number] 81mg Take 1 [facility] mg chewable 2-12 tablet by ity of tablet 00:00: mouth [place] 00 daily. [facility] aspirin 81 2020-0 Yes [id number] 81mg Take 1 [facility] mg chewable 2-12 tablet by ity of tablet 00:00: mouth [place] 00 daily. [facility] aspirin 81 2020-0 Yes [id number] 81mg Take 1 [facility] mg chewable 2-12 tablet by ity of tablet 00:00: mouth [place] 00 daily. [facility] aspirin 81 2020-0 Yes [id number] 81mg Take 1 [facility] mg chewable 2-12 tablet by ity of tablet 00:00: mouth [place] 00 daily. [facility] aspirin 81 2020-0 Yes [id number] 81mg Take 1 [facility] mg chewable 2-12 tablet by ity of tablet 00:00: mouth [place] 00 daily. [facility] aspirin 81 2020-0 Yes [id number] 81mg Take 1 [facility] mg chewable 2-12 tablet by ity of tablet 00:00: mouth [place] 00 daily. [facility] aspirin 81 2020-0 Yes [id number] 81mg Take 1 [facility] mg chewable 2-12 tablet by ity of tablet 00:00: mouth [place] 00 daily. [facility] aspirin 81 2020-0 Yes [id number] 81mg Take 1 [facility] mg chewable 2-12 tablet by ity of tablet 00:00: mouth [place] 00 daily. [facility] aspirin 81 2020-0 Yes [id number] 81mg Take 1 [facility] mg chewable 2-12 tablet by ity of tablet 00:00: mouth [place] 00 daily. [facility] aspirin 81 2020-0 Yes [id number] 81mg Take 1 [facility] mg chewable 2-12 tablet by ity of tablet 00:00: mouth [place] 00 daily. [facility] aspirin 81 2020-0 Yes [id number] 81mg Take 1 [facility] mg chewable 2-12 tablet by ity of tablet 00:00: mouth [place] 00 daily. [facility] aspirin 81 2020-0 Yes [id number] 81mg Take 1 [facility] mg chewable 2-12 tablet by ity of tablet 00:00: mouth [place] 00 daily. [facility] aspirin 81 2020-0 Yes [id number] 81mg Take 1 [facility] mg chewable 2-12 tablet by ity of tablet 00:00: mouth [place] 00 daily. [facility] aspirin 81 2020-0 Yes [id number] 81mg Take 1 [facility] mg chewable 2-12 tablet by ity of tablet 00:00: mouth [place] 00 daily. [facility] aspirin 81 2020-0 Yes [id number] 81mg Take 1 [facility] mg chewable 2-12 tablet by ity of tablet 00:00: mouth [place] 00 daily. [facility] aspirin 81 2020-0 Yes [id number] 81mg Take 1 [facility] mg chewable 2-12 tablet by ity of tablet 00:00: mouth [place] 00 daily. [facility] aspirin 81 2020-0 Yes [id number] 81mg Take 1 [facility] mg chewable 2-12 tablet by ity of tablet 00:00: mouth [place] 00 daily. [facility] aspirin 81 2020-0 Yes [id number] 81mg Take 1 [facility] mg chewable 2-12 tablet by ity of tablet 00:00: mouth [place] 00 daily. [facility] aspirin 81 2020-0 Yes [id number] 81mg Take 1 [facility] mg chewable 2-12 tablet by ity of tablet 00:00: mouth [place] 00 daily. [facility] aspirin 81 2020-0 Yes [id number] 81mg Take 1 [facility] mg chewable 2-12 tablet by ity of tablet 00:00: mouth [place] 00 daily. [facility] aspirin 81 2020-0 Yes [id number] 81mg Take 1 [facility] mg chewable 2-12 tablet by ity of tablet 00:00: mouth [place] 00 daily. [facility] aspirin 81 2020-0 Yes [id number] 81mg Take 1 [facility] mg chewable 2-12 tablet by ity of tablet 00:00: mouth [place] 00 daily. [facility] aspirin 81 2020-0 Yes [id number] 81mg Take 1 [facility] mg chewable 2-12 tablet by ity of tablet 00:00: mouth [place] 00 daily. [facility] aspirin 81 2020-0 Yes [id number] 81mg Take 1 [facility] mg chewable 2-12 tablet by ity of tablet 00:00: mouth [place] 00 daily. [facility] aspirin 81 2020-0 Yes [id number] 81mg Take 1 [facility] mg chewable 2-12 tablet by ity of tablet 00:00: mouth [place] 00 daily. [facility] aspirin 81 2020-0 Yes [id number] 81mg Take 1 [facility] mg chewable 2-12 tablet by ity of tablet 00:00: mouth [place] 00 daily. [facility] aspirin 81 2020-0 Yes [id number] 81mg Take 1 [facility] mg chewable 2-12 tablet by ity of tablet 00:00: mouth [place] 00 daily. [facility] aspirin 81 2020-0 Yes [id number] 81mg Take 1 [facility] mg chewable 2-12 tablet by ity of tablet 00:00: mouth [place] 00 daily. [facility] aspirin 81 2020-0 Yes [id number] 81mg Take 1 [facility] mg chewable 2-12 tablet by ity of tablet 00:00: mouth [place] 00 daily. [facility] aspirin 81 2020-0 Yes [id number] 81mg Take 1 [facility] mg chewable 2-12 tablet by ity of tablet 00:00: mouth [place] 00 daily. [facility] aspirin 81 2020-0 Yes [id number] 81mg Take 1 [facility] mg chewable 2-12 tablet by [facility] of tablet 00:00: mouth [place] 00 daily. [facility] aspirin 81 2020-0 Yes [id number] 81mg Take 1 [facility] mg chewable 2-12 tablet by [facility] of tablet 00:00: mouth [place] 00 daily. [facility] aspirin 81 2020-0 Yes [id number] 81mg Take 1 [facility] mg chewable 2-12 tablet by [facility] of tablet 00:00: mouth [place] 00 daily. [facility] aspirin 81 2020-0 Yes [id number] 81mg Take 1 [facility] mg chewable 2-12 tablet by [facility] of tablet 00:00: mouth [place] 00 daily. [facility] aspirin 81 2020-0 Yes [id number] 81mg Take 1 [facility] mg chewable 2-12 tablet by [facility] of tablet 00:00: mouth [place] 00 daily. [facility] aspirin 81 2020-0 Yes [id number] 81mg Take 1 [facility] mg chewable 2-12 tablet by [facility] of tablet 00:00: mouth [place] 00 daily. [facility] aspirin 81 2020-0 Yes [id number] 81mg Take 1 [facility] mg chewable 2-12 tablet by [facility] of tablet 00:00: mouth [place] 00 daily. [facility] aspirin 81 2020-0 Yes [id number] 81mg Take 1 [facility] mg chewable 2-12 tablet by [facility] of tablet 00:00: mouth [place] 00 daily. [facility] aspirin 81 2020-0 Yes [id number] 81mg Take 1 [facility] mg chewable 2-12 tablet by [facility] of tablet 00:00: mouth [place] 00 daily. [facility] aspirin 81 2020-0 Yes [id number] 81mg Take 1 [facility] mg chewable 2-12 tablet by [facility] of tablet 00:00: mouth [place] 00 daily. [facility] aspirin 81 2020-0 Yes [id number] 81mg Take 1 [facility] mg chewable 2-12 tablet by [facility] of tablet 00:00: mouth [place] 00 daily. [facility] aspirin 81 2020-0 Yes [id number] 81mg Take 1 [facility] mg chewable 2-12 tablet by [facility] of tablet 00:00: mouth [place] 00 daily. [facility] aspirin 81 2020-0 Yes [id number] 81mg Take 1 [facility] mg chewable 2-12 tablet by [facility] of tablet 00:00: mouth [place] 00 daily. [facility] aspirin 81 2020-0 Yes [id number] 81mg Take 1 [facility] mg chewable 2-12 tablet by [facility] of tablet 00:00: mouth [place] 00 daily. [facility] apixaban 5 2019-0 Yes [id number] 5mg Take 1 [facility] mg tablet 2-12 tablet by ity o f 00:00: mouth 2 [place] 00 (two) Medical times Branch daily. Indication s: atrial fibrillati on aspirin 81 2019-0 Yes [id number] 81mg Take 1 [facility] mg chewable 2-12 tablet by [facility] of tablet 00:00: mouth [place] 00 daily. [facility] atorvastati 2020-0 Yes [id number] 20mg Take 1 [facility] n 20 mg 2-12 tablet by [facility] of tablet 00:00: mouth at [place] 00 bedtime. [facility] gabapentin 2020-0 Yes [id number] 400mg Take 1 [facility] 400 mg 2-12 capsule by [facility] of capsule 00:00: mouth 3 [place] 00 (three) Medical times Branch daily. isosorbide 2020-0 Yes [id number] 60mg Take 2 [facility] mononitrate 2-12 tablets by it y of 30 mg 24 hr 00:00: mouth [place] tablet 00 daily. [facility] telmisartan 2020-0 Yes [id number] 1{tbl} Take 1 [facility] -hydrochlor 2-12 tablet by [facility]y of othiazide 00:00: mouth [place] 80-25 mg 00 daily. Medical per tablet Branch amiodarone 2020-0 Yes [id number] TK 1 T PO [facility] 200 mg 2-12 QD [facility]y of tablet 00:00: [place] 00 [facility] apixaban 5 2020-0 Yes [id number] 5mg Take 1 [facility] mg tablet 2-12 tablet by ity o f 00:00: mouth 2 [place] 00 (two) Medical times Branch daily. Indication s: atrial fibrillati on aspirin 81 2020-0 Yes [id number] 81mg Take 1 [facility] mg chewable 2-12 tablet by ity of tablet 00:00: mouth [place] 00 daily. [facility] atorvastati 2020-0 Yes [id number] 20mg Take 1 [facility] n 20 mg 2-12 tablet by ity of tablet 00:00: mouth at [place] 00 bedtime. [facility] gabapentin 2020-0 Yes [id number] 400mg Take 1 [facility] 400 mg 2-12 capsule by [facility]y of capsule 00:00: mouth 3 [place] 00 (three) Medical times Branch daily. isosorbide 2020-0 Yes [id number] 60mg Take 2 [facility] mononitrate 2-12 tablets by it y of 30 mg 24 hr 00:00: mouth [place] tablet 00 daily. [facility] telmisartan 2020-0 Yes [id number] 1{tbl} Take 1 [facility] -hydrochlor 2-12 tablet by ity of othiazide 00:00: mouth [place] 80-25 mg 00 daily. Medical per tablet Branch amiodarone 2020-0 Yes [id number] TK 1 T PO [facility] 200 mg 2-12 QD ity of tablet 00:00: [place] 00 [facility] apixaban 5 2020-0 Yes [id number] 5mg Take 1 [facility] mg tablet 2-12 tablet by ity o f 00:00: mouth 2 [place] 00 (two) Medical times Branch daily. Indication s: atrial fibrillati on aspirin 81 2020-0 Yes [id number] 81mg Take 1 [facility] mg chewable 2-12 tablet by ity of tablet 00:00: mouth [place] 00 daily. [facility] atorvastati 2020-0 Yes [id number] 20mg Take 1 [facility] n 20 mg 2-12 tablet by ity of tablet 00:00: mouth at [place] 00 bedtime. [facility] gabapentin 2020-0 Yes [id number] 400mg Take 1 [facility] 400 mg 2-12 capsule by ity of capsule 00:00: mouth 3 [place] 00 (three) Medical times Branch daily. isosorbide 2020-0 Yes [id number] 60mg Take 2 [facility] mononitrate 2-12 tablets by it y of 30 mg 24 hr 00:00: mouth [place] tablet 00 daily. [facility] telmisartan 2020-0 Yes [id number] 1{tbl} Take 1 [facility] -hydrochlor 2-12 tablet by ity of othiazide 00:00: mouth [place] 80-25 mg 00 daily. Medical per tablet Branch amiodarone 2020-0 Yes [id number] TK 1 T PO [facility] 200 mg 2-12 QD ity of tablet 00:00: [place] 00 [facility] apixaban 5 2020-0 Yes [id number] 5mg Take 1 [facility] mg tablet 2-12 tablet by ity o f 00:00: mouth 2 00 (two) Medical times Branch daily. Indication s: atrial fibrillati on aspirin 81 2020-0 Yes [id number] 81mg Take 1 [facility] mg chewable 2-12 tablet by ity of tablet 00:00: mouth [place] 00 daily. [facility] atorvastati 2020-0 Yes [id number] 20mg Take 1 [facility] n 20 mg 2-12 tablet by ity of tablet 00:00: mouth at [place] 00 bedtime. [facility] gabapentin 2019-0 Yes [id number] 400mg Take 1 [facility] 400 mg 2-12 capsule by ity of capsule 00:00: mouth 3 (three) Medical times Branch daily. telmisartan 2020-0 Yes [id number] 1{tbl} Take 1 [facility] -hydrochlor 2-12 tablet by [facility]y of othiazide 00:00: mouth [place] 80-25 mg 00 daily. Medical per tablet Branch amiodarone 2020-0 Yes [id number] TK 1 T PO [facility] 200 mg 2-12 QD ity of tablet 00:00: [place] 00 [facility] apixaban 5 2020-0 Yes [id number] 5mg Take 1 [facility] mg tablet 2-12 tablet by ity o f 00:00: mouth 2 00 (two) Medical times Branch daily. Indication s: atrial fibrillati on aspirin 81 2020-0 Yes [id number] 81mg Take 1 [facility] mg chewable 2-12 tablet by [facility]y of tablet 00:00: mouth [place] 00 daily. [facility] atorvastati 2020-0 Yes [id number] 20mg Take 1 [facility] n 20 mg 2-12 tablet by ity of tablet 00:00: mouth at [place] 00 bedtime. [facility] gabapentin 2020-0 Yes [id number] 400mg Take 1 [facility] 400 mg 2-12 capsule by [facility]y of capsule 00:00: mouth 3 00 (three) Medical times Branch daily. telmisartan 2020-0 Yes [id number] 1{tbl} Take 1 [facility] -hydrochlor 2-12 tablet by ity of othiazide 00:00: mouth [place] 80-25 mg 00 daily. Medical per tablet Branch amiodarone 2020-0 Yes [id number] TK 1 T PO [facility] 200 mg 2-12 QD [facility]y of tablet 00:00: [place] 00 [facility] aspirin 81 2020-0 Yes [id number] 81mg Take 1 [facility] mg chewable 2-12 tablet by ity of tablet 00:00: mouth [place] 00 daily. [facility] atorvastati 2020-0 Yes [id number] 20mg Take 1 [facility] n 20 mg 2-12 tablet by ity of tablet 00:00: mouth at [place] 00 bedtime. [facility] gabapentin 2020-0 Yes [id number] 400mg Take 1 [facility] 400 mg 2-12 capsule by ity of capsule 00:00: mouth 3 00 (three) Medical times Branch daily. telmisartan 2020-0 Yes [id number] 1{tbl} Take 1 [facility] -hydrochlor 2-12 tablet by ity of othiazide 00:00: mouth [place] 80-25 mg 00 daily. Medical per tablet Branch amiodarone 2020-0 Yes [id number] TK 1 T PO [facility] 200 mg 2-12 QD ity of tablet 00:00: [place] 00 [facility] aspirin 81 2020-0 Yes [id number] 81mg Take 1 [facility] mg chewable 2-12 tablet by ity of tablet 00:00: mouth [place] 00 daily. [facility] atorvastati 2020-0 Yes [id number] 20mg Take 1 [facility] n 20 mg 2-12 tablet by ity of tablet 00:00: mouth at [place] 00 bedtime. [facility] gabapentin 2020-0 Yes [id number] 400mg Take 1 [facility] 400 mg 2-12 capsule by ity of capsule 00:00: mouth 3 00 (three) Medical times Branch daily. telmisartan 2020-0 Yes [id number] 1{tbl} Take 1 [facility] -hydrochlor 2-12 tablet by ity of othiazide 00:00: mouth [place] 80-25 mg 00 daily. Medical per tablet Branch amiodarone 2020-0 Yes [id number] TK 1 T PO [facility] 200 mg 2-12 QD ity of tablet 00:00: [place] 00 [facility] aspirin 81 2020-0 Yes [id number] 81mg Take 1 [facility] mg chewable 2-12 tablet by ity of tablet 00:00: mouth [place] 00 daily. [facility] atorvastati 2020-0 Yes [id number] 20mg Take 1 [facility] n 20 mg 2-12 tablet by ity of tablet 00:00: mouth at [place] 00 bedtime. [facility] gabapentin 2020-0 Yes [id number] 400mg Take 1 [facility] 400 mg 2-12 capsule by [facility]y of capsule 00:00: mouth 3 00 (three) Medical times Branch daily. telmisartan 2020-0 Yes [id number] 1{tbl} Take 1 [facility] -hydrochlor 2-12 tablet by ity of othiazide 00:00: mouth [place] 80-25 mg 00 daily. Medical per tablet Branch amiodarone 2020-0 Yes [id number] TK 1 T PO [facility] 200 mg 2-12 QD ity of tablet 00:00: [place] 00 [facility] aspirin 81 2020-0 Yes [id number] 81mg Take 1 [facility] mg chewable 2-12 tablet by ity of tablet 00:00: mouth [place] 00 daily. [facility] atorvastati 2020-0 Yes [id number] 20mg Take 1 [facility] n 20 mg 2-12 tablet by ity of tablet 00:00: mouth at [place] 00 bedtime. [facility] gabapentin 2020-0 Yes [id number] 400mg Take 1 [facility] 400 mg 2-12 capsule by ity of capsule 00:00: mouth 3 (three) Medical times Branch daily. telmisartan 2020-0 Yes [id number] 1{tbl} Take 1 [facility] -hydrochlor 2-12 tablet by ity of othiazide 00:00: mouth [place] 80-25 mg 00 daily. Medical per tablet Branch amiodarone 2020-0 Yes [id number] TK 1 T PO [facility] 200 mg 2-12 QD ity of tablet 00:00: [place] 00 [facility] aspirin 81 2020-0 Yes [id number] 81mg Take 1 [facility] mg chewable 2-12 tablet by ity of tablet 00:00: mouth [place] 00 daily. [facility] atorvastati 2020-0 Yes [id number] 20mg Take 1 [facility] n 20 mg 2-12 tablet by ity of tablet 00:00: mouth at [place] 00 bedtime. [facility] gabapentin 2020-0 Yes [id number] 400mg Take 1 [facility] 400 mg 2-12 capsule by ity of capsule 00:00: mouth 3 [place] 00 (three) Medical times Branch daily. telmisartan 2020-0 Yes [id number] 1{tbl} Take 1 [facility] -hydrochlor 2-12 tablet by ity of othiazide 00:00: mouth [place] 80-25 mg 00 daily. Medical per tablet Branch amiodarone 2020-0 Yes [id number] TK 1 T PO [facility] 200 mg 2-12 QD ity of tablet 00:00: [place] 00 [facility] aspirin 81 2020-0 Yes [id number] 81mg Take 1 [facility] mg chewable 2-12 tablet by ity of tablet 00:00: mouth [place] 00 daily. [facility] atorvastati 2019-0 Yes [id number] 20mg Take 1 [facility] n 20 mg 2-12 tablet by ity of tablet 00:00: mouth at [place] 00 bedtime. [facility] telmisartan 2019-0 Yes [id number] 1{tbl} Take 1 [facility] -hydrochlor 2-12 tablet by ity of othiazide 00:00: mouth [place] 80-25 mg 00 daily. Medical per tablet Branch amiodarone 2019-0 Yes [id number] TK 1 T PO [facility] 200 mg 2-12 QD ity of tablet 00:00: [place] 00 [facility] aspirin 81 2020-0 Yes [id number] 81mg Take 1 [facility] mg chewable 2-12 tablet by ity of tablet 00:00: mouth [place] 00 daily. [facility] atorvastati 2019-0 Yes [id number] 20mg Take 1 [facility] n 20 mg 2-12 tablet by ity of tablet 00:00: mouth at [place] 00 bedtime. [facility] telmisartan 2020-0 Yes [id number] 1{tbl} Take 1 [facility] -hydrochlor 2-12 tablet by ity of othiazide 00:00: mouth [place] 80-25 mg 00 daily. Medical per tablet Branch amiodarone 2020-0 Yes [id number] TK 1 T PO [facility] 200 mg 2-12 QD ity of tablet 00:00: [place] 00 [facility] aspirin 81 2020-0 Yes [id number] 81mg Take 1 [facility] mg chewable 2-12 tablet by ity of tablet 00:00: mouth [place] 00 daily. [facility] atorvastati 2019-0 Yes [id number] 20mg Take 1 [facility] n 20 mg 2-12 tablet by ity of tablet 00:00: mouth at [place] 00 bedtime. [facility] telmisartan 2020-0 Yes [id number] 1{tbl} Take 1 [facility] -hydrochlor 2-12 tablet by ity of othiazide 00:00: mouth [place] 80-25 mg 00 daily. Medical per tablet Branch amiodarone 2019-0 Yes [id number] TK 1 T PO [facility] 200 mg 2-12 QD ity of tablet 00:00: [place] 00 [facility] aspirin 81 2020-0 Yes [id number] 81mg Take 1 [facility] mg chewable 2-12 tablet by ity of tablet 00:00: mouth [place] 00 daily. [facility] atorvastati 2019-0 Yes [id number] 20mg Take 1 [facility] n 20 mg 2-12 tablet by ity of tablet 00:00: mouth at [place] 00 bedtime. [facility] telmisartan 2019-0 Yes [id number] 1{tbl} Take 1 [facility] -hydrochlor 2-12 tablet by ity of othiazide 00:00: mouth [place] 80-25 mg 00 daily. Medical per tablet Branch amiodarone 2019-0 Yes [id number] TK 1 T PO [facility] 200 mg 2-12 QD ity of tablet 00:00: [place] 00 [facility] aspirin 81 2020-0 Yes [id number] 81mg Take 1 [facility] mg chewable 2-12 tablet by ity of tablet 00:00: mouth [place] 00 daily. [facility] atorvastati 2019-0 Yes [id number] 20mg Take 1 [facility] n 20 mg 2-12 tablet by ity of tablet 00:00: mouth at [place] 00 bedtime. [facility] telmisartan 2019-0 Yes [id number] 1{tbl} Take 1 [facility] -hydrochlor 2-12 tablet by ity of othiazide 00:00: mouth [place] 80-25 mg 00 daily. Medical per tablet Branch amiodarone 2019-0 Yes [id number] TK 1 T PO [facility] 200 mg 2-12 QD ity of tablet 00:00: [place] 00 [facility] aspirin 81 2020-0 Yes [id number] 81mg Take 1 [facility] mg chewable 2-12 tablet by ity of tablet 00:00: mouth [place] 00 daily. [facility] amiodarone 2019-0 Yes [id number] TK 1 T PO [facility] 200 mg 2-12 QD ity of tablet 00:00: [place] 00 [facility] aspirin 81 2020-0 Yes [id number] 81mg Take 1 [facility] mg chewable 04-28 tablet by ity of tablet 00:00: mouth [place] 00 daily. [facility] amiodarone 2020- No [id number] TK 1 T PO [facility] 200 mg 04-28 QD ity of tablet 00:00: 00:00 [place] 00 :00 [facility] amiodarone 2019- No [id number] TK 1 T PO [facility] 200 mg 04-28 QD ity of tablet 00:00: 00:00 [place] 00 :00 [facility] atorvastati 2019- No [id number] 20mg Take 1 [facility] n 20 mg 04-28 tablet by ity of tablet 00:00: 00:00 mouth at [place] 00 :00 bedtime. [facility] telmisartan 2020- No [id number] 1{tbl} Take 1 [facility] -hydrochlor 04-28 tablet by it y of othiazide 00:00: 00:00 mouth [place] 80-25 mg 00 :00 daily. Medical per tablet Branch gabapentin 2019- No [id number] 400mg Take 1 [facility] 400 mg 04-28 capsule by ity of capsule 00:00: 00:00 mouth 3 [place] 00 :00 (three) Medical times Branch daily. apixaban 5 2019- No 1358 5mg Take 1 [facility] ers mg tablet 04-28 tablet by ity of 00:00: 00:00 mouth 2 [place] 00 :00 (two) Medical times Branch daily. Indication s: atrial fibrillati on isosorbide 2020- No [id number] 60mg Take 2 [facility] mononitrate 04-28 tablets by i ty of 30 mg 24 hr 00:00: 00:00 [place] tablet 00 :00 daily. [facility] iohexol 2020- No 120mL 120 mL, Un[facility] rs (OMNIPAQUE 04-13 Intravenou it y of 350 06:00: 05:35 s, ONCE, 1 [place] BULK-150 00 :00 dose, Tue Medica l mL) 04/13/19 at Branch injection 0000, 120 mL Routine aspirin 81 2019- Yes 81mg Take 81 mg [facility] mg tablet 1-28 by mouth ity of 03:04: daily. [address] aspirin 81 2020-0 Yes 81mg Take 81 mg [facility] n[facility] mg tablet 1-28 by mouth ity of 03:04: daily. [address] aspirin 81 2020-0 Yes 81mg Take 81 mg [facility] nivers mg tablet 1-28 by mouth ity of 03:04: daily. [address] aspirin 81 2020-0 Yes 81mg Take 81 mg [facility] n[facility] mg tablet 1-28 by mouth ity of 03:04: daily. [address] aspirin 81 2020-0 Yes 81mg Take 81 mg [facility] n[facility] mg tablet 1-28 by mouth ity of 03:04: daily. [address] aspirin 81 2020-0 Yes 81mg Take 81 mg [facility] n[facility] mg tablet 1-28 by mouth ity of 03:04: daily. [address] aspirin 81 2020-0 Yes 81mg Take 81 mg U nivers mg tablet 1-28 by mouth ity of 03:04: daily. [address] aspirin 81 2020-0 Yes 81mg Take 81 mg U nivers mg tablet 1-28 by mouth ity of 03:04: daily. [address] aspirin 81 2020-0 Yes 81mg Take 81 mg [facility] nivers mg tablet 1-28 by mouth ity of 03:04: daily. [address] benzonatate 2020-0 2020- No [id number] 100mg Take 1 [facility] (TESSALON 1-27 02-27 capsule by ity of PERLES) 100 00:00: 05:59 mouth 3 [place] mg capsule 00 :00 (three) Medica l times Branch daily as needed for Cough for up to 30 days. benzonatate 2020-0 2020- No [id number] 100mg Take 1 [facility] (TESSALON 1-27 02-27 capsule by ity of PERLES) 100 00:00: 05:59 mouth 3 [place] mg capsule 00 :00 (three) Medica l times Branch daily as needed for Cough for up to 30 days. benzonatate 2020-0 2020- No [id number] 100mg Take 1 [facility] (TESSALON 1-27 02-27 capsule by ity of PERLES) 100 00:00: 05:59 mouth 3 [place] mg capsule 00 :00 (three) Medica l times Branch daily as needed for Cough for up to 30 days. benzonatate 2020-0 2020- No [id number] 100mg Take 1 [facility] (TESSALON 1-27 -27 capsule by Radha) 100 00:00: 05:59 mouth 3 [place] mg capsule 00 :00 (three) Medica l times Branch daily as needed for Cough for up to 30 days. amoxicillin 2020-0 2020- No [id number] 1{tbl} Take 1 [facility] -clavulanat 1-27 -07 tablet by it y of e 00:00: 05:59 mouth 2 [place] (AUGMENTIN) 00 :00 (two) Medical 875-125 mg times Branch per tablet daily for 10 days. amoxicillin 2020-0 2020- No [id number] 1{tbl} Take 1 [facility] -clavulanat 1-27 -07 tablet by it y of e 00:00: 05:59 mouth 2 [place] (AUGMENTIN) 00 :00 (two) Medical 875-125 mg times Branch per tablet daily for 10 days. amoxicillin 2020-0 2020- No [id number] 1{tbl} Take 1 [facility] -clavulanat 1-27 -07 tablet by it y of e 00:00: 05:59 mouth 2 [place] (AUGMENTIN) 00 :00 (two) Medical 875-125 mg times Branch per tablet daily for 10 days. amoxicillin 2020-0 2020- No [id number] 1{tbl} Take 1 [facility] -clavulanat 1-27 -07 tablet by it y of e 00:00: 05:59 mouth 2 [place] (AUGMENTIN) 00 :00 (two) Medical 875-125 mg times Branch per tablet daily for 10 days. benzonatate 2020-0 2020- No [id number] 100mg Take 1 [facility] (TESSALON 1-27 -27 capsule by Radha) 100 00:00: 00:00 mouth 3 [place] mg capsule 00 :00 (three) Medica l times Branch daily as needed for Cough for up to 30 days. amoxicillin 2020-0 2020- No [id number] 1{tbl} Take 1 [facility] -clavulanat 1-27 -27 tablet by it y of e 00:00: 00:00 mouth 2 [place] (AUGMENTIN) 00 :00 (two) Medical 875-125 mg times Branch per tablet daily for 10 days. benzonatate 2019-0 2020- No [id number] 100mg Take 1 [facility] (TESSALON 04-12 capsule by ity of AMELIE) 100 00:00: 00:00 mouth 3 [place] mg capsule 00 :00 (three) Medica l times Branch daily as needed for Cough for up to 30 days. amoxicillin 2019-0 2020- No [id number] 1{tbl} Take 1 [facility] -clavulanat 04-12 tablet by it y of e 00:00: 00:00 mouth 2 [place] (AUGMENTIN) 00 :00 (two) Medical 875-125 mg times Branch per tablet daily for 10 days. gabapentin 2019-0 Yes [id number] 400mg Take 1 [facility] 400 mg 9-16 capsule by ity of capsule 00:00: mouth 3 [place] (three) Medical times Branch daily. gabapentin 2019-0 Yes [id number] 400mg Take 1 [facility] 400 mg 9-16 capsule by ity of capsule 00:00: mouth 3 [place] (three) Medical times Branch daily. gabapentin 2019-0 Yes [id number] 400mg Take 1 [facility] 400 mg 9-16 capsule by ity of capsule 00:00: mouth 3 [place] (three) Medical times Branch daily. gabapentin 2019-0 Yes [id number] 400mg Take 1 [facility] 400 mg 9-16 capsule by ity of capsule 00:00: mouth [address] [place] [address] (three) Medical times Branch daily. gabapentin 2019-0 Yes [id number] 400mg Take 1 [facility] 400 mg 9-16 capsule by ity of capsule 00:00: mouth 3 [place] (three) Medical times Branch daily. gabapentin 2019-0 Yes [id number] 400mg Take 1 [facility] 400 mg 9-16 capsule by ity of capsule 00:00: mouth 3 [place] (three) Medical times Branch daily. gabapentin 2019-0 Yes [id number] 400mg Take 1 [facility] 400 mg 9-16 capsule by ity of capsule 00:00: mouth 3 [place] (three) Medical times Branch daily. gabapentin 2019-0 Yes [id number] 400mg Take 1 [facility] 400 mg 9-16 capsule by ity of capsule 00:00: mouth 3 [place] (three) Medical times Branch daily. gabapentin 2019-0 Yes [id number] 400mg Take 1 [facility] 400 mg 9-16 capsule by ity of capsule 00:00: mouth 3 (three) Medical times Branch daily. gabapentin 2019-0 Yes [id number] 400mg Take 1 [facility] 400 mg 9-16 capsule by ity of capsule 00:00: mouth (three) Medical times Branch daily. gabapentin 2019-0 Yes [id number] 400mg Take 1 [facility] 400 mg 9-16 capsule by ity of capsule 00:00: mouth 3 (three) Medical times Branch daily. gabapentin 2019-0 Yes [id number] 400mg Take 1 [facility] 400 mg 9-16 capsule by ity of capsule 00:00: mouth (three) Medical times Branch daily. gabapentin 2019-0 Yes [id number] 400mg Take 1 [facility] 400 mg 9-16 capsule by ity of capsule 00:00: mouth (three) Medical times Branch daily. gabapentin 2019-0 Yes [id number] 400mg Take 1 [facility] 400 mg 9-16 capsule by ity of capsule 00:00: mouth (three) Medical times Branch daily. gabapentin 2019-0 Yes [id number] 400mg Take 1 [facility] 400 mg 9-16 capsule by ity of capsule 00:00: mouth (three) Medical times Branch daily. gabapentin 2019-0 Yes [id number] 400mg Take 1 [facility] 400 mg 9-16 capsule by ity of capsule 00:00: mouth [place] (three) Medical times Branch daily. gabapentin 2019-0 Yes [id number] 400mg Take 1 [facility] 400 mg 9-16 capsule by ity of capsule 00:00: mouth (three) Medical times Branch daily. gabapentin 2019-0 2020- No [id number] 400mg Take 1 [facility] 400 mg 9-16 02-12 capsule by ity of capsule 00:00: 00:00 mouth 3 [place] 00 :00 (three) Medical times Branch daily. gabapentin 2019-0 2020- No [id number] 400mg Take 1 [facility] 400 mg 9-16 02-12 capsule by ity of capsule 00:00: 00:00 mouth 3 [place] 00 :00 (three) Medical times Branch daily. telmisartan 2019-0 Yes 1{tbl} Take 1 [facility] -hydrochlor 9-10 tablet by ity of othiazide 00:00: mouth [place] 80-25 mg 00 daily. Medical per tablet Branch telmisartan 2019-0 Yes 1{tbl} Take 1 [facility] -hydrochlor 9-10 tablet by ity of othiazide 00:00: mouth [place] 80-25 mg 00 daily. Medical per tablet Branch telmisartan Yes 1{tbl} Take 1 [facility] -hydrochlor 9-10 tablet by ity of othiazide 00:00: mouth [place] 80-25 mg 00 daily. Medical per tablet Branch telmisartan Yes 1{tbl} Take 1 [facility] -hydrochlor 9-10 tablet by ity of othiazide 00:00: mouth [place] 80-25 mg 00 daily. Medical per tablet Branch telmisartan Yes 1{tbl} Take 1 [facility] -hydrochlor 9-10 tablet by ity of othiazide 00:00: mouth [place] 80-25 mg 00 daily. Medical per tablet Branch telmisartan Yes 1{tbl} Take 1 [facility] -hydrochlor 9-10 tablet by ity of othiazide 00:00: mouth [place] 80-25 mg 00 daily. Medical per tablet Branch telmisartan Yes 1{tbl} Take 1 [facility] -hydrochlor 9-10 tablet by ity of othiazide 00:00: mouth [place] 80-25 mg 00 daily. Medical per tablet Branch telmisartan Yes 1{tbl} Take 1 [facility] -hydrochlor 9-10 tablet by ity of othiazide 00:00: mouth [place] 80-25 mg 00 daily. Medical per tablet Branch telmisartan Yes 1{tbl} Take 1 [facility] -hydrochlor 9-10 tablet by ity of othiazide 00:00: mouth [place] 80-25 mg 00 daily. Medical per tablet Branch telmisartan Yes 1{tbl} Take 1 [facility] -hydrochlor 9-10 tablet by ity of othiazide 00:00: mouth [place] 80-25 mg 00 daily. Medical per tablet Branch telmisartan Yes 1{tbl} Take 1 [facility] -hydrochlor 9-10 tablet by ity of othiazide 00:00: mouth [place] 80-25 mg 00 daily. Medical per tablet Branch telmisartan Yes 1{tbl} Take 1 [facility] -hydrochlor 9-10 tablet by ity of othiazide 00:00: mouth [place] 80-25 mg 00 daily. Medical per tablet Branch telmisartan Yes 1{tbl} Take 1 [facility] -hydrochlor 9-10 tablet by ity of othiazide 00:00: mouth [place] 80-25 mg 00 daily. Medical per tablet Branch telmisartan Yes 1{tbl} Take 1 [facility] -hydrochlor 9-10 tablet by ity of othiazide 00:00: mouth [place] 80-25 mg 00 daily. Medical per tablet Branch telmisartan Yes 1{tbl} Take 1 [facility] -hydrochlor 9-10 tablet by ity of othiazide 00:00: mouth [place] 80-25 mg 00 daily. Medical per tablet Branch telmisartan Yes 1{tbl} Take 1 [facility] -hydrochlor 9-10 tablet by ity of othiazide 00:00: mouth [place] 80-25 mg 00 daily. Medical per tablet Branch telmisartan Yes 1{tbl} Take 1 [facility] [place] -hydrochlor 9-10 tablet by ity of othiazide 00:00: mouth [place] 80-25 mg 00 daily. Medical per tablet Branch telmisartan Yes 1{tbl} Take 1 [facility] -hydrochlor 9-10 tablet by ity of othiazide 00:00: mouth [place] 80-25 mg 00 daily. Medical per tablet Branch telmisartan Yes 1{tbl} Take 1 [facility] -hydrochlor 9-10 tablet by ity of othiazide 00:00: mouth [place] 80-25 mg 00 daily. Medical per tablet Branch telmisartan Yes 1{tbl} Take 1 [facility] -hydrochlor 9-10 tablet by ity of othiazide 00:00: mouth [place] 80-25 mg 00 daily. Medical per tablet Branch telmisartan 2020- No 1{tbl} Take 1 U nivers -hydrochlor 9-10 02-12 tablet by it y of othiazide 00:00: 00:00 mouth [place] 80-25 mg 00 :00 daily. Medical per tablet Branch telmisartan 2020- No 1{tbl} Take 1 U nivers -hydrochlor 9-10 02-12 tablet by it y of othiazide 00:00: 00:00 mouth [place] 80-25 mg 00 :00 daily. Medical per tablet Branch telmisartan Yes 1{tbl} Take 1 [facility] -hydrochlor 8-13 tablet by ity of othiazide 00:00: mouth [place] 80-25 mg 00 daily. Medical per tablet Branch telmisartan Yes 1{tbl} Take 1 [facility] -hydrochlor 8-13 tablet by ity of othiazide 00:00: mouth [place] 80-25 mg 00 daily. Medical per tablet Branch telmisartan Yes 1{tbl} Take 1 [facility] -hydrochlor 8-13 tablet by ity of othiazide 00:00: mouth [place] 80-25 mg 00 daily. Medical per tablet Branch telmisartan 2019- No 1{tbl} Take 1 [facility] nivers -hydrochlor 8-13 09-10 tablet by it y of othiazide 00:00: 00:00 mouth [place] 80-25 mg 00 :00 daily. Medical per tablet Branch metoprolol 2019- No [id number] 12.5mg Take 0.5 [facility] succinate 10-23 tablets by ity of XL 25 mg 24 00:00: 04:59 [place] tablet 00 :00 daily for Medic al 30 days. Branch metoprolol 2019- No [id number] 12.5mg Take 0.5 [facility] succinate 10-23 tablets by ity of XL 25 mg 24 00:00: 04:59 [place] tablet 00 :00 daily for Medic al 30 days. Branch metoprolol 2019- No [id number] 12.5mg Take 0.5 [facility] succinate 10-23 tablets by ity of XL 25 mg 24 00:00: 04:59 [place] 00 :00 daily for Medic al 30 days. Branch metoprolol 2019- No [id number] 12.5mg Take 0.5 [facility] succinate 10-23 tablets by ity of XL 25 mg 24 00:00: 04:59 [place] tablet 00 :00 daily for Medic al 30 days. Branch metoprolol 2019- No [id number] 12.5mg Take 0.5 [facility] succinate 8- 09-09 tablets by ity of XL 25 mg 24 00:00: 04:59 [place] tablet 00 :00 daily for Medic al 30 days. Branch aspirin 81 2019-0 Yes 81mg Take 81 mg U nivers mg tablet 8-08 by mouth ity of 20:40: daily. [address] aspirin 81 2019-0 Yes 81mg Take 81 mg U nivers mg tablet 8-08 by mouth ity of 20:40: daily. [address] aspirin 81 2019-0 Yes 81mg Take 81 mg U n[facility] mg tablet 8-08 by mouth ity of 20:40: daily. [address] aspirin 81 2019-0 Yes 81mg Take 81 mg U n[facility] mg tablet 8-08 by mouth ity of 20:40: daily. [address] aspirin 81 2019-0 Yes 81mg Take 81 mg U n[facility] mg tablet 8-08 by mouth ity of 20:40: daily. [address] aspirin 81 2019-0 Yes 81mg Take 81 mg U nivers mg tablet 8-08 by mouth ity of 20:40: daily. [address] aspirin 81 2019-0 Yes 81mg Take 81 mg U nivers mg tablet 8-08 by mouth ity of 20:40: daily. [address] aspirin 81 2019-0 Yes 81mg Take 81 mg U nivers mg tablet 8-08 by mouth ity of 20:40: daily. [address] aspirin 81 2019-0 Yes 81mg Take 81 mg U nivers mg tablet 8-08 by mouth ity of 20:40: daily. [address] aspirin 81 2019-0 Yes 81mg Take 81 mg U nivers mg tablet 8-08 by mouth ity of 20:40: daily. [address] aspirin 81 2019-0 Yes 81mg Take 81 mg U nivers mg tablet 8-08 by mouth ity of 20:40: daily. [address] aspirin 81 2019-0 Yes 81mg Take 81 mg U nivers mg tablet 8-08 by mouth ity of 20:40: daily. [address] aspirin 81 2019-0 Yes 81mg Take 81 mg U nivers mg tablet 8-08 by mouth ity of 20:40: daily. [address] aspirin 81 2019-0 Yes 81mg Take 81 mg U nivers mg tablet 08 by mouth ity of 20:40: daily. [address] aspirin 81 Yes 81mg Take 81 mg U nivers mg tablet 808 by mouth ity of 20:40: daily. [address] aspirin 81 2018- Yes 81mg Take 81 mg U nivers mg tablet 10-22 by mouth ity of 20:40: daily. [address] spironolact Yes 50mg 50 mg, Univ ers one 10-22 Oral, BID, ity of (ALDACTONE) 13:00: First dose [place] tablet 50 00 on [facility] mg 10/22/18 at [place] 0800, Until Discontinu ed, Routine spironolact 2019- No 25mg 25 mg, Uni vers one 10-22 Oral, ity of (ALDACTONE) 02:45: 02:29 ONCE, 1 [place] 25 00 :00 dose, Wed Medic al mg 10/21/18 at [place] 2145, SERGO furosemide 2018- No [id number] 40mg Take 1 [facility] 40 mg 10-22 tablet by ity of tablet 00:00: 04:59 mouth [place] 00 :00 every Medical morning Branch and evening for 30 days. spironolact 2019- No [id number] 50mg Take 1 [facility] one 50 mg 10-22 tablet by ity of tablet 00:00: 04:59 mouth 2 [place] 00 :00 (two) Medical times [place] daily for 30 days. furosemide 2018- 2019- No [id number] 40mg Take 1 [facility] 40 mg 10-22 tablet by ity of tablet 00:00: 04:59 mouth [place] 00 :00 every Medical morning Branch and evening for 30 days. spironolact 2018- 2019- No [id number] 50mg Take 1 [facility] one 50 mg 10-22 tablet by ity of tablet 00:00: 04:59 mouth 2 [place] 00 :00 (two) Medical times [place] daily for 30 days. furosemide 2018- 2019- No [id number] 40mg Take 1 [facility] 40 mg 10-22 tablet by ity of tablet 00:00: 04:59 mouth [place] 00 :00 every Medical morning Branch and evening for 30 days. spironolact 2019- No [id number] 50mg Take 1 [facility] one 50 mg 10-22 tablet by ity of tablet 00:00: 04:59 mouth 2 [place] 00 :00 (two) Medical times Branch daily for 30 days. furosemide 2019- No [id number] 40mg Take 1 [facility] 40 mg 10-22 tablet by ity of tablet 00:00: 04:59 mouth [place] 00 :00 every Medical morning Branch and evening for 30 days. spironolact 2019- No [id number] 50mg Take 1 [facility] one 50 mg 10-22 tablet by ity of tablet 00:00: 04:59 mouth 2 [place] 00 :00 (two) Medical times Branch daily for 30 days. furosemide 2019- No [id number] 40mg Take 1 [facility] 40 mg 10-22 tablet by ity of tablet 00:00: 04:59 mouth [place] 00 :00 every Medical morning Branch and evening for 30 days. spironolact 2019- No [id number] 50mg Take 1 [facility] one 50 mg 10-22 tablet by ity of tablet 00:00: 04:59 mouth 2 [place] 00 :00 (two) Medical times Branch daily for 30 days. metoprolol Yes 12.5mg 12.5 mg, U nivers succinate 10-21 Oral, ity of XL (TOPROL 03:00: DAILY, [place] XL) tablet 00 First dose Med ical 12.5 mg on [facility] 10/20/18 at 2200, Until Discontinu ed, Routine furosemide Yes 40mg 40 mg, Unive rs (LASIX) 10-20 Oral, ity of tablet 40 14:00: QAM+PM, [place] mg 00 First dose Medical on [facility] 10/20/18 at 0900, Until Discontinu ed, Routine isosorbide Yes 30mg 30 mg, Unive rs mononitrate 06 Oral, ity of (IMDUR) 24 14:00: DAILY, [place] hr tablet 00 First dose Medi claudia 30 mg on [facility] 10/20/18 at 0900, Until Discontinu ed, Routine perflutren 2019- No 2mL 2 mL, IV Un r[facility] lipid 10-19 08- Push, ity of microsphere 19:15: 14:30 ONCE, 1 [place] 00 :[place] dose, [facility] (DEFINITY) 10/19/18 at Bran ch injection 2 1415, mL Routine Polyethylen Yes 17g 17 g, Unive rs e Glycol 05 Oral, ity of 3350 17:30: DAILY, [place] (MIRALAX) 00 First dose Medi claudia powder 17 g on [facility] Branch 10/19/18 at 1230, Until Discontinu ed, Routine sennosides Yes 8.6mg 8.6 mg, Uni vers (SENOKOT) 05 Oral, BID, ity of tablet 8.6 17:30: First dose [place] mg 00 on [facility] Medical 10/19/18 at Branch 1230, Until Discontinu ed, Routine KCL 2019- No 20meq 20 mEq, Univers (KLOR-CON 10-1805 Oral, ity of M20) tablet 14:00: 17:20 DAILY, [place] as 20 mEq 00 :59 First dose Medical on [place] Branch 10/18/18 at 0900, Until Discontinu ed, Routine traMADol Yes 50mg 50 mg, Univers (ULTRAM) 10-17 Oral, ity of tablet 50 13:17: Q6HPRN, [place] mg 11 Starting Medical 10/17/18 Branch at 0817, Until Discontinu ed, Routine, Pain (scale 4-6) spironolact 2019- No 25mg 25 mg, Uni vers one 10-17 08-08 Oral, BID, ity of (ALDACTONE) 13:00: 01:43 First dose [place] tablet 25 00 :07 on [facility] Medical mg 10/17/18 at Branch 0800, Until Discontinu ed, Routine furosemide 2019- No 40mg 40 mg, Univ ers (LASIX) 10-17 08-06 Slow IV ity of injection 02:00: 01:33 Push, [place] 40 mg 00 :01 Q12H, Medical First dose Branch on 10/16/18 at 2100, Until Discontinu ed, Routine spironolact 2019- No 12.5mg 12.5 mg, Univers one 10-17- Oral, ity of (ALDACTONE) 02:00: 04:53 DAILY, [place] half tablet 00 :34 First dose Me dical 12.5 mg on Fri Branch 10/16/18 at 2100, Until Discontinu ed, Routine KCL 2018- No 40meq 40 mEq, Univers (KLOR-CON 10-16 Oral, ity of M20) tablet 14:00: 13:35 DAILY, [place] 40 mEq 00 :11 First dose Medical on Fri Branch 10/16/18 at 0900, Until Discontinu ed, Routine cefTRIAXone 2019- No 1000mg 1,000 mg, Univers (ROCEPHIN) 10-16 IV ity of 1,000 mg in 11:15: 01:[place] NaCl 0.9% 00 :45 Q12H ABX, Medic al (NS) 50 mL First dose Bra nch MINI-BAG on Fri10/16/18 at 0615, Until Discontinu ed, 50 mL
R francois for Anti-Infec tive: Documented Infection< br>Documen mora Infection Site: Urine
D uration of Therapy: 7 days NaCl 0.45% 2019- No 1000mL at 100 Un ricki (1/2NS) IV 10-1603 mL/hr, ity of infusion 01:30: 01:45 1,000 mL, [place] 1,000 mL 00 :42 IV Medical Infusion, Branch CONTINUOUS , Starting Fri10/15/18 at 2030, Until Fri10/16/18 at 2045, Routine cefTRIAXone 2018- No 1000mg 1,000 mg, Univers (ROCEPHIN) 10-15 IV ity of 1,000 mg in 22:00: 00:29 [place], [place] NaCl 0.9% 00 :27 Q24H ABX, Medic al (NS) 50 mL 7 doses, Branc h MINI-BAG First dose on Fri10/15/18 at 1700, Last dose on Fri10/21/18 at 1700, 50 mL
Reas on for Anti-Infec tive: Documented Infection< br>Documen mora Infection Site: Urine
D uration of Therapy: 7 days amiodarone Yes 200mg 200 mg, Uni vers (CORDARONE) 10-15 Oral, ity of tablet 200 14:00: DAILY, [place] mg 00 First dose Medical on [facility] 10/15/18 at 0900, Until Discontinu ed, Routine colchicine Yes .6mg 0.6 mg, Univ ers (COLCRYS) 10-15 Oral, ity of tablet 0.6 14:00: DAILY, [place] mg 00 First dose Medical on [facility] 10/15/18 at 0900, Until Discontinu ed, Routine docusate Yes 100mg 100 mg, Unive rs (COLACE) 10-15 Oral, ity of capsule 100 14:00: DAILY, [place] mg 00 First dose Medical on [facility] 10/15/18 at 0900, Until Discontinu ed, Routine isosorbide 2018- No 60mg 60 mg, Univ ers mononitrate 10-15 Oral, ity of (IMDUR) 24 14:00: 17:20 DAILY, [place] hr tablet 00 :33 First dose Medi claudia 60 mg on [facility] 10/15/18 at 0900, Until Discontinu ed, Routine amLODIPine 2018- No 5mg 5 mg, Unive rs (NORVASC) 10-1503 Oral, ity of tablet 5 mg 14:00: 01:45 DAILY, [place] 00 :34 First dose Medical on [facility] 10/15/18 at 0900, Until Discontinu ed, Routine gabapentin Yes 300mg 300 mg, Uni vers (NEURONTIN) 10-15 Oral, TID, it y of capsule 300 13:00: First dose [place] mg 00 on [facility] 10/15/18 at Branch 0800, Until Discontinu ed, Routine apixaban Yes 5mg 5 mg, Univers (ELIQUIS) 10-15 Oral, BID, ity of tablet 5 mg 13:00: First dose [place] 00 on [facility] 10/15/18 at Branch 0800, Until Discontinu ed, Routine acetaminoph Yes 650mg 650 mg, Un ricki en 10-15 Oral, ity of (TYLENOL) 00:49: Q6HPRN, [place] tablet 650 45 Starting Medic al mg Wed Branch 10/14/18 at 1949, Until Discontinu ed, Routine, Pain (scale 1-3) cefTRIAXone 2019- No 1000mg 1,000 mg, Univers (ROCEPHIN) 10-14 IV ity of 1,000 mg in 23:00: 22:33 [place], [place] NaCl 0.9% 00 :00 ONCE, 1 Medical (NS) 50 mL dose, Fri Bran ch MINI-BAG 10/14/18 at 1800, 50 mL
Reas on for Anti-Infec tive: Documented Infection< br>Documen mora Infection Site: Urine
D uration of Therapy: 7 days naproxen 2019- No 500mg 500 mg, Univ ers (NAPROSYN) 10-14 Oral, ity of tablet 500 21:30: 20:35 ONCE, 1 [place] mg 00 :00 dose, Fri Medical 10/14/18 at Branch 1630, Routine NaCl 0.9% 2018- No 500mL at 999 Univ ers (NS) bolus 10-14 mL/hr, 500 it y of infusion 21:30: 22:03 mL, IV [place] 500 mL 00 :00 Infusion, Medical ONCE, 1 Branch dose, 10/14/18 at 1630, STAT traMADol Yes [id number] 50mg Take 1 Univers (ULTRAM) 50 7- [id number] tablet by i ty of mg tablet 00:00: mouth [place] 00 every 8 Medical (eight) Branch hours as needed for Pain (scale 4-6). traMADol Yes [id number] 50mg Take 1 Univers (ULTRAM) 50 7- [id number] tablet by i ty of mg tablet 00:00: mouth [place] 00 every 8 Medical (eight) Branch hours as needed for Pain (scale 4-6). traMADol Yes [id number] 50mg Take 1 Univers (ULTRAM) 50 7- [id number] tablet by i ty of mg tablet 00:00: mouth [place] 00 every 8 Medical (eight) Branch hours as needed for Pain (scale 4-6). traMADol 0 Yes [id number] 50mg Take 1 Univers (ULTRAM) 50 7-26 [id number] tablet by i ty of mg tablet 00:00: mouth [place] 00 every 8 Medical (eight) Branch hours as needed for Pain (scale 4-6). traMADol Yes [id number] 50mg Take 1 Univers (ULTRAM) 50 7-26 [id number] tablet by i ty of mg tablet 00:00: mouth [place] 00 every 8 Medical (eight) Branch hours as needed for Pain (scale 4-6). traMADol 2019-0 Yes [id number] 50mg Take 1 Univers (ULTRAM) 50 7-26 [id number] tablet by i ty of mg tablet 00:00: mouth [place] 00 every 8 Medical (eight) Branch hours as needed for Pain (scale 4-6). traMADol 2019-0 Yes [id number] 50mg Take 1 Univers (ULTRAM) 50 7-26 [id number] tablet by i ty of mg tablet 00:00: mouth [place] 00 every 8 Medical (eight) Branch hours as needed for Pain (scale 4-6). traMADol 2019-0 Yes [id number] 50mg Take 1 Univers (ULTRAM) 50 7-26 [id number] tablet by i ty of mg tablet 00:00: mouth [place] 00 every 8 Medical (eight) Branch hours as needed for Pain (scale 4-6). traMADol 2019-0 Yes [id number] 50mg Take 1 Univers (ULTRAM) 50 7-26 [id number] tablet by i ty of mg tablet 00:00: mouth [place] 00 every 8 Medical (eight) Branch hours as needed for Pain (scale 4-6). traMADol 2018-0 Yes [id number] 50mg Take 1 Univers (ULTRAM) 50 7-26 [id number] tablet by i ty of mg tablet 00:00: mouth [place] 00 every 8 Medical (eight) Branch hours as needed for Pain (scale 4-6). traMADol 2019-0 Yes [id number] 50mg Take 1 Univers (ULTRAM) 50 7-26 [id number] tablet by i ty of mg tablet 00:00: mouth [place] 00 every 8 Medical (eight) Branch hours as needed for Pain (scale 4-6). traMADol 2019-0 Yes [id number] 50mg Take 1 Univers (ULTRAM) 50 7-26 [id number] tablet by i ty of mg tablet 00:00: mouth [place] 00 every 8 Medical (eight) Branch hours as needed for Pain (scale 4-6). traMADol 2019-0 Yes [id number] 50mg Take 1 Univers (ULTRAM) 50 7-26 [id number] tablet by i ty of mg tablet 00:00: mouth [place] 00 every 8 Medical (eight) Branch hours as needed for Pain (scale 4-6). traMADol 2019-0 Yes [id number] 50mg Take 1 Univers (ULTRAM) 50 7-26 [id number] tablet by i ty of mg tablet 00:00: mouth [place] 00 every 8 Medical (eight) Branch hours as needed for Pain (scale 4-6). traMADol 2019-0 Yes [id number] 50mg Take 1 Univers (ULTRAM) 50 7-26 [id number] tablet by i ty of mg tablet 00:00: mouth [place] 00 every 8 Medical (eight) Branch hours as needed for Pain (scale 4-6). traMADol 2019-0 Yes [id number] 50mg Take 1 Univers (ULTRAM) 50 7-26 [id number] tablet by i ty of mg tablet 00:00: mouth [place] 00 every 8 Medical (eight) Branch hours as needed for Pain (scale 4-6). traMADol 2019-0 Yes [id number] 50mg Take 1 Univers (ULTRAM) 50 7-26 [id number] tablet by i ty of mg tablet 00:00: mouth [place] 00 every 8 Medical (eight) Branch hours as needed for Pain (scale 4-6). traMADol 2019-0 Yes [id number] 50mg Take 1 Univers (ULTRAM) 50 7-26 [id number] tablet by i ty of mg tablet 00:00: mouth [place] 00 every 8 Medical (eight) Branch hours as needed for Pain (scale 4-6). traMADol 2019-0 Yes [id number] 50mg Take 1 Univers (ULTRAM) 50 7-26 [id number] tablet by i ty of mg tablet 00:00: mouth [place] 00 every 8 Medical (eight) Branch hours as needed for Pain (scale 4-6). traMADol 2019-0 Yes [id number] 50mg Take 1 Univers (ULTRAM) 50 7-26 [id number] tablet by i ty of mg tablet 00:00: mouth [place] 00 every 8 Medical (eight) Branch hours as needed for Pain (scale 4-6). traMADol 2019-0 Yes [id number] 50mg Take 1 Univers (ULTRAM) 50 7-26 [id number] tablet by i ty of mg tablet 00:00: mouth [place] 00 every 8 Medical (eight) Branch hours as needed for Pain (scale 4-6). traMADol 2019-0 Yes [id number] 50mg Take 1 Univers (ULTRAM) 50 7-26 [id number] tablet by i ty of mg tablet 00:00: mouth [place] 00 every 8 Medical (eight) Branch hours as needed for Pain (scale 4-6). traMADol 2019-0 Yes [id number] 50mg Take 1 Univers (ULTRAM) 50 7-26 [id number] tablet by i ty of mg tablet 00:00: mouth [place] 00 every 8 Medical (eight) Branch hours as needed for Pain (scale 4-6). traMADol 2019-0 Yes [id number] 50mg Take 1 Univers (ULTRAM) 50 7-26 [id number] tablet by i ty of mg tablet 00:00: mouth [place] 00 every 8 Medical (eight) Branch hours as needed for Pain (scale 4-6). traMADol 2019-0 Yes [id number] 50mg Take 1 Univers (ULTRAM) 50 7-26 [id number] tablet by i ty of mg tablet 00:00: mouth [place] 00 every 8 Medical (eight) Branch hours as needed for Pain (scale 4-6). traMADol 2019-0 Yes [id number] 50mg Take 1 Univers (ULTRAM) 50 7-26 [id number] tablet by i ty of mg tablet 00:00: mouth [place] 00 every 8 Medical (eight) Branch hours as needed for Pain (scale 4-6). traMADol 2019-0 Yes [id number] 50mg Take 1 Univers (ULTRAM) 50 7-26 [id number] tablet by i ty of mg tablet 00:00: mouth [place] 00 every 8 Medical (eight) Branch hours as needed for Pain (scale 4-6). traMADol 2019-0 Yes [id number] 50mg Take 1 Univers (ULTRAM) 50 7-26 [id number] tablet by i ty of mg tablet 00:00: mouth [place] 00 every 8 Medical (eight) Branch hours as needed for Pain (scale 4-6). traMADol 2019-0 Yes [id number] 50mg Take 1 Univers (ULTRAM) 50 7-26 [id number] tablet by i ty of mg tablet 00:00: mouth [place] 00 every 8 Medical (eight) Branch hours as needed for Pain (scale 4-6). traMADol 2019-0 Yes [id number] 50mg Take 1 Univers (ULTRAM) 50 7-26 [id number] tablet by i ty of mg tablet 00:00: mouth [place] 00 every 8 Medical (eight) Branch hours as needed for Pain (scale 4-6). traMADol 2019-0 Yes [id number] 50mg Take 1 Univers (ULTRAM) 50 7-26 [id number] tablet by i ty of mg tablet 00:00: mouth [place] 00 every 8 Medical (eight) Branch hours as needed for Pain (scale 4-6). traMADol 2019-0 Yes [id number] 50mg Take 1 Univers (ULTRAM) 50 7-26 [id number] tablet by i ty of mg tablet 00:00: mouth [place] 00 every 8 Medical (eight) Branch hours as needed for Pain (scale 4-6). traMADol 2019-0 Yes [id number] 50mg Take 1 Univers (ULTRAM) 50 7-26 [id number] tablet by i ty of mg tablet 00:00: mouth [place] 00 every 8 Medical (eight) Branch hours as needed for Pain (scale 4-6). traMADol 2018-0 Yes [id number] 50mg Take 1 Univers (ULTRAM) 50 7-26 [id number] tablet by i ty of mg tablet 00:00: mouth [place] 00 every 8 Medical (eight) Branch hours as needed for Pain (scale 4-6). traMADol 2018-0 Yes [id number] 50mg Take 1 Univers (ULTRAM) 50 7-26 [id number] tablet by i ty of mg tablet 00:00: mouth [place] 00 every 8 Medical (eight) Branch hours as needed for Pain (scale 4-6). traMADol 2018-0 Yes [id number] 50mg Take 1 Univers (ULTRAM) 50 7-26 [id number] tablet by i ty of mg tablet 00:00: mouth [place] 00 every 8 Medical (eight) Branch hours as needed for Pain (scale 4-6). traMADol 2019-0 Yes [id number] 50mg Take 1 Univers (ULTRAM) 50 7-26 [id number] tablet by i ty of mg tablet 00:00: mouth [place] 00 every 8 Medical (eight) Branch hours as needed for Pain (scale 4-6). traMADol 2019-0 Yes [id number] 50mg Take 1 Univers (ULTRAM) 50 7-26 [id number] tablet by i ty of mg tablet 00:00: mouth [place] 00 every 8 Medical (eight) Branch hours as needed for Pain (scale 4-6). traMADol 2019-0 Yes [id number] 50mg Take 1 Univers (ULTRAM) 50 7-26 [id number] tablet by i ty of mg tablet 00:00: mouth [place] 00 every 8 Medical (eight) Branch hours as needed for Pain (scale 4-6). traMADol 2019-0 Yes [id number] 50mg Take 1 Univers (ULTRAM) 50 7-26 [id number] tablet by i ty of mg tablet 00:00: mouth [place] 00 every 8 Medical (eight) Branch hours as needed for Pain (scale 4-6). traMADol 2019-0 Yes [id number] 50mg Take 1 Univers (ULTRAM) 50 7-26 [id number] tablet by i ty of mg tablet 00:00: mouth [place] 00 every 8 Medical (eight) Branch hours as needed for Pain (scale 4-6). traMADol 2018-0 Yes [id number] 50mg Take 1 Univers (ULTRAM) 50 7-26 [id number] tablet by i ty of mg tablet 00:00: mouth [place] 00 every 8 Medical (eight) Branch hours as needed for Pain (scale 4-6). traMADol 2018-0 Yes [id number] 50mg Take 1 Univers (ULTRAM) 50 7-26 [id number] tablet by i ty of mg tablet 00:00: mouth [place] 00 every 8 Medical (eight) Branch hours as needed for Pain (scale 4-6). traMADol 2018-0 Yes [id number] 50mg Take 1 Univers (ULTRAM) 50 7-26 [id number] tablet by i ty of mg tablet 00:00: mouth [place] 00 every 8 Medical (eight) Branch hours as needed for Pain (scale 4-6). traMADol 2019-0 Yes [id number] 50mg Take 1 Univers (ULTRAM) 50 7-26 [id number] tablet by i ty of mg tablet 00:00: mouth [place] 00 every 8 Medical (eight) Branch hours as needed for Pain (scale 4-6). traMADol 2019-0 Yes [id number] 50mg Take 1 Univers (ULTRAM) 50 7-26 [id number] tablet by i ty of mg tablet 00:00: mouth [place] 00 every 8 Medical (eight) Branch hours as needed for Pain (scale 4-6). traMADol 2019-0 Yes [id number] 50mg Take 1 Univers (ULTRAM) 50 7-26 [id number] tablet by i ty of mg tablet 00:00: mouth [place] 00 every 8 Medical (eight) Branch hours as needed for Pain (scale 4-6). traMADol 2019-0 Yes [id number] 50mg Take 1 Univers (ULTRAM) 50 7-26 [id number] tablet by i ty of mg tablet 00:00: mouth [place] 00 every 8 Medical (eight) Branch hours as needed for Pain (scale 4-6). traMADol 2019-0 Yes [id number] 50mg Take 1 Univers (ULTRAM) 50 7-26 [id number] tablet by i ty of mg tablet 00:00: mouth [place] 00 every 8 Medical (eight) Branch hours as needed for Pain (scale 4-6). traMADol 2019-0 Yes [id number] 50mg Take 1 Univers (ULTRAM) 50 7-26 [id number] tablet by i ty of mg tablet 00:00: mouth [place] 00 every 8 Medical (eight) Branch hours as needed for Pain (scale 4-6). traMADol 2019-0 Yes [id number] 50mg Take 1 Univers (ULTRAM) 50 7-26 [id number] tablet by i ty of mg tablet 00:00: mouth [place] 00 every 8 Medical (eight) Branch hours as needed for Pain (scale 4-6). traMADol 2019-0 Yes [id number] 50mg Take 1 Univers (ULTRAM) 50 7-26 [id number] tablet by i ty of mg tablet 00:00: mouth [place] 00 every 8 Medical (eight) Branch hours as needed for Pain (scale 4-6). traMADol 2019-0 Yes [id number] 50mg Take 1 Univers (ULTRAM) 50 7-26 [id number] tablet by i ty of mg tablet 00:00: mouth [place] 00 every 8 Medical (eight) Branch hours as needed for Pain (scale 4-6). traMADol 2019-0 Yes [id number] 50mg Take 1 Univers (ULTRAM) 50 7-26 [id number] tablet by i ty of mg tablet 00:00: mouth [place] 00 every 8 Medical (eight) Branch hours as needed for Pain (scale 4-6). traMADol 2019-0 Yes [id number] 50mg Take 1 Univers (ULTRAM) 50 7-26 [id number] tablet by i ty of mg tablet 00:00: mouth [place] 00 every 8 Medical (eight) Branch hours as needed for Pain (scale 4-6). traMADol 2019-0 Yes [id number] 50mg Take 1 Univers (ULTRAM) 50 7-26 [id number] tablet by i ty of mg tablet 00:00: mouth [place] 00 every 8 Medical (eight) Branch hours as needed for Pain (scale 4-6). traMADol 2019-0 Yes [id number] 50mg Take 1 Univers (ULTRAM) 50 7-26 [id number] tablet by i ty of mg tablet 00:00: mouth [place] 00 every 8 Medical (eight) Branch hours as needed for Pain (scale 4-6). traMADol 2019-0 Yes [id number] 50mg Take 1 Univers (ULTRAM) 50 7-26 [id number] tablet by i ty of mg tablet 00:00: mouth [place] 00 every 8 Medical (eight) Branch hours as needed for Pain (scale 4-6). traMADol 2019-0 Yes [id number] 50mg Take 1 Univers (ULTRAM) 50 7-26 [id number] tablet by i ty of mg tablet 00:00: mouth [place] 00 every 8 Medical (eight) Branch hours as needed for Pain (scale 4-6). traMADol 2019-0 Yes [id number] 50mg Take 1 Univers (ULTRAM) 50 7-26 [id number] tablet by i ty of mg tablet 00:00: mouth [place] 00 every 8 Medical (eight) Branch hours as needed for Pain (scale 4-6). traMADol 2019-0 Yes [id number] 50mg Take 1 Univers (ULTRAM) 50 7-26 [id number] tablet by i ty of mg tablet 00:00: mouth [place] 00 every 8 Medical (eight) Branch hours as needed for Pain (scale 4-6). traMADol 2019-0 Yes [id number] 50mg Take 1 Univers (ULTRAM) 50 7-26 [id number] tablet by i ty of mg tablet 00:00: mouth [place] 00 every 8 Medical (eight) Branch hours as needed for Pain (scale 4-6). traMADol 2019-0 Yes [id number] 50mg Take 1 Univers (ULTRAM) 50 7-26 [id number] tablet by i ty of mg tablet 00:00: mouth [place] 00 every 8 Medical (eight) Branch hours as needed for Pain (scale 4-6). traMADol 2019-0 Yes [id number] 50mg Take 1 Univers (ULTRAM) 50 7-26 [id number] tablet by i ty of mg tablet 00:00: mouth [place] 00 every 8 Medical (eight) Branch hours as needed for Pain (scale 4-6). traMADol 2019-0 Yes [id number] 50mg Take 1 [facility] (UL[facility]AM) 50 7-26 [id number] tablet by i ty of mg tablet 00:00: mouth [place] 00 every 8 Medical (eight) Branch hours as needed for Pain (scale 4-6). traMADol 2019-0 Yes [id number] 50mg Take 1 [facility] (ULTRAM) 50 7-26 [id number] tablet by i ty of mg tablet 00:00: mouth [place] 00 every 8 Medical (eight) Branch hours as needed for Pain (scale 4-6). traMADol 2019-0 Yes [id number] 50mg Take 1 [facility] (ULTRAM) 50 7-26 [id number] tablet by i ty of mg tablet 00:00: mouth [place] 00 every 8 Medical (eight) Branch hours as needed for Pain (scale 4-6). traMADol 2019-0 Yes [id number] 50mg Take 1 [facility] (ULTRAM) 50 7-26 [id number] tablet by i ty of mg tablet 00:00: mouth [place] 00 every 8 Medical (eight) Branch hours as needed for Pain (scale 4-6). traMADol 2019-0 Yes [id number] 50mg Take 1 [facility] (ULTRAM) 50 7-26 [id number] tablet by i ty of mg tablet 00:00: mouth [place] 00 every 8 Medical (eight) Branch hours as needed for Pain (scale 4-6). traMADol 2019-0 Yes [id number] 50mg Take 1 [facility] (ULTRAM) 50 7-26 [id number] tablet by i ty of mg tablet 00:00: mouth [place] 00 every 8 Medical (eight) Branch hours as needed for Pain (scale 4-6). traMADol 2019-0 Yes [id number] 50mg Take 1 [facility] (ULTRAM) 50 7-26 [id number] tablet by i ty of mg tablet 00:00: mouth [place] 00 every 8 Medical (eight) Branch hours as needed for Pain (scale 4-6). traMADol 2019-0 Yes [id number] 50mg Take 1 [facility] (ULTRAM) 50 7-26 [id number] tablet by i ty of mg tablet 00:00: mouth [place] 00 every 8 Medical (eight) Branch hours as needed for Pain (scale 4-6). traMADol 2019-0 Yes [id number] 50mg Take 1 [facility] (ULTRAM) 50 7-26 [id number] tablet by i ty of mg tablet 00:00: mouth [place] 00 every 8 Medical (eight) Branch hours as needed for Pain (scale 4-6). traMADol 2019-0 Yes [id number] 50mg Take 1 [facility] (ULTRAM) 50 7-26 [id number] tablet by i ty of mg tablet 00:00: mouth [place] 00 every 8 Medical (eight) Branch hours as needed for Pain (scale 4-6). traMADol 2019-0 Yes [id number] 50mg Take 1 [facility] (ULTRAM) 50 7-26 [id number] tablet by i ty of mg tablet 00:00: mouth [place] 00 every 8 Medical (eight) Branch hours as needed for Pain (scale 4-6). traMADol 2019-0 Yes [id number] 50mg Take 1 [facility] (ULTRAM) 50 7-26 [id number] tablet by i ty of mg tablet 00:00: mouth [place] 00 every 8 Medical (eight) Branch hours as needed for Pain (scale 4-6). traMADol 2019-0 Yes [id number] 50mg Take 1 [facility] (ULTRAM) 50 7-26 [id number] tablet by i ty of mg tablet 00:00: mouth [place] 00 every 8 Medical (eight) Branch hours as needed for Pain (scale 4-6). traMADol 2019-0 Yes [id number] 50mg Take 1 [facility] (ULTRAM) 50 7-26 [id number] tablet by i ty of mg tablet 00:00: mouth [place] 00 every 8 Medical (eight) Branch hours as needed for Pain (scale 4-6). traMADol 2019-0 Yes [id number] 50mg Take 1 [facility] (ULTRAM) 50 7-26 [id number] tablet by i ty of mg tablet 00:00: mouth [place] 00 every 8 Medical (eight) Branch hours as needed for Pain (scale 4-6). traMADol 2019-0 Yes [id number] 50mg Take 1 [facility] (ULTRAM) 50 7-26 [id number] tablet by i ty of mg tablet 00:00: mouth [place] 00 every 8 Medical (eight) Branch hours as needed for Pain (scale 4-6). traMADol 2019-0 Yes [id number] 50mg Take 1 [facility] (ULTRAM) 50 7-26 [id number] tablet by i ty of mg tablet 00:00: mouth [place] 00 every 8 Medical (eight) Branch hours as needed for Pain (scale 4-6). traMADol 2019-0 Yes [id number] 50mg Take 1 [facility] (ULTRAM) 50 7-26 [id number] tablet by i ty of mg tablet 00:00: mouth [place] 00 every 8 Medical (eight) Branch hours as needed for Pain (scale 4-6). traMADol 2019-0 Yes [id number] 50mg Take 1 [facility] (ULTRAM) 50 7-26 [id number] tablet by i ty of mg tablet 00:00: mouth [place] 00 every 8 Medical (eight) Branch hours as needed for Pain (scale 4-6). traMADol 2019-0 Yes [id number] 50mg Take 1 [facility] (ULTRAM) 50 7-26 [id number] tablet by i ty of mg tablet 00:00: mouth [place] 00 every 8 Medical (eight) Branch hours as needed for Pain (scale 4-6). traMADol 2019-0 Yes [id number] 50mg Take 1 [facility] (ULTRAM) 50 7-26 [id number] tablet by i ty of mg tablet 00:00: mouth [place] 00 every 8 Medical (eight) Branch hours as needed for Pain (scale 4-6). traMADol 2019-0 Yes [id number] 50mg Take 1 [facility] (ULTRAM) 50 7-26 [id number] tablet by i ty of mg tablet 00:00: mouth [place] 00 every 8 Medical (eight) Branch hours as needed for Pain (scale 4-6). traMADol 2018-0 Yes [id number] 50mg Take 1 [facility] (ULTRAM) 50 7-26 [id number] tablet by i ty of mg tablet 00:00: mouth [place] 00 every 8 Medical (eight) Branch hours as needed for Pain (scale 4-6). traMADol 2018-0 Yes [id number] 50mg Take 1 [facility] (ULTRAM) 50 7-26 [id number] tablet by i ty of mg tablet 00:00: mouth [place] 00 every 8 Medical (eight) Branch hours as needed for Pain (scale 4-6). traMADol 2019-0 Yes [id number] 50mg Take 1 [facility] (ULTRAM) 50 7-26 [id number] tablet by i ty of mg tablet 00:00: mouth [place] 00 every 8 Medical (eight) Branch hours as needed for Pain (scale 4-6). traMADol 2019-0 Yes [id number] 50mg Take 1 [facility] (ULTRAM) 50 7-26 [id number] tablet by i ty of mg tablet 00:00: mouth [place] 00 every 8 Medical (eight) Branch hours as needed for Pain (scale 4-6). traMADol 2019-0 Yes [id number] 50mg Take 1 [facility] (ULTRAM) 50 7-26 [id number] tablet by i ty of mg tablet 00:00: mouth [place] 00 every 8 Medical (eight) Branch hours as needed for Pain (scale 4-6). traMADol 2019-0 Yes [id number] 50mg Take 1 [facility] (ULTRAM) 50 7-26 [id number] tablet by i ty of mg tablet 00:00: mouth [place] 00 every 8 Medical (eight) Branch hours as needed for Pain (scale 4-6). traMADol 2019-0 Yes [id number] 50mg Take 1 [facility] (ULTRAM) 50 7-26 [id number] tablet by i ty of mg tablet 00:00: mouth [place] 00 every 8 Medical (eight) Branch hours as needed for Pain (scale 4-6). traMADol 2019-0 Yes [id number] 50mg Take 1 [facility] (ULTRAM) 50 7-26 [id number] tablet by i ty of mg tablet 00:00: mouth [place] 00 every 8 Medical (eight) Branch hours as needed for Pain (scale 4-6). traMADol 2019-0 Yes [id number] 50mg Take 1 [facility] (ULTRAM) 50 7-26 [id number] tablet by i ty of mg tablet 00:00: mouth [place] 00 every 8 Medical (eight) Branch hours as needed for Pain (scale 4-6). traMADol 2019-0 Yes [id number] 50mg Take 1 [facility] (ULTRAM) 50 7-26 [id number] tablet by i ty of mg tablet 00:00: mouth [place] 00 every 8 Medical (eight) Branch hours as needed for Pain (scale 4-6). traMADol 2019-0 Yes [id number] 50mg Take 1 [facility] (ULTRAM) 50 7-26 [id number] tablet by i ty of mg tablet 00:00: mouth [place] 00 every 8 Medical (eight) Branch hours as needed for Pain (scale 4-6). traMADol 2019-0 Yes [id number] 50mg Take 1 [facility] (ULTRAM) 50 7-26 [id number] tablet by i ty of mg tablet 00:00: mouth [place] 00 every 8 Medical (eight) Branch hours as needed for Pain (scale 4-6). traMADol 2019-0 Yes [id number] 50mg Take 1 [facility] (ULTRAM) 50 7-26 [id number] tablet by i ty of mg tablet 00:00: mouth [place] 00 every 8 Medical (eight) Branch hours as needed for Pain (scale 4-6). traMADol 2019-0 Yes [id number] 50mg Take 1 [facility] (ULTRAM) 50 7-26 [id number] tablet by i ty of mg tablet 00:00: mouth [place] 00 every 8 Medical (eight) Branch hours as needed for Pain (scale 4-6). traMADol Yes [id number] 50mg Take 1 [facility] (ULTRAM) 50 7-26 [id number] tablet by i ty of mg tablet 00:00: mouth [place] 00 every 8 Medical (eight) Branch hours as needed for Pain (scale 4-6). traMADol Yes [id number] 50mg Take 1 [facility] (ULTRAM) 50 7- [id number] tablet by i ty of mg tablet 00:00: mouth [place] 00 every 8 Medical (eight) Branch hours as needed for Pain (scale 4-6). traMADol Yes [id number] 50mg Take 1 [facility] (ULTRAM) 50 7- [id number] tablet by i ty of mg tablet 00:00: mouth [place] 00 every 8 Medical (eight) Branch hours as needed for Pain (scale 4-6). traMADol Yes [id number] 50mg Take 1 [facility] (ULTRAM) 50 7- [id number] tablet by i ty of mg tablet 00:00: mouth [place] 00 every 8 Medical (eight) Branch hours as needed for Pain (scale 4-6). acetaminoph 2019- No [id number] 975mg Take 3 [facility] en 10-09 [id number] tablets by ity of (TYLENOL) 00:00: 00:[place] mouth [place] 325 mg 00 :00 (four) Medical tablet times Branch daily for 5 days. This is the maximum safe dose for a healthy adult. acetaminoph 2019- No [id number] 975mg Take 3 [facility] en 10-09 [id number] tablets by ity of (TYLENOL) 00:00: 04:59 mouth 4 [place] 325 mg 00 :00 (four) Medical tablet times Branch daily for 5 days. This is the maximum safe dose for a healthy adult. telmisartan 2018- 2019- No 1{tbl} Take 1 [facility] -hydrochlor 7-14 08-13 tablet by it y of othiazide 00:00: 00:00 mouth [place] 80-25 mg 00 :00 daily. Medical per tablet Branch amLODIPine 2018-0 Yes [id number] 5mg Take 1 [facility] 5 mg tablet 6-17 tablet by ity of 00:00: mouth [place] 00 daily. Medical Branch gabapentin 2019-0 Yes TAKE 1 [facility] 300 mg 6-17 CAPSULE BY ity of capsule 00:00: MOUTH [place] 00 EVERY Medical EVENING Branch bisoprolol- 2019-0 Yes 1{tbl} Take 1 [facility] hydrochloro 6-17 tablet by ity of thiazide 00:00: mouth [place] 10-6.25 mg 00 daily. Medical per tablet Branch atorvastati [id number] Yes 20mg Take 1 [facility] ers n 20 mg 6-17 tablet by ity of tablet 00:00: mouth at [place] 00 bedtime. Medical Branch gabapentin Yes TAKE 1 [facility] 300 mg 6-17 CAPSULE BY ity of capsule 00:00: MOUTH [place] 00 EVERY Medical EVENING Branch atorvastati 2019-0 Yes 20mg Take 1 [facility] ers n 20 mg 6-17 tablet by ity of tablet 00:00: mouth at [place] 00 bedtime. Medical Branch gabapentin 2018-0 Yes TAKE 1 [facility] 300 mg 6-17 CAPSULE BY ity of capsule 00:00: MOUTH [place] 00 EVERY Medical EVENING Branch atorvastati [id number] Yes 20mg Take 1 [facility] ers n 20 mg 6-17 tablet by ity of tablet 00:00: mouth at [place] 00 bedtime. Medical Branch gabapentin 2018-0 Yes TAKE 1 [facility] 300 mg 6-17 CAPSULE BY ity of capsule 00:00: MOUTH [place] 00 EVERY Medical EVENING Branch atorvastati 2019-0 Yes 20mg Take 1 [facility] ers n 20 mg 6-17 tablet by ity of tablet 00:00: mouth at [place] 00 bedtime. Medical Branch gabapentin 2019-0 Yes TAKE 1 [facility] 300 mg 6-17 CAPSULE BY ity of capsule 00:00: MOUTH [place] 00 EVERY Medical EVENING Branch atorvastati 2019-0 Yes 20mg Take 1 [facility] ers n 20 mg 6-17 tablet by ity of tablet 00:00: mouth at [place] 00 bedtime. Medical Branch gabapentin 2019-0 Yes TAKE 1 [facility] 300 mg 6-17 CAPSULE BY ity of capsule 00:00: MOUTH [place] 00 EVERY Medical EVENING Branch atorvastati 2019-0 Yes 20mg Take 1 [facility] ers n 20 mg 6-17 tablet by ity of tablet 00:00: mouth at [place] 00 bedtime. Medical Branch gabapentin 2019-0 Yes TAKE 1 [facility] 300 mg 6-17 CAPSULE BY ity of capsule 00:00: MOUTH [place] EVERY Medical EVENING Branch atorvastati 2019-0 Yes 20mg Take 1 [facility] ers n 20 mg 6-17 tablet by ity of tablet 00:00: mouth at [place] [address] bedtime. Medical Branch gabapentin 2019-0 Yes TAKE 1 [facility] rs 300 mg 6-17 CAPSULE BY ity of capsule 00:00: MOUTH [place] EVERY Medical EVENING Branch atorvastati 2019-0 Yes 20mg Take 1 [facility] ers n 20 mg 6-17 tablet by ity of tablet 00:00: mouth at [place] [address] bedtime. Medical Branch gabapentin 2019-0 Yes TAKE 1 [facility] 300 mg 6-17 CAPSULE BY ity of capsule 00:00: MOUTH [place] EVERY Medical EVENING Branch atorvastati 2019-0 Yes 20mg Take 1 [facility] ers n 20 mg 6-17 tablet by ity of tablet 00:00: mouth at [place] [address] bedtime. Medical Branch atorvastati 2019-0 Yes 20mg Take 1 [facility] ers n 20 mg 6-17 tablet by ity of tablet 00:00: mouth at [place] [address] bedtime. Medical Branch atorvastati 2019-0 Yes 20mg Take 1 [facility] ers n 20 mg 6-17 tablet by ity of tablet 00:00: mouth at [place] [address] bedtime. Medical Branch atorvastati 2019-0 Yes 20mg Take 1 [facility] ers n 20 mg 6-17 tablet by ity of tablet 00:00: mouth at [place] [address] bedtime. Medical Branch atorvastati 2019-0 Yes 20mg Take 1 [facility] ers n 20 mg 6-17 tablet by ity of tablet 00:00: mouth at [place] [address] bedtime. Medical Branch atorvastati 2019-0 Yes 20mg Take 1 [facility] ers n 20 mg 6-17 tablet by ity of tablet 00:00: mouth at [place] [address] bedtime. Medical Branch atorvastati 2019-0 Yes 20mg Take 1 [facility] ers n 20 mg 6-17 tablet by ity of tablet 00:00: mouth at [place] [address] bedtime. Medical Branch atorvastati 2019-0 Yes 20mg Take 1 [facility] ers n 20 mg 6-17 tablet by ity of tablet 00:00: mouth at [place] [address] bedtime. Medical Branch atorvastati 2019-0 Yes 20mg Take 1 [facility] ers n 20 mg 6-17 tablet by ity of tablet 00:00: mouth at [place] [address] bedtime. Medical Branch atorvastati 20190 Yes 20mg Take 1 [facility] ers n 20 mg 6-17 tablet by ity of tablet 00:00: mouth at [place] [address] bedtime. Medical Branch atorvastati 0 Yes 20mg Take 1 [facility] ers n 20 mg 6-17 tablet by ity of tablet 00:00: mouth at [place] [address] bedtime. Medical Branch atorvastati 0 Yes 20mg Take 1 [facility] n 20 mg 6-17 tablet by ity of tablet 00:00: mouth at [place] [address] bedtime. Medical Branch atorvastati 0 Yes 20mg Take 1 [facility] n 20 mg 6-17 tablet by ity of tablet 00:00: mouth at [place] [address] bedtime. Medical Branch atorvastati 0 Yes 20mg Take 1 [facility] n 20 mg 6-17 tablet by ity of tablet 00:00: mouth at [place] [address] bedtime. Medical Branch atorvastati 0 Yes 20mg Take 1 [facility] ers n 20 mg 6-17 tablet by ity of tablet 00:00: mouth at [place] [address] bedtime. Medical Branch atorvastati 0 Yes 20mg Take 1 [facility] ers n 20 mg 6-17 tablet by ity of tablet 00:00: mouth at [place] [address] bedtime. Medical Branch atorvastati 0 Yes 20mg Take 1 [facility] ers n 20 mg 6-17 tablet by ity of tablet 00:00: mouth at [place] [address] bedtime. Medical Branch atorvastati 0 Yes 20mg Take 1 [facility] ers n 20 mg 6-17 tablet by ity of tablet 00:00: mouth at [place] [address] bedtime. Medical Branch atorvastati 2019-0 2020- No 20mg Take 1 [facility] vers n 20 mg 6-17 02-12 tablet by ity of tablet 00:00: 00:00 mouth at [place] 00 :00 bedtime. Medical Branch atorvastati 2018-0 2020- No 20mg Take 1 [facility] vers n 20 mg 6-17 02-12 tablet by ity of tablet 00:00: 00:00 mouth at [place] 00 :00 bedtime. Medical Branch gabapentin 2019-0 2019- No TAKE 1 [facility] ers 300 mg 6-17 09-16 CAPSULE BY ity of capsule 00:00: 00:00 MOUTH [place] 00 :00 EVERY Medical EVENING Branch gabapentin 2019- No TAKE 1 [facility] ers 300 mg -17 - CAPSULE BY ity of capsule 00:00: 00:00 MOUTH [place] 00 :00 EVERY Medical EVENING Branch gabapentin 2019- No TAKE 1 [facility] ers 300 mg -01 12- CAPSULE BY ity of capsule 00:00: 00:00 MOUTH [place] 00 :00 EVERY Medical EVENING Branch amLODIPine 2019- No [id number] 5mg Take 1 [facility] 5 mg tablet 08-31-08 tablet by it y of 00:00: 00:00 mouth [place] 00 :00 daily. Medical Branch bisoprolol- 2019- No 1{tbl} Take 1 [facility] hydrochloro 08-31-08 tablet by it y of thiazide 00:00: 00:00 mouth [place] 10-6.25 mg 00 :00 daily. Medical per tablet Branch telmisartan Yes [id number] 1{tbl} Take 1 [facility] -hydrochlor 5-06 tablet by ity of othiazide 00:00: mouth [place] 80-25 mg 00 daily. Medical per tablet Branch telmisartan 2019- No [id number] 1{tbl} Take 1 [facility] -hydrochlor 5-06 08-08 tablet by it y of othiazide 00:00: 00:00 mouth [place] 80-25 mg 00 :00 daily. Medical per tablet Branch isosorbide Yes 60mg Take 2 [facility] rs mononitrate 5-03 tablets by it y of 30 mg 24 hr 00:00: mouth [place] tablet 00 daily. Medical Branch isosorbide Yes 60mg Take 2 [facility] rs mononitrate 5-03 tablets by it y of 30 mg 24 hr 00:00: mouth [place] tablet 00 daily. Medical Branch isosorbide Yes 60mg Take 2 [facility] rs mononitrate 5-03 tablets by it y of 30 mg 24 hr 00:00: mouth [place] tablet 00 daily. Medical Branch isosorbide Yes 60mg Take 2 [facility] rs mononitrate 5-03 tablets by it y of 30 mg 24 hr 00:00: mouth [place] tablet 00 daily. Medical Branch isosorbide Yes 60mg Take 2 [facility] rs mononitrate 5-03 tablets by it y of 30 mg 24 hr 00:00: mouth [place] tablet 00 daily. Medical Branch isosorbide 2019-0 Yes 60mg Take 2 [facility] rs mononitrate 5-03 tablets by it y of 30 mg 24 hr 00:00: mouth [place] tablet 00 daily. Medical Branch isosorbide 0 Yes 60mg Take 2 [facility] rs mononitrate 5-03 tablets by it y of 30 mg 24 hr 00:00: mouth [place] tablet 00 daily. Medical Branch isosorbide 0 Yes 60mg Take 2 [facility] rs mononitrate 5-03 tablets by it y of 30 mg 24 hr 00:00: mouth [place] tablet 00 daily. Medical Branch isosorbide 0 Yes 60mg Take 2 [facility] rs mononitrate 5-03 tablets by it y of 30 mg 24 hr 00:00: mouth [place] tablet 00 daily. Medical Branch isosorbide 0 Yes 60mg Take 2 [facility] rs mononitrate 5-03 tablets by it y of 30 mg 24 hr 00:00: mouth [place] tablet 00 daily. Medical Branch isosorbide 0 Yes 60mg Take 2 [facility] rs mononitrate 5-03 tablets by it y of 30 mg 24 hr 00:00: mouth [place] tablet 00 daily. Medical Branch isosorbide 0 Yes 60mg Take 2 [facility] rs mononitrate 5-03 tablets by it y of 30 mg 24 hr 00:00: mouth [place] tablet 00 daily. Medical Branch isosorbide 2018-0 Yes 60mg Take 2 [facility] rs mononitrate 5-03 tablets by it y of 30 mg 24 hr 00:00: mouth [place] tablet 00 daily. Medical Branch isosorbide 2018-0 Yes 60mg Take 2 [facility] rs mononitrate 5-03 tablets by it y of 30 mg 24 hr 00:00: mouth [place] tablet 00 daily. Medical Branch isosorbide 2019-0 Yes 60mg Take 2 [facility] rs mononitrate 5-03 tablets by it y of 30 mg 24 hr 00:00: mouth [place] tablet 00 daily. Medical Branch isosorbide 2018-0 Yes 60mg Take 2 [facility] rs mononitrate 5-03 tablets by it y of 30 mg 24 hr 00:00: mouth [place] tablet 00 daily. Medical Branch isosorbide 2019-0 Yes 60mg Take 2 [facility] rs mononitrate 5-03 tablets by it y of 30 mg 24 hr 00:00: mouth [place] tablet 00 daily. Medical Branch isosorbide 2019-0 Yes 60mg Take 2 [facility] rs mononitrate 5-03 tablets by it y of 30 mg 24 hr 00:00: mouth [place] tablet 00 daily. Medical Branch isosorbide 2019-0 Yes 60mg Take 2 [facility] rs mononitrate 5-03 tablets by it y of 30 mg 24 hr 00:00: mouth [place] tablet 00 daily. Medical Branch isosorbide 2019-0 Yes 60mg Take 2 [facility] rs mononitrate 5-03 tablets by it y of 30 mg 24 hr 00:00: mouth [place] tablet 00 daily. Medical Branch isosorbide 2019-0 Yes 60mg Take 2 [facility] rs mononitrate 5-03 tablets by it y of 30 mg 24 hr 00:00: mouth [place] tablet 00 daily. Medical Branch isosorbide 2019-0 Yes 60mg Take 2 [facility] rs mononitrate 5-03 tablets by it y of 30 mg 24 hr 00:00: mouth [place] tablet 00 daily. Medical Branch isosorbide 2019-0 Yes 60mg Take 2 [facility] rs mononitrate 5-03 tablets by it y of 30 mg 24 hr 00:00: mouth [place] tablet 00 daily. Medical Branch isosorbide 2019-0 Yes 60mg Take 2 [facility] rs mononitrate 5-03 tablets by it y of 30 mg 24 hr 00:00: mouth [place] tablet 00 daily. Medical Branch isosorbide 2019-0 Yes 60mg Take 2 [facility] rs mononitrate 5-03 tablets by it y of 30 mg 24 hr 00:00: mouth [place] tablet 00 daily. Medical Branch isosorbide 2019-0 Yes 60mg Take 2 [facility] rs mononitrate 5-03 tablets by it y of 30 mg 24 hr 00:00: mouth [place] tablet 00 daily. Medical Branch isosorbide 2019-0 2020- No 60mg Take 2 [facility] ers mononitrate 5-03 02-12 tablets by i ty of 30 mg 24 hr 00:00: 00:00 mouth [place] tablet 00 :00 daily. [facility] isosorbide 2019-0 2020- No 60mg Take 2 [facility] ers mononitrate 5-03 02-12 tablets by i ty of 30 mg 24 hr 00:00: 00:00 mouth [place] tablet 00 :00 daily. [facility] Branch apixaban 5 2019-0 Yes 5mg Take 1 [facility] rs mg tablet 1-03 tablet by ity o f 00:00: mouth (two) Medical times Branch daily. apixaban 5 2019-0 Yes 5mg Take 1 [facility] mg tablet 1-03 tablet by ity o f 00:00: mouth (two) Medical times Branch daily. apixaban 5 2019-0 Yes 5mg Take 1 [facility] rs mg tablet 1-03 tablet by ity o f 00:00: mouth (two) Medical times Branch daily. apixaban 5 2019-0 Yes 5mg Take 1 [facility] rs mg tablet 1-03 tablet by ity o f 00:00: mouth (two) Medical times Branch daily. apixaban 5 2019-0 Yes 5mg Take 1 [facility] mg tablet 1-03 tablet by ity o f 00:00: mouth (two) Medical times Branch daily. apixaban 5 2019-0 Yes 5mg Take 1 [facility] rs mg tablet 1-03 tablet by ity o f 00:00: mouth (two) Medical times Branch daily. apixaban 5 2019-0 Yes 5mg Take 1 [facility] rs mg tablet 1-03 tablet by ity o f 00:00: mouth (two) Medical times Branch daily. apixaban 5 2019-0 Yes 5mg Take 1 [facility] rs mg tablet 1-03 tablet by ity o f 00:00: mouth (two) Medical times Branch daily. apixaban 5 2019-0 Yes 5mg Take 1 [facility] rs mg tablet 1-03 tablet by ity o f 00:00: mouth (two) Medical times Branch daily. apixaban 5 2019-0 Yes 5mg Take 1 [facility] rs mg tablet 1-03 tablet by ity o f 00:00: mouth (two) Medical times Branch daily. apixaban 5 2019-0 Yes 5mg Take 1 [facility] rs mg tablet 1-03 tablet by ity o f 00:00: mouth 2 (two) Medical times Branch daily. apixaban 5 2019-0 Yes 5mg Take 1 [facility] rs mg tablet 1-03 tablet by ity o f 00:00: mouth (two) Medical times Branch daily. apixaban 5 2019-0 Yes 5mg Take 1 [facility] rs mg tablet 1-03 tablet by ity o f 00:00: mouth (two) Medical times Branch daily. apixaban 5 2019-0 Yes 5mg Take 1 [facility] rs mg tablet 1-03 tablet by ity o f 00:00: mouth 2 (two) Medical times Branch daily. apixaban 5 2019-0 Yes 5mg Take 1 [facility] rs mg tablet 1-03 tablet by ity o f 00:00: mouth (two) Medical times Branch daily. apixaban 5 2019-0 Yes 5mg Take 1 [facility] rs mg tablet 1-03 tablet by ity o f 00:00: mouth (two) Medical times Branch daily. apixaban 5 2019-0 Yes 5mg Take 1 [facility] rs mg tablet 1-03 tablet by ity o f 00:00: mouth (two) Medical times Branch daily. apixaban 5 2019-0 Yes 5mg Take 1 [facility] rs mg tablet 1-03 tablet by ity o f 00:00: mouth (two) Medical times Branch daily. apixaban 5 2019-0 Yes 5mg Take 1 [facility] mg tablet 1-03 tablet by ity o f 00:00: mouth (two) Medical times Branch daily. apixaban 5 2019-0 Yes 5mg Take 1 [facility] rs mg tablet 1-03 tablet by ity o f 00:00: mouth (two) Medical times Branch daily. apixaban 5 2019-0 Yes 5mg Take 1 [facility] rs mg tablet 1-03 tablet by ity o f 00:00: mouth (two) Medical times Branch daily. apixaban 5 2019-0 Yes 5mg Take 1 [facility] rs mg tablet 1-03 tablet by ity o f 00:00: mouth (two) Medical times Branch daily. apixaban 5 2019-0 Yes 5mg Take 1 [facility] rs mg tablet 1-03 tablet by ity o f 00:00: mouth 2 (two) Medical times Branch daily. apixaban 5 2019-0 Yes 5mg Take 1 [facility] rs mg tablet 1-03 tablet by ity o f 00:00: mouth 2 00 (two) Medical times Branch daily. apixaban 5 2018-0 Yes 5mg Take 1 [facility] rs mg tablet 1-03 tablet by ity o f 00:00: mouth 2 00 (two) Medical times Branch daily. apixaban 5 2018-0 Yes 5mg Take 1 [facility] rs mg tablet 1-03 tablet by ity o f 00:00: mouth 2 00 (two) Medical times Branch daily. apixaban 5 2018-0 2020- No 5mg Take 1 [facility] ers mg tablet 03-19 tablet by ity of 00:00: 00:00 mouth 2 [place] 00 :00 (two) Medical times Branch daily. apixaban 5 2018-0 2020- No 5mg Take 1 [facility] ers mg tablet 03-19 tablet by ity of 00:00: 00:00 mouth 2 [place] 00 :00 (two) Medical times Branch daily. amiodarone 2017-03 Yes TK 1 T PO Un ricki 200 mg 0-26 QD ity of tablet 00:00: [place] [facility] amiodarone 2017-03 Yes TK 1 T PO Un ricki 200 mg 0-26 QD ity of tablet 00:00: [place] [facility] amiodarone 2017-03 Yes TK 1 T PO Un ricki 200 mg 0-26 QD ity of tablet 00:00: [place] [facility] amiodarone 2017-03 Yes TK 1 T PO Un ricki 200 mg 0-26 QD ity of tablet 00:00: [place] [facility] amiodarone 2017-03 Yes TK 1 T PO Un ricki 200 mg 0-26 QD ity of tablet 00:00: [facility] Branch amiodarone 2017-03 Yes TK 1 T PO Un ricki 200 mg 0-26 QD ity of tablet 00:00: [place] [facility] amiodarone 2017-03 Yes TK 1 T PO Un ricki 200 mg 0-26 QD ity of tablet 00:00: [facility] amiodarone 2017-03 Yes TK 1 T PO Un [place] 200 mg 0-26 QD ity of tablet 00:00: [facility] amiodarone 2017-03 Yes TK 1 T PO Un ricki 200 mg 0-26 QD ity of tablet 00:00: [place] [facility] amiodarone 2018 Yes TK 1 T PO Un ricki 200 mg 0-26 QD ity of tablet 00:00: [place] [facility] Branch amiodarone 2017-03 Yes TK 1 T PO Un ricki 200 mg 0-26 QD ity of tablet 00:00: [place] [facility] Branch amiodarone 2017-03 Yes TK 1 T PO Un ricki 200 mg 0-26 QD ity of tablet 00:00: [place] [facility] amiodarone 2017-03 Yes TK 1 T PO Un ricki 200 mg 0-26 QD ity of tablet 00:00: [place] [facility] amiodarone 2017-03 Yes TK 1 T PO Un ricki 200 mg 0-26 QD ity of tablet 00:: [place] [facility] amiodarone 2017-03 Yes TK 1 T PO Un ricki 200 mg 0-26 QD ity of tablet 00:00: [place] [facility] amiodarone 2017-03 Yes TK 1 T PO Un ricki 200 mg 0-26 QD ity of tablet 00:00: [facility] amiodarone 2017-03 Yes TK 1 T PO Un ricki 200 mg 0-26 QD ity of tablet 00:00: [facility] amiodarone 2017-03 Yes TK 1 T PO Un ricki 200 mg 0-26 QD ity of tablet 00:00: [facility] amiodarone 2017-03 Yes TK 1 T PO Un ricki 200 mg 0-26 QD ity of tablet 00:00: [facility] amiodarone 2017-03 Yes TK 1 T PO Un ricki 200 mg 0-26 QD ity of tablet 00:00: [facility] amiodarone 2017-03 Yes TK 1 T PO Un ricki 200 mg 0-26 QD ity of tablet 00:00: [facility] amiodarone 2017-03 Yes TK 1 T PO Un ricki 200 mg 0-26 QD ity of tablet 00:00: [facility] amiodarone 2017-03 Yes TK 1 T PO Un ricki 200 mg 0-26 QD ity of tablet 00:00: [facility] amiodarone 2017-03 Yes TK 1 T PO Un ricki 200 mg 0-26 QD ity of tablet 00:00: [place] [facility] amiodarone 2017-03 Yes TK 1 T PO Un ricki 200 mg 0-26 QD ity of tablet 00:00: [place] 00 [facility] amiodarone 2017-03 Yes TK 1 T PO Un ricki 200 mg 0-26 QD ity of tablet 00:00: [place] 00 [facility] amiodarone 2017-03 2020- No TK 1 T PO U nivers 200 mg 0-26 02-12 QD ity of tablet 00:00: 00:00 [place] 00 :00 [facility] amiodarone 2017-03 2020- No TK 1 T PO U nivers 200 mg 0-26 02-12 QD ity of tablet 00:00: 00:00 [place] 00 :00 [facility] colchicine 2017-03 Yes .6mg Take 1 Unive rs 0.6 mg 0-25 tablet by ity of tablet 00:00: mouth [place] 00 daily. [facility] colchicine 2017-03 Yes .6mg Take 1 Unive rs 0.6 mg 0-25 tablet by ity of tablet 00:00: mouth [place] 00 daily. [facility] colchicine 2017-03 Yes .6mg Take 1 Unive rs 0.6 mg 0-25 tablet by ity of tablet 00:00: mouth [place] 00 daily. [facility] colchicine 2017-03 Yes .6mg Take 1 Unive rs 0.6 mg 0-25 tablet by ity of tablet 00:00: mouth [place] 00 daily. [facility] colchicine 2017-03 Yes .6mg Take 1 Unive rs 0.6 mg 0-25 tablet by ity of tablet 00:00: mouth [place] 00 daily. [facility] colchicine 2017-03 Yes .6mg Take 1 Unive rs 0.6 mg 0-25 tablet by ity of tablet 00:00: mouth [place] 00 daily. [facility] colchicine 2017-03 Yes .6mg Take 1 Unive rs 0.6 mg 0-25 tablet by ity of tablet 00:00: mouth [place] 00 daily. [facility] colchicine 2017-03 Yes .6mg Take 1 Unive rs 0.6 mg 0-25 tablet by ity of tablet 00:00: mouth [place] 00 daily. [facility] colchicine 2017-03 Yes .6mg Take 1 Unive rs 0.6 mg 0-25 tablet by ity of tablet 00:00: mouth [place] 00 daily. [facility] colchicine 2017-03 Yes .6mg Take 1 Unive rs 0.6 mg 0-25 tablet by ity of tablet 00:00: mouth [place] 00 daily. [facility] colchicine 2017-03 Yes .6mg Take 1 Unive rs 0.6 mg 0-25 tablet by ity of tablet 00:00: mouth [place] 00 daily. [facility] colchicine 2017-03 Yes .6mg Take 1 Unive rs 0.6 mg 0-25 tablet by ity of tablet 00:00: mouth [place] 00 daily. [facility] colchicine 2017-03 Yes .6mg Take 1 Unive rs 0.6 mg 0-25 tablet by ity of tablet 00:00: mouth [place] 00 daily. [facility] colchicine 2017-03 Yes .6mg Take 1 Unive rs 0.6 mg 0-25 tablet by ity of tablet 00:00: mouth [place] 00 daily. [facility] colchicine 2017-03 Yes .6mg Take 1 Unive rs 0.6 mg 0-25 tablet by ity of tablet 00:00: mouth [place] 00 daily. [facility] colchicine 2017-03 Yes .6mg Take 1 Unive rs 0.6 mg 0-25 tablet by ity of tablet 00:00: mouth [place] 00 daily. [facility] colchicine 2017-03 Yes .6mg Take 1 Unive rs 0.6 mg 0-25 tablet by ity of tablet 00:00: mouth [place] 00 daily. [facility] colchicine 2017-03 2020- No .6mg Take 1 Univ ers 0.6 mg 0-25 01-27 tablet by ity of tablet 00:00: 00:00 mouth [place] 00 :00 daily. [facility] colchicine 2017-03 2020- No .6mg Take 1 Univ ers 0.6 mg 0-25 01-27 tablet by ity of tablet 00:00: 00:00 mouth [place] 00 :00 daily. [facility] medroxyPROG Yes Pt to take Univers ESTERone 5-14 1 tab ity of (PROVERA) 00:00: daily the [place] 10 mg 00 first 10 Medical tablet days of [place] each month. medroxyPROG 2019- No Pt to take Univers ESTERone 5-14 08-08 1 tab ity of (PROVERA) 00:00[place] 00[place] 10 [place] 00 :00 first 10 Medical tablet days of [place] each month. aspirin 81 Yes 81mg Take 81 mg U nivers mg tablet 3-14 by mouth ity of 19:55: daily. [address] Branch levoFLOXaci 2017-0 Yes 750mg Take 1 Uni vers n 750 mg 3-03 tablet by ity of tablet 00:00: mouth [place] 00 every 24 Medical (twenty-fo Branch ur) hours. levoFLOXaci 2017-0 2019- No 750mg Take 1 Un ricki n 750 mg 3-03 08-08 tablet by ity o f tablet 00:00: 00:00 mouth [place] 00 :00 every 24 Medical (twenty-fo Branch ur) hours. Immunizations Ordered Filled Immunization Date Status Comments [facility] Immunization Name Name SARS-COV-2 COVID-19 2020-06-03 Completed Unive rsity of PFIZER VACCINE 00:00:00 [facility] SARS-COV-2 COVID-19 2020-06-03 Completed Unive rsity of PFIZER VACCINE 00:00:00 [facility] SARS-COV-2 COVID-19 2020-06-03 Completed Unive rsity of PFIZER VACCINE 00:00:00 [facility] SARS-COV-2 COVID-19 2020-06-03 Completed Unive rsity of PFIZER VACCINE 00:00:00 [facility] SARS-COV-2 COVID-19 2020-06-03 Completed Unive rsity of PFIZER VACCINE 00:00:00 [facility] SARS-COV-2 COVID-19 2020-06-03 Completed Unive rsity of PFIZER VACCINE 00:00:00 [facility] SARS-COV-2 COVID-19 2020-06-03 Completed Unive rsity of PFIZER VACCINE 00:00:00 [facility] SARS-COV-2 COVID-19 2020-06-03 Completed Unive rsity of PFIZER VACCINE 00:00:00 [facility] SARS-COV-2 COVID-19 2020-06-03 Completed Unive rsity of PFIZER VACCINE 00:00:00 [facility] SARS-COV-2 COVID-19 2020-06-03 Completed Unive rsity of PFIZER VACCINE 00:00:00 [facility] SARS-COV-2 COVID-19 2020-06-03 Completed Unive rsity of PFIZER VACCINE 00:00:00 [facility] SARS-COV-2 COVID-19 2020-06-03 Completed Unive rsity of PFIZER VACCINE 00:00:00 [facility] SARS-COV-2 COVID-19 2020-06-03 Completed Unive rsity of PFIZER VACCINE 00:00:00 [facility] SARS-COV-2 COVID-19 2020-06-03 Completed Unive rsity of PFIZER VACCINE 00:00:00 [facility] SARS-COV-2 COVID-19 2020-06-03 Completed Unive rsity of PFIZER VACCINE 00:00:00 [facility] SARS-COV-2 COVID-19 2020-06-03 Completed Unive rsity of PFIZER VACCINE 00:00:00 [facility] SARS-COV-2 COVID-19 2020-06-03 Completed Unive rsity of PFIZER VACCINE 00:00:00 [facility] SARS-COV-2 COVID-19 2020-06-03 Completed Unive rsity of PFIZER VACCINE 00:00:00 [facility] SARS-COV-2 COVID-19 2020-06-03 Completed Unive rsity of PFIZER VACCINE 00:00:00 [facility] SARS-COV-2 COVID-19 2020-06-03 Completed Unive rsity of PFIZER VACCINE 00:00:00 [facility] SARS-COV-2 COVID-19 2020-06-03 Completed Unive rsity of PFIZER VACCINE 00:00:00 [facility] SARS-COV-2 COVID-19 2020-06-03 Completed Unive rsity of PFIZER VACCINE 00:00:00 [facility] SARS-COV-2 COVID-19 2020-06-03 Completed Unive rsity of PFIZER VACCINE 00:00:00 [facility] SARS-COV-2 COVID-19 2020-06-03 Completed Unive rsity of PFIZER VACCINE 00:00:00 [facility] SARS-COV-2 COVID-19 2020-06-03 Completed Unive rsity of PFIZER VACCINE 00:00:00 [facility] SARS-COV-2 COVID-19 2020-06-03 Completed Unive rsity of PFIZER VACCINE 00:00:00 [facility] SARS-COV-2 COVID-19 2020-06-03 Completed Unive rsity of PFIZER VACCINE 00:00:00 [facility] SARS-COV-2 COVID-19 2020-06-03 Completed Unive rsity of PFIZER VACCINE 00:00:00 [facility] SARS-COV-2 COVID-19 2020-06-03 Completed Unive rsity of PFIZER VACCINE 00:00:00 [facility] SARS-COV-2 COVID-19 2020-06-03 Completed Unive rsity of PFIZER VACCINE 00:00:00 [facility] SARS-COV-2 COVID-19 2020-06-03 Completed Unive rsity of PFIZER VACCINE 00:00:00 [facility] SARS-COV-2 COVID-19 2020-06-03 Completed Unive rsity of PFIZER VACCINE 00:00:00 [facility] SARS-COV-2 COVID-19 2020-05-13 Completed Unive rsity of PFIZER VACCINE 00:00:00 [facility] SARS-COV-2 COVID-19 2020-05-13 Completed Unive rsity of PFIZER VACCINE 00:00:00 [facility] SARS-COV-2 COVID-19 2020-05-13 Completed Unive rsity of PFIZER VACCINE 00:00:00 [facility] SARS-COV-2 COVID-19 2020-05-13 Completed Unive rsity of PFIZER VACCINE 00:00:00 [facility] SARS-COV-2 COVID-19 2020-05-13 Completed Unive rsity of PFIZER VACCINE 00:00:00 [facility] SARS-COV-2 COVID-19 2020-05-13 Completed Unive rsity of PFIZER VACCINE 00:00:00 [facility] SARS-COV-2 COVID-19 2020-05-13 Completed Unive rsity of PFIZER VACCINE 00:00:00 [facility] SARS-COV-2 COVID-19 2020-05-13 Completed Unive rsity of PFIZER VACCINE 00:00:00 [facility] SARS-COV-2 COVID-19 2020-05-13 Completed Unive rsity of PFIZER VACCINE 00:00:00 [facility] SARS-COV-2 COVID-19 2020-05-13 Completed Unive rsity of PFIZER VACCINE 00:00:00 [facility] SARS-COV-2 COVID-19 2020-05-13 Completed Unive rsity of PFIZER VACCINE 00:00:00 [facility] SARS-COV-2 COVID-19 2020-05-13 Completed Unive rsity of PFIZER VACCINE 00:00:00 [facility] SARS-COV-2 COVID-19 2020-05-13 Completed Unive rsity of PFIZER VACCINE 00:00:00 [facility] SARS-COV-2 COVID-19 2020-05-13 Completed Unive rsity of PFIZER VACCINE 00:00:00 [facility] SARS-COV-2 COVID-19 2020-05-13 Completed Unive rsity of PFIZER VACCINE 00:00:00 [facility] SARS-COV-2 COVID-19 2020-05-13 Completed Unive rsity of PFIZER VACCINE 00:00:00 [facility] SARS-COV-2 COVID-19 2020-05-13 Completed Unive rsity of PFIZER VACCINE 00:00:00 [facility] SARS-COV-2 COVID-19 2020-05-13 Completed Unive rsity of PFIZER VACCINE 00:00:00 [facility] SARS-COV-2 COVID-19 2020-05-13 Completed Unive rsity of PFIZER VACCINE 00:00:00 [facility] SARS-COV-2 COVID-19 2020-05-13 Completed Unive rsity of PFIZER VACCINE 00:00:00 [facility] SARS-COV-2 COVID-19 2020-05-13 Completed Unive rsity of PFIZER VACCINE 00:00:00 [facility] SARS-COV-2 COVID-19 2020-05-13 Completed Unive rsity of PFIZER VACCINE 00:00:00 [facility] SARS-COV-2 COVID-19 2020-05-13 Completed Unive rsity of PFIZER VACCINE 00:00:00 [facility] SARS-COV-2 COVID-19 2020-05-13 Completed Unive rsity of PFIZER VACCINE 00:00:00 [facility] SARS-COV-2 COVID-19 2020-05-13 Completed Unive rsity of PFIZER VACCINE 00:00:00 [facility] SARS-COV-2 COVID-19 2020-05-13 Completed Unive rsity of PFIZER VACCINE 00:00:00 [facility] SARS-COV-2 COVID-19 2020-05-13 Completed Unive rsity of PFIZER VACCINE 00:00:00 [facility] SARS-COV-2 COVID-19 2020-05-13 Completed Unive rsity of PFIZER VACCINE 00:00:00 [facility] SARS-COV-2 COVID-19 2020-05-13 Completed Unive rsity of PFIZER VACCINE 00:00:00 [facility] SARS-COV-2 COVID-19 2020-05-13 Completed Unive rsity of PFIZER VACCINE 00:00:00 [facility] SARS-COV-2 COVID-19 2020-05-13 Completed Unive rsity of PFIZER VACCINE 00:00:00 [facility] SARS-COV-2 COVID-19 2020-05-13 Completed Unive rsity of PFIZER VACCINE 00:00:00 [facility] Td 2019-11-05 Completed University of 00:00:00 [facility] Td 2019-11-05 Completed University of 00:00:00 [facility] Td 2019-11-05 Completed University of 00:00:00 [facility] Td 2019-11-05 Completed University of 00:00:00 [facility] Td 2019-11-05 Completed University of 00:00:00 [facility] Td 2019-11-05 Completed University of 00:00:00 [facility] Td 2019-11-05 Completed University of 00:00:00 [facility] Td 2019-11-05 Completed University of 00:00:00 [facility] Td 2019-11-05 Completed University of 00:00:00 [facility] Td 2019-11-05 Completed University of 00:00:00 [facility] Td 2019-11-05 Completed University of 00:00:00 [facility] Td 2019-11-05 Completed University of 00:00:00 [facility] Td 2019-11-05 Completed University of 00:00:00 [facility] Td 2019-11-05 Completed University of 00:00:00 [facility] Td 2019-11-05 Completed University of 00:00:00 [facility] Td 2019-11-05 Completed University of 00:00:00 [facility] Td 2019-11-05 Completed University of 00:00:00 [facility] Td 2019-11-05 Completed University of 00:00:00 [facility] Td 2019-11-05 Completed University of 00:00:00 [facility] Td 2019-11-05 Completed University of 00:00:00 [place] [facility] Td 2019-11-05 Completed University of 00:00:00 [place] [facility] Td 2019-11-05 Completed University of 00:00:00 [place] [facility] Td 2019-11-05 Completed University of 00:00:00 [place] [facility] Td 2019-11-05 Completed University of 00:00:00 [place] [facility] Td 2019-11-05 Completed University of 00:00:00 [place] [facility] Td 2019-11-05 Completed University of 00:00:00 [place] [facility] Td 2019-11-05 Completed University of 00:00:00 [place] [facility] Td 2019-11-05 Completed University of 00:00:00 [place] [facility] Td 2019-11-05 Completed University of 00:00:00 [place] [facility] Td 2019-11-05 Completed University of 00:00:00 [place] [facility] Td 2019-11-05 Completed University of 00:00:00 [place] [facility] Td 2019-11-05 Completed University of 00:00:00 [place] [facility] Td 2019-11-05 Completed University of 00:00:00 [place] [facility] Td 2019-11-05 Completed University of 00:00:00 [place] [facility] Td 2019-11-05 Completed University of 00:00:00 [place] [facility] Td 2019-11-05 Completed University of 00:00:00 [place] [facility] Td 2019-11-05 Completed University of 00:00:00 [place] [facility] Td 2019-11-05 Completed University of 00:00:00 [place] [facility] Td 2019-11-05 Completed University of 00:00:00 [place] [facility] Td 2019-11-05 Completed University of 00:00:00 [place] [facility] Td 2019-11-05 Completed University of 00:00:00 [place] [facility] Td 2019-11-05 Completed University of 00:00:00 [place] [facility] Td 2019-11-05 Completed University of 00:00:00 [place] [facility] Td 2019-11-05 Completed University of 00:00:00 [place] [facility] Td 2019-11-05 Completed University of 00:00:00 [place] [facility] Td 2019-11-05 Completed University of 00:00:00 [place] [facility] Td 2019-11-05 Completed University of 00:00:00 [place] [facility] Td 2019-11-05 Completed University of 00:00:00 [place] [facility] Td 2019-11-05 Completed University of 00:00:00 [place] [facility] Td 2019-11-05 Completed University of 00:00:00 [place] [facility] Td 2019-11-05 Completed University of 00:00:00 [place] [facility] Td 2019-11-05 Completed University of 00:00:00 [place] [facility] Td 2019-11-05 Completed University of 00:00:00 [place] [facility] Td 2019-11-05 Completed University of 00:00:00 [place] [facility] Td 2019-11-05 Completed University of 00:00:00 [place] [facility] Td 2019-11-05 Completed University of 00:00:00 [place] [facility] Td 2019-11-05 Completed University of 00:00:00 [place] [facility] Td 2019-11-05 Completed University of 00:00:00 [place] [facility] Td 2019-11-05 Completed University of 00:00:00 [place] [facility] Td 2019-11-05 Completed University of 00:00:00 [place] [facility] Td 2019-11-05 Completed University of 00:00:00 [facility] Td 2019-11-05 Completed University of 00:00:00 [facility] Td 2019-11-05 Completed University of 00:00:00 [facility] Vital Signs Vital Name Observation Time Observation Value Comments Source WEIGHT 2021-03-08 11:47:00 98.8 kg HEIGHT 2021-02-28 08:00:00 160 cm WEIGHT 2021-02-27 19:00:00 102.694 kg WEIGHT 2021-03-08 11:47:00 98.8 kg HEIGHT 2021-02-28 08:00:00 160 cm WEIGHT 2021-02-27 19:00:00 102.694 kg Systolic blood 2021-02-27 20:28:29 126 mm[Hg] Univer sity of pressure [facility] Diastolic blood 2021-02-27 20:28:29 76 mm[Hg] Unive rsity of pressure [facility] Heart rate 2021-02-27 20:28:29 89 /min [facility] Body temperature 2021-02-27 20:28:29 36.67 Delia Univ ersity of [facility] Respiratory rate 2021-02-27 20:28:29 18 /[facility] 2021-02-27 20:28:29 94 /min [facility] Arterial blood by [facility] Pulse oximetry Branch Body height 2021-02-27 16:30:00 162.6 cm Universi ty of [place] [facility] Body weight 2021-02-27 16:30:00 107.502 kg Universi ty of [place] [facility] BMI 2021-02-27 16:30:00 40.68 kg/m2 [facility] of [place] [facility] Systolic blood 2020-11-29 18:25:00 144 mm[Hg] Univer sity of pressure [place] [facility] Diastolic blood 2020-11-29 18:25:00 90 mm[Hg] Unive rsity of pressure [place] [facility] Body weight 2020-11-29 18:25:00 107.502 kg Universi ty of [place] [facility] BMI 2020-11-29 18:25:00 43.35 kg/m2 [facility] of [place] [facility] Systolic blood 2020-07-27 18:05:00 119 mm[Hg] Univer sity of pressure [place] [facility] Diastolic blood 2020-07-27 18:05:00 69 mm[Hg] Unive rsity of pressure [place] [facility] Heart rate 2020-07-27 18:05:00 65 /min [facility]i [facility] [place] [facility] Body temperature 2020-07-27 18:05:00 36.11 Delia Univ ersity of [place] [facility] Respiratory rate 2020-07-27 18:05:00 18 /min Univ ersity of [place] [facility] Body height 2020-07-27 18:05:00 172.7 cm [facility]i [facility] [place] [facility] Body weight 2020-07-27 18:05:00 113.309 kg [facility]i [facility] of [place] [facility] BMI 2020-07-27 18:05:00 37.98 kg/m2 Universi ty of [place] [facility] Oxygen saturation in 2020-07-27 18:05:00 95 /min University of Arterial blood by [facility] Pulse oximetry Branch Systolic blood 2020-06-16 03:01:00 121 mm[Hg] Univer sity of pressure [place] [facility] Diastolic blood 2020-06-16 03:01:00 76 mm[Hg] Unive rsity of pressure [place] [facility] Heart rate 2020-06-16 03:01:00 92 /min [facility]i [facility] [place] [facility] Respiratory rate 2020-06-16 03:01:00 18 /min Univ ersity of [place] [facility] Oxygen saturation in 2020-06-16 03:01:00 97 /min University of Arterial blood by [place] [facility] Pulse oximetry Branch Body temperature 2020-06-16 00:36:00 37 Delia Univ ersity of [place] [facility] Body height 2020-06-16 00:36:00 160 cm [facility]i [facility] [place] [facility] Body weight 2020-06-16 00:36:00 113.399 kg [facility]i [facility] [place] [facility] BMI 2020-06-16 00:36:00 44.29 kg/m2 [facility] [place] [facility] Systolic blood 2020-06-06 15:25:00 138 mm[Hg] Univer sity of pressure [place] [facility] Diastolic blood 2020-06-06 15:25:00 71 mm[Hg] Unive rsity of pressure [place] [facility] Heart rate 2020-06-06 15:25:00 67 /min [facility] [place] [facility] Respiratory rate 2020-06-06 15:25:00 24 /min Univ ersity of [place] [facility] Oxygen saturation in 2020-06-06 15:25:00 95 /min University of Arterial blood by [facility] Pulse oximetry Branch Body temperature 2020-06-06 14:32:00 36.56 Delia Univ ersity of [place] [facility] Body height 2020-06-05 19:30:00 160 cm [facility]i [facility] [place] [facility] Body weight 2020-06-05 19:30:00 120.203 kg [facility] [place] [facility] BMI 2020-06-05 19:30:00 46.94 kg/m2 [facility] [place] [facility] Respiratory rate 2020-06-06 12:51:00 4 /min Univ ersity of [place] [facility] Systolic blood 2020-04-19 20:00:00 126 mm[Hg] Univer sity of pressure [place] [facility] Diastolic blood 2020-04-19 20:00:00 78 mm[Hg] Unive rsity of pressure [place] [facility] Heart rate 2020-04-19 20:00:00 65 /min [facility] [place] [facility] Oxygen saturation in 2020-04-19 20:00:00 98 /min University of Arterial blood by [place] [facility] Pulse oximetry Branch Respiratory rate 2020-04-19 19:20:00 15 /min Univ ersity of [place] [facility] Body temperature 2020-04-19 17:18:00 36.72 Delia Univ ersity of [facility] Body height 2020-04-19 17:18:00 167.6 cm Universi ty of [facility] Body weight 2020-04-19 17:18:00 115.667 kg Universi ty of [facility] BMI 2020-04-19 17:18:00 41.16 kg/m2 Universi ty of [facility] Systolic blood 2020-01-12 18:24:00 130 mm[Hg] Univer sity of pressure [facility] Diastolic blood 2020-01-12 18:24:00 60 mm[Hg] Unive rsity of pressure [facility] Body weight 2020-01-12 18:24:00 120.657 kg Universi ty of [facility] BMI 2020-01-12 18:24:00 42.93 kg/m2 Universi ty of [facility] Systolic blood 2019-11-29 18:38:00 140 mm[Hg] Univer sity of pressure [facility] Diastolic blood 2019-11-29 18:38:00 70 mm[Hg] Unive rsity of pressure [facility] Body weight 2019-11-29 18:38:00 118.389 kg Universi ty of [facility] BMI 2019-11-29 18:38:00 42.13 kg/m2 Universi ty of [facility] Systolic blood 2019-11-05 18:49:00 126 mm[Hg] Univer sity of pressure [facility] Diastolic blood 2019-11-05 18:49:00 64 mm[Hg] Unive rsity of pressure [facility] Heart rate 2019-11-05 18:49:00 69 /min Universi ty of [facility] Respiratory rate 2019-11-05 18:49:00 18 /min Univ ersity of [facility] Oxygen saturation in 2019-11-05 18:49:00 93 /min [facility] Arterial blood by [facility] Pulse oximetry Branch Body temperature 2019-11-05 14:21:00 36.67 Delia Univ ersity of [facility] Body weight 2019-11-05 14:21:00 120.203 kg [facility] BMI 2019-11-05 14:21:00 42.77 kg/m2 Universi ty of [facility] Systolic blood 2019-04-20 21:09:00 118 mm[Hg] Univer sity of pressure [facility] Diastolic blood 2019-04-20 21:09:00 66 mm[Hg] Unive rsity of pressure [facility] Heart rate 2019-04-20 21:09:00 69 /min [facility] Body temperature 2019-04-20 21:09:00 36.39 Delia Univ ersity of [facility] Respiratory rate 2019-04-20 21:09:00 20 /min Univ ersity of [facility] Body height 2019-04-20 21:09:00 167.6 cm [facility] Body weight 2019-04-20 21:09:00 116.756 kg [facility] BMI 2019-04-20 21:09:00 41.55 kg/m2 [facility] Oxygen saturation in 2019-04-20 21:09:00 98 /min University of Arterial blood by [place] [facility] claudia Pulse oximetry Branch Systolic blood 2019-04-12 19:50:00 134 mm[Hg] Univer sity of pressure [facility] Diastolic blood 2019-04-12 19:50:00 75 mm[Hg] Unive rsity of pressure [facility] Heart rate 2019-04-12 19:50:00 69 /min [facility] Body weight 2019-04-12 19:50:00 117.935 kg [facility] BMI 2019-04-12 19:50:00 46.06 kg/m2 [facility] Oxygen saturation in 2019-04-12 19:50:00 93 /min University of Arterial blood by [place] [facility] claudia Pulse oximetry Branch Systolic blood 2019-04-13 07:00:00 159 mm[Hg] Univer sity of pressure [facility] Diastolic blood 2019-04-13 07:00:00 95 mm[Hg] Unive rsity of pressure [facility] Heart rate 2019-04-13 07:00:00 79 /min [facility] Respiratory rate 2019-04-13 07:00:00 19 /min Univ ersity of [facility] Oxygen saturation in 2019-04-13 07:00:00 92 /min University of Arterial blood by [place] [facility] claudia Pulse oximetry Branch Body temperature 2019-04-13 02:29:00 36.5 Delia Univ ersity of [facility] Body weight 2019-04-13 02:29:00 117.935 kg [facility] BMI 2019-04-13 02:29:00 46.06 kg/m2 [facility] Systolic blood 2018-11-30 15:11:00 130 mm[Hg] Univer sity of pressure [facility] Diastolic blood 2018-11-30 15:11:00 70 mm[Hg] Unive rsity of pressure [facility] Systolic blood 2018-11-16 01:25:00 110 mm[Hg] Univer sity of pressure [facility] Diastolic blood 2018-11-16 01:25:00 54 mm[Hg] Unive rsity of pressure [facility] Heart rate 2018-11-16 01:25:00 83 /min [facility] Body temperature 2018-11-16 01:25:00 37.33 Delia Univ ersity of [facility] Respiratory rate 2018-11-16 01:25:00 18 /min Univ ersity of [facility] Body height 2018-11-16 01:25:00 160 cm [facility] Body weight 2018-11-16 01:25:00 108.863 kg [facility] BMI 2018-11-16 01:25:00 42.51 kg/m2 [facility] Oxygen saturation in 2018-11-16 01:25:00 94 /min University of Arterial blood by [facility] Pulse oximetry Branch Systolic blood 2018-10-22 16:45:00 98 mm[Hg] Univer sity of pressure [facility] Diastolic blood 2018-10-22 16:45:00 64 mm[Hg] Unive rsity of pressure [facility] Heart rate 2018-10-22 16:45:00 96 /min [facility] Body temperature 2018-10-22 16:45:00 36.44 Delia Univ ersity of [facility] Respiratory rate 2018-10-22 16:45:00 18 /min Univ ersity of [facility] Oxygen saturation in 2018-10-22 16:45:00 94 /min University of Arterial blood by [facility] Pulse oximetry Branch Body height 2018-10-15 02:19:00 160 cm [facility] Body weight 2018-10-15 02:19:00 117.935 kg [facility] acute hospital BMI 2018-10-15 02:19:00 46.06 kg/m2 General acute hospital Systolic blood 2018-10-09 16:58:00 153 mm[Hg] Univer sity of pressure [facility] Diastolic blood 2018-10-09 16:58:00 75 mm[Hg] Unive rsity of [facility] Heart rate 2018-10-09 16:58:00 71 /min General acute hospital Body temperature 2018-10-09 16:58:00 37.17 Delia [facility] Res[facility] rate 2018-10-09 16:58:00 16 /min [facility] Body height 2018-10-09 16:58:00 160 cm General acute hospital Body weight 2018-10-09 16:58:00 117.935 kg General acute hospital BMI 2018-10-09 16:58:00 46.06 kg/m2 General acute hospital Oxygen saturation in 2018-10-09 16:58:00 97 /min [facility] blood by [facility] Pulse oximetry Branch Procedures Procedure Date / Time Performing Clinician Source Performed MAGNESIUM 2021-02-27 16:50:00 Liz Otoole [facility] TROPONIN I 2021-02-27 16:50:00 Liz Otoole [facility] COMP. METABOLIC PANEL 2021-02-27 16:50:00 Liz Otoole [facility] ([id number]) [facility] CBC WITH DIFF 2021-02-27 16:50:00 Liz Otoole [facility] N-TERMINAL PRO-BNP 2021-02-27 16:50:00 Liz Otoole [facility] COVID-19 (ID NOW RAPID 2021-02-27 16:49:00 Liz Otoole [facility] TESTING) [facility] AC PANEL 21 + LACTIC ACID 2021-02-27 16:48:00 Liz Otoole [facility] XR CHEST 1 VW 2021-02-27 16:43:55 Liz Otoole [facility] STATEMENT OF PATIENT 2020-11-29 05:01:00 Doctor Raiza, [facility] FINANCIAL RESPONSIBILITY [facility] US HEAD NECK 2020-08-23 20:20:06 Lady Christensen [facility] [facility] [place] [facility] ASSIGNMENT OF BENEFITS 2020-08-23 19:43:05 Doctor Unassigned, [facility] ASSIGNMENT OF BENEFITS 2020-07-24 17:55:49 Doctor Unassigned, [facility] PHYSICIAN ORDERS 2020-06-27 05:01:00 Doctor Unassjustina, [facility] CONSENT/REFUSAL FOR 2020-06-16 00:19:40 Doctor Raiza, [facility] DIAGNOSIS AND TREATMENT [facility] FL TIME OR 2020-06-06 14:00:00 Kar Neil [place] [facility] [place] (NON-REPORTABLE) Medical [facility] DAY SURGERY - ADC 2020-06-06 05:01:00 Doctor Raiza, [facility] COVID-19 (ID NOW RAPID 2020-06-05 17:05:00 Lovely Bah [facility] TESTING) Medical Branch ASSIGNMENT OF BENEFITS 2020-06-05 16:37:05 Doctor Raiza, [facility] REFERRAL- REQUEST/RESPONSE 2020-05-22 06:01:00 Doctor Raiza , [facility] DISCLOSURE AND CONSENT, 2020-05-16 06:01:00 Doctor Raiza, [facility] MEDICAL AND SURGICAL [place] [facility] PROCEDURES BI US GUIDED CORE BREAST 2020-04-11 19:42:53 Lovely Bah [facility] BIOPSY RIGHT Medical Branch ASSIGNMENT OF BENEFITS 2020-04-11 16:03:06 Doctor Raiza, Un [facility] DEXA AXIAL (HIP AND SPINE) 2020-02-29 18:37:[address] [facility] Medical Branch BI DIAGNOSTIC 2020-02-29 18:06:00 Lovely Bah [facility] TOMOSYNTHESIS RIGHT Medical Bran ch BI ULTRASOUND BREAST 2020-02-29 17:49:53 Lovely Bah [facility] COMPLETE RIGHT Medical Branch CONSENT/REFUSAL FOR 2020-02-29 16:06:05 [facility] DIAGNOSIS AND TREATMENT [facility] ASSIGNMENT OF BENEFITS 2020-02-29 16:05:44 Yo Beaulieu [facility] REFERRAL- REQUEST/RESPONSE 2020-02-03 06:01:00 Doctor Eastman [facility] HOME HEALTH - OTHER 2020-01-27 06:01:00 Jennifer Beaulieu [facility] HOME HEALTH - OTHER 2020-01-17 06:01:00 [facility] Name Medical [place] SCANNED LAB RESULTS 2019-12-30 05:01:00 [facility] HOME HEALTH - OTHER 2019-12-18 05:01:00 Jennifer Beaulieu [facility] [place] [facility] HEALTH [id number] 2019-12-10 05:01:00 Doctor Eastman [facility] CT ELBOW LEFT WO CONTRAST 2019-11-05 18:26:24 Rosas Pearson [facility] [place] XR CHEST 1 VW 2019-11-05 16:29:04 Rosas Pearson [place] [facility] [place] [facility] XR RIBS 3 VW LEFT 2019-11-05 16:29:04 Rosas Pearson [facility] Medical Branch XR ELBOW <3 VW LEFT 2019-11-05 16:22:43 Rosas Pearson [facility] XR FOREARM 2 VW LEFT 2019-11-05 16:22:43 Rosas Pearson [facility] Medical Branch XR HUMERUS 2 VW LEFT 2019-11-05 16:22:43 Rosas Pearson [facility] Medical Branch CT HEAD WO CONTRAST 2019-11-05 15:43:05 Rosas Pearson [facility] Branch CONSENT/REFUSAL FOR 2019-11-05 14:12:01 Doctor Eastman [facility] DIAGNOSIS AND TREATMENT [facility] EXTERNAL PROVIDER RECORDS 2019-08-04 05:01:00 Doctor Eastman [facility] BI SCREENING MAMMOGRAM 2019-05-05 19:22:00 Lovely Bah [facility] BILATERAL Medical Branch CT ABDOMEN PELVIS W 2019-04-13 05:47:49 Nora Boucher [facility] CONTRAST [facility] Branch CT THORAX W CONTRAST 2019-04-13 05:47:49 Nora Boucher [facility] COMP. METABOLIC PANEL 2019-04-13 02:45:00 Nora Boucher [facility] ([id number]) [facility] [place] CBC WITH DIFFERENTIAL 2019-04-13 02:45:00 Nora Boucher [facility] PROTHROMBIN TIME / INR 2019-04-13 02:45:00 Nora Boucher [facility] EKG-12 LEAD 2019-04-13 02:23:57 Nora Boucher [facility] CONSENT/REFUSAL FOR 2019-04-13 02:11:23 Doctor Unassjustina, [facility] DIAGNOSIS AND TREATMENT [facility] XR CHEST 2 VW 2019-04-12 21:53:11 Svitlana [facility] ASSIGNMENT OF BENEFITS 2019-04-12 20:36:38 Doctor Unassigned, [facility] [place] [facility] ASSIGNMENT OF BENEFITS 2018-11-30 14:59:08 Doctor [facility]assigned, [facility] [place] [facility] XR KNEE 3 VW LEFT 2018-11-16 01:56:49 Rosas Pearson [facility] BASIC METABOLIC PANEL (NA, 2018-10-22 09:33:00 Bandar Sheehan [facility] [place] K, CL, CO2, GLUCOSE, BUN, Medica l Branch CREATININE, CA) URIC ACID 2018-10-21 10:47:00 Bandar Sheehan [facility] BASIC METABOLIC PANEL (NA, 2018-10-21 10:47:00 Bandar Sheehan [facility] [place] K, CL, CO2, GLUCOSE, BUN, Medica l Branch CREATININE, CA) BASIC METABOLIC PANEL (NA, 2018-10-20 11:10:00 Bandar [facility] [place] K, CL, CO2, GLUCOSE, BUN, Medica l Branch CREATININE, CA) CBC WITH DIFFERENTIAL 2018-10-19 09:18:00 Bandar Sheehan [facility] URIC ACID 2018-10-19 09:17:00 Aguila [facility] BASIC METABOLIC PANEL (NA, 2018-10-19 09:17:00 Bandar Sheehan [facility] K, CL, CO2, GLUCOSE, BUN, Medica l Branch CREATININE, CA) N-TERMINAL PRO-BNP 2018-10-19 09:17:00 Aguila gino [facility] BASIC METABOLIC PANEL (NA, 2018-10-18 09:51:00 Bandar Sheehan [facility] K, CL, CO2, GLUCOSE, BUN, Medica l Branch CREATININE, CA) N-TERMINAL PRO-BNP 2018-10-18 09:51:[address] [facility] TROPONIN I 2018-10-17 16:59:00 Fabiano [facility] EKG-12 LEAD 2018-10-17 12:08:17 Fabiano [facility] TROPONIN I 2018-10-17 09:08:00 Fabiano [facility] COMP. METABOLIC PANEL 2018-10-17 09:08:00 Aguila gino [facility] ([id number]) [facility] CBC WITH DIFFERENTIAL 2018-10-17 09:08:00 Aguila [facility] N-TERMINAL PRO-BNP 2018-10-17 09:08:[address] [facility] XR CHEST 1 VW 2018-10-16 14:13:57 Aguila [facility] URIC ACID 2018-10-16 09:03:00 Aguila [facility] MAGNESIUM 2018-10-16 09:03:00 Aguila [facility] COMP. METABOLIC PANEL 2018-10-16 09:03:00 Aguila gino [facility] ([id number]) [facility] CBC WITH DIFFERENTIAL 2018-10-16 09:03:00 Aguila [facility] N-TERMINAL PRO-BNP 2018-10-16 09:03:00 Aguila gino [facility] SODIUM, URINE RANDOM 2018-10-16 01:40:00 Bandar Sheehan [facility] PROTEIN CREAT RATIO URINE 2018-10-16 01:40:00 Bandar Sheehan [facility] [place] RANDOM Medical Branch US RETROPERITONEAL 2018-10-16 01:28:57 Bandar Sheehan [facility] COMPLETE [facility] CREATINE KINASE 2018-10-15 11:40:00 Aguila [facility] URIC ACID 2018-10-15 11:40:00 Aguila [facility] HEPATIC FUNCTION PANEL 2018-10-15 11:40:00 Sharif Maroi [facility] ([id number]) (ALB,T.PRO,[facility] T,BU/BC,ALT,AST,ALK PHOS) BASIC METABOLIC PANEL (NA, 2018-10-15 11:40:00 Nicole Bell [facility] K, CL, CO2, GLUCOSE, BUN, Medica l Branch CREATININE, CA) CBC WITH DIFFERENTIAL 2018-10-15 11:39:00 Nicole Bell Un [facility] XR FOOT 3+ VW LEFT 2018-10-14 19:54:28 [facility] BLOOD CULTURE SCREEN 2018-10-14 19:47:00 Chika Bella [facility] LACTIC ACID WHOLE BLOOD 2018-10-14 19:47:00 Chika Bella [facility] BLOOD CULTURE WORKUP 2018-10-14 19:47:00 Chika Bella [facility] GRAM POSITIVE BLOOD 2018-10-14 19:47:00 Chika Bella [facility] PATHOGENS DNA [facility] PROBE-ANAEROBIC FREE T4 2018-10-14 19:39:00 Sharif Mario [facility] THYROID STIMULATING 2018-10-14 19:39:00 Sharif Mario [facility] HORMONE [facility] COMP. METABOLIC PANEL 2018-10-14 19:39:00 Chika Bella [facility] ([id number]) Medical Branch CBC WITH DIFFERENTIAL 2018-10-14 19:39:[address] [facility] sity [facility] FREE T3 2018-10-14 19:39:00 Sharif Mario [facility] URINALYSIS 2018-10-14 19:14:00 Chika Bella [facility] URINE CULTURE 2018-10-14 19:14:00 Chika Bella [facility] EMERGENCY DEPARTMENT 2018-10-14 05:01:00 Doctor Unassigned, [facility] DOCUMENTS [facility] XR SHOULDER 2+ VW LEFT 2018-10-09 17:20:56 Armando Mathews [facility] Encounters Start End Encounter Admission Attending Care Care Encounter Source Date/Time Date/Time Type Type Clinicians Facility Department ID 2021-01-14 Emergency [facility] [id number] Univers 10:13:18 [facility] 2021-01-14 Outpatient R OLVIN [facility] CLARY [id number] Univers 03:32:39 LOVELY [facility] 2021-01-12 Emergency [facility] [id number] Univers 13:47:20 [facility] 2021-02-27 2021-03-12 Inpatient ER [facility] [id number] [facility] 18:04:00 18:00:00 LIZETH Med 2021-02-28 2021-02-28 [facility] [id number] [facility] 00:00:00 23:59:00 Daquan blanco of Medicin e 2021-02-27 2021-02-27 [id number] Univers 10:24:00 17:42:00 LIZ doty [facility] 2021-02-27 2021-02-27 [facility] [id number] Univers 10:24:00 17:42:00 Liz CONWAY [id number] ity [facility] [id number] [facility] [id number] [facility] 084 Branch 2021-01-18 2021-01-18 [facility] [id number] Univers 00:00:00 00:00:00 [facility] [id number] it y of [place] [id number] Ronan as PROFESSIO [phone] [address] OFFICE [facility] ONE 2021-01-12 2021-01-12 [facility] [id number] Univers 00:00:00 00:00:00 Checo HEALTH [id number] it y of [place] [id number] Ronan as PROFESSIO [phone] [address] OFFICE [facility] ONE 2020-12-08 2020-12-08 [facility] [id number] Univers 00:00:00 00:00:00 [facility] [id number] it y of [place] [id number] Ronan as Professio [phone] [address] One 2020-11-29 2020-11-29 Office Junior [facility] [id number] Univers 13:21:32 13:36:32 Visit [facility] [id number] it y of [place] [id number] Ronan as Sonny?Blea [phone] [address] 2020-11-29 2020-11-29 Outpatient Montrell REILLY [facility] [id number] Univers 13:15:00 13:15:00 CHECO [id number] jabiery [facility] 2020-11-29 2020-11-29 Outpatient Montrell REILLY [facility] [id number] Univers 13:15:00 13:15:00 CHECO ity [facility] 2020-11-29 2020-11-29 Orders Doctor MYRANDA [id number] Univers 00:00:00 00:00:00 Only Unassigned, REJI [id number] ity of [place] [facility] [id number] Ronan as [phone] [address] 2020-11-05 2020-11-05 [facility]marco [facility] [id number] Univers 00:00:00 00:00:00 [facility] [id number] it y of [place] [id number] Ronan as Professio [phone] Ms dical nal [address] [place] [address] One 2020-10-23 2020-10-23 [facility] [id number] Univers 00:00:00 00:00:00 [facility] [id number] it y of [place] [id number] Ronan as Professio [phone] Ms dical nal [address] [place] [address] One 2020-09-26 2020-09-26 [facility] [id number] Univers 13:30:00 13:30:00 [facility] [id number] [facility] 2020-09-20 2020-09-20 [facility] [id number] Univers 00:00:00 00:00:00 [facility] [id number] it y of [place] [id number] Ronan as Professio [phone] [facility] nal [address] [place] [address] One 2020-09-11 2020-09-11 Outpatient R LELE [facility] [id number] Univers 13:00:00 13:00:00 LIN [id number] ity [facility] 2020-09-08 2020-09-08 Outpatient R [facility] [id number] Univers 11:30:00 11:30:00 [id number] ity [facility] 2020-09-05 2020-09-05 Outpatient R OLVIN [facility] [id number] Univers 15:00:00 15:00:00 LOVELY [id number] [facility] 2020-09-05 2020-09-05 Outpatient R OLVIN [facility] [id number] Univers 15:00:00 15:00:00 LOVELY [facility] 2020-09-04 2020-09-04 Outpatient Montrell JARAMILLO [facility] [id number] Univers 14:30:00 14:30:00 DAVI [id number] ity of [facility] 2020-08-30 2020-08-30 Outpatient R LELE [facility] [id number] Univers 08:00:00 08:00:00 LIN [id number] ity of [facility] 2020-08-28 2020-08-28 Outpatient R [facility] [id number] Univers 09:00:00 09:00:00 [id number] ity of [facility] 2020-08-24 2020-08-24 Outpatient R LELE [facility] [id number] Univers 13:30:00 13:30:00 LIN [id number] ity [facility] 2020-08-23 2020-08-23 [facility] [id number] Univers 14:46:03 23:59:00 Encounter Lady Conway [id number] ity of [place] [id number] [place] [phone] [facility] 806 [place] 2020-08-23 2020-08-23 Outpatient R [facility] [id number] Univers 15:00:00 15:00:00 LADY [id number] ity [facility] 2020-08-23 2020-08-23 Outpatient R [facility] [id number] Univers 00:00:00 00:00:00 LADY ity [facility] 2020-08-23 2020-08-23 Orders Doctor WHITMORE 1.2.840.114 [id number] Univers 00:00:00 00:00:00 Only Unassigned, REJI [id number] ity of [place] [facility] [id number] Ronan as [phone] [facility] 009 [place] 2020-08-22 2020-08-22 [facility] [id number] Univers 00:00:00 00:00:00 [facility] [id number] it y of [place] [id number] Ronan as Abhishek [phone] [address] Office Building One 2020-08-17 2020-08-17 Outpatient R [facility] [id number] Univers 14:00:00 14:00:00 [id number] ity [facility] 2020-08-11 2020-08-11 Telephone [facility] [id number] Univers 00:00:00 00:00:00 Lady KELLY [id number] i ty of [facility] [id number] [phone] [facility] [address] [place] 2020-08-10 2020-08-10 Telephone [facility] 1.2.840.114 [id number] Univers 00:00:00 00:00:00 Lady Paolo [id number] it y of [facility] [id number] Ronan as BANK [phone] [facility] BLDG. [address] [place] 2020-08-01 2020-08-01 Outpatient R OLVIN [facility] [id number] Univers 15:00:00 15:20:07 LOVELY [facility] 2020-08-01 2020-08-01 [facility] [id number] Univers 15:00:00 15:00:00 LOVELY [id number] [facility] 2020-07-27 2020-07-27 Outpatient R JANE [facility] [id number] Univers 15:00:00 15:20:30 LIZ [facility] 2020-07-27 2020-07-27 Office LISA Orourke [id number] Univers 14:57:14 15:20:30 Visit Liz S Suzi [id number] i ty of BUILDING [id number] Ronan as [id number] [facility] [address] [place] 2020-07-27 2020-07-27 Office LISA Royal [id number] Univers 12:42:25 15:14:22 Visit Lin B H [id number] it y of [place]ILD[place] [id number] Ronan as [phone] [facility] 080 Branch 2020-07-27 2020-07-27 Outpatient R JANE [facility] [id number] Univers 15:00:00 15:00:00 LIZ ity [facility] 2020-07-27 2020-07-27 Outpatient R LELE [facility] [id number] Univers 13:00:00 13:00:00 LIN [id number] [facility] 2020-07-24 2020-07-24 Laboratory Only, Adc Test [facility] 1.2.840. 114 [id number] Univers 12:57:25 13:12:25 Only Lin Royal 350.1.13.10 ity of [place] [phone] [facility] [address] 2020-07-24 2020-07-24 Outpatient R [facility] [id number] -20 Univers 13:00:00 13:00:00 [id number] [facility] 2020-07-24 2020-07-24 Outpatient R LELE [facility] [id number] Univers 13:00:00 13:00:00 LIN [facility] 2020-07-24 2020-07-24 Orders Doctor MYRANDA 1.2.840.114 [id number] Univers 00:00:00 00:00:00 Only Unassigned, REJI 350.1.13.10 [facility] 4.2.7.2.686 [place] [phone] [facility] [address] 2020-06-27 2020-06-27 Library Media Technician 2, Adc Lab [facility] 1.2.840.114 [id number] Univers 14:35:19 14:50:19 Visit [facility] 350.1.13. 10 ity of [place] [phone] [facility] [address] [facility] 2020-06-27 2020-06-27 Outpatient [facility] [id number] Univers 13:30:00 14:03:51 LOVELY [facility] 2020-06-27 2020-06-27 [facility] [id number] 2Q-20 Univers 13:30:00 13:30:00 LOVELY [id number] ity of [facility] 2020-06-27 2020-06-27 Orders Doctor MYRANDA 1.2.840.114 [id number] Univers 00:00:00 00:00:00 Only Unassigned, REJI 350.1.13.10 ity of [place] [facility] 4.2.7.2.686 [place] as [phone] [facility] [address] 2020-06-15 2020-06-15 Emergency [facility] 1.2.412.693 [id number] Univers 19:38:00 22:11:00 Nora Conway 350.1.13.10 ity of [place] [phone] [facility] [address] 2020-06-06 2020-06-06 [facility] 1.2.840.114 [id number] Univers 06:29:00 10:54:00 Encounter Lovely Conway 350.1.13.10 it[place] of [place] [phone] Med ical Center [address] 2020-06-06 2020-06-06 Anesthesia Kelil Mathews [facility] 1.2.840 .114 [id number] Univers 07:30:00 09:26:00 Event Issa Charlton 350.1.13.10 ity of [place] [phone] [facility] [address] 2020-06-06 2020-06-06 Orders Doctor MYRANDA 1.2.840.114 [id number] Univers 00:00:00 00:00:00 Only Unassigned, REJI 350.1.13.10 ity of [place] [facility] 4.2.7.2.686 [place] [phone] [facility] [address] 2020-06-05 2020-06-05 Laboratory Only, Adc Test [facility] 1.2.840. 114 [id number] Univers 11:38:29 11:53:29 Only Lovely Bah 350.1.13.10 ity of [place] 4.2.7.2.686 [facility] [place] [phone] [facility] [address] 2020-06-05 2020-06-05 Outpatient R [facility] [id number] -20 Univers 08:15:00 08:15:00 [id number] ity [facility] 2020-06-05 2020-06-05 Outpatient [facility] [id number] Univers 08:15:00 08:15:00 LOVELY [facility] 2020-06-05 2020-06-05 Orders Doctor MYRANDA 1.2.840.114 [id number] Univers 00:00:00 00:00:00 Only Unassigned, REJI 350.1.13.[address] [facility] 4.2.7.2.686 [place] [phone] [facility] [address] 2020-06-03 2020-06-03 Outpatient [facility] [id number] Univers 11:25:00 11:25:00 ity [facility] 2020-05-16 2020-05-16 Outpatient [facility] [id number] Univers 13:30:00 15:08:51 LOVELY [facility] 2020-05-16 2020-05-16 Outpatient [facility] [id number] 2Q-20 Univers 13:30:00 13:30:00 LOVELY [id number] [facility] 2020-05-13 2020-05-13 Outpatient R [facility] [id number] Univers 11:15:00 11:15:00 [facility] 2020-05-02 2020-05-02 Outpatient [facility] [id number] 2Q-20 Univers 13:15:00 13:15:00 LOVELY [id number] [facility] 2020-05-02 2020-05-02 Outpatient [facility] [id number] Univers 13:15:00 13:15:00 LOVELY [facility] 2020-04-19 2020-04-19 Hospital Radiology [facility] 1.2.840.114 [id number] Univers 10:18:46 23:59:00 Encounter Y HEALTH 350.1.13.10 ity of [facility] 4.2.7.2.[place] [phone] [facility] [address] 2020-04-19 2020-04-19 Outpatient R RADIOLOGY [facility] [id number] 2Q-20 Univers 11:00:00 11:00:00 [id number] ity [facility] 2020-04-19 2020-04-19 Outpatient R RADIOLOGY [facility] [id number] Univers 00:00:00 00:00:00 ity of [facility] 2020-04-18 2020-04-18 Outpatient R [facility] [id number] 2Q-20 Univers 15:30:00 15:30:00 LOVELY [id number] ity [facility] 2020-04-18 2020-04-18 Outpatient R [facility] [id number] Univers 15:30:00 15:30:00 LOVELY [facility] 2020-04-11 2020-04-11 [facility] 1.2.840.114 [id number] Univers 10:00:00 23:59:00 Encounter Lovely Conway 350.1.13.10 ity of [place] [phone] [address] 2020-04-11 2020-04-11 Outpatient R [facility] [id number] 2Q-20 Univers 00:00:00 00:00:00 LOVELY [id number] ity [facility] 2020-04-11 2020-04-11 Outpatient R [facility] [id number] Univers 00:00:00 00:00:00 [facility] 2020-04-11 2020-04-11 Orders Doctor WHITMORE 1.2.840.114 [id number] Univers 00:00:00 00:00:00 Only Unassigned, REJI 350.1.13.10 ity of [place] [facility] 4.2.7.2.686 [place] [phone] [facility] [address] 2020-02-29 2020-02-29 [facility] 1.2.840.114 [id number] Univers 10:17:10 23:59:00 Encounter Lovely Conway 350.1.13.10 ity of [place] [phone] [address] 2020-02-29 2020-02-29 [facility] 1.2.840.114 [id number] Univers 10:16:43 10:16:43 Encounter Lovely Conway 350.1.13.10 ity of [place] 4[place].2.[place] [phone] [address] 2020-02-29 2020-02-29 [facility] 1.2.840.114 [id number] Univers 10:06:39 10:15:00 Encounter Checo Mahendra 350.1.13.10 ity of [place] 4[place].2.[place] [phone] [address] 2020-02-29 2020-02-29 [facility] 1.2.840.114 [id number] Univers 10:06:15 10:15:00 Encounter Lovely Conway 350.1.13.10 ity of [place] 4[place].2.[place] [phone] [address] 2020-02-29 2020-02-29 [facility] 1.2.840.114 [id number] Univers 10:00:00 10:05:00 Encounter Lovely Conway 350.1.13.10 ity of [place] 4[place].2.[place] [phone] [address] 2020-02-29 2020-02-29 Outpatient [facility] [id number] 2Q-20 Univers 10:00:00 10:00:00 LOVELY [id number] ity [facility] 2020-02-29 2020-02-29 Outpatient R [facility] [id number] Univers 00:00:00 00:00:00 LOVELY doty [facility] 2020-02-29 2020-02-29 [facility] 1.2.840.114 [id number] Univers 00:00:00 00:00:00 Lovely S [place] 350.1.13.10 i ty of [place].2.[place] [phone] [facility] [address] [facility] 2020-02-03 2020-02-03 Orders Doctor MYRANDA 1.2.840.114 [id number] Univers 00:00:00 00:00:00 Only Unassigned, REJI 350.1.13.10 ity of [place] [facility] 4.2.7.2.686 [place] [phone] [address] 2020-01-28 2020-01-28 Telephone [facility] 1.2.674.634 [id number] Univers 00:00:00 00:00:00 [facility] 350.1.13.10 it y of [place] 4.2.7.2.686 [place] Professio [phone] [facility] [address] Office [facility] 2020-01-27 2020-01-27 Orders Doctor MYRNADA 1.2.840.114 [id number] Univers 00:00:00 00:00:00 Only Unassigned, REJI 350.1.13.10 ity of [place] [facility] 4.2.7.2.686 [place] [phone] [address] 2020-01-26 2020-01-26 Library Media Technician Lab, Adc Fam Pob I [facility] 1.2. 840.114 [id number] Univers 13:20:07 15:13:06 Visit Checo Reilly [facility] 350.1.13.10 ity of [place] 4.2.7.2.686 [place] Professio [phone] [facility] [address] [facility] 2020-01-26 2020-01-26 Outpatient [facility] [id number] -20 Univers 13:20:00 13:20:00 [id number] ity [facility] 2020-01-26 2020-01-26 Outpatient R [facility] [id number] Univers 13:20:00 13:20:00 CHECO [facility] 2020-01-26 2020-01-26 Telephone [facility] 1.2.901.684 [id number] Univers 00:00:00 00:00:00 [facility] 350.1.13.10 it y of [place] 4.2.7.2.686 [place] Professio [phone] [address] Office [facility] 2020-01-17 2020-01-17 Orders Doctor MYRANDA 1.2.840.114 [id number] Univers 00:00:00 00:00:00 Only Unassigned, REJI 350.1.13.10 ity of [place] [facility] 4.2.7.2.686 [place] [phone] [address] 2020-01-14 2020-01-14 Outpatient R [facility] [id number] -20 Univers 09:00:00 09:00:00 ity [facility] 2020-01-13 2020-01-13 Telephone ReillyRUST 1.2.177.937 [id number] Univers 00:00:00 00:00:00 [facility] 350.1.13.10 it y of [place] 4.2.7.2.686 [place] Professio [phone] [address] Office [facility] 2020-01-12 2020-01-12 Office [facility] 1.2.840.114 [id number] Univers 13:07:26 13:37:27 Visit [facility] 350.1.13.10 it y of [place] 4.2.7.2.686 [place] Professio [phone] [address] Office [facility] 2020-01-12 2020-01-12 Outpatient R JUNIOR [facility] [id number] -20 Univers 13:30:00 13:30:00 CHECO [id number] ity [facility] 2020-01-12 2020-01-12 Outpatient R [facility] [id number] Univers 13:30:00 13:30:00 CHECO ity [facility] 2019-12-30 2019-12-30 Orders Doctor MYRANDA 1.2.840.114 [id number] Univers 00:00:00 00:00:00 Only Unassigned, REJI 350.1.13.10 ity of [place] [facility] 4.2.7.2.686 [place] [phone] [address] 2019-12-18 2019-12-18 Orders Doctor MYRANDA 1.2.840.114 [id number] Univers 00:00:00 00:00:00 Only Unassigned, REJI 350.1.13.10 ity of [place] [facility] 4.2.7.2.686 [place] [phone] [address] 2019-12-17 2019-12-17 Letter [facility] 1.2.840.114 [id number] Univers 00:00:00 00:00:00 (Out) [facility] 350.1.13.10 it y of [place] 4.2.7.2.686 [place] Professio [phone] Ms dicmo nal [address] [place] [address] Office Building One 2019-12-17 2019-12-17 Mae [facility] 1.2.898.494 [id number] Univers 00:00:00 00:00:00 [facility] 350.1.13.10 it y of [place] 4.2.7.2.686 [place] Professio [phone] Ms dicmo nal [address] [place] [address] Office [address] One 2019-12-10 2019-12-10 Orders Doctor MYRANDA 1.2.840.114 [id number] Univers 00:00:00 00:00:00 Only Unassigned, REJI 350.1.13.10 ity of [place] [facility] 4.2.7.2.686 [place] [phone] [address] 2019-12-09 2019-12-09 Mae [facility] 1.2.797.946 [id number] Univers 00:00:00 00:00:00 [facility] 350.1.13.10 it y of [place] 4.2.7.2.686 [place] Professio [phone] [facility] nal [address] [place] [address] Office [address] One 2019-12-08 2019-12-08 Mae [facility] 1.2.085.222 [id number] Univers 00:00:00 00:00:00 [facility] 350.1.13.10 it y of [place] 4.2.7.2.686 [place] Professio [phone] Ms [address] 2019-12-02 2019-12-02 Telephone [facility] 1.2.594.164 [id number] Univers 00:00:00 00:00:00 [facility] 350.1.13.10 it y of [place] 4.2.7.2.686 [place] Professio [phone] [address] 2019-11-29 2019-11-29 Office [facility] 1.2.840.114 [id number] Univers 13:37:08 13:52:08 Visit [facility] 350.1.13.10 it y of [place] 4.2.7.2.686 [place] Professio [phone] [address] 2019-11-29 2019-11-29 Outpatient R [facility] [id number] -20 Univers 13:30:00 13:30:00 CHECO [id number] ity [facility] 2019-11-29 2019-11-29 Outpatient R [facility] [id number] Univers 13:30:00 13:30:00 CHECO [facility] 2019-11-24 2019-11-24 Outpatient R [facility] [id number] -20 Univers 12:00:00 12:00:00 [facility] 2019-11-23 2019-11-23 Outpatient Montrell [facility] [id number] 2Q-20 Univers 13:30:00 13:30:00 LOVELY ity [facility] 2019-11-23 2019-11-23 Refill [facility] 1.2.840.114 [id number] Univers 00:00:00 00:00:00 [facility] 350.1.13.10 it y of [place] 4.2.7.2.686 [place] Professio [phone] [address] 2019-11-22 2019-11-22 Outpatient Montrell BAH [facility] [id number] 2Q-20 Univers 13:15:00 13:15:00 LOVELY ity [facility] 2019-11-17 2019-11-17 Outpatient Montrell [facility] [id number] 2Q-20 Univers 13:30:00 13:30:00 LOVELY ity [facility] 2019-11-16 2019-11-16 Outpatient Montrell CHINGLOVELY [facility] [id number] 2Q-20 Univers 09:30:00 09:30:00 [facility] 2019-11-05 2019-11-05 Emergency [facility] 1.2.442.340 [id number] Univers 09:23:00 15:15:00 Rosas Conway 350.1.13.10 i ty of [place] 4.2.7.2.686 [phone] [address] 2019-11-05 2019-11-05 Orders Doctor MYRANDA 1.2.840.114 [id number] Univers 00:00:00 00:00:00 Only Unassigned, REJI 350.1.13.10 ity of [place] [facility] 4.2.7.2.686 Ronan [phone] [facility] [address] 2019-10-27 2019-10-27 Outpatient R JUNIOR [facility] [id number] -[id number] Univers 14:30:00 14:30:00 CHECO [id number] [facility] 2019-10-27 2019-10-27 Outpatient Montrell [facility] [id number] Univers 14:30:00 14:30:00 CHECO [facility] 2019-10-26 2019-10-26 Outpatient Montrell [facility] [id number] Univers 14:30:00 14:30:00 LOVELY [facility] 2019-10-26 2019-10-26 Outpatient R OLVIN [facility] [id number] 2Q-20 Univers 14:30:00 14:30:00 LOVELY [id number] [facility] 2019-10-21 2019-10-21 Outpatient Montrell JARAMILLO [facility] [id number] -[id number] Univers 10:00:00 10:00:00 DAVI [facility] 2019-10-15 2019-10-15 Mae [facility] 1.2.400.354 [id number] Univers 00:00:00 00:00:00 Checo [place] 350.1.13.10 i ty [place] [phone] [address] 2019-10-07 2019-10-07 Telephone [facility] 1.2.261.466 [id number] Univers 00:00:00 00:00:00 [facility] 350.1.13.10 it y of [place] 4.2.7.2.686 [place] Professio [phone] [address] 2019-10-05 2019-10-05 Telephone ReillyRUST 1.2.034.025 [id number] Univers 00:00:00 00:00:00 ChecoPending sale to [facility] 350.1.13.10 it y of [place] 4.2.7.2.686 [place] Professio [phone] [address] 2019-09-16 2019-09-16 Outpatient Montrell JARAMILLO [facility] [id number] -20 Univers 10:00:00 10:00:00 DAVI [id number] [facility] 2019-09-16 2019-09-16 Outpatient Montrell JARAMILLO [facility] [id number] Univers 10:00:00 10:00:00 DAVI [facility] 2019-08-04 2019-08-04 [place] ReillyRUST 1.2.151.951 [id number] Univers 00:00:00 00:00:00 [facility] 350.1.13.10 it y of [place] 4.2.7.2.686 [place] Professio [phone] [address] 2019-08-04 2019-08-04 Orders Doctor MYRANDA 1.2.840.114 [id number] Univers 00:00:00 00:00:00 Only Unassigned, REJI 350.1.13.10 ity of [place] [facility] 4.2.7.2.686 [place] as [phone] [address] 2019-07-02 2019-07-02 Telephone ReillyRUST 1.2.275.153 [id number] Univers 00:00:00 00:00:00 [facility] 350.1.13.10 it y of [place] 4.2.7.2.686 [place] Professio [phone] Ms dical nal [address] Office [facility] 2019-06-22 2019-06-22 Outpatient R JESSE [facility] [id number] Univers 13:15:00 13:15:00 DAVI [facility] 2019-06-22 2019-06-22 Telemedici [facility] 1..840.114 [id number] Univers 09:28:07 09:43:07 ne Visit Davi [facility] 350.1.13.10 i ty of [place] - [phone] Med ica[address] 2019-06-22 2019-06-22 Outpatient R [facility] [id number] Q-20 Univers 09:30:00 09:30:00 CHAVEZ jabiery o f [facility] 2019-06-22 2019-06-22 Outpatient R [facility] [id number] Univers 09:30:00 09:30:00 CHAVEZ doty o [facility] 2019-06-18 2019-06-18 Outpatient R [facility] [id number] -20 Univers 09:45:00 09:45:00 GINNY [id number] [facility] 2019-06-18 2019-06-18 Outpatient R [facility] [id number] Univers 09:45:00 09:45:00 GINNY [facility] 2019-04-20 2019-06-02 Office [facility] 1..917.180 [id number] Univers 14:46:35 21:17:51 Visit Lovely Archuletaton 350.1.13.10 i ty [place] [phone] Ms dical nal [address] [facility] 2019-06-01 2019-06-01 Telephone [facility] 1..840.114 [id number] Univers 00:00:00 00:00:00 Lovely S [place] 350.1.13.10 i ty [place] 4.[place].7.2.[place] [phone] Ms dical nal [address] [facility] 2019-05-31 2019-05-31 Telephone [facility] 1.2.454.093 [id number] Univers 00:00:00 00:00:00 [facility] 350.1.13.10 it y of [place] 4.2.7.2.686 [place] Professio [phone] Ms dical nal [address] [facility] 2019-05-20 2019-05-20 Refill [facility] 1.2.840.114 [id number] Univers 00:00:00 00:00:00 [facility] 350.1.13.10 it y of [place] 4.2.7.2.686 [place] Professio [phone] Ms dical nal [address] Office [facility] 2019-05-05 2019-05-05 [facility] [id number] Univers 12:46:47 23:59:00 LOVELY ity of [facility] 2019-05-05 2019-05-05 [facility] 1.2.840.114 [id number] Univers 12:46:00 23:59:00 Encounter Lovely S [place] 350.1.13.10 ity [place] 4[place].2.[place] [phone] [address] 2019-05-03 2019-05-03 Telephone ReillyRUST 1.2.706.425 [id number] Univers 00:00:00 00:00:00 [facility] 350.1.13.10 it y of [place] 4.2.7.2.686 [place] Professio [phone] Ms dical nal [address] [facility] 2019-04-26 2019-04-26 Telephone [facility] 1.2.802.834 [id number] Univers 00:00:00 00:00:00 [facility] 350.1.13.10 it y of [place] 4.2.7.2.686 [place] Professio [phone] Ms dical nal [address] [facility] 2019-04-20 2019-04-20 [facility] [id number] Univers 15:00:00 15:51:31 LOVELY ity of [facility] 2019-04-12 2019-04-13 Office [facility] 1.2.840.114 [id number] Univers 13:42:43 17:02:53 Visit [facility] 350.1.13.10 it y of [place] 4.2.7.2.686 [place] as Professio [phone] Ms dical nal [address] [facility] 2019-04-12 2019-04-13 Emergency [facility] 1.2.372.182 [id number] Univers 20:17:41 01:17:00 Nora S [place] 350.1.13.10 ity [place] 4[place]2.7.2.[place] [phone] [facility] [address] 2019-04-13 2019-04-13 [facility] 1.2.454.417 [id number] Univers 00:00:00 00:00:00 [facility] 350.1.13.10 it y of [place] 4.2.7.2.686 [place] Professio [phone] Ms dical nal [address] Office [facility] One 2019-04-13 2019-04-13 Telephone [facility] 1.2.309.589 [id number] Univers 00:00:00 00:00:00 [facility] 350.1.13.10 it y of [place] 4.2.7.2.686 [place] Professio [phone] Ms dical nal [address] Building [facility] 2019-04-12 2019-04-12 [facility] 1.2.840.114 [id number] Univers 15:03:00 20:16:00 Encounter Delisa Archuletaton 350.1.13.10 ity of [place] 4.2.7.2.[place] [phone] [facility] [address] 2019-04-12 2019-04-12 [facility] 1.2.840.114 [id number] Univers 14:46:00 15:02:00 Encounter Delisa Archuletaton 350.1.13.10 ity of [place] 4.2.7.2.[place] [phone] [facility] [address] 2019-04-12 2019-04-12 Telephone Junior ORMITESH 1.2.058.706 [id number] Univers 00:00:00 00:00:00 [facility] 350.1.13.10 it y of [place] 4.2.7.2.686 [place] Professio [phone] [address] Office [facility] 2019-04-12 2019-04-12 Orders Doctor MYRANDA 1.2.840.114 [id number] Univers 00:00:00 00:00:00 Only Unassigned, REJI 350.1.13.10 ity of [place] [facility] 4.2.7.2.686 [place] as [phone] [address] 2019-04-12 2019-04-12 Nurse MYRANDA Lee 1.2.840.114 [id number] Univers 00:00:00 00:00:00 Triage Simran REJI 350.1.13.10 it y of HOSPITAL 4.2.7.2.686 [place] as [phone] [facility] [address] 2018-11-30 2018-11-30 Office [facility] 1.2.840.114 [id number] Univers 10:01:30 10:16:30 Visit [facility] 350.1.13.10 it y of [place] 4.2.7.2.686 [place] Professio [phone] [address] Office [facility] One 2018-11-30 2018-11-30 Orders Doctor MYRANDA 1.2.840.114 [id number] Univers 00:00:00 00:00:00 Only Unassigned, REJI 350.1.13.10 ity of [place] [facility] 4.2.7.2.686 Ron[place] as [phone] [address] 2018-11-24 2018-11-24 Refill Junior [facility] 1.2.840.114 [id number] Univers 00:00:00 00:00:00 [facility] 350.1.13.10 it y of [place] 4.2.7.2.686 [place]an as Professio [phone] [address] Office Building One 2018-11-23 2018-11-23 [facility] 1.2.840.114 [id number] Univers 00:00:00 00:00:00 [facility] 350.1.13.10 it y of [place] 4.2.7.2.686 [place] as Professio [phone] [address] Office [facility] One 2018-11-15 2018-11-15 [facility] [id number] Univers 20:19:58 22:31:00 Rosas [place] 350.1.13.10 i ty of [place]2.7.2.[place] [phone] [address] 2018-10-27 2018-10-27 [facility] 1.2.840.114 [id number] Univers 00:00:00 00:00:00 [facility] 350.1.13.10 it y of [place] 4.2.7.2.686 [place] as Professio [phone] [address] One 2018-10-26 2018-10-26 Telephone [facility] [id number] Univers 00:00:00 00:00:00 [facility] 350.1.13.10 it y of [place] 4.2.7.2.686 [place] as Professio [phone] [address] One 2018-10-24 2018-10-24 [facility]phone [facility] 1.2.593.146 [id number] Univers 00:00:00 00:00:00 [facility] 350.1.13.10 it y of [place] 4.2.7.2.686 [place] as Professio [phone] [facility] nal [address] [place] [address] Office [facility] One 2018-10-14 2018-10-22 [facility] Chika Bella [facility] 1.2.840.1 [id number] Univers 13:25:20 15:20:00 Encounter Bandar [place] 350.1.13.10 ity of [place] 4[place]2.7.2.[place] [phone] [address] 2018-10-09 2018-10-09 [facility] [facility] [id number] [facility] 11:59:30 13:31:00 Armando Conway [id number] [place] [id number] [facility] [phone] [facility] 084 Branch Results Test Description Test Time Test Comments Results Result Comments Source ANTI-MITOCHONDRIAL AB, REFLEX TO TITER 2021-03-12 11:27:00 Test Item Value Reference Range Interpretation Comme nts SCAN RESULT (test code = 8126886) BASIC METABOLIC [id number] 08:10:12 Test Item Value Reference Range Interpretation Comments SODIUM (BEAKER) 137 meq/L 136-145 (test code = 381) POTASSIUM (BEAKER) 4.1 meq/L 3.5-5.1 (test code = 379) CHLORIDE (BEAKER) 102 meq/L 98-107 (test code = 382) CO2 (BEAKER) (test 25 meq/L 22-29 code = 355) BLOOD UREA NITROGEN 18 mg/dL 7-21 (BEAKER) (test code = 354) CREATININE (BEAKER) 0.77 mg/dL 0.57-1.25 (test code = 358) GLUCOSE RANDOM 98 mg/dL 70-105 (BEAKER) (test code = 652) CALCIUM (BEAKER) 9.1 mg/dL 8.4-10.2 (test code = 697) EGFR (BEAKER) (test 72 mL/min/1.73 ESTIMA MORA GFR IS code = 1092) sq m NOT ACCURATE CREATININE CLEARANCE IN PREDICTING GLOMERULAR FILTRATION RATE . ESTIMATED GFR I S NOT APPLICABLE FOR DIALYSIS PATIEN TS. [employer] Operator ID - GILMAR IBARRAPATIC FUNCTION [id number] 08:10:12 Test Item Value Reference Range Interpretation Comments TOTAL PROTEIN (BEAKER) (test code = 5.4 gm/dL 6.0-8.3 L 770) ALBUMIN (BEAKER) (test code = 1145) 2.5 g/dL 3.5-5.0 L BILIRUBIN TOTAL (BEAKER) (test code 0.6 mg/dL 0.2-1.2 = 377) BILIRUBIN DIRECT (BEAKER) (test 0.4 mg/dL 0.1-0.5 code = 706) ALKALINE PHOSPHATASE (BEAKER) (test 98 U/L 40-150 code = 346) AST (SGOT) (BEAKER) (test code = 29 U/L 5-34 353) ALT (SGPT) (BEAKER) (test code = 14 U/L 6-55 347) [employer] Operator BARRY SCHAFER [id number] 08:01:35 Test Item Value Reference Range Interpretation Comments PHOSPHORUS (BEAKER) (test code = 3.3 mg/dL 2.3-4.7 604) [employer] Operator ID Addie SCHAFER WHEPATIC FUNCTION [id number] 08:01:35 Test Item Value Reference Range Interpretation Comments TOTAL PROTEIN (BEAKER) (test code = 5.3 gm/dL 6.0-8.3 L 770) ALBUMIN (BEAKER) (test code = 1145) 2.5 g/dL 3.5-5.0 L BILIRUBIN TOTAL (BEAKER) (test code 0.6 mg/dL 0.2-1.2 = 377) BILIRUBIN DIRECT (BEAKER) (test 0.4 mg/dL 0.1-0.5 code = 706) ALKALINE PHOSPHATASE (BEAKER) (test 100 U/L 40-150 code = 346) AST (SGOT) (BEAKER) (test code = 27 U/L 5-34 353) ALT (SGPT) (BEAKER) (test code = 14 U/L 6-55 347) [employer] Operator ID Addie SCHAFER [id number] 08:01:34 Test Item Value Reference Range Interpretation Comments MAGNESIUM (BEAKER) (test code = 1.8 mg/dL 1.6-2.6 627) [employer] Operator ID Addie SCHAFER WBASIC METABOLIC [id number] 08:01:34 Test Item Value Reference Range Interpretation Comments SODIUM (BEAKER) 137 meq/L 136-145 (test code = 381) POTASSIUM (BEAKER) 4.1 meq/L 3.5-5.1 (test code = 379) CHLORIDE (BEAKER) 102 meq/L 98-107 (test code = 382) CO2 (BEAKER) (test 26 meq/L 22-29 code = 355) BLOOD UREA NITROGEN 19 mg/dL 7-21 (BEAKER) (test code = 354) CREATININE (BEAKER) 0.79 mg/dL 0.57-1.25 (test code = 358) GLUCOSE RANDOM 98 mg/dL 70-105 (BEAKER) (test code = 652) CALCIUM (BEAKER) 9.2 mg/dL 8.4-10.2 (test code = 697) EGFR (BEAKER) (test 70 mL/min/1.73 ESTIMA MORA GFR IS code = 1092) sq m NOT ACCURATE CREATININE CLEARANCE IN PREDICTING GLOMERULAR FILTRATION RATE . ESTIMATED GFR I S NOT APPLICABLE FOR DIALYSIS PATIEN TS. [employer] Machine Operator ID - GILMAR WCBC W/PLT COUNT & AUTO [id number] 05:57:23 Test Item Value Reference Range Interpretation Comments WHITE BLOOD CELL COUNT (BEAKER) 4.2 K/ L 3.5-10.5 (test code = 775) RED BLOOD CELL COUNT (BEAKER) 3.20 M/ L 3.93-5.22 L (test code = 761) HEMOGLOBIN (BEAKER) (test code = 9.1 GM/DL 11.2-15.7 L 410) HEMATOCRIT (BEAKER) (test code = 29.9 % 34.1-44.9 L 411) MEAN CORPUSCULAR VOLUME (BEAKER) 93.4 fL 79.4-94.8 (test code = 753) MEAN CORPUSCULAR HEMOGLOBIN 28.4 pg 25.6-32.2 (BEAKER) (test code = 751) MEAN CORPUSCULAR HEMOGLOBIN CONC 30.4 GM/DL 32.2-35.5 L (BEAKER) (test code = 752) RED CELL DISTRIBUTION WIDTH 16.2 % 11.7-14.4 H (BEAKER) (test code = 412) PLATELET COUNT (BEAKER) (test 147 K/CU MM 150-450 L code = 756) MEAN PLATELET VOLUME (BEAKER) 11.4 fL 9.4-12.3 (test code = 754) NUCLEATED RED BLOOD CELLS 0 /100 WBC 0-0 (BEAKER) (test code = 413) NEUTROPHILS RELATIVE PERCENT 59 % (BEAKER) (test code = 429) LYMPHOCYTES RELATIVE PERCENT 28 % (BEAKER) (test code = 430) MONOCYTES RELATIVE PERCENT 12 % (BEAKER) (test code = 431) EOSINOPHILS RELATIVE PERCENT 1 % (BEAKER) (test code = 432) BASOPHILS RELATIVE PERCENT 0 % (BEAKER) (test code = 437) NEUTROPHILS ABSOLUTE COUNT 2.50 K/ L 1.56-6.13 (BEAKER) (test code = 670) LYMPHOCYTES ABSOLUTE COUNT 1.18 K/ L 1.18-3.74 (BEAKER) (test code = 414) MONOCYTES ABSOLUTE COUNT (BEAKER) 0.51 K/ L 0.24-0.36 H (test code = 415) EOSINOPHILS ABSOLUTE COUNT 0.02 K/ L 0.04-0.36 L (BEAKER) (test code = 416) BASOPHILS ABSOLUTE COUNT (BEAKER) 0.01 K/ L 0.01-0.08 (test code = 417) IMMATURE GRANULOCYTES-RELATIVE 1 % 0-1 PERCENT (BEAKER) (test code = 2801) CALCIUM, [id number] 05:56:02 Test Item Value Reference Range Interpretation Comments CALCIUM IONIZED (BEAKER) (test 1.19 mmol/L 1.12-1.27 code = 698) PH, BLOOD (BEAKER) (test code = 7.42 1810) CT, ABDOMEN, [id number] 16:35:00Unlisted Reason for Exam - Click Yes and Enter Reason Below->YesCT triple phase liver protocolUnlisted Reason for Exam->CT triple phase liver protocol to evaluate hepatic massesWill this procedure require oral contrast?->NoPlease specify:->[facility] 1940 Sex: FFINAL REPORT CT of the abdomen, with and without contrast Clinical History: Liver lesion, > 1cm, US nondiagnosticCT triple phase liver protocol to evaluate hepatic masses Technique: CT of the abdomen is performed before and after intravenous contrast administration.This exam was performed according to our departmental dose optimization program which includes automated exposure control, adjustment of the mA and/or kV according to patient's size and/or use of iterative reconstructive technique. Comparison Film: None Discussion: There are small bilateral pleural effusions. Liver is cirrhotic. There is a conglomeration of masses at the right hepatic dome, measuring approximately 10.4 x 13.3 x 9.5 cm. Two additional hypoenhancing masses are seen in the posterior right hepatic lobe, measuring 3.2 cm, and 3 cm. There is another 7 mm hypoenhancing liver lesion in the inferior right lobe. No biliary ductal dilatation. Status post cholecystectomy. Hepatic vasculatureis patent. Main portal vein measures 11 mm in diameter. Spleen is enlarged and measures 15.8 cm sagittally. The pancreas, and adrenal glands are normal. Kidneys demonstrate no hydronephrosis, mass or radiopaque stone. There are several cysts in both kidneys. Upper abdomen lymph nodes and several retroperitoneal nodes are mildly enlarged, measuring up to 1.2 cm in short axis. There is a small amount of ascites. Visualized bowel is unremarkable. The bony structures demonstrate degenerative changes. Nosuspicious bony lesion is identified. Impression: Cirrhosis, splenomegaly, and small amount of ascites. There is a conglomeration of masses at the hepatic dome, and several additional hypoenhancing lesions in the right hepatic lobe, suggestive of metastasis versus multifocal primary liver neoplasm. Mildly enlarged upper abdomen and retroperitoneal nodes. Small bilateral pleural effusions. Signed: Alda Ramirez Verified Date/Time: 03/08/2021 16:35:40 Reading Location: [address] Consult Reading Room ANA TITER AND [id number] 14:44:37 Test Item Value Reference Range Interpretation Comments KATHY TITER (BEAKER) (test code = :640 1541) KATHY PATTERN (BEAKER) (test code = Homogeneous 1781) ANTI-NUCLEAR ANTIBODY (KATHY)2021-03-08 14:44:15 Test Item Value Reference Range Interpretation Comments ANTI-NUCLEAR ANTIBODY (KATHY) (BEAKER) Positive Negative A (test code = 418) Test performed by IFA method.[id number] 08:18:42 Test Item Value Reference Range Interpretation Comments FERRITIN (BEAKER) (test code = 324.03 ng/mL 5.00-275.00 H 361) [employer] Operator ID - ALANNA MALPHA FETOPROTEIN (AFP), TUMOR [id number] 07:32:53 Test Item Value Reference Range Interpretation Comments ALPHA-FETOPROTEIN (BEAKER) (test code < ng/mL <10.0 = 1094) [employer] Operator ID - ALANNA MHEPATIC FUNCTION [id number] 07:08:30 Test Item Value Reference Range Interpretation Comments TOTAL PROTEIN (BEAKER) (test code = 5.7 gm/dL 6.0-8.3 L 770) ALBUMIN (BEAKER) (test code = 1145) 2.7 g/dL 3.5-5.0 L BILIRUBIN TOTAL (BEAKER) (test code 0.7 mg/dL 0.2-1.2 = 377) BILIRUBIN DIRECT (BEAKER) (test 0.4 mg/dL 0.1-0.5 code = 706) ALKALINE PHOSPHATASE (BEAKER) (test 108 U/L 40-150 code = 346) AST (SGOT) (BEAKER) (test code = 27 U/L 5-34 353) ALT (SGPT) (BEAKER) (test code = 17 U/L 6-55 347) [employer] Operator ID - ALANNA MBASIC METABOLIC [id number] 07:08:29 Test Item Value Reference Range Interpretation Comments SODIUM (BEAKER) 140 meq/L 136-145 (test code = 381) POTASSIUM (BEAKER) 4.7 meq/L 3.5-5.1 (test code = 379) CHLORIDE (BEAKER) 101 meq/L 98-107 (test code = 382) CO2 (BEAKER) (test 30 meq/L 22-29 H code = 355) BLOOD UREA NITROGEN 15 mg/dL 7-21 (BEAKER) (test code = 354) CREATININE (BEAKER) 0.73 mg/dL 0.57-1.25 (test code = 358) GLUCOSE RANDOM 91 mg/dL 70-105 (BEAKER) (test code = 652) CALCIUM (BEAKER) 9.5 mg/dL 8.4-10.2 (test code = 697) EGFR (BEAKER) (test 77 mL/min/1.73 ESTIMA MORA GFR IS code = 1092) sq m NOT ACCURATE CREATININE CLEARANCE IN PREDICTING GLOMERULAR FILTRATION RATE . ESTIMATED GFR I S NOT APPLICABLE FOR DIALYSIS PATIEN TS. [employer] Machine Operator ID - ALANNA MHEPATITIS B CORE ANTIBODY, [id number] 06:49:47 Test Item Value Reference Range Interpretation Comments HEPATITIS B CORE TOTAL ANTIBODY Nonreactive Nonreactive (BEAKER) (test code = 497) [employer] Operator ID - ALANNA MHEPATITIS A ANTIBODY, [id number] 06:49:46 Test Item Value Reference Range Interpretation Comments HEPATITIS A IGM ANTIBODY (BEAKER) Nonreactive Nonreactive (test code = 498) [employer] Operator ID - ALANNA MHEPATITIS A ANTIBODY, [id number] 06:49:46 Test Item Value Reference Range Interpretation Comments HEPATITIS A IGG ANTIBODY (BEAKER) Nonreactive Nonreactive (test code = 2797) [employer] Operator ID - ALANNA MCARCINOEMBRYONIC ANTIGEN (CEA)2021-03-08 06:49:41 Test Item Value Reference Range Interpretation Comments CARCINOEMBRYONIC ANTIGEN (BEAKER) 3.8 ng/mL 0.0-5.0 (test code = 685) [employer] Operator ID - ALANNA MPROTHROMBIN [id number] 04:15:02 Test Item Value Reference Range Interpretation Comments PROTIME (BEAKER) 21.7 seconds 11.9-14.2 H (test code = 759) INR (BEAKER) (test 1.92 See_Comment [Automat ed message] code = 370) The system iPointer generated this result transmitted ref erence range: <=5.90. The reference range was not used to int erpret this result as normal/abnormal . RECOMMENDED COUMADIN/WARFARIN INR THERAPY RANGESSTANDARD DOSE: 2.0 - 3.0 Includes: PROPHYLAXIS forvenous thrombosis, systemic embolization; TREATMENT for venous thrombosis and/or pulmonary embolus.HIGH RISK: Target INR is 2.5-3.5 for patients with mechanical heart valves.SARS-COV2/RT-PCR ([facility]) 2021-03-07 20:24:37 Test Item Value Reference Range Interpretation Comments SARS-COV2/RT-PCR (test code = Negative Negative 1894773) Negative result for this test determines that SARS-CoV-2 RNA was not present in the specimen above the Limit of Detection (LOD). However, Negative results do not preclude SARS-CoV-2 infection and should not be used as the sole basis for treatment or patient management decisions. Negative results must be combined with clinical observations, patient history, and epidemiological information. A false negative result may occur if a specimen is improperly collected, transported, or handled. A false negative result should be considered if patient's recent exposures or clinical presentation indicate that COVID-19 (SARS-CoV-2) is likely and diagnostic tests for other causes of illness are negative. Re-testing should be considered in cases of suspected false negatives.The limit of detection for this assay is 100 copies/mL.This SARS-CoV-2 test is a real-time RT_PCR test intended for the qualitative detection of nucleic acid from SARS-CoV-2 in a nasopharyngeal swab specimen collected from individuals suspected of COVID-19 by their healthcare provider.This test has not been Food and Drug Administration (FDA) cleared or approved. This is a modified version of an approved Emergency Use Authorization (EUA) and is in the process of review by the FDA. Once authorized by the FDA, the issued EUA will be e ffective until the declaration that circumstances exist justifying the authorization of the emergency use of in vitro diagnostic tests for detection and/or diagnosis of COVID-19 is terminated under Section 564(b)(2) of the Act or the EUA is revoked under Section 564(g) of the Act.Testing was performedusing the Norton SARS-CoV-2 assay.Fact Sheet for Healthcare Providers:https://www.[employer].norton/emigdio/RT SARS-CoV-2 HCP Fact Sheet 51- 027323.pdfFact Sheet for Healthcare Patients:https://www.molecular.norton/emigdio/RT SARS-CoV-2 Patient Fact Sheet EN 51-817159O6.pdfHEPATITIS B SURFACE ANTIBODY 2021-03-07 19:19:14 Test Item Value Reference Range Interpretation Comments HEPATITIS B SURFACE ANTIBODY < mIU/mL <8.0 (BEAKER) (test code = 647) [employer] Machine Operator ID - BSVITAMIN D, [id number] 19:17:16 Test Item Value Reference Range Interpretation Comments VITAMIN D 25-OH (BEAKER) (test 30.2 ng/mL 6.6-49.9 code = 2764) Effective 12/25/2016: Reference Range ChangeNew: 6.6-49.9 ng/mL Previous: 13.0-47.8 ng/mLRecommended Vitamin D Target Range: 30.0-40.0 ng/mLOperator ID - BSHEPATITIS C [id number] 19:17:15 Test Item Value Reference Range Interpretation Comments HEPATITIS C ANTIBODY (BEAKER) Nonreactive Nonreactive (test code = 367) [employer] Making Machine Operator ID - [id number]-[id number] 18:35:27 Test Item Value Reference Range Interpretation Comments ALPHA-1 ANTITRYPSIN (BEAKER) 261.00 mg/dL 90.00-200.00 H (test code = 502) [employer] Machine Operator ID - BSHEPATITIS B SURFACE [id number] 22:11:59 Test Item Value Reference Range Interpretation Comments HEPATITIS B SURFACE ANTIGEN (2) Nonreactive Nonreactive (BEAKER) (test code = 2585) [employer] Making Machine Operator ID - [id number], TIBC, % SAT. (WITHOUT FERRITIN)2021-03-06 18:33:09 Test Item Value Reference Range Interpretation Comments IRON (BEAKER) (test code = 547) 27.0 ug/dL 40.0-160.0 L TOTAL IRON BINDING CAPACITY 196 ug/dL 250-450 L (BEAKER) (test code = 769) IRON % SATURATION (2) (BEAKER) 14 % 20-55 L (test code = 2590) [employer] Making Machine Operator ID - BSCBC W/PLT COUNT & AUTO [id number] 05:58:46 Test Item Value Reference Range Interpretation Comments WHITE BLOOD CELL COUNT 4.8 K/ L 3.5-10.5 (BEAKER) (test code = 775) RED BLOOD CELL COUNT 3.41 M/ L 3.93-5.22 L (BEAKER) (test code = 761) HEMOGLOBIN (BEAKER) 9.8 GM/DL 11.2-15.7 L (test code = 410) HEMATOCRIT (BEAKER) 33.3 % 34.1-44.9 L (test code = 411) MEAN CORPUSCULAR 97.7 fL 79.4-94.8 H Discordant result VOLUME (BEAKER) (test compar ed to previous code = 753) result. Clinica l correlation req uired MEAN CORPUSCULAR 28.7 pg 25.6-32.2 HEMOGLOBIN (BEAKER) (test code = 751) MEAN CORPUSCULAR 29.4 GM/DL 32.2-35.5 L HEMOGLOBIN CONC (BEAKER) (test code = 752) RED CELL DISTRIBUTION 16.6 % 11.7-14.4 H WIDTH (BEAKER) (test code = 412) PLATELET COUNT 162 K/CU MM 150-450 (BEAKER) (test code = 756) MEAN PLATELET VOLUME 11.2 fL 9.4-12.3 (BEAKER) (test code = 754) NUCLEATED RED BLOOD 0 /100 WBC 0-0 CELLS (BEAKER) (test code = 413) NEUTROPHILS RELATIVE 66 % PERCENT (BEAKER) (test code = 429) LYMPHOCYTES RELATIVE 22 % PERCENT (BEAKER) (test code = 430) MONOCYTES RELATIVE 11 % PERCENT (BEAKER) (test code = 431) EOSINOPHILS RELATIVE 1 % PERCENT (BEAKER) (test code = 432) BASOPHILS RELATIVE 0 % PERCENT (BEAKER) (test code = 437) NEUTROPHILS ABSOLUTE 3.17 K/ L 1.56-6.13 COUNT (BEAKER) (test code = 670) LYMPHOCYTES ABSOLUTE 1.08 K/ L 1.18-3.74 L COUNT (BEAKER) (test code = 414) MONOCYTES ABSOLUTE 0.51 K/ L 0.24-0.36 H COUNT (BEAKER) (test code = 415) EOSINOPHILS ABSOLUTE 0.04 K/ L 0.04-0.36 COUNT (BEAKER) (test code = 416) BASOPHILS ABSOLUTE 0.01 K/ L 0.01-0.08 COUNT (BEAKER) (test code = 417) IMMATURE 0 % 0-1 GRANULOCYTES-RELATIVE PERCENT (BEAKER) (test code = 2801) BASIC METABOLIC [id number] 04:39:34 Test Item Value Reference Range Interpretation Comments SODIUM (BEAKER) 138 meq/L 136-145 (test code = 381) POTASSIUM (BEAKER) 4.6 meq/L 3.5-5.1 (test code = 379) CHLORIDE (BEAKER) 102 meq/L 98-107 (test code = 382) CO2 (BEAKER) (test 29 meq/L 22-29 code = 355) BLOOD UREA NITROGEN 18 mg/dL 7-21 (BEAKER) (test code = 354) CREATININE (BEAKER) 0.71 mg/dL 0.57-1.25 (test code = 358) GLUCOSE RANDOM 98 mg/dL 70-105 (BEAKER) (test code = 652) CALCIUM (BEAKER) 8.6 mg/dL 8.4-10.2 (test code = 697) EGFR (BEAKER) (test 79 mL/min/1.73 ESTIMA MORA GFR IS code = 1092) sq m NOT ACCURATE CREATININE CLEARANCE IN PREDICTING GLOMERULAR FILTRATION RATE . ESTIMATED GFR I S NOT APPLICABLE FOR DIALYSIS PATIEN TS. [employer] Making Machine Operator ID - ALANNA [id number] 04:39:34 Test Item Value Reference Range Interpretation Comments MAGNESIUM (BEAKER) (test code = 1.8 mg/dL 1.6-2.6 627) [employer] Making Machine Operator ID - ALANNA [id number] 04:39:34 Test Item Value Reference Range Interpretation Comments PHOSPHORUS (BEAKER) (test code = 2.4 mg/dL 2.3-4.7 604) [employer] Making Machine Operator ID - ALANNA MCALCIUM, [id number] 04:09:27 Test Item Value Reference Range Interpretation Comments CALCIUM IONIZED (BEAKER) (test 1.10 mmol/L 1.12-1.27 L code = 698) PH, BLOOD (BEAKER) (test code = 7.43 1810) CT, CHEST WITH IV CONTRAST- PE TEST [id number] 16:51:00Unlisted Reason for Exam - Click Yes and Enter Reason Below->No [facility] 1940 Sex: FFINAL REPORT CT of the chest, pulmonary embolism protocol Clinical History: Shortness of breath Technique: Precontrast axial images at the level of the pulmonary outflow tract are obtained for the purpose of contrast bolus tracking. Postcontrast axial images of the chest are subsequently obtained with optimal pulmonary arterial enhancement followed by delayed postcontrast images. Coronal 2D reformatted images are reviewed. This exam was performed according to our departmental dose optimization program which includes automated exposure control, adjustment of the mAand/or kV according to patient's size and/or use of iterative reconstructive technique. Comparison Film: None Discussion: No filling defects are identified within the pulmonary arteries to suggest acute pulmonary embolism. However, exam is graded by respiratory motion, subsegmental PE, particularly at the lower lungs, cannot be entirely excluded. No supraclavicular, or axillary lymphadenopathy. A few mildly prominent mediastinal lymph nodes are probably reactive. Heart is enlarged. The main pulmonary artery is borderline enlarged, measuring 3 cm. There is trace left-sided pleural effusion, and small right effusion. There is mild atelectasis/scarring in both lungs. Central airways are patent, no significant bronchiectasis, or bronchial wall thickening. Liver appears mildly nodular with heterogeneous density. There are two hypodense lesions in the right hepatic lobe, measuring 3.8 cm, and 3.3 cm.There is also heterogeneous density at the right hepatic dome. Status post cholecystectomy. Spleen is enlarged. There is a small amount of ascites. Bony structures demonstrate degenerative changes. Impression: No PE is identified. However, exam is degraded by respiratory motion, subsegmental PE cannotbe excluded. Trace left, small right pleural effusions. Mild atelectasis/scarring both lungs. Liver appears cirrhotic. There are two hypodense lesions in the right hepatic lobe, concerning for neoplasm; there is also heterogeneous density at the right hepatic dome. Splenomegaly and small amount of ascites. Mild cardiomegaly. Borderline enlargement of the main pulmonary artery may reflect pulmonary hypertension. Signed: Alda Ramirezort Verified Date/Time: 03/05/2021 16:51:12 Reading Location: [facility] [id number] [facility] Consult Reading Room CALCIUM, [id number] 05:16:06 Test Item Value Reference Range Interpretation Comments CALCIUM IONIZED (BEAKER) (test 1.13 mmol/L 1.12-1.27 code = 698) PH, BLOOD (BEAKER) (test code = 7.45 1810) BASIC METABOLIC [id number] 05:01:17 Test Item Value Reference Range Interpretation Comments SODIUM (BEAKER) 141 meq/L 136-145 (test code = 381) POTASSIUM (BEAKER) 3.3 meq/L 3.5-5.1 L (test code = 379) CHLORIDE (BEAKER) 101 meq/L 98-107 (test code = 382) CO2 (BEAKER) (test 31 meq/L 22-29 H code = 355) BLOOD UREA NITROGEN 20 mg/dL 7-21 (BEAKER) (test code = 354) CREATININE (BEAKER) 0.67 mg/dL 0.57-1.25 (test code = 358) GLUCOSE RANDOM 98 mg/dL 70-105 (BEAKER) (test code = 652) CALCIUM (BEAKER) 8.8 mg/dL 8.4-10.2 (test code = 697) EGFR (BEAKER) (test 85 mL/min/1.73 ESTIMA MORA GFR IS code = 1092) sq m NOT ACCURATE CREATININE CLEARANCE IN PREDICTING GLOMERULAR FILTRATION RATE . ESTIMATED GFR I S NOT APPLICABLE FOR DIALYSIS PATIEN TS. [employer] Machine Operator ID - DICK [id number] 05:01:17 Test Item Value Reference Range Interpretation Comments MAGNESIUM (BEAKER) (test code = 1.7 mg/dL 1.6-2.6 627) [employer] Machine Operator ID - DICK [id number] 05:01:17 Test Item Value Reference Range Interpretation Comments PHOSPHORUS (BEAKER) (test code = 2.3 mg/dL 2.3-4.7 604) [employer] Operator ID Addie DICK LCBC W/PLT COUNT & AUTO [id number] 04:25:19 Test Item Value Reference Range Interpretation Comments WHITE BLOOD CELL COUNT (BEAKER) 5.3 K/ L 3.5-10.5 (test code = 775) RED BLOOD CELL COUNT (BEAKER) 3.38 M/ L 3.93-5.22 L (test code = 761) HEMOGLOBIN (BEAKER) (test code = 9.6 GM/DL 11.2-15.7 L 410) HEMATOCRIT (BEAKER) (test code = 31.3 % 34.1-44.9 L 411) MEAN CORPUSCULAR VOLUME (BEAKER) 92.6 fL 79.4-94.8 (test code = 753) MEAN CORPUSCULAR HEMOGLOBIN 28.4 pg 25.6-32.2 (BEAKER) (test code = 751) MEAN CORPUSCULAR HEMOGLOBIN CONC 30.7 GM/DL 32.2-35.5 L (BEAKER) (test code = 752) RED CELL DISTRIBUTION WIDTH 16.3 % 11.7-14.4 H (BEAKER) (test code = 412) PLATELET COUNT (BEAKER) (test 162 K/CU MM 150-450 code = 756) MEAN PLATELET VOLUME (BEAKER) 11.3 fL 9.4-12.3 (test code = 754) NUCLEATED RED BLOOD CELLS 0 /100 WBC 0-0 (BEAKER) (test code = 413) NEUTROPHILS RELATIVE PERCENT 70 % (BEAKER) (test code = 429) LYMPHOCYTES RELATIVE PERCENT 21 % (BEAKER) (test code = 430) MONOCYTES RELATIVE PERCENT 8 % (BEAKER) (test code = 431) EOSINOPHILS RELATIVE PERCENT 1 % (BEAKER) (test code = 432) BASOPHILS RELATIVE PERCENT 0 % (BEAKER) (test code = 437) NEUTROPHILS ABSOLUTE COUNT 3.71 K/ L 1.56-6.13 (BEAKER) (test code = 670) LYMPHOCYTES ABSOLUTE COUNT 1.11 K/ L 1.18-3.74 L (BEAKER) (test code = 414) MONOCYTES ABSOLUTE COUNT (BEAKER) 0.42 K/ L 0.24-0.36 H (test code = 415) EOSINOPHILS ABSOLUTE COUNT 0.03 K/ L 0.04-0.36 L (BEAKER) (test code = 416) BASOPHILS ABSOLUTE COUNT (BEAKER) 0.02 K/ L 0.01-0.08 (test code = 417) IMMATURE GRANULOCYTES-RELATIVE 1 % 0-1 PERCENT (BEAKER) (test code = 2801) [id number] 04:29:31 Test Item Value Reference Range Interpretation Comments D-DIMER QUANTITATIVE (BEAKER) 3.20 MG/L FEU <0.50 H (test code = 671) Intended Use: The D-Dimer Assay can be used to aid in the diagnosis of Deep Vein Thrombosis (DVT) and Pulmonary Embolism Disease (PED).In patients with low pre- test probability, various studies concerning STA Liatest D-dimer test have reported that with a cutoff value of 0.50 MG/L FEU, the Negative Predictive Value (NPV) regarding the exclusion of thrombosis is within 95-100% range. [id number] 04:27:14 Test Item Value Reference Range Interpretation Comments PHOSPHORUS (BEAKER) 2.8 mg/dL 2.3-4.7 Specimen slightly (test code = 604) hemolyzed [employer] Making Machine Operator ID - DICK LBASIC METABOLIC [id number] 04:27:14 Test Item Value Reference Range Interpretation Comments SODIUM (BEAKER) 143 meq/L 136-145 (test code = 381) POTASSIUM (BEAKER) 3.8 meq/L 3.5-5.1 Specimen slightly (test code = 379) hemolyzed CHLORIDE (BEAKER) 102 meq/L 98-107 (test code = 382) CO2 (BEAKER) (test 32 meq/L 22-29 H code = 355) BLOOD UREA NITROGEN 19 mg/dL 7-21 (BEAKER) (test code = 354) CREATININE (BEAKER) 0.68 mg/dL 0.57-1.25 Specimen slightly (test code = 358) hemolyzed GLUCOSE RANDOM 80 mg/dL 70-105 (BEAKER) (test code = 652) CALCIUM (BEAKER) 9.2 mg/dL 8.4-10.2 (test code = 697) EGFR (BEAKER) (test 83 mL/min/1.73 ESTIMA MORA GFR IS code = 1092) sq m NOT ACCURATE CREATININE CLEARANCE IN PREDICTING GLOMERULAR FILTRATION RATE . ESTIMATED GFR I S NOT APPLICABLE FOR DIALYSIS PATIEN TS. [employer] Making Machine Operator ID - DICK [id number] 04:27:13 Test Item Value Reference Range Interpretation Comments MAGNESIUM (BEAKER) 1.9 mg/dL 1.6-2.6 Specimen slightly (test code = 627) hemolyzed [employer] Machine Operator ID - DICK LCBC W/PLT COUNT & AUTO [id number] 04:04:22 Test Item Value Reference Range Interpretation Comments WHITE BLOOD CELL COUNT (BEAKER) 4.9 K/ L 3.5-10.5 (test code = 775) RED BLOOD CELL COUNT (BEAKER) 3.66 M/ L 3.93-5.22 L (test code = 761) HEMOGLOBIN (BEAKER) (test code = 10.4 GM/DL 11.2-15.7 L 410) HEMATOCRIT (BEAKER) (test code = 34.2 % 34.1-44.9 411) MEAN CORPUSCULAR VOLUME (BEAKER) 93.4 fL 79.4-94.8 (test code = 753) MEAN CORPUSCULAR HEMOGLOBIN 28.4 pg 25.6-32.2 (BEAKER) (test code = 751) MEAN CORPUSCULAR HEMOGLOBIN CONC 30.4 GM/DL 32.2-35.5 L (BEAKER) (test code = 752) RED CELL DISTRIBUTION WIDTH 16.4 % 11.7-14.4 H (BEAKER) (test code = 412) PLATELET COUNT (BEAKER) (test 189 K/CU MM 150-450 code = 756) MEAN PLATELET VOLUME (BEAKER) 11.3 fL 9.4-12.3 (test code = 754) NUCLEATED RED BLOOD CELLS 0 /100 WBC 0-0 (BEAKER) (test code = 413) NEUTROPHILS RELATIVE PERCENT 74 % (BEAKER) (test code = 429) LYMPHOCYTES RELATIVE PERCENT 16 % (BEAKER) (test code = 430) MONOCYTES RELATIVE PERCENT 8 % (BEAKER) (test code = 431) EOSINOPHILS RELATIVE PERCENT 1 % (BEAKER) (test code = 432) BASOPHILS RELATIVE PERCENT 0 % (BEAKER) (test code = 437) NEUTROPHILS ABSOLUTE COUNT 3.62 K/ L 1.56-6.13 (BEAKER) (test code = 670) LYMPHOCYTES ABSOLUTE COUNT 0.78 K/ L 1.18-3.74 L (BEAKER) (test code = 414) MONOCYTES ABSOLUTE COUNT (BEAKER) 0.40 K/ L 0.24-0.36 H (test code = 415) EOSINOPHILS ABSOLUTE COUNT 0.04 K/ L 0.04-0.36 (BEAKER) (test code = 416) BASOPHILS ABSOLUTE COUNT (BEAKER) 0.02 K/ L 0.01-0.08 (test code = 417) IMMATURE GRANULOCYTES-RELATIVE 0 % 0-1 PERCENT (BEAKER) (test code = 2801) CALCIUM, [id number] 03:30:36 Test Item Value Reference Range Interpretation Comments CALCIUM IONIZED (BEAKER) (test 1.15 mmol/L 1.12-1.27 code = 698) PH, BLOOD (BEAKER) (test code = 7.42 1810) [id number] 06:37:51 Test Item Value Reference Range Interpretation Comments MAGNESIUM (BEAKER) (test code = 1.8 mg/dL 1.6-2.6 627) [employer] Operator ID - GINA GOperator ID - GINA GBASIC METABOLIC [id number] 05:28:26 Test Item Value Reference Range Interpretation Comments SODIUM (BEAKER) 143 meq/L 136-145 (test code = 381) POTASSIUM (BEAKER) 3.6 meq/L 3.5-5.1 (test code = 379) CHLORIDE (BEAKER) 101 meq/L 98-107 (test code = 382) CO2 (BEAKER) (test 30 meq/L 22-29 H code = 355) BLOOD UREA NITROGEN 25 mg/dL 7-21 H (BEAKER) (test code = 354) CREATININE (BEAKER) 0.71 mg/dL 0.57-1.25 (test code = 358) GLUCOSE RANDOM 105 mg/dL 70-105 (BEAKER) (test code = 652) CALCIUM (BEAKER) 9.4 mg/dL 8.4-10.2 (test code = 697) EGFR (BEAKER) (test 79 mL/min/1.73 ESTIMA MORA GFR IS code = 1092) sq m NOT ACCURATE CREATININE CLEARANCE IN PREDICTING GLOMERULAR FILTRATION RATE . ESTIMATED GFR I S NOT APPLICABLE FOR DIALYSIS PATIEN TS. [employer] Machine Operator ID - GINA [id number] 05:28:26 Test Item Value Reference Range Interpretation Comments PHOSPHORUS (BEAKER) (test code = 2.1 mg/dL 2.3-4.7 L 604) [employer] Operator ID - GINA GCBC W/PLT COUNT & AUTO [id number] 05:27:28 Test Item Value Reference Range Interpretation Comments WHITE BLOOD CELL COUNT 5.5 K/ L 3.5-10.5 (BEAKER) (test code = 775) RED BLOOD CELL COUNT 3.62 M/ L 3.93-5.22 L (BEAKER) (test code = 761) HEMOGLOBIN (BEAKER) 10.2 GM/DL 11.2-15.7 L (test code = 410) HEMATOCRIT (BEAKER) 32.9 % 34.1-44.9 L (test code = 411) MEAN CORPUSCULAR 90.9 fL 79.4-94.8 Discordant MCV VOLUME (BEAKER) (test result s compared to code = 753) previous result s; clinical correl ation required.' MEAN CORPUSCULAR 28.2 pg 25.6-32.2 HEMOGLOBIN (BEAKER) (test code = 751) MEAN CORPUSCULAR 31.0 GM/DL 32.2-35.5 L HEMOGLOBIN CONC (BEAKER) (test code = 752) RED CELL DISTRIBUTION 16.2 % 11.7-14.4 H WIDTH (BEAKER) (test code = 412) PLATELET COUNT 171 K/CU MM 150-450 (BEAKER) (test code = 756) MEAN PLATELET VOLUME 11.4 fL 9.4-12.3 (BEAKER) (test code = 754) NUCLEATED RED BLOOD 0 /100 WBC 0-0 CELLS (BEAKER) (test code = 413) NEUTROPHILS RELATIVE 78 % PERCENT (BEAKER) (test code = 429) LYMPHOCYTES RELATIVE 15 % PERCENT (BEAKER) (test code = 430) MONOCYTES RELATIVE 7 % PERCENT (BEAKER) (test code = 431) EOSINOPHILS RELATIVE 0 % PERCENT (BEAKER) (test code = 432) BASOPHILS RELATIVE 0 % PERCENT (BEAKER) (test code = 437) NEUTROPHILS ABSOLUTE 4.29 K/ L 1.56-6.13 COUNT (BEAKER) (test code = 670) LYMPHOCYTES ABSOLUTE 0.80 K/ L 1.18-3.74 L COUNT (BEAKER) (test code = 414) MONOCYTES ABSOLUTE 0.38 K/ L 0.24-0.36 H COUNT (BEAKER) (test code = 415) EOSINOPHILS ABSOLUTE 0.01 K/ L 0.04-0.36 L COUNT (BEAKER) (test code = 416) BASOPHILS ABSOLUTE 0.01 K/ L 0.01-0.08 COUNT (BEAKER) (test code = 417) IMMATURE 1 % 0-1 GRANULOCYTES-RELATIVE PERCENT (BEAKER) (test code = 2801) CALCIUM, [id number] 04:56:24 Test Item Value Reference Range Interpretation Comments CALCIUM IONIZED (BEAKER) (test 1.17 mmol/L 1.12-1.27 code = 698) PH, BLOOD (BEAKER) (test code = 7.44 1810) CALCIUM, [id number] 04:43:12 Test Item Value Reference Range Interpretation Comments CALCIUM IONIZED (BEAKER) (test 1.20 mmol/L 1.12-1.27 code = 698) PH, BLOOD (BEAKER) (test code = 7.38 1810) BASIC METABOLIC [id number] 04:22:18 Test Item Value Reference Range Interpretation Comments SODIUM (BEAKER) 141 meq/L 136-145 (test code = 381) POTASSIUM (BEAKER) 3.6 meq/L 3.5-5.1 (test code = 379) CHLORIDE (BEAKER) 102 meq/L 98-107 (test code = 382) CO2 (BEAKER) (test 28 meq/L 22-29 code = 355) BLOOD UREA NITROGEN 40 mg/dL 7-21 H (BEAKER) (test code = 354) CREATININE (BEAKER) 0.84 mg/dL 0.57-1.25 (test code = 358) GLUCOSE RANDOM 106 mg/dL 70-105 H (BEAKER) (test code = 652) CALCIUM (BEAKER) 9.3 mg/dL 8.4-10.2 (test code = 697) EGFR (BEAKER) (test 65 mL/min/1.73 ESTIMA MORA GFR IS code = 1092) sq m NOT ACCURATE CREATININE CLEARANCE IN PREDICTING GLOMERULAR FILTRATION RATE . ESTIMATED GFR I S NOT APPLICABLE FOR DIALYSIS PATIEN TS. [employer] Machine Operator ID - DICK [id number] 04:22:18 Test Item Value Reference Range Interpretation Comments MAGNESIUM (BEAKER) (test code = 2.0 mg/dL 1.6-2.6 627) T[employer] Machine Operator ID - DICK [id number] 04:22:18 Test Item Value Reference Range Interpretation Comments PHOSPHORUS (BEAKER) (test code = 2.4 mg/dL 2.3-4.7 604) [employer] Machine Operator ID - DICK LB-TYPE NATRIURETIC FACTOR (BNP)2021 04:18:53 Test Item Value Reference Range Interpretation Comments B-TYPE NATRIURETIC PEPTIDE (BEAKER) 464 pg/mL 0-100 H (test code = 700) [employer] Operator BARRY SCHAFER WCBC W/PLT COUNT & AUTO [id number] 04:09:43 Test Item Value Reference Range Interpretation Comments WHITE BLOOD CELL COUNT (BEAKER) 4.6 K/ L 3.5-10.5 (test code = 775) RED BLOOD CELL COUNT (BEAKER) 3.46 M/ L 3.93-5.22 L (test code = 761) HEMOGLOBIN (BEAKER) (test code = 9.9 GM/DL 11.2-15.7 L 410) HEMATOCRIT (BEAKER) (test code = 33.4 % 34.1-44.9 L 411) MEAN CORPUSCULAR VOLUME (BEAKER) 96.5 fL 79.4-94.8 H (test code = 753) MEAN CORPUSCULAR HEMOGLOBIN 28.6 pg 25.6-32.2 (BEAKER) (test code = 751) MEAN CORPUSCULAR HEMOGLOBIN CONC 29.6 GM/DL 32.2-35.5 L (BEAKER) (test code = 752) RED CELL DISTRIBUTION WIDTH 16.1 % 11.7-14.4 H (BEAKER) (test code = 412) PLATELET COUNT (BEAKER) (test 167 K/CU MM 150-450 code = 756) MEAN PLATELET VOLUME (BEAKER) 11.2 fL 9.4-12.3 (test code = 754) NUCLEATED RED BLOOD CELLS 0 /100 WBC 0-0 (BEAKER) (test code = 413) NEUTROPHILS RELATIVE PERCENT 76 % (BEAKER) (test code = 429) LYMPHOCYTES RELATIVE PERCENT 16 % (BEAKER) (test code = 430) MONOCYTES RELATIVE PERCENT 8 % (BEAKER) (test code = 431) EOSINOPHILS RELATIVE PERCENT 0 % (BEAKER) (test code = 432) BASOPHILS RELATIVE PERCENT 0 % (BEAKER) (test code = 437) NEUTROPHILS ABSOLUTE COUNT 3.50 K/ L 1.56-6.13 (BEAKER) (test code = 670) LYMPHOCYTES ABSOLUTE COUNT 0.73 K/ L 1.18-3.74 L (BEAKER) (test code = 414) MONOCYTES ABSOLUTE COUNT (BEAKER) 0.36 K/ L 0.24-0.36 (test code = 415) EOSINOPHILS ABSOLUTE COUNT 0.02 K/ L 0.04-0.36 L (BEAKER) (test code = 416) BASOPHILS ABSOLUTE COUNT (BEAKER) 0.01 K/ L 0.01-0.08 (test code = 417) IMMATURE GRANULOCYTES-RELATIVE 0 % 0-1 PERCENT (BEAKER) (test code = 2801) SARS-COV2/RT-PCR ([facility])2021-03-01 18:00:05 Test Item Value Reference Range Interpretation Comments SARS-COV2/RT-PCR (test code = Negative Negative [id number]) Negative result for this test determines that SARS-CoV-2 RNA was not present in the specimen above the Limit of Detection (LOD). However, Negative results do not preclude SARS-CoV-2 infection and should not be used as the sole basis for treatment or patient management decisions. Negative results must be combined with clinical observations, patient history, and epidemiological information. A false negative result may occur if a specimen is improperly collected, transported, or handled. A false negative result should be considered if patient's recent exposures or clinical presentation indicate that COVID-19 (SARS-CoV-2) is likely and diagnostic tests for other causes of illness are negative. Re-testing should be considered in cases of suspected false negatives.The limit of detection for this assay is 100 copies/mL.This SARS-CoV-2 test is a real-time RT_PCR test intended for the qualitative detection of nucleic acid from SARS-CoV-2 in a nasopharyngeal swab specimen collected from individuals suspected of COVID-19 by their healthcare provider.This test has not been Food and Drug Administration (FDA) cleared or approved. This is a modified version of an approved Emergency Use Authorization (EUA) and is in the process of review by the FDA. Once authorized by the FDA, the issued EUA will be e ffective until the declaration that circumstances exist justifying the authorization of the emergency use of in vitro diagnostic tests for detection and/or diagnosis of COVID-19 is terminated under Section 564(b)(2) of the Act or the EUA is revoked under Section 564(g) of the Act.Testing was performedusing the Norton SARS-CoV-2 assay.Fact Sheet for Healthcare Providers:https://www.[employer].norton/emigdio/RT SARS-CoV-2 HCP Fact Sheet 51- 494412.pdfFact Sheet for Healthcare Patients:https://www.[employer].norton/emigdio/RT SARS-CoV-2 Patient Fact Sheet EN 51-850129M3.pdfRAD, CHEST, 1 VIEW, NON DEPT 2021-03-01 09:05:00Reason for exam:->SOBShould this be performed at the bedside?->YesCH[facility] : 1940 Sex: FFINAL REPORT TECHNIQUE: Frontal view of the chest. INDICATION: SOB COMPARISON:None DISCUSSION:Limited evaluation due to portable technique. Lines and hardware: Overlying EKG leads are notedHeart and mediastinum: Cardiomegaly with vascular congestive changes are notedLungsand pleura: Diffuse interstitial airspace opacities are noted. Elevation right hemidiaphragm right basilar airspace opacities are noted. Small right effusion is noted. Negative for left effusion. Negative for pneumothorax.Soft tissues and bones: No acute abnormality. IMPRESSION:1. Cardiomegaly with vascular congestive changes and diffuse interstitial airspace opacities are concerning for fluid overloa d/pulmonary edema.2. Questionable right basilar superimposed consolidation with a small right effusion. Signed: Paxton Ovalles MDReport Verified Date/Time: 03/01/2021 09:05:48 Reading Location: [facility] Radiology Reading Room CBC W/PLT COUNT & AUTO [id number] 07:21:45 Test Item Value Reference Range Interpretation Comments WHITE BLOOD CELL COUNT (BEAKER) 5.7 K/ L 3.5-10.5 (test code = 775) RED BLOOD CELL COUNT (BEAKER) 3.66 M/ L 3.93-5.22 L (test code = 761) HEMOGLOBIN (BEAKER) (test code = 10.4 GM/DL 11.2-15.7 L 410) HEMATOCRIT (BEAKER) (test code = 37.1 % 34.1-44.9 411) MEAN CORPUSCULAR VOLUME (BEAKER) 101.4 fL 79.4-94.8 H (test code = 753) MEAN CORPUSCULAR HEMOGLOBIN 28.4 pg 25.6-32.2 (BEAKER) (test code = 751) MEAN CORPUSCULAR HEMOGLOBIN CONC 28.0 GM/DL 32.2-35.5 L (BEAKER) (test code = 752) RED CELL DISTRIBUTION WIDTH 16.2 % 11.7-14.4 H (BEAKER) (test code = 412) PLATELET COUNT (BEAKER) (test 159 K/CU MM 150-450 code = 756) MEAN PLATELET VOLUME (BEAKER) 12.1 fL 9.4-12.3 (test code = 754) NUCLEATED RED BLOOD CELLS 0 /100 WBC 0-0 (BEAKER) (test code = 413) NEUTROPHILS RELATIVE PERCENT 74 % (BEAKER) (test code = 429) LYMPHOCYTES RELATIVE PERCENT 17 % (BEAKER) (test code = 430) MONOCYTES RELATIVE PERCENT 7 % (BEAKER) (test code = 431) EOSINOPHILS RELATIVE PERCENT 1 % (BEAKER) (test code = 432) BASOPHILS RELATIVE PERCENT 0 % (BEAKER) (test code = 437) NEUTROPHILS ABSOLUTE COUNT 4.22 K/ L 1.56-6.13 (BEAKER) (test code = 670) LYMPHOCYTES ABSOLUTE COUNT 0.97 K/ L 1.18-3.74 L (BEAKER) (test code = 414) MONOCYTES ABSOLUTE COUNT (BEAKER) 0.42 K/ L 0.24-0.36 H (test code = 415) EOSINOPHILS ABSOLUTE COUNT 0.03 K/ L 0.04-0.36 L (BEAKER) (test code = 416) BASOPHILS ABSOLUTE COUNT (BEAKER) 0.02 K/ L 0.01-0.08 (test code = 417) IMMATURE GRANULOCYTES-RELATIVE 1 % 0-1 PERCENT (BEAKER) (test code = 2801) [id number] 06:44:36 Test Item Value Reference Range Interpretation Comments PHOSPHORUS (BEAKER) (test code = 4.3 mg/dL 2.3-4.7 604) T[employer]el Making Machine Operator ID - PIAYA LBASIC METABOLIC [id number] 06:44:35 Test Item Value Reference Range Interpretation Comments SODIUM (BEAKER) 143 meq/L 136-145 (test code = 381) POTASSIUM (BEAKER) 4.4 meq/L 3.5-5.1 (test code = 379) CHLORIDE (BEAKER) 105 meq/L 98-107 (test code = 382) CO2 (BEAKER) (test 27 meq/L 22-29 code = 355) BLOOD UREA NITROGEN 45 mg/dL 7-21 H (BEAKER) (test code = 354) CREATININE (BEAKER) 0.91 mg/dL 0.57-1.25 (test code = 358) GLUCOSE RANDOM 79 mg/dL 70-105 (BEAKER) (test code = 652) CALCIUM (BEAKER) 9.2 mg/dL 8.4-10.2 (test code = 697) EGFR (BEAKER) (test 60 mL/min/1.73 ESTIMA MORA GFR IS code = 1092) sq m NOT ACCURATE CREATININE CLEARANCE IN PREDICTING GLOMERULAR FILTRATION RATE . ESTIMATED GFR I S NOT APPLICABLE FOR DIALYSIS PATIEN TS. T[employer]el Making Machine Operator ID - DICK [id number] 06:44:35 Test Item Value Reference Range Interpretation Comments MAGNESIUM (BEAKER) (test code = 2.2 mg/dL 1.6-2.6 627) T[employer]el Making Machine Operator ID - ARACELIBETINA LCALCIUM, [id number] 06:01:10 Test Item Value Reference Range Interpretation Comments CALCIUM IONIZED (BEAKER) (test 1.16 mmol/L 1.12-1.27 code = 698) PH, BLOOD (BEAKER) (test code = 7.33 1810) POCT-GLUCOSE [id number] 20:19:23 Test Item Value Reference Range Interpretation Comments POC-GLUCOSE METER 87 mg/dL 70-110 : TESTED A T [facility] 6720 (BEAKER) (test code = KATIE Stock [facility], 1538) [address]: Tassel Making Machine Operator/Techni shantal ID = [id number] for Volt in, Kelli URINALYSIS W/ REFLEX URINE [id number] 19:34:06 Test Item Value Reference Range Interpretation Comments COLOR (BEAKER) (test code = 470) Yellow CLARITY (BEAKER) (test code = 469) Clear SPECIFIC GRAVITY UA (BEAKER) (test 1.011 1.001-1.035 code = 468) PH UA (BEAKER) (test code = 467) 5.0 5.0-8.0 PROTEIN UA (BEAKER) (test code = Negative Negative 464) GLUCOSE UA (BEAKER) (test code = Negative Negative 365) KETONES UA (BEAKER) (test code = Negative Negative 371) BILIRUBIN UA (BEAKER) (test code = Negative Negative 462) BLOOD UA (BEAKER) (test code = 461) Negative Negative NITRITE UA (BEAKER) (test code = Negative Negative 465) LEUKOCYTE ESTERASE UA (BEAKER) Large Negative A (test code = 466) UROBILINOGEN UA (BEAKER) (test code 0.2 mg/dL 0.2-1.0 = 463) RBC UA (BEAKER) (test code = 519) 1 /HPF WBC UA (BEAKER) (test code = 520) 21 /HPF BACTERIA (BEAKER) (test code = 517) Rare SQUAMOUS EPITHELIAL (BEAKER) (test 1 /HPF code = 516) HYALINE CASTS (BEAKER) (test code = 12 /LPF 514) CRYSTALS, URINE (BEAKER) (test code None Seen = 1521) SOURCE(BEAKER) (test code = 2795) Tassel Making Machine Operator ID - [auto]Tassel Making Machine Operator ID - techTSH/FREE T4 IF [id number] 19:25:10 Test Item Value Reference Range Interpretation Comments THYROID STIMULATING HORMONE 2.037 uIU/mL 0.350-4.940 (BEAKER) (test code = 772) Tassel Making Machine Operator ID - BSBLOOD GAS, [id number] 19:05:54 Test Item Value Reference Range Interpretation Comments PH VENOUS (BEAKER) (test code = 7.35 7.32-7.42 701) PCO2 VENOUS (BEAKER) (test code = 54 mm Hg 41-51 H 755) PO2 VENOUS (BEAKER) (test code = 101 mm Hg 25-40 H 702) O2 SATURATION VENOUS (BEAKER) 97.2 % 40.0-70.0 H (test code = 703) HCO3 VENOUS (BEAKER) (test code = 29 mmol/L 21-29 705) BASE EXCESS VENOUS (BEAKER) (test 2.1 mmol/L -2.0-3.0 code = 704) PATIENT TEMPERATURE (BEAKER) (test 37.0 code = 1818) FIO2 (BEAKER) (test code = 1819) 28.0 URINALYSIS [id number] 09:51:39 Test Item Value Reference Range Interpretation Comments RBC UA (BEAKER) (test code = 519) 0 /HPF WBC UA (BEAKER) (test code = 520) 12 /HPF BACTERIA (BEAKER) (test code = 517) None Seen SQUAMOUS EPITHELIAL (BEAKER) (test 3 /HPF code = 516) CRYSTALS, URINE (BEAKER) (test code None Seen = 1521) AMORPHOUS CRYSTALS (BEAKER) (test Rare code = 1584) T[employer] Making Machine Operator ID - techURINALYSIS WITH MICROSCOPIC IF [id number] 09:51:21 Test Item Value Reference Range Interpretation Comments COLOR (BEAKER) (test code = 470) Yellow CLARITY (BEAKER) (test code = 469) Clear SPECIFIC GRAVITY UA (BEAKER) (test 1.014 1.001-1.035 code = 468) PH UA (BEAKER) (test code = 467) 5.0 5.0-8.0 PROTEIN UA (BEAKER) (test code = Negative Negative 464) GLUCOSE UA (BEAKER) (test code = Negative Negative 365) KETONES UA (BEAKER) (test code = Negative Negative 371) BILIRUBIN UA (BEAKER) (test code = Negative Negative 462) BLOOD UA (BEAKER) (test code = 461) Negative Negative NITRITE UA (BEAKER) (test code = Negative Negative 465) LEUKOCYTE ESTERASE UA (BEAKER) Small Negative A (test code = 466) UROBILINOGEN UA (BEAKER) (test code 0.2 mg/dL 0.2-1.0 = 463) SOURCE(BEAKER) (test code = 2795) Tassel Making Machine Operator ID - [auto]Tassel Making Machine Operator ID - techBASIC METABOLIC [id number] 05:42:50 Test Item Value Reference Range Interpretation Comments SODIUM (BEAKER) 142 meq/L 136-145 (test code = 381) POTASSIUM (BEAKER) 4.4 meq/L 3.5-5.1 (test code = 379) CHLORIDE (BEAKER) 106 meq/L 98-107 (test code = 382) CO2 (BEAKER) (test 26 meq/L 22-29 code = 355) BLOOD UREA NITROGEN 45 mg/dL 7-21 H (BEAKER) (test code = 354) CREATININE (BEAKER) 0.86 mg/dL 0.57-1.25 (test code = 358) GLUCOSE RANDOM 84 mg/dL 70-105 (BEAKER) (test code = 652) CALCIUM (BEAKER) 9.0 mg/dL 8.4-10.2 (test code = 697) EGFR (BEAKER) (test 64 mL/min/1.73 ESTIMA MORA GFR IS code = 1092) sq m NOT ACCURATE CREATININE CLEARANCE IN PREDICTING GLOMERULAR FILTRATION RATE . ESTIMATED GFR I S NOT APPLICABLE FOR DIALYSIS PATIEN TS. Tassel Making Machine Operator ID - ALANNA MCBC W/PLT COUNT & AUTO [id number] 03:57:36 Test Item Value Reference Range Interpretation Comments WHITE BLOOD CELL COUNT (BEAKER) 6.0 K/ L 3.5-10.5 (test code = 775) RED BLOOD CELL COUNT (BEAKER) 3.26 M/ L 3.93-5.22 L (test code = 761) HEMOGLOBIN (BEAKER) (test code = 9.2 GM/DL 11.2-15.7 L 410) HEMATOCRIT (BEAKER) (test code = 31.8 % 34.1-44.9 L 411) MEAN CORPUSCULAR VOLUME (BEAKER) 97.5 fL 79.4-94.8 H (test code = 753) MEAN CORPUSCULAR HEMOGLOBIN 28.2 pg 25.6-32.2 (BEAKER) (test code = 751) MEAN CORPUSCULAR HEMOGLOBIN CONC 28.9 GM/DL 32.2-35.5 L (BEAKER) (test code = 752) RED CELL DISTRIBUTION WIDTH 15.9 % 11.7-14.4 H (BEAKER) (test code = 412) PLATELET COUNT (BEAKER) (test 151 K/CU MM 150-450 code = 756) MEAN PLATELET VOLUME (BEAKER) 11.5 fL 9.4-12.3 (test code = 754) NUCLEATED RED BLOOD CELLS 0 /100 WBC 0-0 (BEAKER) (test code = 413) NEUTROPHILS RELATIVE PERCENT 82 % (BEAKER) (test code = 429) LYMPHOCYTES RELATIVE PERCENT 11 % (BEAKER) (test code = 430) MONOCYTES RELATIVE PERCENT 7 % (BEAKER) (test code = 431) EOSINOPHILS RELATIVE PERCENT 0 % (BEAKER) (test code = 432) BASOPHILS RELATIVE PERCENT 0 % (BEAKER) (test code = 437) NEUTROPHILS ABSOLUTE COUNT 4.89 K/ L 1.56-6.13 (BEAKER) (test code = 670) LYMPHOCYTES ABSOLUTE COUNT 0.64 K/ L 1.18-3.74 L (BEAKER) (test code = 414) MONOCYTES ABSOLUTE COUNT (BEAKER) 0.39 K/ L 0.24-0.36 H (test code = 415) EOSINOPHILS ABSOLUTE COUNT 0.02 K/ L 0.04-0.36 L (BEAKER) (test code = 416) BASOPHILS ABSOLUTE COUNT (BEAKER) 0.02 K/ L 0.01-0.08 (test code = 417) IMMATURE GRANULOCYTES-RELATIVE 0 % 0-1 PERCENT (BEAKER) (test code = 2801) HEPATIC FUNCTION [id number] 00:38:54 Test Item Value Reference Range Interpretation Comments TOTAL PROTEIN (BEAKER) 6.4 gm/dL 6.0-8.3 Speci men slightly (test code = 770) hemolyzed ALBUMIN (BEAKER) (test 3.1 g/dL 3.5-5.0 L Speci men slightly code = 1145) hemolyzed BILIRUBIN TOTAL 0.7 mg/dL 0.2-1.2 Specimen sli ghtly (BEAKER) (test code = hemoly zed 377) BILIRUBIN DIRECT 0.3 mg/dL 0.1-0.5 Specimen sl ightly (BEAKER) (test code = hemoly zed 706) ALKALINE PHOSPHATASE 90 U/L 40-150 (BEAKER) (test code = 346) AST (SGOT) (BEAKER) 26 U/L 5-34 Specimen slightly (test code = 353) hemolyzed ALT (SGPT) (BEAKER) 22 U/L 6-55 Specimen slightly (test code = 347) hemolyzed [employer] Operator ID - ALANNA [id number] 00:38:31 Test Item Value Reference Range Interpretation Comments PROTIME (BEAKER) (test 21.8 seconds 11.9-14.2 H code = 759) INR (BEAKER) (test 1.93 See_Comment [Automat ed code = 370) message] The sy stem which generated this result transmitted reference range : <=5.90. The reference range was not used to interpret this result as normal/abnormal . PARTIAL THROMBOPLASTIN 37.9 seconds 22.5-36.0 H TIME (CHRISTIANO) (test code = 760) RECOMMENDED COUMADIN/WARFARIN INR THERAPY RANGESSTANDARD DOSE: 2.0 - 3.0 Includes: PROPHYLAXIS forvenous thrombosis, systemic embolization; TREATMENT for venous thrombosis and/or pulmonary embolus.HIGH RISK: Target INR is 2.5-3.5 for patients with mechanical heart valves.TROPONIN [id number] 17:30:08 Test Item Value Reference Interpretation Comments Range TROPONIN I (test 0.007 ng/mL See_Comment [Automated code = [id number]) message] The system which generated this result transmitted reference range : <=0.034. The reference range was not used to interpret this result as normal/abnormal . HAYDEN (test code = Reference (Normal) HAYDEN) Range (defined by the 99th percentile reference limit): <= 0.034 ng/mL Note: Cardiac troponin begins to rise 3-4 hours after the onset of ischemia. Repeat in 4-6 hours if the sample was drawn within 3-4 hours of the onset of the symptom and found normal. Diagnosis of myocardial injury is made with acute changes in cTn concentrations with at least one serial sample above the 99th percentile upper reference limit (URL), taken together with the patient's clinical presentation. Biotin has been reported to cause a negative bias, interpret results relative to patient's use of biotin. Lab Interpretation Normal (test code = 82008-2) [id number] 17:26:46 Test Item Value Reference Range Interpretation Comments NT-proBNP (test code 7070 pg/mL See_Comment H [Autom ated = [id number]) message] The system which generated this result transmitted reference range : <=450. The reference range was not used to interpret this result as normal/abnormal . HAYDEN (test code = HAYDEN) Biotin has been reported to cause a negative bias, interpret results relative to patient's use of biotin. Lab Interpretation Abnormal (test code = 23567-2) [facility] ([id number][facility]2021-02-27 17:20:46 Test Item Value Reference Range Interpretation Comments NA (test code = 136 mmol/L 135-145 1056636782) K (test code = 5.2 mmol/L 3.5-5.0 H 7814844925) CL (test code = 103 mmol/L 98-108 6877618358) CO2 TOTAL (test code = 29 mmol/L 23-31 0168355866) AGAP (test code = 2-16 7285970894) BUN (test code = 55 mg/dL 7-23 H 5389439688) GLUCOSE (test code = 115 mg/dL 70-110 H 0105478047) CREATININE (test code = 1.09 mg/dL 0.50-1.04 H 8575884980) TOTAL BILI (test code = 0.8 mg/dL 0.1-1.6 6534081817) CALCIUM (test code = 9.0 mg/dL 8.6-10.6 3187423582) T PROTEIN (test code = 5.5 g/dL 6.3-8.2 L 0468643358) ALBUMIN (test code = 2.8 g/dL 3.5-5.0 L 0621092766) ALK PHOS (test code = 91 U/L 34-122 7042086655) ALTv (test code = 23 U/L 5-35 1742-6) AST(SGOT) (test code = 26 U/L 13-40 7614478283) eGFR (test code = mL/min/1.73m2 1582369409) HAYDEN (test code = HAYDEN) Association of Glomerular Filtration Rate (GFR) and Staging of Kidney Disease* + --+ --+ ------+| GFR (mL/min/1.73 m2) ?| With Kidney Damage ?| ?Without Kidney Damage+ --------+ --------+ +| ?>90 ?| ?Stage one ?| ? Normal ?+ ---+ ---+ -------+| ?60-89 ?| ?Stage two ?| ? Decreased GFR ? + --+ --+ ------+| ?30-59 ?| ?Stage three ?| ? Stage three ? + --+ --+ ------+| ?15-29 ?| ?Stage four ? | ? Stage four ?+ ---+ ---+ -------+| ?<15 (or dialysis) ? ?| ?Stage five ? | ? Stage five ?+ ---+ ---+ -------+ *Each stage assumes the associated GFR level has been in effect for at least three months. ?Stages 1 to 5, with or without kidney disease, indicate chronic kidney disease. Notes: Determination of stages one and two (with eGFR >59mL/min/1.73 m2) requires estimation of kidney damage for at least three months as defined by structural or functional abnormalities of the kidney, manifested by either:Pathological abnormalities or Markers of kidney damage (including abnormalities in the composition of the blood or urine or abnormalities in imaging tests). Lab Interpretation Abnormal (test code = 02837-3) [facility] Test Item Value Reference Range Interpretation Comments MAGNESIUM (test code = 9048200468) 2.6 mg/dL 1.7-2.4 H Lab Interpretation (test code = Abnormal 78363-0) [facility] WITH [id number] 17:05:25 Test Item Value Reference Range Interpretation Comments WBC (test code = See_Comment [Automated 6690-2) message] The sy stem which generated this result transmitted reference range : 4.30 - 11.10 10*3/?L. The reference range was not used to interpret this result as normal/abnormal . RBC (test code = See_Comment L [Automated 789-8) message] The sy stem which generated this result transmitted reference range : 3.93 - 5.25 10*6/?L. The reference range was not used to interpret this result as normal/abnormal . HGB (test code = 10.0 g/dL 11.6-15.0 L 718-7) HCT (test code = 34.1 % 35.7-45.2 L 4544-3) MCV (test code = 96.3 fL 80.6-95.5 H 787-2) MCH (test code = 28.2 pg 25.9-32.8 785-6) MCHC (test code = 29.3 g/dL 31.6-35.1 L 786-4) RDW-SD (test code = 57.4 fL 39.0-49.9 H 08474-3) RDW-CV (test code = 16.1 % 12.0-15.5 H 788-0) PLT (test code = See_Comment [Automated 777-3) message] The sy stem which generated this result transmitted reference range : 166 - 358 10*3/ ?L. The reference r rg was not used to interpret this result as normal/abnormal . MPV (test code = 11.7 fL 9.5-12.9 99414-4) NRBC/100 WBC (test See_Comment [Automat ed code = 2258023388) message] The system which generated this result transmitted reference range : 0.0 - 10.0 /100 WBCs. The refer ence range was not u sed to interpret th is result as normal/abnormal . NRBC x10^3 (test code <0.01 See_Comment [Auto mated = 8544239781) message] The s ystem which generated this result transmitted reference range : 10*3/?L. The reference range was not used to interpret this result as normal/abnormal . GRAN MAT (NEUT) % 82.0 % (test code = 770-8) IMM GRAN % (test code 0.40 % = 6037685264) LYMPH % (test code = 9.8 % 736-9) MONO % (test code = 7.2 % 5905-5) EOS % (test code = 0.3 % 713-8) BASO % (test code = 0.3 % 706-2) GRAN MAT x10^3(ANC) 6.11 10*3/uL 1.88-7.09 (test code = 1978227144) IMM GRAN x10^3 (test 0.03 10*3/uL 0.00-0.06 code = 2526902463) LYMPH x10^3 (test code 0.73 10*3/uL 1.32-3.29 L = 731-0) MONO x10^3 (test code 0.54 10*3/uL 0.33-0.92 = 742-7) EOS x10^3 (test code = <0.03 0.03-0.39 L 711-2) BASO x10^3 (test code <0.03 0.01-0.07 = 704-7) Lab Interpretation Abnormal (test code = 72302-1) [facility]2020-06-06 14:20:02 These images do not require a Radiology diagnostic report.[facility] HospitalCOVID[facility] (ID NOW RAPID TESTING)2020-06-05 17:45:05 Test Item Value Reference Range Interpretation Comments SARS-CoV-2 Rapid ID NOW Not Detected Not Detected (test code = 24262-2) HAYDEN (test code = HAYDEN) ID NOW COVID-19 Assay is an isothermal nucleic acid amplification test intended for the qualitative detection of nucleic acid from SARS-CoV-2 viral RNA in nasopharyngeal (VALUE STREAM LEADER) specimens. It is used under Emergency Use Authorization (EUA) by FDA. The limit of detection (LOD) of the assay is 125 Genome Equivalents/mL. A positive result is indicative of the presence of SARS-CoV-2 RNA. ?Clinical correlation with patient history and other diagnostic information is necessary to determine patient infection status. A negative (Not Detected) result does not preclude SARS-CoV-2 infection. In patients with clinical symptoms and other tests that are consistent with SARS-CoV-2 infection, negative results should be treated as presumptive negative and a new specimen should be tested with alternative PCR molecular test. Invalid: Please collect a new specimen for repeat patient testing if clinically indicated. Lab Interpretation Normal (test code = 90193-1) [facility] US GUIDED CORE BREAST BIOPSY RIGHT 2020-04-11 19:59:17Examination:BI US GUIDED CORE BREAST BIOPSY RIGHT The procedure was explained to the patient including benefits and alternatives. ?The risks, including but not limited to infection and bleeding, were reviewed and the patient agreed to undergo the procedure, signing the consent form. ?Timeout was performed. History:Patient is a 80 year old year old female and is seen for: RIGHT BREAST: There is an 11 mm mass at 9 o'clock, 9 cm from the nipple. Ultrasound guided core biopsy is recommended. Right 4C - Suspicious Abnormality - Biopsy Should Be Considered - High Suspicion for Malignancy Comparisons: 02/14 BI ULTRASOUND BREAST COMPLETE RIGHT, 02/29/2020 BI DIAGNOSTIC TOMOSYNTHESIS RIGHT, 05/05/2019BI SCREENING MAMMOGRAM BILATERAL, and 04/30/2016 DIGITAL MAMMOGRAM, SCREENING The patient was positioned supine, and the area of interest at 9 o'clock, 9 cm from the nipple of the RIGHT breast was localized using real-time ultrasound guidance. After antiseptic preparation the skin puncture site was draped and infiltrated with lidocaine. ?A skin incision was made. ?A 14 gauge Bard automated core biopsy needle was advanced to the target. ?Multiple tissue cores were obtained through the target. ?A COILtissue marker clip was then deployed. ?Continuous real-time ultrasound was used for guidance throughout the procedure. ?Post biopsy mammogram demonstrated the clip migrated 4 mm lateral and 2 mm superior to the biopsied mass. Recommendation:Pending pathology results - RightHouston [facility] HospitalDEXA AXIAL (HIP AND SPINE)2020-02-29 18:41:32HISTORY: Osteopenia. TECHNIQUE: Bone density estimation is done using DEXA scan, over the righthip and lumbar spines. FINDINGS: Details of the results are enclosed for your review. The summaryis as follows. RIGHT HIP:BMD value is 0.798 gm/sq cm, with T-score of -1.7. Estimated BMD in theneck is 0.679 g/sq cm with T score of - 2.6. LUMBAR SPINES:Average BMD value from L1 through L4 is 1.494 gm/sq cm, with T-score 2.4.However, degenerative changes at L2-L3 disc with endplate sclerosis as wellas atherosclerosis in the abdominal aorta are contributing to estimated BMDvalues. CONCLUSION: Osteopenia in right hip. ASSESSMENT: WHO-definitions: T-score normal: +/- 1 SD around the meanosteopenia: >1 to 2.4 SD below the meanosteoporosis: >2.5 SD below the meanFracture risk doubles for each 1.5 SD below the mean. [facility], Radiant Results Inft User - 02/29/2020 12:42 PM CSTHISTORY: Osteopenia.TECHNIQUE: Bone density estimation is done using DEXA scan, over the righthip and lumbar spines.FINDINGS: Details of the results are enclosed for your review. The summaryis as follows.RIGHT HIP:BMD value is 0.798 gm/sq cm, with T-score of - 1.7. Estimated BMD in theneck is 0.679 g/sq cm with T score of - 2.6.LUMBAR SPINES:Average BMD value from L1 through L4 is 1.494 gm/sq cm, with T-score 2.4.However, degenerative changes at L2-L3 disc with endplate sclerosis as wellas atherosclerosis in the abdominal aorta are contributing to estimated BMDvalues.CONCLUSION: Osteopenia in right hip.ASSESSMENT: WHO-definitions: T- scorenormal: +/- 1 SD around the meanosteopenia: >1 to 2.4 SD below the meanosteoporosis: >2.5 SD below the meanFracture risk doubles for each 1.5 SD below the mean.[facility] ULTRASOUND BREAST COMPLETE [id number] 18:36:56Examination:BI DIAGNOSTIC TOMOSYNTHESIS [facility] ULTRASOUND BREAST COMPLETE RIGHT History:Patient is 79 year old and is seen for: ?Breast masses. Computer-aided detection (CAD) utilized. Comparisons: 05/05/2019 BI SCREENING MAMMOGRAM BILATERAL and 04/30/2016 DIGITAL MAMMOGRAM, SCREENING Findings:BI DIAGNOSTIC TOMOSYNTHESIS RIGHTThe right breast has scattered areas of fibroglandular density. There is an 11 mm irregular mass with spiculated margins and associated amorphous calcifications at 9 o'clock, 9 cm from the nipple, best seen on RSCC 22/60, RMML, RMCC and RSML 25/75. BI ULTRASOUND BREAST COMPLETE RIGHTSurvey ultrasound demonstrates a 10 x 10 x 11 mm heterogenous, irregular mass with indistinctmargins and internal vascularity present at the site of the mammographic area of concern at 9 o'clock at a distance of 9 cm from the nipple.Scattered subcentimeter cysts were identified throughout the breast. There is no lymphadenopathy including the axillary, infraclavicular, supraclavicular, and internal mammary chain regions. Impression: RIGHT BREAST: There is an 11 mm mass at 9 o'clock, 9 cm from the nipple. Ultrasound guided core biopsy is recommended. Recommendation:Ultrasound guided core biopsy - Right BI-RADS Category: Right 4C - Suspicious Abnormality - Biopsy Should Be Considered - High Suspicion for MalignancyUnJ[facility] DIAGNOSTIC [facility]OMOSYNTHESIS [id number] 18:36:55Examination:BI DIAGNOSTIC TOMOSYNTHESIS [facility] ULTRASOUND BREAST COMPLETE RIGHT History:Patient is 79 year old and is seen for: ?Breast masses. Computer-aided detection (CAD) utilized. Comparisons: 05/05/2019 BI SCREENING MAMMOGRAM BILATERAL and 04/30/2016 DIGITAL MAMMOGRAM, SCREENING Findings:BI DIAGNOSTIC TOMOSYNTHESIS RIGHTThe right breast has scattered areas of fibroglandular density. There is an 11 mm irregular mass with spiculated margins and associated amorphous calcifications at 9 o'clock, 9 cm from the nipple, best seen on RSCC 22/60, RMML, RMCC and RSML 25/75. BI ULTRASOUND BREAST COMPLETE RIGHTSurvey ultrasound demonstrates a 10 x 10 x 11 mm heterogenous, irregular mass with indistinct margins and internal vascularity present at the site of the mammographic area of concern at 9 o'clock at a distance of 9 cm from the nipple.Scattered subcentimeter cysts were identified throughout the breast. There is no lymphadenopathy including the axillary, infraclavicular, supraclavicular, and internal mammary chain regions. Impression: RIGHT BREAST: There is an 11 mm mass at 9 o'clock, 9 cm from the nipple. Ultrasound guided core biopsy is recommended. Recommendation:Ultrasound guided core biopsy - Right BI-RADS Category: Right 4C - Suspicious Abnormality - Biopsy Should Be Considered - High Suspicion for MalignancyUnThe Hospitals of [facility] CampusXR HUMERUS 2 VW LEFT 2019-11-05 20:03:26 Surgical neck fracture. Soft tissue contusion at the level of the elbow and forearm. Preliminary Report Dictated by Resident: Xiao Copeland Image quality: The lateral elbow radiograph is suboptimally positioned.[facility]. I, Alex Valdez MD., have reviewed this study and agree with the abovereport.EXAM: XR ELBOW <3 VW LEFT,EXAM: XR FOREARM 2 VW LEFT,EXAM: XR HUMERUS 2 VW LEFTEXAM: XR RIBS 3 VW LEFT HISTORY: pain COMPARISON: None. IMAGE QUALITY: The evaluation the elbow is partially limited due tosuboptimal positioning of the elbow on the lateral projection. FINDINGS: Radiographs ofthe left humerus, elbow, and forearm demonstrate a mildlyimpacted comminuted humeral surgical neck fracture. 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 Mild osteoarthrosis of the elbow joint coronoidis seen in the form of subchondral sclerosis and joint space narrowing. Nolarge elbow joint effusion is seen. Diffuse osteopenia is seen. 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 Calcified plaque outline s the aortic arch. Radiographs of the left ribs demonstrate no acute fractures. Nopneumothorax is seen. [facility], Radiant Results Inft User - 11/05/2019 3:04 PM CDTEXAM: XR ELBOW <3 VW LEFT,EXAM: XR FOREARM 2 VW LEFT,EXAM: XR HUMERUS 2 VW LEFTEXAM: XR RIBS 3 VW LEFTHISTORY: pain COMPARISON: None.IMAGE QUALITY: The evaluation the elbow is partially limited due tosuboptimal positioning of the elbow onthe lateral projection.FINDINGS: Radiographs of the left humerus, elbow, and forearm demonstrate a mildlyimpacted comminuted humeral surgical neck fracture. Severe glenohumeralosteoarthrosis is seen inthe form of joint space narrowing, subchondralsclerosis, degenerative cyst formation and marginal ost eophytosis.Significant soft tissue swelling is noted at the dorsolateral aspect of theelbow and proximal forearm. Mild osteoarthrosis of the elbow joint coronoidis seen in the form of subchondral sclerosis and joint space narrowing. Nolarge elbow joint effusion is seen. Diffuse osteopenia is seen. 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 Calcified plaque outlines the aortic arch.Radiographs of the left ribs demonstrate no acute fractures. Nopneumothorax is seen.IMPRESSIONSurgical neck fracture.Soft tissue contusion at the level of the elbow and forearm.Preliminary Report Dictated by Resident: Xiao CopelandImage quality: The lateral elbow radiograph is suboptimally positioned.[facility].Alex Maynard MD., have reviewed this study and agree with the abovereport.[facility] HospitalXR ELBOW <3 VW [id number] 20:03:26 Surgical neck fracture. Soft tissue contusion at the level of the elbow and forearm. Preliminary Report Dictated by Resident: Xiao Copeland Image quality: The lateral elbow radiograph is suboptimally positioned.[facility]. Alex Maynard MD., have reviewed this study and agree with the abovereport.EXAM: XR ELBOW <3 VW LEFT,EXAM: XR FOREARM 2 VW LEFT,EXAM: XR HUMERUS 2 VW LEFTEXAM: XR RIBS 3 VW LEFT HISTORY: pain COMPARISON: None. IMAGE QUALITY: The evaluation the elbow is partially limited due tosuboptimal positioning of the elbow on the lateral projection. FINDINGS: Radiographs ofthe left humerus, elbow, and forearm demonstrate a mildlyimpacted comminuted humeral surgical neck fracture. Severe glenohumeralosteoarthrosis is seen in the form of joint space narrowing, subchondralsclerosis, degenerative cyst formation and marginal osteophytosis.Significant soft tissue swelling is noted at the dorsolateral aspect of theelbow and proximal forearm. Mild osteoarthrosis of the elbow joint coronoidis seen in the form of subchondral sclerosis and joint space narrowing. Nolarge elbow joint effusion is seen. Diffuse osteopenia is seen. 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 Calcified plaque outlines the aortic arch. Radiographs of the left ribs demonstrate no acute fractures. Nopneumothorax is seen. [facility], Radiant Results Inft User - 11/05/2019 3:04 PM CDTEXAM: XR ELBOW <3 VW LEFT,EXAM: XR FOREARM 2 VW LEFT,EXAM: XR HUMERUS 2 VW LEFTEXAM: XR RIBS 3 VW LEFTHISTORY: pain COMPARISON: None.IMAGE QUALITY: The evaluation the elbow is partially limited due tosuboptimal positioning of the elbow onthe lateral projection.FINDINGS: Radiographs of the left humerus, elbow, and forearm demonstrate a mildlyimpacted comminuted humeral surgical neck fracture. Severe glenohumeralosteoarthrosis is seen inthe form of joint space narrowing, subchondralsclerosis, degenerative cyst formation and marginal osteophytosis.Significant soft tissue swelling is noted at the dorsolateral aspect of theelbow and proximal forearm. Mild osteoarthrosis of the elbow joint coronoidis seen in the form of subchondral sclerosis and joint space narrowing. Nolarge elbow joint effusion is seen. Diffuse osteopenia is seen. 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 Calcified plaque outlines the aortic arch.Radiographs of the left ribs demonstrate no acute fractures. Nopneumothorax is seen.IMPRESSIONSurgical neck fracture.Soft tissue contusion at the level of the elbow and forearm.Preliminary Report Dictated by Resident: Xiao CopelandImage quality: The lateral elbow radiograph is suboptimally positioned.[facility].Alex Maynard MD., have reviewed this study and agree with the abovereport.[facility]XR FOREARM 2 VW [id number] 20:03:26 Surgical neck fracture. Soft tissue contusion at the level of the elbow and forearm. Preliminary Report Dictated by Resident: Xiao Copeland Image quality: The lateral elbow radiograph is suboptimally positioned.[facility]. Alex Maynard MD., have reviewed this study and agree with the abovereport.EXAM: XR ELBOW <3 VW LEFT,EXAM: XR FOREARM 2 VW LEFT,EXAM: XR HUMERUS 2 VW LEFTEXAM: XR RIBS 3 VW LEFT HISTORY: pain COMPARISON: None. IMAGE QUALITY: The evaluation the elbow is partially li mited due tosuboptimal positioning of the elbow on the lateral projection. FINDINGS: Radiographs ofthe left humerus, elbow, and forearm demonstrate a mildlyimpacted comminuted humeral surgical neck fracture. Severe glenohumeralosteoarthrosis is seen in the form of joint space narrowing, subchondralsclerosis, degenerative cyst formation and marginal osteophytosis.Significant soft tissue swelling is noted at the dorsolateral aspect of theelbow and proximal forearm. Mild osteoarthrosis of the elbow joint coronoidis seen in the form of subchondral sclerosis and joint space narrowing. Nolarge elbow joint effusion is seen. Diffuse osteopenia is seen. 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 Calcified plaque outlines the aortic arch. Radiographs of the left ribs demonstrate no acute fractures. Nopneumothorax is seen. [facility], Radiant Results Inft User - 11/05/2019 3:04 PM CDTEXAM: XR ELBOW <3 VW LEFT,EXAM: XR FOREARM 2 VW LEFT,EXAM: XR HUMERUS 2 VW LEFTEXAM: XR RIBS 3 VW LEFTHISTORY: pain COMPARISON: None.IMAGE QUALITY: The evaluation the elbow is partially limited due tosuboptimal positioning of the elbow onthe lateral projection.FINDINGS: Radiographs of the left humerus, elbow, and forearm demonstrate a mildlyimpacted comminuted humeral surgical neck fracture. Severe glenohumeralosteoarthrosis is seen inthe form of joint space narrowing, subchondralsclerosis, degenerative cyst formation and marginal osteophytosis.Significant soft tissue swelling is noted at the dorsolateral aspect of theelbow and proximal forearm. Mild osteoarthrosis of the elbow joint coronoidis seen in the form of subchondral sclerosis and joint space narrowing. Nolarge elbow joint effusion is seen. Diffuse osteopenia is seen. 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 Calcified plaque outlines the aortic arch.Radiographs of the left ribs demonstrate no acute fractures. Nopneumothorax is seen.IMPRESSIONSurgical neck fracture.Soft tissue contusion at the level of the elbow and forearm.Preliminary Report Dictated by Resident: Xiao Todd quality: The lateral elbow radiograph is suboptimally positioned.[facility].Alex Maynard MD., have reviewed this study and agree with the abovereport.[facility] HospitalXR RIBS 3 VW [id number] 20:03:26 Surgical neck fracture. Soft tissue contusion at the level of the elbow and forearm. Preliminary Report Dictated by Resident: Xiao Copeland Image quality: The lateral elbow radiograph is suboptimally positioned.[facility]. Alex Maynard MD., have reviewed this study and agree with the abovereport.EXAM: XR ELBOW <3 VW LEFT,EXAM: XR FOREARM 2 VW LEFT,EXAM: XR HUMERUS 2 VW LEFTEXAM: XR RIBS 3 VW LEFT HISTORY: pain COMPARISON: None. IMAGE QUALITY: The evaluation the elbow is partially limited due tosuboptimal positioning of the elbow on the lateral projection. FINDINGS: Radiographs ofthe left humerus, elbow, and forearm demonstrate a mildlyimpacted comminuted humeral surgical neck fracture. 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 Mild osteoarthrosis of the elbow joint coronoidis seen in the form of subchondral sclerosis and joint space narrowing. Nolarge elbow joint effusion is seen. Diffuse osteopenia is seen. 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 Calcified plaque outline s the aortic arch. Radiographs of the left ribs demonstrate no acute fractures. Nopneumothorax is seen. [facility], Radiant Results Inft User - 11/05/2019 3:04 PM CDTEXAM: XR ELBOW <3 VW LEFT,EXAM: XR FOREARM 2 VW LEFT,EXAM: XR HUMERUS 2 VW LEFTEXAM: XR RIBS 3 VW LEFTHISTORY: pain COMPARISON: None.IMAGE QUALITY: The evaluation the elbow is partially limited due tosuboptimal positioning of the elbow onthe lateral projection.FINDINGS: Radiographs of the left humerus, elbow, and forearm demonstrate a mildlyimpacted comminuted humeral surgical neck fracture. Severe glenohumeralosteoarthrosis is seen inthe form of joint space narrowing, subchondralsclerosis, degenerative cyst formation and marginal ost eophytosis.Significant soft tissue swelling is noted at the dorsolateral aspect of theelbow and proximal forearm. Mild osteoarthrosis of the elbow joint coronoidis seen in the form of subchondral sclerosis and joint space narrowing. Nolarge elbow joint effusion is seen. Diffuse osteopenia is seen. 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 Calcified plaque outlines the aortic arch.Radiographs of the left ribs demonstrate no acute fractures. Nopneumothorax is seen.IMPRESSIONSurgical neck fracture.Soft tissue contusion at the level of the elbow and forearm.Preliminary Report Dictated by Resident: Xiao Todd quality: The lateral elbow radiograph is suboptimally positioned.[facility].I, Alex Valdez MD., have reviewed this study and agree with the abovereport.[facility] HospitalCT ELBOW LEFT WO [id number] 18:48:42 Osteoarthrosis with soft tissue swelling and no fracture identified. EXAM: CT ELBOW LEFT WO CONTRAST HISTORY: Elbow trauma, fx known or suspected, xray insufficient COMPARISON: Elbow radiographs performed the same day earlier. FINDINGS: Multiplanar CT imaging of the elbow was performed. There is moderate subcutaneous fat stranding over the lateral and posteriorelbow joint line. Marginal osteophytes are seen throughout the elbow joint with moderatetrochlear coronoid joint space loss. No definitivefracture is seen. Noeffusion is present. No cystic or solid soft tissue mass is present. [facility], Radiant Results Inft User - 11/05/2019 1:49 PM CDTEXAM:CT ELBOW LEFT WO CONTRASTHISTORY:Elbow trauma, fx known or suspected, xray insufficient COMPARISON:Elbow radiographs performed the same day earlier.FINDINGS: Multiplanar CT imaging of the elbow was performed.There is moderate subcutaneous fat strandingover the lateral and posteriorelbow joint line.Marginal osteophytes are seen throughout the elbow juan nt with moderatetrochlear coronoid joint space loss. No definitive fracture is seen. Noeffusion is present. No cystic or solid soft tissue mass is present.IMPRESSIONOsteoarthrosis with soft tissue swelling and no fracture identified.[facility] [id number] 17:38:51 Left midlung streaky opacity likely represents subsegmental atelectasis.However, an infectious process cannot be excluded. Recommend clinicalcorrelation. Left humeral neck fracture. Preliminary ReportDictated by Resident: Ahmed Long Bautista MD., have reviewed this study and agree withthe above report.EXAM: XR CHEST 1 VW HISTORY: 79 years-old; Female; fall left rib pain COMPARISON: 04/12/2019 FINDINGS: Lungs/Pleura: There is a streaky peripheral opacity in the left midlung.Persistent right hemidiaphragm elevation. There is no pleural effusion orpneumothorax. Heart/Mediastinum: The cardiomediastinal silhouette is normal. Mildatherosclerotic calcification at the aortic knob. No acute osseous structure abnormality. Left humeral neck fracture, severeleft glenohumeral osteoarthrosis and diffuse osteopenia are noted. [facility], Radiant Results Inft User - 11/05/2019 12:40 PM CDTEXAM:XR CHEST 1 VWHISTORY: 79 years- old; Female; fall left rib pain COMPARISON: 04/12/2019FINDINGS:Lungs/Pleura: There is a streaky peripheral opacity in the left midlung.Persistent right hemidiaphragm elevation. There is no pleural effusion orpneumothorax.Heart/Mediastinum: The cardiomediastinal silhouetteis normal. Mildatherosclerotic calcification at the aortic knob.No acute osseous structure abnormality. Left humeral neck fracture, severeleft glenohumeral osteoarthrosis and diffuse osteopenia are noted.IMPRESSIONLeft midlung streaky opacity likely represents subsegmental atelectasis.However, an infectious process cannot be excluded. Recommend clinicalcorrelation.Left humeral neck fracture.Preliminary Report Dictated by Resident: Long Christensen MD., have reviewed this study and agree withthe above report.[facility] HospitalCT [facility] WO [id number] 15:47:19No acute findings. HISTORY:Head trauma, headache TECHNIQUE: Noncontrast head CT was performed. COMPARISON:None. ? FINDINGS: The ventricles and sulci are appropriate for patient's age. There is no midline shift. The basal cisterns are preserved. No largevascular territory infarction, intracranial hemorrhage or mass effect isseen. The extracranial tissues demonstrate no acute findings. [facility], Radiant Results Inft User - 11/05/2019 10:48 AM CDTHISTORY:Head trauma, headache TECHNIQUE: Noncontrast head CT was performed.COMPARISON:None. FINDINGS:The ventricles and sulci are appropriate for patient's age.There is no midline shift. The basal cisterns are preserved. No largevascular territory infarction,intracranial hemorrhage or mass effect isseen.The extracranial tissues demonstrate no acute findings. IMPRESSIONNo acute findings.[facility] SCREENING MAMMOGRAM [id number] 20:35:04Examination:BI SCREENING MAMMOGRAM BILATERAL History:Patient is 79 year old and is seen for: ?Screening. Computer- aided detection (CAD) utilized. Comparisons: 04/30/2016 DIGITAL MAMMOGRAM, SCREENING Findings:The breasts have scattered areas of fibroglandular density. RightThere are amorphous calcifications in a grouped distribution seen in the upper outer quadrant of the right breast in the posterior depth, 9.5 cm from the nipple on the CC view. There are round calcifications seen in the right breast. Compared to the previous study, there are no significant changes. BilateralThere are 3 similar masses seen in both breasts. Compared to the previous study, there are no significant changes. Impression:New small cluster of microcalcifications in upper outer RIGHT breast. Additional imaging recomm ended (focal compression mag CC/ML views) Recommendation:Annual mammographic follow-up - BilateralTomosynthesis spot compression - RightAnnual mammographic follow-up - Right BI-RADS Category: Left: 2 - BenignRight: 0 - Incomplete: Needs Additional Imaging EvaluationOverall: 0 - Incomplete: Needs Additional Imaging EvaluationUnPawnee [facility] thorax with contrast 2019-04-13 06:11:57 Minimal patchy groundglass attenuation in the lungs bilaterally, possiblyreflecting mild edema or viral infectious process. Cardiomegaly with moderate coronary arteriosclerosis. 7 mm noncalcified pulmo nary nodule in the left lower lobe. Comparison withany prior cross-sectional imaging of the chest isrecommended. If this isunavailable, follow-up in 6 months is recommended. No acute process identified in the abdomen or pelvis. Diffuse fatty infiltration of the liver. RL: 460 AFC: [id number] Indication: Acute chest and abdominal pain COMPARISON: None TECHNIQUE: Axial images of the chest, abdomen and pelvis are performedfollowing administration of intravenous contrast material. Images werereformatted in the coronal and sagittal plane. CT scan was performedaccording to ALARA (as low as reasonably achievable) policy. FINDINGS: Thevisualized thyroid gland is within normal limits. There is nothoracic aortic aneurysm or dissection.There is moderate coronaryarteriosclerosis. The heart is enlarged without pericardial effusion. Thereis minimal patchy groundglass attenuation in the lungs bilaterally, withsubsegmental atelectasis in the right lower lobe. There is a noncalcifiednodule in the left lower lobe measuring 7 mm. Bone windows through thechest demonstrate no osseous destructive lesion. There is diffuse fatty infiltration ofthe liver. The patient is statuspost cholecystectomy. The spleen, adrenal glands and pancreas are withinnormal limits. There are bilateral renal cortical cysts. There is nohydronephrosis. There is no abdominal aortic aneurysm or dissection. There is no free fluid in the pelvis. There is no bowel obstruction,widespread diverticulosis or acute diverticulitis. The appendix is notseparately identified. ?Bone windows through the abdomen and pelvisdemonstrate no osseous destructive lesion. The patient is status post lefthip arthroplasty. [facility], Radiant Results Inft User - 04/13/2019 12:14 AM CSTIndication: Acute chest and abdominal painCOMPARISON: NoneTECHNIQUE: Axial images of the chest, abdomen and pelvis are performedfollowing administration of intravenous contrast material. Images werereformatted inthe coronal and sagittal plane. CT scan was performedaccording to ALARA (as low as reasonably achievable) policy.FINDINGS: The visualized thyroid gland is within normal limits. There is nothoracic aortic aneurysm or dissection. There is moderate coronaryarteriosclerosis. The heart is enlarged without pericardial effusion. Thereis minimal patchy groundglass attenuation in the lungs bilaterally, withsubsegmental atelectasis in the right lower lobe. There is a noncalcifiednodule in the left lower lobe measuring 7 mm. Bone windows through thechest demonstrate no osseous destructive lesion.There is diffuse fatty infiltration of the liver. The patient is statuspost cholecystectomy. The spleen, adrenal glands and pancreas are withinnormal limits. There are bilateral renal cortical cysts. There is nohydronephrosis. There is no abdominal aortic aneurysm or dissection.There is no free fluid in the pelvis.There is no bowel obstruction,widespread diverticulosis or acute diverticulitis. The appendix is notseparately identified. Bone windows through the abdomen and pelvisdemonstrate no osseous destructivelesion. The patient is status post lefthip arthroplasty.IMPRESSIONMinimal patchy groundglass attenuation in the lungs bilaterally, possiblyreflecting mild edema or viral infectious process.Cardiomegalywith moderate coronary arteriosclerosis.7 mm noncalcified pulmonary nodule in the left lower lobe. Comparison withany prior cross- sectional imaging of the chest is recommended. If this isunavailable, follow-up in 6 months is recommended.No acute process identified in the abdomen or pelvis.Diffuse fatty infiltration of the liver.RL: 460AFC: [id number] [facility]CT [facility] with [id number] 06:11:57 Minimal patchy groundglass attenuation in the lungs bilaterally, possiblyreflecting mild edema or viral infectious process. Cardiomegaly with moderate coronary arteriosclerosis. 7 mm noncalcified pulmonary nodule in the left lower lobe. Comparison withany prior cross-sectional imaging of the chest isrecommended. If this isunavailable, follow-up in 6 months is recommended. No acute process identified in the abdomen or pelvis. Diffuse fatty infiltration of the liver. RL: 460 AFC: [id number] Indication: Acute chest and abdominal pain COMPARISON: None TECHNIQUE: Axial images of the chest, abdomen and pelvis are performedfollowing administration of intravenous contrast material. Images werereformatted in the coronal and sagittal plane. CT scan was performedaccording to ALARA (as low as reasonably achievable) policy. FINDINGS: Thevisualized thyroid gland is within normal limits. There is nothoracic aortic aneurysm or dissection.There is moderate coronaryarteriosclerosis. The heart is enlarged without pericardial effusion. Thereis minimal patchy groundglass attenuation in the lungs bilaterally, withsubsegmental atelectasis in the right lower lobe. There is a noncalcifiednodule in the left lower lobe measuring 7 mm. Bone windows through thechest demonstrate no osseous destructive lesion. There is diffuse fatty infiltration ofthe liver. The patient is statuspost cholecystectomy. The spleen, adrenal glands and pancreas are withinnormal limits. There are bilateral renal cortical cysts. There is nohydronephrosis. There is no abdominal aortic aneurysm or dissection. There is no free fluid in the pelvis. There is no bowel obstru ction,widespread diverticulosis or acute diverticulitis. The appendix is notseparately identified. ?Bone windows through the abdomen and pelvisdemonstrate no osseous destructive lesion. The patient is status post lefthip arthroplasty. [facility], Radiant Results Inft User - 04/13/2019 12:14 AM CSTIndication: Acute chest and abdominal painCOMPARISON: NoneTECHNIQUE: Axial images of the chest, abdomen and pelvis are performedfollowing administration of intravenous contrast material. Images werereformatted inthe coronal and sagittal plane. CT scan was performedaccording to ALARA (as low as reasonably achievable) policy.FINDINGS: The visualized thyroid gland is within normal limits. There is nothoracic aortic aneurysm or dissection. There is moderate coronaryarteriosclerosis. The heart is enlarged without pericardial effusion. Thereis minimal patchy groundglass attenuation in the lungs bilaterally, withsub segmental atelectasis in the right lower lobe. There is a noncalcifiednodule in the left lower lobe measuring 7 mm. Bone windows through thechest demonstrate no osseous destructive lesion.There is diffuse fatty infiltration of the liver. The patient is statuspost cholecystectomy. The spleen, adrenal glands and pancreas are withinnormal limits. There are bilateral renal cortical cysts. There is nohydronephrosis. There is no abdominal aortic aneurysm or dissection.There is no free fluid in the pelvis.There is no bowel obstruction,widespread diverticulosis or acute diverticulitis. The appendix is notseparately identified. Bone windows through the abdomen and pelvisdemonstrate no osseous destructivelesion. The patient is status post lefthip arthroplasty.IMPRESSIONMinimal patchy groundglass attenuation in the lungs bilaterally, possiblyreflecting mild edema or viral infectious process.Cardiomegalywith moderate coronary arteriosclerosis.7 mm noncalcified pulmonary nodule in the left lower lobe. Comparison withany prior cross- sectional imaging of the chest is recommended. If this isunavailable, follow-up in 6 months is recommended.No acute process identified in the abdomen or pelvis.Diffuse fatty infiltration of the liver.RL: 460AF: [id number] UnThe [facility] CampusPROTHROMBIN TIME / [id number] 03:39:00 Test Item Value Reference Range Interpretation Comments PROTIME PATIENT (test See_Comment H [Auto mated message] code = 5964-2) The system [employer] generated this result transmitted ref erence range: 12.0 - 1 4.7 Seconds. The reference range was not used to int erpret this result as normal/abnormal . INR (test code = 6301-6) Nor mal INR <1.1; Warfarin Therap eutic range 2.0 to 3. 0 or 2.5 to 3.5, dep ending upon the indica tions. Lab Interpretation (test Abnormal code = 45242-2) [facility]COM. [facility]OLIC PAN[facility] ([id number])2019-04-13 03:20:00 Test Item Value Reference Range Interpretation Comments NA (test code = 141 mmol/L 135-145 6949099715) K (test code = 3.5 mmol/L 3.5-5 3423568286) CL (test code = 101 mmol/L 98-108 0356763712) CO2 TOTAL (test code = 31 mmol/L 23-31 6204106236) AGAP (test code = 2-16 8848992526) BUN (test code = 24 mg/dL 7-23 H 8402590829) GLUCOSE (test code = 139 mg/dL 70-110 H 3131768022) CREATININE (test code = 1.10 mg/dL 0.5-1.04 H 7663380798) TOTAL BILI (test code = 1.1 mg/dL 0.1-1.6 1289094820) CALCIUM (test code = 10.3 mg/dL 8.6-10.6 0317117576) T PROTEIN (test code = 8.4 g/dL 6.3-8.2 H 2129525575) ALBUMIN (test code = 4.5 g/dL 3.5-5 5463216338) ALK PHOS (test code = 85 U/L 34-122 4103298608) ALTv (test code = 17 U/L 5-35 1742-6) AST(SGOT) (test code = 20 U/L 13-40 7773572466) eGFR Calculation mL/min/1.73m2 (Non-) (test code = 2270846331) eGFR Calculation mL/min/1.73m2 () (test code = 1918762163) HAYDEN (test code = HAYDEN) Association of Glomerular Filtration Rate (GFR) and Staging of Kidney Disease* + --+ --+ ------+| GFR (mL/min/1.73 m2) ?| With Kidney Damage ?| ?Without Kidney Damage+ --------+ --------+ +| ?>90 ?| ?Stage one ?| ? Normal ?+ ---+ ---+ -------+| ?60-89 ?| ?Stage two ?| ? Decreased GFR ? + --+ --+ ------+| ?30-59 ?| ?Stage three ?| ? Stage three ? + --+ --+ ------+| ?15-29 ?| ?Stage four ? | ? Stage four ?+ ---+ ---+ -------+| ?<15 (or dialysis) ? ?| ?Stage five ? | ? Stage five ?+ ---+ ---+ -------+ *Each stage assumes the associated GFR level has been in effect for at least three months. ?Stages 1 to 5, with or without kidney disease, indicate chronic kidney disease. Notes: Determination of stages one and two (with eGFR >59mL/min/1.73 m2) requires estimation of kidney damage for at least three months as defined by structural or functional abnormalities of the kidney, manifested by either:Pathological abnormalities or Markers of kidney damage (including abnormalities in the composition of the blood or urine or abnormalities in imaging tests). Lab Interpretation Abnormal (test code = 15080-1) [facility] WITH [id number] 03:03:00 Test Item Value Reference Range Interpretation Comments WBC (test code = See_Comment [Automated 6690-2) message] The sy stem which generated this result transmitted reference range : 4.30 - 11.10 10*3/?L. The reference range was not used to interpret this result as normal/abnormal . RBC (test code = See_Comment [Automated 789-8) message] The sy stem which generated this result transmitted reference range : 3.93 - 5.25 10*6/?L. The reference range was not used to interpret this result as normal/abnormal . HGB (test code = 12.8 g/dL 11.6-15 718-7) HCT (test code = 40.6 % 35.7-45.2 4544-3) MCV (test code = 93.3 fL 80.6-95.5 787-2) MCH (test code = 29.4 pg 25.9-32.8 785-6) MCHC (test code = 31.5 g/dL 31.6-35.1 L 786-4) RDW-SD (test code = 47.3 fL 39-49.9 55812-6) RDW-CV (test code = 13.7 % 12-15.5 788-0) PLT (test code = See_Comment [Automated 777-3) message] The sy stem which generated this result transmitted reference range : 166 - 358 10*3/ ?L. The reference r rg was not used to interpret this result as normal/abnormal . MPV (test code = 11.1 fL 9.5-12.9 03983-2) NRBC/100 WBC (test See_Comment [Automat ed code = 8723351665) message] The system which generated this result transmitted reference range : 0.0 - 10.0 /100 WBCs. The refer ence range was not u sed to interpret th is result as normal/abnormal . NRBC x10^3 (test code <0.01 See_Comment [Auto mated = 1705166331) message] The s ystem which generated this result transmitted reference range : 10*3/?L. The reference range was not used to interpret this result as normal/abnormal . GRAN MAT (NEUT) % 73.0 % (test code = 770-8) IMM GRAN % (test code 0.40 % = 7314580573) LYMPH % (test code = 17.9 % 736-9) MONO % (test code = 8.0 % 5905-5) EOS % (test code = 0.4 % 713-8) BASO % (test code = 0.3 % 706-2) GRAN MAT x10^3(ANC) 6.53 10*3/uL 1.88-7.09 (test code = 0185254475) IMM GRAN x10^3 (test 0.04 10*3/uL 0-0.06 code = 2487746427) LYMPH x10^3 (test code 1.60 10*3/uL 1.32-3.29 = 731-0) MONO x10^3 (test code 0.72 10*3/uL 0.33-0.92 = 742-7) EOS x10^3 (test code = 0.04 10*3/uL 0.03-0.39 711-2) BASO x10^3 (test code 0.03 10*3/uL 0.01-0.07 = 704-7) Lab Interpretation Abnormal (test code = 11939-5) [facility] [id number] 22:07:14No evidence of acute cardiopulmonary disease. Specifically, no evidence ofcavitary lesions or bulky hilar lymphadenopathy. Streaky retrocardiac opacities seen projecting over the right hemidiaphragmandlateral view are thought to be related to atelectasis. However,superimposed infection cannot be completely excluded. Correlate clinicallywith laboratory findings and physical exam. 2 VIEWS OF THE CHEST HISTORY: prolonged Cough for weeks; new onset ?hemoptysis COMPARISON: none TECHNIQUE: PA and lateral views of the chest. FINDINGS: Bibasilar atelectasis. Streaky opacities seen projecting over the righthemidiaphragm on the right are thought to be related to atelectasis.Otherwise, the lungs are clear. There is no focal consolidation, pleuraleffusion or pneumothorax. No cavitary lesions or bulky hilarlymphadenopathy. The cardiomediastinal silhouette is within normal limits. Aortic archcalcificationsextending to the visualized abdomen. No acute bony abnormalities are seen. Advanced degenerative changesinvolving the left glenohumeral joint. Right upper quadrant cholecystectomy clips. [facility], Radiant Results Inft User - 04/12/2019 4:08 PM CST2 VIEWS OF THE CHESTHISTORY: prolonged Cough for weeks; new onset hemoptysis COMPARISON: noneTECHNIQUE: PA and lateral views of the chest.FINDINGS:Bibasilar atelectasis. Streaky opacities seen projecting over the righthemidiaphragm on the right are thought to be related to atelectasis.Otherwise, the lungs are clear. There is no focal consolidation, pleuraleffusion or pneumothorax. No cavitary lesions or bulky hilarlymphadenopathy.The cardiomediastinal silhouette is within normal limits. Aortic archcalcifications extending to the visualized abdomen. No acute bony abnormalities are seen. Advanced degenerative changesinvolving the left glenohumeral joint.Right upper quadrant cholecystectomy clips.IMPRESSIONNo evidence of acute cardiopulmonary disease. Specifically, no evidence ofcavitary lesions or bulky hilar lymphadenopathy.Streaky retrocardiac opacities seen projecting over the right hemidiaphragmand lateral view are thought to be related to atelectasis. However,superimposed infection cannot be completely excluded. Correlate clinicallywith laboratoryfindings and physical exam. [facility] (NA, K, CL, CO2, GLUCOSE, BUN, CREATININE, CA)2018-10-22 11:35:00 Test Item Value Reference Range Interpretation Comments NA (test code = 142 mmol/L 135-145 6865812567) K (test code = 4.3 mmol/L 3.5-5 1801471698) CL (test code = 96 mmol/L 98-108 L 6413491627) CO2 TOTAL (test code = 36 mmol/L 23-31 H 2634076151) AGAP (test code = 2-16 0548304105) BUN (test code = 31 mg/dL 7-23 H 8092419863) GLUCOSE (test code = 139 mg/dL 70-110 H 1897794997) CREATININE (test code = 1.18 mg/dL 0.5-1.04 H 1669862959) CALCIUM (test code = 9.6 mg/dL 8.6-10.6 9342843977) eGFR Calculation mL/min/1.73m2 (Non-) (test code = 1404211873) eGFR Calculation mL/min/1.73m2 () (test code = 7296158410) HAYDEN (test code = HAYDEN) Association of Glomerular Filtration Rate (GFR) and Staging of Kidney Disease*+ + + +| GFR (mL/min/1.73 m2)?| With Kidney Damage?|?Without Kidney Damage+ --------+ --------+ +|?>90?|?S tage one?|? Normal?+ ---------+ ---------+ +|?60-89? |?Stage two?|? Decreased GFR? + --+ --+ ------+|?30-59?|?Stage three?|? Stage three? + --+ --+ ------+|?15-29?|?Stage four? |? Stage four?+ -------+ -------+ +|?<15 (or dialysis)?|?Stage five? |? Stage five?+ -------+ -------+ +*Each stage assumes the associated GFR level has been in effect for at least three months.?Stages 1 to 5, with or without kidney disease, indicate chronic kidney disease.Notes: Determination of stages one and two (with eGFR >59mL/min/1.73 m2) requires estimation of kidney damage for at least three months as defined by structural or functional abnormalities of the kidney, manifested by either:Pathological abnormalities or Markers of kidney damage (including abnormalities in the composition of the blood or urine or abnormalities in imaging tests). Lab Interpretation Abnormal (test code = 37947-9) [facility] METABOLIC PANEL (NA, K, CL, CO2, GLUCOSE, BUN, CREATININE, CA)2018-10-21 12:44:00 Test Item Value Reference Range Interpretation Comments NA (test code = 142 mmol/L 135-145 2645752756) K (test code = 3.4 mmol/L 3.5-5 L 9556192435) CL (test code = 105 mmol/L 98-108 3378067453) CO2 TOTAL (test code = 29 mmol/L 23-31 4566638065) AGAP (test code = 2-16 8124928849) BUN (test code = 33 mg/dL 7-23 H 0337703223) GLUCOSE (test code = 99 mg/dL 70-110 7648340048) CREATININE (test code = 0.98 mg/dL 0.5-1.04 7702327189) CALCIUM (test code = 8.0 mg/dL 8.6-10.6 L 6569714244) eGFR Calculation mL/min/1.73m2 (Non-) (test code = 9808831436) eGFR Calculation mL/min/1.73m2 () (test code = 7810511553) HAYDEN (test code = HAYDEN) Association of Glomerular Filtration Rate (GFR) and Staging of Kidney Disease*+ + + +| GFR (mL/min/1.73 m2)?| With Kidney Damage?|?Without Kidney Damage+ --------+ --------+ +|?>90?|?S jessee one?|? Normal?+ ---------+ ---------+ +|?60-89? |?Stage two?|? Decreased GFR? + --+ --+ ------+|?30-59?|?Stage three?|? Stage three? + --+ --+ ------+|?15-29?|?Stage four? |? Stage four?+ -------+ -------+ +|?<15 (or dialysis)?|?Stage five? |? Stage five?+ -------+ -------+ +*Each stage assumes the associated GFR level has been in effect for at least three months.?Stages 1 to 5, with or without kidney disease, indicate chronic kidney disease.Notes: Determination of stages one and two (with eGFR >59mL/min/1.73 m2) requires estimation of kidney damage for at least three months as defined by structural or functional abnormalities of the kidney, manifested by either:Pathological abnormalities or Markers of kidney damage (including abnormalities in the composition of the blood or urine or abnormalities in imaging tests). Lab Interpretation Abnormal (test code = 99426-5) [facility] HospitalUR[facility] [id number] 12:29:00 Test Item Value Reference Range Interpretation Comments URIC ACID (test code = 6558398631) 7.2 mg/dL 2.9-6 H Lab Interpretation (test code = Abnormal 03523-5) [facility] (NA, K, CL, CO2, GLUCOSE, BUN, CREATININE, CA)2018-10-20 12:34:00 Test Item Value Reference Range Interpretation Comments NA (test code = 141 mmol/L 135-145 1733754015) K (test code = 4.4 mmol/L 3.5-5 2967558184) CL (test code = 99 mmol/L 98-108 9948101293) CO2 TOTAL (test code = 35 mmol/L 23-31 H 7752304306) AGAP (test code = 2-16 8321259754) BUN (test code = 36 mg/dL 7-23 H 0663432406) GLUCOSE (test code = 138 mg/dL 70-110 H 3488194029) CREATININE (test code = 1.29 mg/dL 0.5-1.04 H 2789845904) CALCIUM (test code = 9.4 mg/dL 8.6-10.6 3869572578) eGFR Calculation mL/min/1.73m2 (Non-) (test code = 7805417289) eGFR Calculation mL/min/1.73m2 () (test code = 7876292715) HAYDEN (test code = HAYDEN) Association of Glomerular Filtration Rate (GFR) and Staging of Kidney Disease*+ + + +| GFR (mL/min/1.73 m2)?| With Kidney Damage?|?Without Kidney Damage+ --------+ --------+ +|?>90?|?S tage one?|? Normal?+ ---------+ ---------+ +|?60-89? |?Stage two?|? Decreased GFR? + --+ --+ ------+|?30-59?|?Stage three?|? Stage three? + --+ --+ ------+|?15-29?|?Stage four? |? Stage four?+ -------+ -------+ +|?<15 (or dialysis)?|?Stage five? |? Stage five?+ -------+ -------+ +*Each stage assumes the associated GFR level has been in effect for at least three months.?Stages 1 to 5, with or without kidney disease, indicate chronic kidney disease.Notes: Determination of stages one and two (with eGFR >59mL/min/1.73 m2) requires estimation of kidney damage for at least three months as defined by structural or functional abnormalities of the kidney, manifested by either:Pathological abnormalities or Markers of kidney damage (including abnormalities in the composition of the blood or urine or abnormalities in imaging tests). Lab Interpretation Abnormal (test code = 38511-9) [facility] [id number] 20:16:00 Test Item Value Reference Interpretation Comments Range Blood No organisms No growth Previous Culture-Aerobic isolated preliminary (test code = verified result 63295-5) was Culture In Progress on 10/14/2018 at 1904 CDTPreviou s preliminary verified result was No growth a t 24 hours on 10/16/2018 at 005 0 CDT Blood Culture positive, No growth AA Gram posit caity Culture-Anaerobic identification to cocci in (test code = follow anaerobic 46075-9) bottle. Previou s preliminary verified result was Culture In Progress on 10/14/2018 at 1904 CDTPreviou s preliminary verified result was No growth a t 24 hours on 10/15/2018 at 160 1 CDT Lab Interpretation Abnormal (test code = 15192-1) [facility] CULT[facility] [id number] 20:16:00 Test Item Value Reference Range Interpretation Comments Blood Culture-Aerobic No organisms No growth Previo us (test code = 48726-2) isolated prelim inary verified result was Culture In Progress on 10/14/2018 at 19 04 CDTPrevious preliminary verified result was No growth a t 24 hours on 10/15/2018 at 160 1 CDTPrevious preliminary verified result was No growth a t 48 hours on 10/16/2018 at 160 1 CDTPrevious preliminary verified result was No growth a t 72 hours on 10/17/2018 at 160 1 CDT Blood No organisms No growth Previous Culture-Anaerobic isolated preliminar y (test code = 15276-5) verifi ed result was Culture In Progress on 10/14/2018 at 19 04 CDTPrevious preliminary verified result was No growth a t 24 hours on 10/15/2018 at 160 1 CDTPrevious preliminary verified result was No growth a t 48 hours on 10/16/2018 at 160 1 CDTPrevious preliminary verified result was No growth a t 72 hours on 10/17/2018 at 160 1 CDT Lab Interpretation Normal (test code = 10851-7) [id number] 11:32:00 Test Item Value Reference Range Interpretation Comments NT-proBNP (test code 784 pg/mL See_Comment H [Autom ated = 9101975771) message] The system which generated this result transmitted reference range : <=450. The reference range was not used to interpret this result as normal/abnormal . HAYDEN (test code = HAYDEN) Biotin has been reported to cause a negative bias, interpret results relative to patient's use of biotin. Lab Interpretation Abnormal (test code = 58722-1) [facility] (NA, K, CL, CO2, GLUCOSE, BUN, CREATININE, CA)2018-10-19 11:30:00 Test Item Value Reference Range Interpretation Comments NA (test code = 141 mmol/L 135-145 0076650856) K (test code = 3.9 mmol/L 3.5-5 6999197330) CL (test code = 98 mmol/L 98-108 7102792565) CO2 TOTAL (test code = 34 mmol/L 23-31 H 5473669274) AGAP (test code = 2-16 1761312613) BUN (test code = 30 mg/dL 7-23 H 9853390424) GLUCOSE (test code = 137 mg/dL 70-110 H 8322642159) CREATININE (test code = 1.17 mg/dL 0.5-1.04 H 0885488085) CALCIUM (test code = 9.5 mg/dL 8.6-10.6 3762582887) eGFR Calculation mL/min/1.73m2 (Non-) (test code = 2169452662) eGFR Calculation mL/min/1.73m2 () (test code = 0748396512) HAYDEN (test code = HAYDEN) Association of Glomerular Filtration Rate (GFR) and Staging of Kidney Disease*+ + + +| GFR (mL/min/1.73 m2)?| With Kidney Damage?|?Without Kidney Damage+ --------+ --------+ +|?>90?|?S tage one?|? Normal?+ ---------+ ---------+ +|?60-89? |?Stage two?|? Decreased GFR? + --+ --+ ------+|?30-59?|?Stage three?|? Stage three? + --+ --+ ------+|?15-29?|?Stage four? |? Stage four?+ -------+ -------+ +|?<15 (or dialysis)?|?Stage five? |? Stage five?+ -------+ -------+ +*Each stage assumes the associated GFR level has been in effect for at least three months.?Stages 1 to 5, with or without kidney disease, indicate chronic kidney disease.Notes: Determination of stages one and two (with eGFR >59mL/min/1.73 m2) requires estimation of kidney damage for at least three months as defined by structural or functional abnormalities of the kidney, manifested by either:Pathological abnormalities or Markers of kidney damage (including abnormalities in the composition of the blood or urine or abnormalities in imaging tests). Lab Interpretation Abnormal (test code = 31569-3) [facility] [id number] 11:30:00 Test Item Value Reference Range Interpretation Comments URIC ACID (test code = 2836741225) 9.0 mg/dL 2.9-6 H Lab Interpretation (test code = Abnormal 97414-3) [facility] WITH [id number] 11:00:00 Test Item Value Reference Range Interpretation Comments WBC (test code = See_Comment [Automated message] 6690-2) The system whic h generated this result transmitted ref erence range: 4.30 - 1 1.10 10*3/?L. The re ference range was not u sed to interpret this result as normal/abnor mal. RBC (test code = See_Comment [Automated message] 289-8) The system iPointer generated this result transmitted ref erence range: 3.93 - 5 .25 10*6/?L. The re ference range was not u sed to interpret this result as normal/abnor mal. HGB (test code = 13.7 g/dL 11.6-15 718-7) HCT (test code = 42.2 % 35.7-45.2 4544-3) MCV (test code = 93.0 fL 80.6-95.5 787-2) MCH (test code = 30.2 pg 25.9-32.8 785-6) MCHC (test code = 32.5 g/dL 31.6-35.1 786-4) RDW-SD (test code 46.0 fL 39-49.9 = 45162-7) RDW-CV (test code 13.4 % 12-15.5 = 788-0) PLT (test code = See_Comment [Automated message] 777-3) The system [employer] generated this result transmitted ref erence range: 166 - 35 8 10*3/?L. The re ference range was not u sed to interpret this result as normal/abnor mal. MPV (test code = 11.0 fL 9.5-12.9 66652-9) NRBC/100 WBC (test See_Comment [Automat ed message] code = 9920404419) The syste m which generated this result transmitted ref erence range: 0.0 - 10 .0 /100 WBCs. The refer ence range was not u sed to interpret this result as normal/abnor mal. NRBC x10^3 (test <0.01 See_Comment [Automated message] code = 6128656855) The syste m which generated this result transmitted ref erence range: 10*3/?L. The reference range was not used to interpr et this result as normal/abnormal . GRAN MAT (NEUT) % 61.5 % (test code = 770-8) IMM GRAN % (test 0.30 % code = 9881172096) LYMPH % (test code 25.7 % = 736-9) MONO % (test code 10.3 % = 5905-5) EOS % (test code = 1.8 % 713-8) BASO % (test code 0.4 % = 706-2) GRAN MAT 4.17 10*3/uL 1.88-7.09 x10^3(ANC) (test code = 9662024239) IMM GRAN x10^3 <0.03 0-0.06 (test code = 3340654472) LYMPH x10^3 (test 1.74 10*3/uL 1.32-3.29 code = 731-0) MONO x10^3 (test 0.70 10*3/uL 0.33-0.92 code = 742-7) EOS x10^3 (test 0.12 10*3/uL 0.03-0.39 code = 711-2) BASO x10^3 (test 0.03 10*3/uL 0.01-0.07 code = 704-7) [facility] [id number] 11:54:00 Test Item Value Reference Range Interpretation Comments NT-proBNP (test code 1490 pg/mL See_Comment H [Autom ated = 6755089207) message] The system which generated this result transmitted reference range : <=450. The reference range was not used to interpret this result as normal/abnormal . HAYDEN (test code = HAYDEN) Biotin has been reported to cause a negative bias, interpret results relative to patient's use of biotin. Lab Interpretation Abnormal (test code = 30755-2) [facility] (NA, K, CL, CO2, GLUCOSE, BUN, CREATININE, CA)2018-10-18 11:47:00 Test Item Value Reference Range Interpretation Comments NA (test code = 141 mmol/L 135-145 0463296895) K (test code = 3.5 mmol/L 3.5-5 1505746118) CL (test code = 100 mmol/L 98-108 2173414589) CO2 TOTAL (test code = 35 mmol/L 23-31 H 9001427027) AGAP (test code = 2-16 2072552758) BUN (test code = 32 mg/dL 7-23 H 8257143914) GLUCOSE (test code = 149 mg/dL 70-110 H 7699600497) CREATININE (test code = 1.06 mg/dL 0.5-1.04 H 4024097527) CALCIUM (test code = 9.3 mg/dL 8.6-10.6 6099667830) eGFR Calculation mL/min/1.73m2 (Non-) (test code = 4409391074) eGFR Calculation mL/min/1.73m2 () (test code = 7156990582) HAYDEN (test code = HAYDEN) Association of Glomerular Filtration Rate (GFR) and Staging of Kidney Disease*+ + + +| GFR (mL/min/1.73 m2)?| With Kidney Damage?|?Without Kidney Damage+ --------+ --------+ +|?>90?|?S tage one?|? Normal?+ ---------+ ---------+ +|?60-89? |?Stage two?|? Decreased GFR? + --+ --+ ------+|?30-59?|?Stage three?|? Stage three? + --+ --+ ------+|?15-29?|?Stage four? |? Stage four?+ -------+ -------+ +|?<15 (or dialysis)?|?Stage five? |? Stage five?+ -------+ -------+ +*Each stage assumes the associated GFR level has been in effect for at least three months.?Stages 1 to 5, with or without kidney disease, indicate chronic kidney disease.Notes: Determination of stages one and two (with eGFR >59mL/min/1.73 m2) requires estimation of kidney damage for at least three months as defined by structural or functional abnormalities of the kidney, manifested by either:Pathological abnormalities or Markers of kidney damage (including abnormalities in the composition of the blood or urine or abnormalities in imaging tests). Lab Interpretation Abnormal (test code = 45718-1) [facility] HospitalTRLEATHA [id number] 17:33:00 Test Item Value Reference Range Interpretation Comments TROPONIN I (test 0.005 ng/mL See_Comment [Automated code = 4472076797) message] The system which generated this result transmitted reference range : <=0.034. The reference range was not used to interpret this result as normal/abnormal . HAYDEN (test code = Equal or Less than HAYDEN) 0.034 ng/ml---Normal?Not e: Cardiac troponin begins to rise 3-4 hours after the onset of ischemia. Repeat in 4-6 hours if the sample was drawn within 3-4 hours of the onset of the symptom and found normal. Between 0.035 and 0.120 ng/mL--- Borderline. Questionable myocardial injury or necrosis?Note: Serial measurement may be necessary to confirm or exclude the diagnosis of myocardial injury or necrosis; Clinical correlation (symptoms, EKGs, imaging studies, and others) required; Repeat in 4-6 hours if clinically indicated.? Equal or Higher than 0.121 ng/mL---Abnormal. Myocardial Injury or Necrosis Likely? Biotin has been reported to cause a negative bias, interpret results relative to patient's use of biotin.? ? Lab Interpretation Normal (test code = 10962-3) [facility] [id number] 14:27:00 Test Item Value Reference Range Interpretation Comments Blood Culture Coagulase negative Addition al Workup (test Staphylococcus work-up perfo rmed code = 600-7) only per reque st. Culture plate(s ) will be saved until this date : - 10/19/18 Gram stain Isolated from Gram positive (test code = anaerobic bottle Gram cocci in 664-3) positive cocci anaerobic bot tle. [facility] HospitalTROPONIN [id number] 11:52:00 Test Item Value Reference Range Interpretation Comments TROPONIN I (test 0.009 ng/mL See_Comment [Automated code = 6214915106) message] The system which generated this result transmitted reference range : <=0.034. The reference range was not used to interpret this result as normal/abnormal . HAYDEN (test code = Equal or Less than HAYDEN) 0.034 ng/ml---Normal?Not e: Cardiac troponin begins to rise 3-4 hours after the onset of ischemia. Repeat in 4-6 hours if the sample was drawn within 3-4 hours of the onset of the symptom and found normal. Between 0.035 and 0.120 ng/mL--- Borderline. Questionable myocardial injury or necrosis?Note: Serial measurement may be necessary to confirm or exclude the diagnosis of myocardial injury or necrosis; Clinical correlation (symptoms, EKGs, imaging studies, and others) required; Repeat in 4-6 hours if clinically indicated.? Equal or Higher than 0.121 ng/mL---Abnormal. Myocardial Injury or Necrosis Likely? Biotin has been reported to cause a negative bias, interpret results relative to patient's use of biotin.? ? Lab Interpretation Normal (test code = 70602-6) [facility]AL [id number] 10:21:00 Test Item Value Reference Range Interpretation Comments NT-proBNP (test code 2210 pg/mL See_Comment H [Autom ated = 2867072735) message] The system which generated this result transmitted reference range : <=450. The reference range was not used to interpret this result as normal/abnormal . HAYDEN (test code = HAYDEN) Biotin has been reported to cause a negative bias, interpret results relative to patient's use of biotin. Lab Interpretation Abnormal (test code = 24033-6) [facility]COMP[facility] MET[facility]OLIC [facility] (06075)2018-10-17 10:13:00 Test Item Value Reference Range Interpretation Comments NA (test code = 145 mmol/L 135-145 8851395427) K (test code = 3.8 mmol/L 3.5-5 7804016098) CL (test code = 103 mmol/L 98-108 0679465126) CO2 TOTAL (test code = 30 mmol/L 23-31 5855304071) AGAP (test code = 2-16 1976052356) BUN (test code = 31 mg/dL 7-23 H 4106536001) GLUCOSE (test code = 146 mg/dL 70-110 H 2976896272) CREATININE (test code = 1.04 mg/dL 0.5-1.04 6248460923) TOTAL BILI (test code = 0.8 mg/dL 0.1-1.5 8304731164) CALCIUM (test code = 9.1 mg/dL 8.6-10.6 5833711477) T PROTEIN (test code = 6.9 g/dL 6.3-8.2 6833585629) ALBUMIN (test code = 3.5 g/dL 3.5-5 2788840749) ALK PHOS (test code = 77 U/L 34-122 9381789032) ALT(SGPT) (test code = 15 U/L 9-51 9034173959) AST(SGOT) (test code = 37 U/L 13-40 1666265161) eGFR Calculation mL/min/1.73m2 (Non-) (test code = 6446695223) eGFR Calculation mL/min/1.73m2 () (test code = 9370181887) HAYDEN (test code = HAYDEN) Association of Glomerular Filtration Rate (GFR) and Staging of Kidney Disease*+ + + +| GFR (mL/min/1.73 m2)?| With Kidney Damage?|?Without Kidney Damage+ --------+ --------+ +|?>90?|?S tage one?|? Normal?+ ---------+ ---------+ +|?60-89? |?Stage two?|? Decreased GFR? + --+ --+ ------+|?30-59?|?Stage three?|? Stage three? + --+ --+ ------+|?15-29?|?Stage four? |? Stage four?+ -------+ -------+ +|?<15 (or dialysis)?|?Stage five? |? Stage five?+ -------+ -------+ +*Each stage assumes the associated GFR level has been in effect for at least three months.?Stages 1 to 5, with or without kidney disease, indicate chronic kidney disease.Notes: Determination of stages one and two (with eGFR >59mL/min/1.73 m2) requires estimation of kidney damage for at least three months as defined by structural or functional abnormalities of the kidney, manifested by either:Pathological abnormalities or Markers of kidney damage (including abnormalities in the composition of the blood or urine or abnormalities in imaging tests). Lab Interpretation Abnormal (test code = 11419-6) [facility] WITH [id number] 09:41:00 Test Item Value Reference Range Interpretation Comments WBC (test code = See_Comment [Automated 7545-2) message] The sy stem which generated this result transmitted reference range : 4.30 - 11.10 10*3/?L. The reference range was not used to interpret this result as normal/abnormal . RBC (test code = See_Comment L [Automated 689-8) message] The sy stem which generated this result transmitted reference range : 3.93 - 5.25 10*6/?L. The reference range was not used to interpret this result as normal/abnormal . HGB (test code = 11.5 g/dL 11.6-15 L 718-7) HCT (test code = 36.0 % 35.7-45.2 4544-3) MCV (test code = 94.5 fL 80.6-95.5 787-2) MCH (test code = 30.2 pg 25.9-32.8 785-6) MCHC (test code = 31.9 g/dL 31.6-35.1 786-4) RDW-SD (test code = 46.5 fL 39-49.9 52964-0) RDW-CV (test code = 13.5 % 12-15.5 788-0) PLT (test code = See_Comment [Automated 777-3) message] The sy stem which generated this result transmitted reference range : 166 - 358 10*3/ ?L. The reference r rg was not used to interpret this result as normal/abnormal . MPV (test code = 11.1 fL 9.5-12.9 19555-2) NRBC/100 WBC (test See_Comment [Automat ed code = 0190888457) message] The system which generated this result transmitted reference range : 0.0 - 10.0 /100 WBCs. The refer ence range was not u sed to interpret th is result as normal/abnormal . NRBC x10^3 (test code <0.01 See_Comment [Auto mated = 6835541573) message] The s ystem which generated this result transmitted reference range : 10*3/?L. The reference range was not used to interpret this result as normal/abnormal . GRAN MAT (NEUT) % 72.8 % (test code = 770-8) IMM GRAN % (test code 0.50 % = 3862151017) LYMPH % (test code = 15.1 % 736-9) MONO % (test code = 9.9 % 5905-5) EOS % (test code = 1.4 % 713-8) BASO % (test code = 0.3 % 706-2) GRAN MAT x10^3(ANC) 5.79 10*3/uL 1.88-7.09 (test code = 2701653052) IMM GRAN x10^3 (test 0.04 10*3/uL 0-0.06 code = 8530938401) LYMPH x10^3 (test code 1.20 10*3/uL 1.32-3.29 L = 731-0) MONO x10^3 (test code 0.79 10*3/uL 0.33-0.92 = 742-7) EOS x10^3 (test code = 0.11 10*3/uL 0.03-0.39 711-2) BASO x10^3 (test code <0.03 0.01-0.07 = 704-7) Lab Interpretation Abnormal (test code = 01938-7) [id number] 19:33:00 Test Item Value Reference Range Interpretation Comments Amoxacillin/Clavulanic 16: Intermediate acid (test code = 92127-4) Ampicillin (test code = 16: Intermediate 59739-0) Ampicillin/Sulbactam 8: Susceptible (test code = 65012-6) Cefazolin (test code = <=4: Susceptible 82069-2) Ceftriaxone (test code = <=1: Susceptible 97215-4) Ciprofloxacin (test code <=0.25: Susceptible = 77344-4) Ertapenem (test code = <=0.5: Susceptible 29925-8) Gentamicin (test code = <=1: Susceptible 06400-8) Nitrofurantoin (test code <=16: Susceptible = 89140-3) Piperacillin/Tazobactam <=4: Susceptible (test code = 25482-6) Trimethoprim/Sulfamethoxa <=20: Susceptible zole (test code = 11332-6) Nitrofurantoin is not recommended for use in treating pyelonephritis or systemic disease.[facility]XR [facility] 1 [id number] 14:15:23 HISTORY: CHF. TECHNIQUE: Portable AP semierect view of the chest is obtained. Comparisonis made with04/22/2016 study. FINDINGS: Mild cardiomegaly noted with minimal bilateral pulmonary edema.Atelectaticchanges with elevation of the right hemidiaphragm noted,unchanged. CONCLUSIONS: Cardiomegaly with minimal pulmonary edema. Md[facility], Radiant Results Inft User - 10/16/2018 9:15 AM CDTHISTORY: CHF.TECHNIQUE: Portable AP semierect view of the chest is obtained. Comparisonis made with 04/22/2016 study.FINDINGS: Mild cardiomegaly noted with minimal bilateral pulmonary edema.Atelectatic changes with elevation of the right hemidiaphragm noted,unchanged.CONCLUSIONS: Cardiomegaly with minimal pulmonary edema.[facility] HospitalMAGNESIUM2019-08-02 14:11:00 Test Item Value Reference Range Interpretation Comments MAGNESIUM (test code = 3398347944) 2.1 mg/dL 1.7-2.4 Lab Interpretation (test code = Normal 07965-6) [facility]AL [id number] 11:43:00 Test Item Value Reference Range Interpretation Comments NT-proBNP (test code 3250 pg/mL See_Comment H [Autom ated = 3305461958) message] The system which generated this result transmitted reference range : <=450. The reference range was not used to interpret this result as normal/abnormal . HAYDEN (test code = HAYDEN) Biotin has been reported to cause a negative bias, interpret results relative to patient's use of biotin. Lab Interpretation Abnormal (test code = 25277-2) [facility]. METABOLIC PANEL (03635)2018-10-16 11:36:00 Test Item Value Reference Range Interpretation Comments NA (test code = 141 mmol/L 135-145 9040819974) K (test code = 3.3 mmol/L 3.5-5 L 5027445211) CL (test code = 103 mmol/L 98-108 1392564899) CO2 TOTAL (test code = 29 mmol/L 23-31 7255381996) AGAP (test code = 2-16 9025670967) BUN (test code = 31 mg/dL 7-23 H 0390102435) GLUCOSE (test code = 100 mg/dL 70-110 6486027462) CREATININE (test code = 1.09 mg/dL 0.5-1.04 H 6672298279) TOTAL BILI (test code = 1.2 mg/dL 0.1-1.1 H 4391727242) CALCIUM (test code = 8.8 mg/dL 8.6-10.6 6029436294) T PROTEIN (test code = 6.5 g/dL 6.3-8.2 7996849477) ALBUMIN (test code = 3.3 g/dL 3.5-5 L 2492928565) ALK PHOS (test code = 70 U/L 34-122 5671781986) ALT(SGPT) (test code = 18 U/L 9-51 0624486202) AST(SGOT) (test code = 51 U/L 13-40 H 8553710741) eGFR Calculation mL/min/1.73m2 (Non-) (test code = 4321052770) eGFR Calculation mL/min/1.73m2 () (test code = 8812016147) HAYDEN (test code = HAYDEN) Association of Glomerular Filtration Rate (GFR) and Staging of Kidney Disease*+ + + +| GFR (mL/min/1.73 m2)?| With Kidney Damage?|?Without Kidney Damage+ --------+ --------+ +|?>90?|?S tage one?|? Normal?+ ---------+ ---------+ +|?60-89? |?Stage two?|? Decreased GFR? + --+ --+ ------+|?30-59?|?Stage three?|? Stage three? + --+ --+ ------+|?15-29?|?Stage four? |? Stage four?+ -------+ -------+ +|?<15 (or dialysis)?|?Stage five? |? Stage five?+ -------+ -------+ +*Each stage assumes the associated GFR level has been in effect for at least three months.?Stages 1 to 5, with or without kidney disease, indicate chronic kidney disease.Notes: Determination of stages one and two (with eGFR >59mL/min/1.73 m2) requires estimation of kidney damage for at least three months as defined by structural or functional abnormalities of the kidney, manifested by either:Pathological abnormalities or Markers of kidney damage (including abnormalities in the composition of the blood or urine or abnormalities in imaging tests). Lab Interpretation Abnormal (test code = 56607-1) [facility] HospitalURIC [id number] 11:36:00 Test Item Value Reference Range Interpretation Comments URIC ACID (test code = 8802529103) 8.1 mg/dL 2.9-6 H Lab Interpretation (test code = Abnormal 49487-9) [facility] HospitalCB WITH [id number] 10:41:00 Test Item Value Reference Range Interpretation Comments WBC (test code = See_Comment [Automated 4557-2) message] The sy stem which generated this result transmitted reference range : 4.30 - 11.10 10*3/?L. The reference range was not used to interpret this result as normal/abnormal . RBC (test code = See_Comment L [Automated 352-8) message] The sy stem which generated this result transmitted reference range : 3.93 - 5.25 10*6/?L. The reference range was not used to interpret this result as normal/abnormal . HGB (test code = 11.2 g/dL 11.6-15 L 718-7) HCT (test code = 34.2 % 35.7-45.2 L 4544-3) MCV (test code = 93.7 fL 80.6-95.5 787-2) MCH (test code = 30.7 pg 25.9-32.8 785-6) MCHC (test code = 32.7 g/dL 31.6-35.1 786-4) RDW-SD (test code = 46.8 fL 39-49.9 47839-2) RDW-CV (test code = 13.6 % 12-15.5 788-0) PLT (test code = See_Comment [Automated 777-3) message] The sy stem which generated this result transmitted reference range : 166 - 358 10*3/ ?L. The reference r rg was not used to interpret this result as normal/abnormal . MPV (test code = 11.6 fL 9.5-12.9 53432-1) NRBC/100 WBC (test See_Comment [Automat ed code = 2058240198) message] The system which generated this result transmitted reference range : 0.0 - 10.0 /100 WBCs. The refer ence range was not u sed to interpret th is result as normal/abnormal . NRBC x10^3 (test code <0.01 See_Comment [Auto mated = 0614076456) message] The s ystem which generated this result transmitted reference range : 10*3/?L. The reference range was not used to interpret this result as normal/abnormal . GRAN MAT (NEUT) % 74.7 % (test code = 770-8) IMM GRAN % (test code 0.20 % = 0687658540) LYMPH % (test code = 15.2 % 736-9) MONO % (test code = 9.1 % 5905-5) EOS % (test code = 0.6 % 713-8) BASO % (test code = 0.2 % 706-2) GRAN MAT x10^3(ANC) 6.91 10*3/uL 1.88-7.09 (test code = 4064479776) IMM GRAN x10^3 (test <0.03 0-0.06 code = 4037643462) LYMPH x10^3 (test code 1.41 10*3/uL 1.32-3.29 = 731-0) MONO x10^3 (test code 0.84 10*3/uL 0.33-0.92 = 742-7) EOS x10^3 (test code = 0.06 10*3/uL 0.03-0.39 711-2) BASO x10^3 (test code <0.03 0.01-0.07 = 704-7) Lab Interpretation Abnormal (test code = 41307-4) [facility] DNA [id number] 05:49:00 Test Item Value Reference Range Interpretation Comments Coagulase Negative Positive Negative A Staphylococcus (test code = 54412-4) HAYDEN (test code = HAYDEN) Coagulase negative Staphylococcus (CoNS) detected by DNA probe. CoNS often contaminate blood cultures from skin colonization. Preferred management is to repeat blood cultures, and monitor off antibiotics. Contamination is suggested by culture growth after 48 hours, or growth in single culture (i.e., one of two sets). True bacteremia is suggested by the fever, hypotension, and leukocytosis that are not explained by an alternative infection, or indwelling foreign devices that appear infected (catheters, lines, or prostheses). Consider infectious diseases consultation if differentiation of CoNS bacteremia from contamination is uncertain.If clinical context suggests true bacteremia, preferred therapy is vancomycin. Please contact the Antimicrobial Stewardship Program with questions.ASP Pager:[phone] Testing included eleven identification and three resistance marker targets. Lab Interpretation Abnormal (test code = 96585-1) [facility] CREAT RATIO URINE [id number] 04:31:00 Test Item Value Reference Range Interpretation Comments T. PROT U (test code = 2888-6) 13 mg/dL CREAT U (test code = 8051275560) 128.7 mg/dL Protein/Creatinine Ratio Urine 0.0-2.0 (test code = 5726944388) [facility] HospitalSODI[facility], URINE [id number] 04:27:00 Test Item Value Reference Range Interpretation Comments NA URINE (test code = 4723324576) 45 mmol/L [facility] HospitalUS RETROPERITONEAL [id number] 01:55:45 Normal-appearing kidneys with bilateral cysts, measuring up to 1.6 cm onthe left. Joshua Maynard MD., have reviewed this study and agree with the abovereport.* * * * * * * * ORIGINAL REPORT * * * * * * * * HISTORY: SERENA . RENAL ULTRASOUND COMPARISON: None. FINDINGS: The kidneys are normal in size, co ntour and echotexture. The right kidneymeasures 9.2 x 5 x 5.3 cm and left kidney measures 12.5 x 5.3x 5.7 cm. Theright kidney contains a partially exophytic, round anechoic structure,measures 0.9 x 0.7 x 0.8 cm and the left kidney contains an exophytic,round anechoic structure, measures 1.5 x 1.3 x 1.6 cm; consistent withrenal cysts. [facility], Radiant Results Inft User - 10/15/2018 8:55 PM CDT* * * * * * ORIGINAL REPORT * * * * * * * *HISTORY: SERENA . RENAL ULTRASOUNDCOMPARISON: None.FINDINGS: The kidneys are normal in size, contour and echotexture. The right kidneymeasures 9.2 x 5 x 5.3 cm and left kidney measures 12.5 x 5.3 x 5.7 cm. Theright kidney contains a partially exophytic, round anechoicstructure,measures 0.9 x 0.7 x 0.8 cm and the left kidney contains an exophytic,round anechoic structure, measures 1.5 x 1.3 x 1.6 cm; consistent withrenal cysts.IMPRESSIONNormal-appearing kidneys withbilateral cysts, measuring up to 1.6 cm onthe left.Michelle Maynard MD., have reviewed this study andagree with the abovereport.[facility] HospitalURIC ACID 2018-10-16 00:48:00 Test Item Value Reference Range Interpretation Comments URIC ACID (test code = 9516409503) 8.8 mg/dL 2.9-6 H Lab Interpretation (test code = Abnormal 87659-2) [facility] HospitalCREATINE [id number] 00:48:00 Test Item Value Reference Range Interpretation Comments CK (test code = 6748951465) 520 U/L 33-194 H Lab Interpretation (test code = Abnormal 59948-9) [facility] Metabolic Panel (NA, K, CL, CO2, GLUCOSE, BUN, CREATININE, CA)2018-10-15 12:34:00 Test Item Value Reference Range Interpretation Comments NA (test code = 141 mmol/L 135-145 2023046527) K (test code = 3.6 mmol/L 3.5-5 7409409130) CL (test code = 101 mmol/L 98-108 4116898258) CO2 TOTAL (test code = 30 mmol/L 23-31 0777686748) AGAP (test code = 2-16 8351978076) BUN (test code = 32 mg/dL 7-23 H 6101357365) GLUCOSE (test code = 106 mg/dL 70-110 9594924891) CREATININE (test code = 1.26 mg/dL 0.5-1.04 H 7729495873) CALCIUM (test code = 9.2 mg/dL 8.6-10.6 1898520275) eGFR Calculation mL/min/1.73m2 (Non-) (test code = 3121184527) eGFR Calculation mL/min/1.73m2 () (test code = 7047519206) HAYDEN (test code = HAYDEN) Association of Glomerular Filtration Rate (GFR) and Staging of Kidney Disease*+ + + +| GFR (mL/min/1.73 m2)?| With Kidney Damage?|?Without Kidney Damage+ --------+ --------+ +|?>90??|? Stage one?|? Normal?+ ---------+ ---------+ +|?60-89? |?Stage two?|? Decreased GFR? + --+ --+ ------+|?30-59?|?Stage three?|? Stage three? + --+ --+ ------+|?15-29?|?Stage four? |? Stage four?+ -------+ -------+ +|?<15 (or dialysis)?|?Stage five? |? Stage five?+ -------+ -------+ +*Each stage assumes the associated GFR level has been in effect for at least three months.?Stages 1 to 5, with or without kidney disease, indicate chronic kidney disease.Notes: Determination of stages one and two (with eGFR >59mL/min/1.73 m2) requires estimation of kidney damage for at least three months as defined by structural or functional abnormalities of the kidney, manifested by either:Pathological abnormalities or Markers of kidney damage (including abnormalities in the composition of the blood or urine or abnormalities in imaging tests). Lab Interpretation Abnormal (test code = 47429-8) [facility] HospitalHEPATIC FUNCTION PANEL (22126) (ALB,T.PRO,BILI T,BU/BC,ALT,AST,ALK PHOS)2018-10-15 12:34:00 Test Item Value Reference Range Interpretation Comments TOTAL BILI (test code = 4530552598) 2.0 mg/dL 0.1-1.1 H BILI UNCON (test code = 9926625567) 1.5 mg/dL 0.1-1.1 H BILI CONJ (test code = 2184536918) 0.0 mg/dL 0-0.3 T PROTEIN (test code = 8253223748) 7.3 g/dL 6.3-8.2 ALBUMIN (test code = 1480621383) 3.9 g/dL 3.5-5 ALK PHOS (test code = 1128016501) 77 U/L 34-122 ALT(SGPT) (test code = 6880056141) 10 U/L 9-51 AST(SGOT) (test code = 0551901524) 29 U/L 13-40 Lab Interpretation (test code = Abnormal 38438-4) [facility] HospitalCB WITH [id number] 12:16:00 Test Item Value Reference Range Interpretation Comments WBC (test code = See_Comment [Automated 0662-2) message] The sy stem which generated this result transmitted reference range : 4.30 - 11.10 10*3/?L. The reference range was not used to interpret this result as normal/abnormal . RBC (test code = See_Comment [Automated 317-8) message] The sy stem which generated this result transmitted reference range : 3.93 - 5.25 10*6/?L. The reference range was not used to interpret this result as normal/abnormal . HGB (test code = 12.8 g/dL 11.6-15 718-7) HCT (test code = 39.2 % 35.7-45.2 4544-3) MCV (test code = 94.2 fL 80.6-95.5 787-2) MCH (test code = 30.8 pg 25.9-32.8 785-6) MCHC (test code = 32.7 g/dL 31.6-35.1 786-4) RDW-SD (test code = 47.4 fL 39-49.9 13951-6) RDW-CV (test code = 13.8 % 12-15.5 788-0) PLT (test code = See_Comment [Automated 777-3) message] The sy stem which generated this result transmitted reference range : 166 - 358 10*3/ ?L. The reference r rg was not used to interpret this result as normal/abnormal . MPV (test code = 11.1 fL 9.5-12.9 94347-8) NRBC/100 WBC (test See_Comment [Automat ed code = 2476053669) message] The system which generated this result transmitted reference range : 0.0 - 10.0 /100 WBCs. The refer ence range was not u sed to interpret th is result as normal/abnormal . NRBC x10^3 (test code <0.01 See_Comment [Auto mated = 1746601934) message] The s ystem which generated this result transmitted reference range : 10*3/?L. The reference range was not used to interpret this result as normal/abnormal . GRAN MAT (NEUT) % 76.2 % (test code = 770-8) IMM GRAN % (test code 0.30 % = 5268890892) LYMPH % (test code = 12.9 % 736-9) MONO % (test code = 9.7 % 5905-5) EOS % (test code = 0.7 % 713-8) BASO % (test code = 0.2 % 706-2) GRAN MAT x10^3(ANC) 6.61 10*3/uL 1.88-7.09 (test code = 6139922812) IMM GRAN x10^3 (test 0.03 10*3/uL 0-0.06 code = 0516395557) LYMPH x10^3 (test code 1.12 10*3/uL 1.32-3.29 L = 731-0) MONO x10^3 (test code 0.84 10*3/uL 0.33-0.92 = 742-7) EOS x10^3 (test code = 0.06 10*3/uL 0.03-0.39 711-2) BASO x10^3 (test code <0.03 0.01-0.07 = 704-7) Lab Interpretation Abnormal (test code = 00108-0) [facility] HospitalTHYROID STIMULATING [id number] 05:55:00 Test Item Value Reference Range Interpretation Comments TSH (test code = See_Comment [Automated message] 7189994685) The system iPointer generated this result transmitted ref erence range: 0.45 - 4 .70 mIU/L. The refe rence range was not u sed to interpret this result as normal/abnor mal. Lab Interpretation (test Normal code = 93136-4) [facility] [id number] 05:42:00 Test Item Value Reference Range Interpretation Comments FREE T4 (test code = 5946066249) 2.17 ng/dL 0.78-2.2 Lab Interpretation (test code = Normal 12119-2) [facility] [id number] 05:41:00 Test Item Value Reference Range Interpretation Comments FREE T3 (test code = 1312104041) 3.97 pg/mL 2.77-5.27 Lab Interpretation (test code = Normal 74796-6) [facility] HospitalCOMP. METABOLIC PANEL (46814)2018-10-14 20:21:00 Test Item Value Reference Range Interpretation Comments NA (test code = 141 mmol/L 135-145 1246231881) K (test code = 3.7 mmol/L 3.5-5 6650983658) CL (test code = 98 mmol/L 98-108 0767896983) CO2 TOTAL (test code = 32 mmol/L 23-31 H 2020462002) AGAP (test code = 2-16 3521320257) BUN (test code = 26 mg/dL 7-23 H 8209367382) GLUCOSE (test code = 141 mg/dL 70-110 H 9096287715) CREATININE (test code = 1.07 mg/dL 0.5-1.04 H 2614615450) TOTAL BILI (test code = 2.6 mg/dL 0.1-1.1 H 5683801585) CALCIUM (test code = 9.5 mg/dL 8.6-10.6 7615030002) T PROTEIN (test code = 7.9 g/dL 6.3-8.2 8108187628) ALBUMIN (test code = 4.1 g/dL 3.5-5 9781772264) ALK PHOS (test code = 86 U/L 34-122 1774961415) ALT(SGPT) (test code = 15 U/L 9-51 4243936673) AST(SGOT) (test code = 14 U/L 13-40 5201964439) eGFR Calculation mL/min/1.73m2 (Non-) (test code = 0290330365) eGFR Calculation mL/min/1.73m2 () (test code = 9332342185) HAYDEN (test code = HAYDEN) Association of Glomerular Filtration Rate (GFR) and Staging of Kidney Disease*+ + + +| GFR (mL/min/1.73 m2)?| With Kidney Damage?|?Without Kidney Damage+ --------+ --------+ +|?>90?|?S tage one?|? Normal?+ ---------+ ---------+ +|?60-89? |?Stage two?|? Decreased GFR? + --+ --+ ------+|?30-59?|?Stage three?|? Stage three? + --+ --+ ------+|?15-29?|?Stage four? |? Stage four?+ -------+ -------+ +|?<15 (or dialysis)?|?Stage five? |? Stage five?+ -------+ -------+ +*Each stage assumes the associated GFR level has been in effect for at least three months.?Stages 1 to 5, with or without kidney disease, indicate chronic kidney disease.Notes: Determination of stages one and two (with eGFR >59mL/min/1.73 m2) requires estimation of kidney damage for at least three months as defined by structural or functional abnormalities of the kidney, manifested by either:Pathological abnormalities or Markers of kidney damage (including abnormalities in the composition of the blood or urine or abnormalities in imaging tests). Lab Interpretation Abnormal (test code = 87868-8) [facility] WITH [id number] 20:11:00 Test Item Value Reference Range Interpretation Comments WBC (test code = See_Comment H [Automated 6690-2) message] The sy stem which generated this result transmitted reference range : 4.30 - 11.10 10*3/?L. The reference range was not used to interpret this result as normal/abnormal . RBC (test code = See_Comment [Automated 789-8) message] The sy stem which generated this result transmitted reference range : 3.93 - 5.25 10*6/?L. The reference range was not used to interpret this result as normal/abnormal . HGB (test code = 12.6 g/dL 11.6-15 718-7) HCT (test code = 38.9 % 35.7-45.2 4544-3) MCV (test code = 94.6 fL 80.6-95.5 787-2) MCH (test code = 30.7 pg 25.9-32.8 785-6) MCHC (test code = 32.4 g/dL 31.6-35.1 786-4) RDW-SD (test code = 47.7 fL 39-49.9 69389-6) RDW-CV (test code = 13.8 % 12-15.5 788-0) PLT (test code = See_Comment [Automated 777-3) message] The sy stem which generated this result transmitted reference range : 166 - 358 10*3/ ?L. The reference r rg was not used to interpret this result as normal/abnormal . MPV (test code = 11.2 fL 9.5-12.9 39668-3) NRBC/100 WBC (test See_Comment [Automat ed code = 8220853066) message] The system which generated this result transmitted reference range : 0.0 - 10.0 /100 WBCs. The refer ence range was not u sed to interpret th is result as normal/abnormal . NRBC x10^3 (test code <0.01 See_Comment [Auto mated = 7238085242) message] The s ystem which generated this result transmitted reference range : 10*3/?L. The reference range was not used to interpret this result as normal/abnormal . GRAN MAT (NEUT) % 81.1 % (test code = 770-8) IMM GRAN % (test code 0.50 % = 2458775122) LYMPH % (test code = 9.7 % 736-9) MONO % (test code = 8.3 % 5905-5) EOS % (test code = 0.2 % 713-8) BASO % (test code = 0.2 % 706-2) GRAN MAT x10^3(ANC) 9.82 10*3/uL 1.88-7.09 H (test code = 0224382017) IMM GRAN x10^3 (test 0.06 10*3/uL 0-0.06 code = 7164028719) LYMPH x10^3 (test code 1.17 10*3/uL 1.32-3.29 L = 731-0) MONO x10^3 (test code 1.01 10*3/uL 0.33-0.92 H = 742-7) EOS x10^3 (test code = <0.03 0.03-0.39 L 711-2) BASO x10^3 (test code 0.03 10*3/uL 0.01-0.07 = 704-7) Lab Interpretation Abnormal (test code = 27666-8) [facility] 20:02:00 Test Item Value Reference Range Interpretation Comments APPEARANCE (test code Slightly Hazy Clear A = 8859057870) COLOR (test code = Yellow Yellow 9644022781) PH (test code = 4.8-8.0 9255281536) SP GRAVITY (test code 1.003-1.030 = 5704501148) GLU U QUAL (test code Negative Negative = 8497405640) BLOOD (test code = Negative Negative 7654628593) KETONES (test code = Negative Negative 2250653430) PROTEIN (test code = Negative Negative 2887-8) UROBILIN (test code = 0.2 mg/dL See_Comment [Auto mated 6735691905) message] The system which generated this result transmit mora reference range : 0-1.0 mg/dL. Th e reference range was not used to interpret this result as normal/abnormal . BILIRUBIN (test code = Negative Negative 2749609725) NITRITE (test code = Positive Negative A 5274840991) LEUK JESUS MANUEL (test code Negative Negative = 6601006029) RBC/HPF (test code = See_Comment [Autom ated 7631620152) message] The system which generated this result transmit mora reference range : 0 - 3 HPF. The reference range was not used to interpret this result as normal/abnormal . WBC/HPF (test code = See_Comment H [Autom ated 8931907780) message] The system which generated this result transmit mora reference range : 0 - 5 HPF. The reference range was not used to interpret this result as normal/abnormal . BACTERIA (test code = Many Negative A 3694436251) WBC CLUMPS (test code See_Comment H [Auto mated = 2305757187) message] The system which generated this result transmit mora reference range : <=1 HPF. The reference range was not used to interpret this result as normal/abnormal . Lab Interpretation Abnormal (test code = 08945-7) [facility] VW [id number] 19:57:49 HISTORY:?Pain. S/P fall. FINDINGS: AP, lateral, oblique views of left foot are obtained withportabletechnique and compared with 2017 study. No acute fracture ordislocation. No significant changes of arthritis or aggressive bone lesionsseen. 3 mm heel spur noted. CONCLUSIONS: No acute fracture or dislocation in left foot. AP view showedsubtle disturbance of the cortical surface and in trabecular lining of themedial cuneiform bone, however, this is not confirmed to be a definitefracture in any other views. [facility], Radiant Results Inft User - 10/14/2018 2:57 PM CDTHISTORY: Pain. S/P fall.FINDINGS: AP, lateral, oblique views of left foot are obtained withportable technique and compared with 2017 study. No acute fracture ordislocation. No significant changes of arthritis or aggressive bone lesionsseen. 3 mm heel spur noted.CONCLUSIONS: No acute fracture or dislocation in left foot. AP view showedsubtle disturbance of the cortical surface and in trabecular lining of themedial cuneiform bone, however, this is not confirmed to be a definitefracture in any other views.[facility] HospitalLactic Acid Whole [id number] 19:55:00 Test Item Value Reference Range Interpretation Comments LACTIC ACID (test code = 1.87 mmol/L 0.5-2.2 4362181406) Lab Interpretation (test code = Normal 33148-7) [facility]+ VW [id number] 17:34:15 Nondisplaced surgical neck fracture. Severe glenohumeral joint osteoarthrosis. EXAM: XR SHOULDER 2+VW LEFT HISTORY: Shoulder pain status post fall 4 days ago COMPARISON: None FINDINGS: Imaging of the shoulder demonstrates cortical interruption through thelateral surgical neck with no fragment displacement. Severe glenohumeraljoint space loss, subchondral sclerosis with exuberant marginalosteophytosis are present. [facility], Radiant Results Inft User - 10/09/2018 12:34 PM CDTEXAM:XR SHOULDER 2+ VW LEFTHISTORY:Shoulder pain status post fall 4 days ago COMPARISON:NoneFINDINGS: Imaging of the shoulder demonstrates cortical interruption through thelateral surgical neck with no fragment displacement. Severe glenohumeraljoint space loss, subchondral sclerosis with exuberant marginalosteophytosis are present.IMPRESSIONNondisplaced surgical neck fracture.Severe glenohumeral joint osteoarthrosis.[facility]"
[2021-04-24] MEDS ORDERED: METOPROLOL TARTRATE 5 MG/5 ML INJ IV ONE (15:52)
[2021-04-24] MEDS ORDERED: NA CHLORIDE 0.9% 500 ML ONE ×2 (15:52→16:47)
[2021-04-24 16:05] LABS: Protime INR 1.48
[2021-04-24 16:12] LABS: Absolute Lymphocytes (CBC) 0.8 K/uL (0.7-4.9); Hematocrit 38.4 % (36.0-45.0); Lymphocytes % 7.3 % (15.3-44.8); MPV 9.9 fL (7.6-11.3); RBC Red Blood Cell Count 4.35 M/uL (3.86-4.86)
[2021-04-24 16:15] LABS: Albumin 2.4 g/dL (3.4-5.0); Bilirubin Direct 0.6 mg/dL (0-0.2); Bilirubin Total 1.2 mg/dL (0.2-1.0); Potassium 3.1 mmol/L (3.5-5.1); Troponin High Sensitivity 29.7 pg/mL (<58.9)
[2021-04-24 16:33] LABS: Blood Morphology Comment NOT SEEN (NOT SEEN); Platelet Estimate ADEQ; White Blood Cell Scan OK (OK)
--- NOTE | 2021-04-24 16:45 | RAD REPORT ---
EXAM DESCRIPTION: RAD - Chest Single View - 04/24/2021 4:20 pm CLINICAL HISTORY: DYSPNEA COMPARISON: Portable 02/13/2021 TECHNIQUE: AP portable chest image was obtained 04/24/2021 4:20 pm . FINDINGS: Lung volumes are very low. Patient has elevated right hemidiaphragm which further reduces the right hemithorax volume. Alveolar opacities are evident in the lower right lung field. Patient barth s a baseline prominent interstitial pattern. Heart size is normal range for portable imaging. Central vasculature is prominent but not grossly different. No pneumothorax or large pleural effusion. No ac hopi bony abnormality seen. No acute aortic findings suspected. IMPRESSION: Limited study showing findings of CHF/volume overload. Right lower lung field airspace opacification is favored to be alveolar edema rather than pneumonia.
[2021-04-24] MEDS ORDERED: KCL 20 MEQ/100 mL IVPB 100 ML IV ONE (16:48)
--- NOTE | 2021-04-24 16:57 | EDPHYS ---
Physician Documentation [facility] Name: Nanci Balderas Age: 81 yrs Sex: Female : 1940 Arrival Date: 04/24/2021 Time: 15:16 Bed 26 Private MD: ED Physician Clara Knight HPI: 04/24 16:41 This 81 yrs old Female presents to ER via EMS with complaints of Failure to jr8 thrive. 16:41 This is a 81-year-old female patient that presented to the emergency room after nursing jr8 home called EMS staff to bring her to the hospital for further evaluation secondary to failure to thrive and hypercalcemia. Family via phone in [place] explained that patient has had this in the past. Currently being worked up for possible liver malignant lesions but has been unable to have a biopsy secondary to her health status. Family stated that her failure to thrive has also been getting worse over time. Stated that they have noticed she has had a decrease in mental status but also has been going on for some time.. Historical: - Allergies: 15:23 Codeine; ab2 - Home Meds: 15:23 Amiodarone Oral [Active]; amlodipine-benazepril Oral [Active]; atorvastatin Oral ab2 [Active]; Eliquis Oral [Active]; gabapentin Oral [Active]; valsartan Oral [Active]; - PMHx: 15:23 Atrial fibrillation; Hypercholesterolemia; Hypertensive disorder; ab2 - Immunization history:: Adult Immunizations unknown. - Social history:: Smoking status: unknown. ROS: 16:41 Unable to obtain ROS due to altered mental status, baseline dementia. jr8 Exam: 16:41 Skin: Warm, dry with normal turgor. Normal color with no rashes, no lesions, and no jr8 evidence of cellulitis. MS/ Extremity: Pulses equal, no cyanosis. Neurovascular intact. Full, normal range of motion. 16:41 Eyes: Periorbital structures: appear normal, Pupils: equal, round, and reactive to light and accomodation, Extraocular movements: intact throughout, Conjunctiva: normal, Corneas: are normal, Lids and lashes: appear normal. 16:41 ENT: Mouth: Lips: dry, cracked, Oral mucosa: dry, Posterior pharynx: Airway: patent. 16:41 Cardiovascular: Rate: tachycardic, Rhythm: irregularly irregular, Pulses: Pulses are 2+ in right radial artery and left radial artery. Edema: is not appreciated. 16:41 Respiratory: the patient does not display signs of respiratory distress, Respirations: normal, Breath sounds: are clear throughout, no bronchial sounds, no decreased breath sounds, no rales, rhonchi, no stridor, no wheezing. 16:41 Abdomen/GI: Inspection: obese Bowel sounds: active, all quadrants, Palpation: soft, in all quadrants, no appreciated organomegaly. 16:41 Neuro: Mentation: inappropriate for stated age, slow to respond, Memory: unable to test, Motor: moves all fours, Sensation: no obvious gross deficits, seizure activity, is not displayed by the patient. Vital Signs: 15:16 BP 138 / 91; Pulse 130; Resp 18; Temp 98.0(O); Pulse Ox 93% on R/A; Weight 90.72 kg; ab2 Height 5 ft. 1 in. (154.94 cm); 16:07 BP 144 / 75; Pulse 94; Resp 16; Pulse Ox 100% on 2 lpm NC; ab2 17:06 BP 140 / 82; Pulse 107; Resp 17; Pulse Ox 97% on 2 lpm NC; Pain 0/10; ab2 18:11 BP 151 / 87; Pulse 108; Resp 16; Pulse Ox 100% on 2 lpm NC; ab2 19:19 BP 156 / 89; Pulse 114; Resp 16; Pulse Ox 98% on 2 lpm NC; ab2 20:01 BP 151 / 91; Pulse 115; Resp 17; Temp 98.1(O); Pulse Ox 99% on 2 lpm NC; Pain 0/10; ab2 15:16 Body Mass Index 37.79 (90.72 kg, 154.94 cm) ab2 MDM: 15:18 Patient medically screened. [facility] 16:41 Data reviewed: vital signs, nurses notes, lab test result(s), EKG, radiologic studies, jr8 plain films. Data interpreted: Pulse oximetry: on room air is 100 %. Interpretation: normal. Counseling: I had a detailed discussion with the patient and/or guardian regarding: the historical points, exam findings, and any diagnostic results supporting the discharge/admit diagnosis, lab results, radiology results, the need for further work-up and treatment in the hospital. 04/24 15:36 Order name: Basic Metabolic Panel 8 04/24 15:36 Order name: CBC with Diff; Complete Time: 16:57 jr8 04/24 15:36 Order name: LFT's; Complete Time: 19:26 jr8 04/24 15:36 Order name: Magnesium; Complete Time: 19:26 jr8 04/24 15:36 Order name: NT PRO-BNP; Complete Time: 19:26 jr8 04/24 15:36 Order name: PT-INR; Complete Time: 16:12 jr8 04/24 15:36 Order name: Troponin HS; Complete Time: 19:26 8 04/24 15:36 Order name: Basic Metabolic Panel; Complete Time: 19:26 EDMS 04/24 15:36 Order name: Blood Culture Adult (2) [facility] 04/24 15:36 Order name: Urine Microscopic Only; Complete Time: 17:11 [facility] 04/24 15:36 Order name: Lactate; Complete Time: 16:12 8 04/24 16:16 Order name: Pth,Intact 8 04/24 16:33 Order name: CBC Smear Scan; Complete Time: 16:57 EDMS 04/24 17:02 Order name: COVID-19/FLU A+B (Document "Date of Onset" if Symptomatic); Complete Time: ab2 18:54 04/24 15:36 Order name: XRAY Chest (1 view); Complete Time: 16:57 8 04/24 17:08 Order name: Urine Culture EDMS 04/24 18:15 Order name: CBC with Automated Diff EDMS 04/24 18:15 Order name: CBC with Automated Diff EDMS 04/24 18:15 Order name: Comprehensive Metabolic Panel EDMS 04/24 18:15 Order name: Comprehensive Metabolic Panel EDMS 04/24 18:18 Order name: Alpha Fetoprotein-Tumor Marker EDMS 04/24 18:19 Order name: Alpha Fetoprotein-Tumor Marker EDMS 04/24 18:20 Order name: Chest Abdomen Pelvis W Cont EDMS 04/24 18:20 Order name: Chest Abdomen Pelvis W Cont EDMS 04/24 18:20 Order name: PTH-Related Protein EDMS 04/24 18:20 Order name: PTH-Related Protein EDMS 04/24 18:20 Order name: Vitamin D, 25 (OH), TOTAL EDMS 04/24 18:20 Order name: Vitamin D, 25 (OH), TOTAL EDMS 04/24 18:20 Order name: Vitamin D,1,25 Dihydroxy EDMS 04/24 18:20 Order name: Vitamin D,1,25 Dihydroxy EDMS 04/24 15:36 Order name: EKG; Complete Time: 15:37 04/24 15:36 Order name: Cardiac monitoring; Complete Time: 15:40 04/24 15:36 Order name: EKG - Nurse/Tech; Complete Time: 15:40 04/24 15:36 Order name: IV Saline Lock; Complete Time: 15:40 04/24 15:36 Order name: Labs collected and sent; Complete Time: 15:40 04/24 15:36 Order name: O2 Per Protocol; Complete Time: 15:40 04/24 15:36 Order name: O2 Sat Monitoring; Complete Time: 15:40 04/24 15:36 Order name: Urine Dipstick-Ancillary (obtain specimen); Complete Time: 16:41 04/24 16:20 Order name: White; Complete Time: 16:40 04/24 18:15 Order name: Heart Healthy EDMS Administered Medications: 15:55 Drug: NS 0.9% 500 ml Route: IV; Rate: bolus; Site: right antecubital; ab2 17:10 Follow up: Response: No adverse reaction; IV Status: Completed infusion ab2 15:55 Drug: Lopressor (metoprolol) 5 mg Route: IVP; Site: right antecubital; ab2 17:10 Follow up: Response: No adverse reaction ab2 16:51 Drug: NS 0.9% 500 ml Route: IV; Rate: bolus; Site: right antecubital; ab2 16:51 Drug: Potassium Chloride 20 mEq Route: IV; Rate: calculated rate; Site: right ab2 antecubital; 17:34 Drug: Rocephin (cefTRIAXone) 1 grams Route: IV; Rate: calculated rate; Site: right ab2 antecubital; Disposition Summary: 04/24/21 16:56 Hospitalization Ordered Hospitalization Status: Inpatient Admission jr8 Provider: Clara Snider Location: Telemetry/MedSur (Inpatient) jr8 Condition: Fair jr8 Problem: an ongoing problem jr8 Symptoms: have worsened jr8 Bed/Room Type: Standard 8 Room Assignment: 208(04/24/21 18:38) bd Diagnosis - Dehydration jr8 - Hypokalemia jr8 - Hypercalcemia jr8 - Adult failure to thrive jr8 - UTI/ Urinary tract infection, site not specified jr8 - Altered mental status, unspecified jr8 Forms: - Medication Reconciliation Form jr8 - SBAR form jr8 Signatures: Dispatcher [employer] EDLeonela Chavez Josh, PA PA jr8 Cullen Nguyen2 Corrections: (The following items were deleted from the chart) 18:38 16:56 jr8 bd
--- NOTE | 2021-04-24 16:57 | ER ---
Nurse's Notes [facility] Name: Nanci Balderas Age: 81 yrs Sex: Female : 1940 Arrival Date: 04/24/2021 Time: 15:16 Bed 26 Private MD: Diagnosis: Dehydration;Hypokalemia;Hypercalcemia;Adult failure to thrive;UTI/ Urinary tract infection, site not specified;Altered mental status, unspecified Presentation: 04/24 15:16 Chief complaint: EMS states: She was sent by [facility] for c/o failure ab2 to thrive per [facility] staff and a high calcium level. Coronavirus screen: Vaccine status: At this time, unable to obtain information related to travel outside the [place] Client presents with at least one sign or symptom that may indicate coronavirus-19. Standard/surgical mask placed on the client. Provider contacted for isolation considerations. Ebola Screen: Patient negative for fever greater than or equal to 101.5 degrees Fahrenheit, and additional compatible Ebola Virus Disease symptoms Patient denies exposure to infectious person. Patient denies travel to an Ebola-affected area in the 21 days before illness onset. No symptoms or risks identified at this time. Initial Sepsis Screen: Does the patient meet any 2 criteria? Altered Mental Status. HR > 90 bpm. Yes Does the patient have a suspected source of infection? No. Patient's initial sepsis screen is negative. Risk Assessment: Do you want to hurt yourself or someone else? Patient reports no desire to harm self or others. Onset of symptoms is unknown. 15:16 Method Of Arrival: [facility] ab2 15:16 Acuity: PEPPER 3 ab2 Historical: - Allergies: 15:23 Codeine; ab2 - Home Meds: 15:23 Amiodarone Oral [Active]; amlodipine-benazepril Oral [Active]; atorvastatin Oral ab2 [Active]; Eliquis Oral [Active]; gabapentin Oral [Active]; valsartan Oral [Active]; - PMHx: 15:23 Atrial fibrillation; Hypercholesterolemia; Hypertensive disorder; ab2 - Immunization history:: Adult Immunizations unknown. - Social history:: Smoking status: unknown. Screenin:55 Abuse screen: Denies threats or abuse. Denies injuries from another. Nutritional ab2 screening: Difficulty chewing/swallowing? Yes. Tuberculosis screening: No symptoms or risk factors identified. Fall Risk Fall in past 12 months (25 points). Secondary diagnosis (15 points) IV access (20 points). Ambulatory Aid- None/Bed Rest/Nurse Assist (0 pts). Gait- Impaired (20 pts.). Mental Status- Overestimates/Forgets Limitations (15 pts.). Total Browning Fall Scale indicates High Risk Score (45 or more points). Fall prevention measures have been instituted. Side Rails Up X 2 Placed Close to Nursing Station Frequent Obs/Assessments Occuring As available patient and family educated on Fall Prevention Program and Strategies. Assessment: 15:24 General: Appears in no apparent distress. comfortable, Behavior is calm, cooperative. ab2 Pain: Denies pain. 15:56 Neuro: Level of Consciousness is awake, alert, Oriented to unable to respond. Speech is ab2 slurred. Cardiovascular: Reports None Heart tones S1 S2 present Patient's skin is warm and dry. Rhythm is atrial fibrillation with rapid ventricular response. Respiratory: Airway is patent Breath sounds are diminished bilaterally. GI: No deficits noted. Abdomen is round obese, Bowel sounds present X 4 quads. : No deficits noted. No signs and/or symptoms were reported regarding the genitourinary system. EENT: No deficits noted. No signs and/or symptoms were reported regarding the EENT system. Derm: No deficits noted. No signs and/or symptoms reported regarding the dermatologic system. Skin is fragile, Skin is dry, Skin is pale. Musculoskeletal: Parent/caregiver report the patient having weakness in whole body. 20:01 Reassessment: Patient appears in no apparent distress at this time. Pt stable at time ab2 of admission. Vital Signs: 15:16 BP 138 / 91; Pulse 130; Resp 18; Temp 98.0(O); Pulse Ox 93% on R/A; Weight 90.72 kg; ab2 Height 5 ft. 1 in. (154.94 cm); 16:07 BP 144 / 75; Pulse 94; Resp 16; Pulse Ox 100% on 2 lpm NC; ab2 17:06 BP 140 / 82; Pulse 107; Resp 17; Pulse Ox 97% on 2 lpm NC; Pain 0/10; ab2 18:11 BP 151 / 87; Pulse 108; Resp 16; Pulse Ox 100% on 2 lpm NC; ab2 19:19 BP 156 / 89; Pulse 114; Resp 16; Pulse Ox 98% on 2 lpm NC; ab2 20:01 BP 151 / 91; Pulse 115; Resp 17; Temp 98.1(O); Pulse Ox 99% on 2 lpm NC; Pain 0/10; ab2 15:16 Body Mass Index 37.79 (90.72 kg, 154.94 cm) ab2 ED Course: 15:16 Patient arrived in ED. ab2 15:18 Demond Swartz PA is PHCP. jr8 15:18 Clara Knight MD is Attending Physician. jr8 15:23 Triage completed. ab2 15:39 Inserted saline lock: 20 gauge in right antecubital area, using aseptic technique. ab2 Blood collected. 15:40 CBC with Diff Sent. ab2 15:40 LFT's Sent. ab2 15:40 Magnesium Sent. ab2 15:40 NT PRO-BNP Sent. ab2 15:40 PT-INR Sent. ab2 15:40 Troponin HS Sent. ab2 15:40 Basic Metabolic Panel Sent. ab2 15:40 Basic Metabolic Panel Sent. ab2 15:40 Blood Culture Adult (2) Sent. ab2 15:41 Lactate Sent. ab2 15:49 Cullen Nguyen is Primary Nurse. ab2 15:56 No provider procedures requiring assistance completed. ab2 15:56 Arm band placed on right wrist. ab2 15:56 Patient has correct armband on for positive identification. Bed in low position. Call ab2 light in reach. Side rails up X2. 16:20 XRAY Chest (1 view) In Process Unspecified. EDMS 16:56 Clara Snider MD is Hospitalizing Provider. jr8 17:09 White cath inserted, using sterile technique, 18 Fr., by md, balloon inflated, to ab2 gravity drainage, urine specimen collected. 17:10 COVID-19/FLU A+B (Document "Date of Onset" if Symptomatic) Sent. ab2 19:39 Report given to RN on medsurg. ab2 Administered Medications: 15:55 Drug: NS 0.9% 500 ml Route: IV; Rate: bolus; Site: right antecubital; ab2 17:10 Follow up: Response: No adverse reaction; IV Status: Completed infusion ab2 15:55 Drug: Lopressor (metoprolol) 5 mg Route: IVP; Site: right antecubital; ab2 17:10 Follow up: Response: No adverse reaction ab2 16:51 Drug: NS 0.9% 500 ml Route: IV; Rate: bolus; Site: right antecubital; ab2 16:51 Drug: Potassium Chloride 20 mEq Route: IV; Rate: calculated rate; Site: right ab2 antecubital; 17:34 Drug: Rocephin (cefTRIAXone) 1 grams Route: IV; Rate: calculated rate; Site: right ab2 antecubital; Outcome: 16:56 Decision to Hospitalize by Provider. jr8 20:02 Admitted to Med/surg accompanied by tech, via stretcher, with oxygen, with chart, ab2 Report called to RN on medsur 20:02 Condition: stable 20:02 Patient left the ED. ab2 Signatures: Dispatcher [employer] EDMS Demond Swartz PA PA jr8 Cullen Nguyen ab2 Corrections: (The following items were deleted from the chart) 19:20 19:19 BP 156 / 89; Pulse 114bpm; Resp 16bpm; Pulse Ox 98% RA; ab2 ab2
[2021-04-24 17:07] LABS: Urine Bacteria LOADED /HPF (<20)
[2021-04-24] MEDS ORDERED: CEFTRIAXONE 1000 MG/VIAL ONE (17:32)
[2021-04-24] MEDS ORDERED: ONDANSETRON 4 MG/2 ML VIAL IV PRN (18:10)
[2021-04-24] MEDS ORDERED: PAMIDRONATE DISOD 30 MG VIAL IV ONE (18:12)
[2021-04-24 18:19] LABS: SARS-COV-2 RT PCR NEGATIVE (NEGATIVE)
[2021-04-24] MEDS ORDERED: PAMIDRONATE 90 MG in NA CHLORIDE 0.9% 500 ML IV ONE (19:00)
[2021-04-24 19:25] LABS: Magnesium 1.8
[2021-04-24] MEDS: NA CHLORIDE 0.9% 1,000 ML IV SCH (20:37)
[2021-04-25] MEDS: FUROSEMIDE 20 MG/ 2ML VIAL IV SCH ×3 (00:40→17:19)
[2021-04-25] MEDS: NA CHLORIDE 0.9% 1,000 ML IV SCH ×3 (05:00→23:22)
[2021-04-25 06:36] LABS: Absolute Lymphocytes (CBC) 0.6 K/uL (0.7-4.9); Hematocrit 32.4 % (36.0-45.0); Lymphocytes % 7.5 % (15.3-44.8); MPV 9.4 fL (7.6-11.3); RBC Red Blood Cell Count 3.68 M/uL (3.86-4.86)
[2021-04-25 07:13] LABS: ALT/SGPT 12 U/L (12-78); AST/SGOT 26 U/L (15-37); Albumin 2.1 g/dL (3.4-5.0); Alkaline Phosphatase 93 U/L (45-117); BUN Blood Urea Nitrogen 28 mg/dL (7-18); Bicarbonate 35 mmol/L (21-32); Bilirubin Total 0.9 mg/dL (0.2-1.0); Glucose Level 98 mg/dL (74-106); Protein, Total 6.2 g/dL (6.4-8.2); Sodium Level 147 mmol/L (136-145)
[2021-04-25 07:19] LABS: Potassium 2.9 mmol/L (3.5-5.1)
[2021-04-25] MEDS ORDERED: KCL 20 MEQ/100 mL IVPB 20 MEQ/100 ML BAG IV SCH (08:00)
--- NOTE | 2021-04-25 09:04 | RAD REPORT ---
EXAM DESCRIPTION: CT - Chest Abdomen Pelvis W Cont - 04/25/2021 8:07 am CLINICAL HISTORY: Hypercalcemia of malignancy(unknown etiology) COMPARISON: Chest Single View dated 04/24/2021 TECHNIQUE: Following dynamic enhancement using 100 milliliters nonionic IV contrast, axial imaging o f the chest, abdomen and pelvis was performed. Biphasic technique was utilized through the abdomen. No oral contrast was administered. All CT scans are performed using dose optimization technique as appropriate and may include automated exposure control or mA/KV adjustment according to patient size. FINDINGS: No lung parenchymal malignant mass identifiable. No suspicious lung parenchymal nodularity . There is partial atelectasis of each lower lobe with small bilateral pleural effusions. No endobron chial lesion is identifiable. No pneumothorax or pleural based mass identifiable. No significant aort ic or pulmonary arterial tree finding. Mediastinal and hilar regions show no mass or abnormal lymphad enopathy. No chest wall mass or axillary lymphadenopathy. Aortic atherosclerotic calcifications are p resent. Patient has advanced degenerative change at the left shoulder joint. No pathologic bone proce ss of the chest identifiable. The liver is grossly abnormal. There is a large 15 x 12 centimeter area of confluent rounded low-dens ity masses filling almost the entire superior right lobe. In the posterior mid right lobe there is an additional 3.4 centimeter diameter low-density mass. A few small low-density masses extend into the lateral segment left lobe. No portal vein thrombus. There is subtle nodularity to the liver capsule. No splenomegaly or focal splenic finding. Small accessory splenic nodule is present. Small amount of ascites surrounds the liver and spleen. Pancreatic volume loss is noted. No pancreatic mass or peripancreatic acute process. Cholecystectomy clips are present. No biliary tree dilatation. Symmetric renal function is seen with no mass or hydronephrosis. Small renal cysts are present. No ad renal abnormalities. Urinary bladder is fully contracted around a White catheter. Small atrophic uter us is present. Ovaries are atrophic or obscured by adjacent on opacified bowel. No evidence for a raghav nacho ovarian process. Stomach is decompressed. No content within the lumen. No gastric wall thickening or mass identifiable . No small bowel abnormality is identifiable. Rectum is dilated to 7 cm by dense stool. Hyperdense ma terial within the stool may be bismuth containing medicine or possibly contrast from a prior study. R emainder of the colon shows a small amount of retained stool within the lumen. The cecum and ascendin g colon are decompressed. Mass in this region is unlikely. Small amount of ascites continues into the pelvis. No free air or pneumatosis. Prominent degenerative changes the lumbar spine present. Left total hip prosthesis in place. No patho logic bone process seen. No significant vascular findings. IMPRESSION: Grossly abnormal liver with evidence for neoplastic process filling the superior aspect of the right lobe with scattered additional areas of malignancy in the liver. No other area of malignancy identifiable in the chest, abdomen or pelvis. The liver findings may be a primary hepatic malignant process rather than metastatic disease. Chest shows small bilateral pleural effusions with partial atelectasis of each lower lobe. No maligna nt mass or lymphadenopathy.
[2021-04-25] MEDS: MORPHINE 2 MG/ML SYR IV PRN (10:16)
--- NOTE | 2021-04-25 10:55 | P.HP ---
Certification for Inpatient Patient admitted to: Inpatient With expected LOS: >2 Midnights Patient will require the following post-hospital care: None Practitioner: I am a practitioner with admitting privileges, knowledge of patient current condition, hospital course, and medical plan of care. Services: Services provided to patient in accordance with Admission requirements found in Title 42 Section 412.3 of the Code of Federal Regulations Patient History Date of Service: 04/24/21 Reason for admission: Altered mental status; hypercalcemia History of Present Illness: Patient is an 81-year-old female who came to the hospital with altered mentation. Patient had hypercalcemia. Patient has a history of malignancy unknown etiology. At this time, we will go ahead and admit the patient to the hospital for further evaluation. Allergies codeine Allergy (Verified 01/26/21 13:57) Anaphylaxis Home Medications: Anastrozole 1 mg PO DAILY 01/27/21 Apixaban [Eliquis] 5 mg PO BID 01/27/21 Albuterol Sulfate [Albuterol Sulfate 0.083% Neb Soln] 2.5 mg IH Q4HP PRN 04/24/21 Amlodipine [Norvasc] 5 mg PO DAILY 04/24/21 Arformoterol Tartrate [Brovana] 15 mcg IH Q12H 04/24/21 Aspirin 81 mg PO DAILY 04/24/21 Atorvastatin Calcium [Lipitor] 20 mg PO BEDTIME 04/24/21 Bisoprolol Fumarate 10 mg PO DAILY 04/24/21 Budesonide [Pulmicort] 0.5 mg IH Q12H 04/24/21 Furosemide [Lasix] 40 mg PO DAILY 04/24/21 Gabapentin [Neurontin] 100 mg PO TID 04/24/21 Isosorbide Mononitrate [Isosorbide Mononitrate ER] 30 mg PO DAILY 04/24/21 Melatonin 5 mg PO BEDTIME 04/24/21 Nystatin Powder [Mycostatin (Powder)] 1 appl TP Q12H 04/24/21 Quetiapine Fumarate [Seroquel] 25 mg PO BEDTIME 04/24/21 hydroCHLOROthiazide [Hydrochlorothiazide*] 12.5 mg PO BID 04/24/21 - Past Medical/Surgical History Diabetic: No -: Afib -: HTN -: HLD -: CAD -: Morbid Obesity -: Chronic Pain -: CA w/Stents x2 - Social History Smoking Status: Unknown if ever smoked [facility] Review of Systems 10-point ROS is otherwise unremarkable Physical Examination - Vital Signs Temperature: 97.7 F Blood Pressure: 149/78 Pulse: 108 Respirations: 16 Pulse Ox (%): 100 - Physical Exam General: Confused HEENT: Atraumatic, PERRLA, Mucous membr. moist/pink, EOMI, Sclerae nonicteric Neck: Supple, 2+ carotid pulse no bruit, No LAD, Without JVD or thyroid abnorma lity Respiratory: Clear to auscultation bilaterally, Normal air movement Cardiovascular: Regular rate/rhythm, Normal S1 S2, No murmurs Gastrointestinal: Normal bowel sounds, Soft and benign, Non-distended, No tenderness Musculoskeletal: No tenderness Integumentary: No rashes Neurological: Normal speech, Normal strength at 5/5 x4 extr, Sensation intact, Cranial nerves 3-12 intact Lymphatics: No axilla or inguinal lymphadenopathy - Studies Laboratory Data (last 24 hrs) 04/24/21 15:25: PT 17.1 H, INR 1.48 04/24/21 15:25: WBC 11.20 H, Hgb 11.8 L, Hct 38.4, Plt Count 166 04/24/21 15:25: Sodium 144, Potassium 3.1 L, BUN 30 H, Creatinine 0.84, Glucose 133 H, Magnesium 1.8, Total Bilirubin 1.2 H, AST 29, ALT 14, Alkaline Phosphatase 111 Assessment & Plan - Problems (Diagnosis) (1) Hx of malignancy associated hypercalcemia Current Visit: Yes Status: Acute (2) AMS (altered mental status) Current Visit: No Status: Acute - Plan 1. Gentle hydration; pamidronate; calcitonin 2. Monitor labs; panculture 3. Continue with IV antibiotic prophylactically 4. Imaging studies including CT to evaluate etiology of malignancy 5. Monitor electrolytes 6. Check thyroid studies as well as cortisol level 7. Review medications 8. Neurochecks every 4 hours 9. GI/DVT prophylaxis Discharge Plan: Home Plan to discharge in: Greater than 2 days - Advance Directives Does patient have a Living Will: No Does patient have a Durable POA for Healthcare: No - Code Status/Comfort Care Code Status Assessed: Yes Code Status: Full Code Critical Care: No Time Spent Managing PTS Care (In Minutes): 35
--- NOTE | 2021-04-25 10:57 | P.PN ---
Subjective Date of Service: 04/25/21 Patient still very lethargic. Opens her eyes up a little bit but not for long. Still not interacting with me. Review of Systems 10-point ROS is otherwise unremarkable Physical Examination - Vital Signs Temperature: 97.7 F Blood Pressure: 149/78 Pulse: 108 Respirations: 16 Pulse Ox (%): 100 - Physical Exam General: Other (Lethargic but difficult to arouse) HEENT: Atraumatic, PERRLA, EOMI Neck: Supple, JVD not distended Respiratory: Clear to auscultation bilaterally, Normal air movement Cardiovascular: Regular rate/rhythm, Normal S1 S2, No murmurs Gastrointestinal: Normal bowel sounds, Soft and benign, Non-distended, No tenderness Musculoskeletal: No clubbing, No swelling, No tenderness Neurological: Sensation intact, Cranial nerves 3-12 intact - Studies Laboratory Data (last 24 hrs) 04/24/21 15:25: PT 17.1 H, INR 1.48 04/24/21 15:25: WBC 11.20 H, Hgb 11.8 L, Hct 38.4, Plt Count 166 04/24/21 15:25: Sodium 144, Potassium 3.1 L, BUN 30 H, Creatinine 0.84, Glucose 133 H, Magnesium 1.8, Total Bilirubin 1.2 H, AST 29, ALT 14, Alkaline Phosphatase 111 Medications List Reviewed: Yes Assessment & Plan - Problems (Diagnosis) (1) Hx of malignancy associated hypercalcemia Current Visit: Yes Status: Acute (2) AMS (altered mental status) Current Visit: No Status: Acute - Plan Continue with POC as mentioned below: 1. Gentle hydration; pamidronate; calcitonin 2. Monitor labs; cultures have been negative 3. Continue with IV antibiotic prophylactically 4. CT with liver malignancy; prognosis is poor 5. Monitor electrolytes 6. Thyroid and cortisol studies unremarkable 7. Medications for hypercalcemia will continue 8. Neurochecks every 4 hours 9. Speech and physical therapy evaluation 10. GI/DVT prophylaxis Discharge Plan: [facility] Plan to discharge in: Greater than 2 days - Advance Directives Does patient have a Living Will: No Does patient have a Durable POA for Healthcare: No - Code Status/Comfort Care Code Status: Full Code Critical Care: No Time Spent Managing PTS Care (In Minutes): 35
[2021-04-25] MEDS: CALCITONIN NASAL SPRAY 200 IU/DOSE NAS SCH (11:00)
--- NOTE | 2021-04-25 12:47 | EKG ---
Test Date: 2021-04-24 Test Time: 16:43:53 Adjustment Examiner: ROXANA MEASUREMENT RESULTS: Intervals: Rate: 98 ME: QRSD: 88 QT: 350 QTc: 446 Reading: P: ME: QRS: 48 T: 242 INTERPRETIVE STATEMENTS: Atrial fibrillation Low voltage QRS Cannot rule out Anterior infarct, age undetermined ST & T wave abnormality, consider inferolateral ischemia or digitalis effect Abnormal ECG Compared to ECG 01/26/2021 09:19:26 Low QRS voltage now present Myocardial infarct finding now present ST (T wave) deviation still present Possible ischemia still present Electronically Signed On 04-25-21 12:46:08 UNDERGRADUATE INTERN by Artemio Bustillo
--- NOTE | 2021-04-25 12:48 | EKG ---
Test Date: 2021-04-24 Test Time: 15:15:44 Handbag Finisher: ROXANA MEASUREMENT RESULTS: Intervals: Rate: 136 [place]: QRSD: 76 QT: 316 QTc: 475 [place]: P: [place]: QRS: 39 T: 232 INTERPRETIVE STATEMENTS: Atrial fibrillation with rapid ventricular response with premature ventricular or aberrantly conducted complexes Anterior infarct, age undetermined Marked ST abnormality, possible inferior subendocardial injury Abnormal ECG Compared to ECG 01/26/2021 09:19:26 Ventricular premature complex(es) now present Myocardial infarct finding now present Possible ischemia no longer present ST (T wave) deviation still present Electronically Signed On 04-25-21 12:46:22 SILK SCREEN PROCESSOR by Artemio Bustillo
[2021-04-25] MEDS: JUVEN PACKET PO SCH (21:00)
[2021-04-25] MEDS: ENSURE HIGH PROTEIN 237 ML CAN PO SCH (21:00)
[2021-04-25] MEDS: CEFTRIAXONE 1,000 MG in NA CHLORIDE 0.9% 50 ML IVPB SCH (23:23)
[2021-04-26] MEDS: FUROSEMIDE 20 MG/ 2ML VIAL IV SCH ×2 (02:36→09:33)
[2021-04-26 06:43] LABS: Absolute Lymphocytes (CBC) 0.5 K/uL (0.7-4.9); Hematocrit 34.1 % (36.0-45.0); Lymphocytes % 6.5 % (15.3-44.8); MPV 9.6 fL (7.6-11.3); RBC Red Blood Cell Count 3.85 M/uL (3.86-4.86)
[2021-04-26 07:05] LABS: ALT/SGPT 11 U/L (12-78); AST/SGOT 26 U/L (15-37); Alkaline Phosphatase 95 U/L (45-117); BUN Blood Urea Nitrogen 24 mg/dL (7-18); Bicarbonate 34 mmol/L (21-32); Bilirubin Total 0.8 mg/dL (0.2-1.0); Glucose Level 77 mg/dL (74-106); NT PRO-BNP 5923 pg/mL (<450); Phosphorus 1.8 mg/dL (2.5-4.9); Protein, Total 6.1 g/dL (6.4-8.2); Sodium Level 150 mmol/L (136-145)
[2021-04-26 07:13] LABS: Potassium 2.9 mmol/L (3.5-5.1)
[2021-04-26] MEDS ORDERED: POTASSIUM CL 40 MEQ in NA CHLORIDE 0.9% 500 ML IV ONE (08:00)
[2021-04-26] MEDS: ENSURE HIGH PROTEIN 237 ML CAN PO SCH ×2 (09:00→21:52)
[2021-04-26] MEDS: JUVEN PACKET PO SCH ×2 (09:00→21:52)
[2021-04-26] MEDS ORDERED: PAMIDRONATE DISOD 30 MG VIAL IV ONE (09:22)
[2021-04-26] MEDS: CEFTRIAXONE 1,000 MG in NA CHLORIDE 0.9% 50 ML IVPB SCH (09:30)
[2021-04-26] MEDS: CALCITONIN NASAL SPRAY 200 IU/DOSE NAS SCH (09:36)
[2021-04-26] MEDS: D5NS KCL 20MEQ 20 MEQ/1,000 ML BAG IV SCH ×2 (09:49→20:00)
[2021-04-26] MEDS ORDERED: PAMIDRONATE 90 MG in NA CHLORIDE 0.9% 500 ML IV ONE (10:00)
--- NOTE | 2021-04-26 15:32 | P.PN ---
Date of Service: 04/26/21 Subjective Patient much more awake. Not really responding to questions appropriately. Continue to monitor neurologically. Calcium has improved. Labs are pending. Review of Systems 10-point ROS is otherwise unremarkable Physical Examination - Vital Signs Reviewed - Physical Exam General: Awake and alert but not really following commands well HEENT: Atraumatic, PERRLA, EOMI Neck: Supple, JVD not distended Respiratory: Clear to auscultation bilaterally, Normal air movement Cardiovascular: Regular rate/rhythm, Normal S1 S2, No murmurs Gastrointestinal: Normal bowel sounds, Soft and benign, Non-distended, No tenderness Musculoskeletal: No clubbing, No swelling, No tenderness Neurological: Sensation intact, Cranial nerves 3-12 intact Assessment & Plan - Problems (Diagnosis) (1) Hx of malignancy associated hypercalcemia Current Visit: Yes Status: Acute (2) AMS (altered mental status) Current Visit: No Status: Acute - Plan Continue with POC as mentioned below: 1. Gentle hydration; continue with Lasix; repeat pamidronate; calcitonin twice daily 2. Monitor labs; cultures have been negative 3. Continue with IV antibiotic prophylactically 4. CT with liver malignancy; prognosis is poor 5. Monitor electrolytes 6. Thyroid and cortisol studies unremarkable 7. Medications for hypercalcemia will continue 8. Neurochecks every 4 hours 9. Speech and physical therapy evaluation 10. GI/DVT prophylaxis Discharge Plan: Group Home Plan to discharge in: Greater than 2 days - Advance Directives Does patient have a Living Will: No Does patient have a Durable POA for Healthcare: No - Code Status/Comfort Care Code Status: Full Code Critical Care: No Time Spent Managing PTS Care (In Minutes): 35
[2021-04-26] MEDS ORDERED: METOPROLOL TARTRATE 5 MG/5 ML INJ IV STA (15:36)
[2021-04-26] MEDS ORDERED: ALBUMIN HUMAN 25% 50 ML IV ONE (16:00)
[2021-04-26 17:08] LABS: Magnesium 1.5
[2021-04-26] MEDS: METOPROLOL TARTRATE 5 MG/5 ML INJ IV SCH ×2 (18:02→21:53)
[2021-04-26] MEDS ORDERED: Magnesium Sulfate 2gm IVPB 2 G/50 ML BAG IV ONE (22:28)
[2021-04-27] MEDS: METOPROLOL TARTRATE 5 MG/5 ML INJ IV SCH ×3 (06:38→16:43)
[2021-04-27 07:12] LABS: Potassium 3.3 mmol/L (3.5-5.1)
[2021-04-27 07:29] LABS: Absolute Lymphocytes (CBC) 0.7 K/uL (0.7-4.9); Hematocrit 32.9 % (36.0-45.0); Lymphocytes % 7.3 % (15.3-44.8); MPV 9.8 fL (7.6-11.3); RBC Red Blood Cell Count 3.73 M/uL (3.86-4.86)
[2021-04-27] MEDS ORDERED: CEFTRIAXONE 1000 MG/VIAL ONE (07:48)
[2021-04-27] MEDS ORDERED: NA CHLORIDE 0.9% 50 ML ONE (07:57)
[2021-04-27] MEDS: CALCITONIN NASAL SPRAY 200 IU/DOSE NAS SCH (09:00)
[2021-04-27] MEDS: CEFTRIAXONE 1,000 MG in NA CHLORIDE 0.9% 50 ML IVPB SCH (09:22)
[2021-04-27] MEDS: FUROSEMIDE 20 MG/ 2ML VIAL IV SCH (09:23)
[2021-04-27] MEDS: JUVEN PACKET PO SCH ×2 (09:24→21:00)
[2021-04-27] MEDS: ENSURE HIGH PROTEIN 237 ML CAN PO SCH ×2 (09:24→21:00)
[2021-04-27] MEDS: D5NS KCL 20MEQ 20 MEQ/1,000 ML BAG IV SCH ×2 (09:24→16:43)
[2021-04-27] MEDS ORDERED: MAGNESIUM SULFATE 1 gm IVPB 1 GM/100 ML BAG IV ONE (19:00)
--- NOTE | 2021-04-27 20:16 | P.PN ---
Date of Service: 04/27/21 Subjective Patient is lethargic; slightly obtunded; but patient is following some commands Review of Systems 10-point ROS is otherwise unremarkable Physical Examination - Vital Signs Reviewed - Physical Exam General: Awake and alert but not really following commands well HEENT: Atraumatic, PERRLA, EOMI Neck: Supple, JVD not distended Respiratory: Clear to auscultation bilaterally, Normal air movement Cardiovascular: Regular rate/rhythm, Normal S1 S2, No murmurs Gastrointestinal: Normal bowel sounds, Soft and benign, Non-distended, No tenderness Musculoskeletal: No clubbing, No swelling, No tenderness Neurological: Sensation intact, Cranial nerves 3-12 intact Assessment & Plan - Problems (Diagnosis) (1) Hx of malignancy associated hypercalcemia Current Visit: Yes Status: Acute (2) AMS (altered mental status) Current Visit: No Status: Acute (3) Liver mass Current Visit: No Status: Acute - Plan Continue with POC as mentioned below: 1. Gentle hydration; continue with Lasix; repeat pamidronate; calcitonin twice daily 2. Monitor labs; cultures have been negative 3. Continue with IV antibiotic prophylactically 4. CT with liver malignancy; prognosis is poor 5. Monitor electrolytes 6. Thyroid and cortisol studies unremarkable 7. Medications for hypercalcemia will continue 8. Neurochecks every 4 hours 9. Speech and physical therapy evaluation 10. GI/DVT prophylaxis Discharge Plan: [facility] Plan to discharge in: Greater than 2 days - Advance Directives Does patient have a Living Will: No Does patient have a Durable POA for Healthcare: No - Code Status/Comfort Care Code Status: Full Code Critical Care: No Time Spent Managing PTS Care (In Minutes): 35
[2021-04-28 04:32] VITALS: BMI 38.1
[2021-04-28 06:29] LABS: Absolute Lymphocytes (CBC) 0.7 K/uL (0.7-4.9); Hematocrit 34.4 % (36.0-45.0); Lymphocytes % 8.9 % (15.3-44.8); MPV 9.9 fL (7.6-11.3); RBC Red Blood Cell Count 3.87 M/uL (3.86-4.86)
[2021-04-28] MEDS: D5NS KCL 20MEQ 20 MEQ/1,000 ML BAG IV SCH (07:00)
[2021-04-28] MEDS: METOPROLOL TARTRATE 5 MG/5 ML INJ IV SCH ×5 (07:01→22:00)
[2021-04-28] MEDS: MORPHINE 2 MG/ML SYR IV PRN ×3 (07:01→23:00)
[2021-04-28 07:02] LABS: Albumin 1.9 g/dL (3.4-5.0); Bilirubin Total 0.6 mg/dL (0.2-1.0); Magnesium 2.1 mg/dL (1.8-2.4); Potassium 3.3 mmol/L (3.5-5.1); Protein, Total 6.1 g/dL (6.4-8.2)
[2021-04-28 07:04] LABS: Phosphorus 0.9 mg/dL (2.5-4.9)
[2021-04-28] MEDS ORDERED: CEFTRIAXONE 1000 MG/VIAL ONE (08:05)
[2021-04-28] MEDS ORDERED: NA CHLORIDE 0.9% 50 ML ONE (08:15)
[2021-04-28] MEDS: JUVEN PACKET PO SCH ×2 (09:00→22:14)
[2021-04-28] MEDS: ENSURE HIGH PROTEIN 237 ML CAN PO SCH ×2 (09:00→22:14)
[2021-04-28] MEDS: CALCITONIN NASAL SPRAY 200 IU/DOSE NAS SCH (09:00)
[2021-04-28] MEDS: CEFTRIAXONE 1,000 MG in NA CHLORIDE 0.9% 50 ML IVPB SCH (10:12)
[2021-04-28] MEDS: FUROSEMIDE 20 MG/ 2ML VIAL IV SCH (10:13)
[2021-04-28] MEDS ORDERED: POTASSIUM PHOS 30 MM in NA CHLORIDE 0.9% 500 ML IV ONE (12:00)
[2021-04-28] MEDS: D5W 1,000 ML IV SCH (13:13)
[2021-04-28] MEDS: ACETAMINOPHEN 500 MG TAB PO PRN (22:00)
--- NOTE | 2021-04-28 23:13 | P.PN ---
Date of Service: 04/28/21 Subjective Spoke with daughters; possible hospice arrangements Review of Systems 10-point ROS is otherwise unremarkable Physical Examination - Vital Signs Reviewed - Physical Exam General: Awake and alert but not really following commands well Respiratory: Clear to auscultation bilaterally, Normal air movement Cardiovascular: Regular rate/rhythm, Normal S1 S2, No murmurs Gastrointestinal: Normal bowel sounds, Soft and benign, Non-distended, No tenderness Musculoskeletal: No clubbing, No swelling, No tenderness Neurological: confused Assessment & Plan - Problems (Diagnosis) (1) Hx of malignancy associated hypercalcemia Current Visit: Yes Status: Acute (2) AMS (altered mental status) Current Visit: No Status: Acute (3) Liver mass Current Visit: No Status: Acute - Plan Continue with POC as mentioned below: 1. Continue with hydration; continue with Lasix; repeated pamidronate; calcitonin twice daily 2. Monitor labs; cultures have been negative 3. Continue with IV antibiotic prophylactically 4. CT with liver malignancy; prognosis is poor 5. Monitor electrolytes 6. Thyroid and cortisol studies unremarkable 7. Medications for hypercalcemia will continue 8. Neurochecks every 4 hours 9. Speech and physical therapy evaluation unable to be performed; poor prognosis 10. GI/DVT prophylaxis Discharge Plan: Senior Living Plan to discharge in: Greater than 2 days - Advance Directives Does patient have a Living Will: No Does patient have a Durable POA for Healthcare: No - Code Status/Comfort Care Code Status: Full Code Critical Care: No Time Spent Managing PTS Care (In Minutes): 35
[2021-04-29] MEDS: D5W 1,000 ML IV SCH ×2 (00:13→14:40)
[2021-04-29] MEDS: METOPROLOL TARTRATE 5 MG/5 ML INJ IV SCH ×4 (04:15→21:27)
[2021-04-29 06:35] LABS: Protime INR 1.48
[2021-04-29 06:37] LABS: Hematocrit 34.5 % (36.0-45.0); Lymphocytes % 13.6 % (15.3-44.8); MPV 10.1 fL (7.6-11.3); RBC Red Blood Cell Count 3.81 M/uL (3.86-4.86)
[2021-04-29 06:44] LABS: Albumin 1.6 g/dL (3.4-5.0); Bilirubin Total 0.4 mg/dL (0.2-1.0); Magnesium 1.8 mg/dL (1.8-2.4); Phosphorus 2.4 mg/dL (2.5-4.9); Potassium 3.8 mmol/L (3.5-5.1); Protein, Total 5.4 g/dL (6.4-8.2)
[2021-04-29] MEDS ORDERED: MAGNESIUM SULFATE 1 gm IVPB 1 GM/100 ML BAG IV ONE (07:29)
[2021-04-29] MEDS ORDERED: CEFTRIAXONE 1000 MG/VIAL ONE (07:50)
[2021-04-29] MEDS ORDERED: NA CHLORIDE 0.9% 50 ML ONE (07:57)
[2021-04-29] MEDS: JUVEN PACKET PO SCH ×2 (09:00→20:37)
[2021-04-29] MEDS: ENSURE HIGH PROTEIN 237 ML CAN PO SCH ×2 (09:00→20:37)
[2021-04-29] MEDS: CALCITONIN NASAL SPRAY 200 IU/DOSE NAS SCH (09:00)
[2021-04-29] MEDS: FUROSEMIDE 20 MG/ 2ML VIAL IV SCH (09:05)
[2021-04-29] MEDS: CEFTRIAXONE 1,000 MG in NA CHLORIDE 0.9% 50 ML IVPB SCH (09:05)
[2021-04-29] MEDS: MORPHINE 2 MG/ML SYR IV PRN (12:33)
--- NOTE | 2021-04-29 12:43 | P.PN ---
Date of Service: 04/29/21 Subjective Patient continues to be lethargic. Patient is hypercalcemic. This is improved. Hypercalcemia related to malignancy and PTH-RP pending. Family is contemplating hospice care. Review of Systems 10-point ROS is otherwise unremarkable Physical Examination - Vital Signs Reviewed - Physical Exam General: Lethargic but does wake up and open her eyes Respiratory: Upper airway noise but otherwise clear Cardiovascular: Regular rate/rhythm, Normal S1 S2, No murmurs Gastrointestinal: Normal bowel sounds, Soft and benign, Non-distended, No tenderness Musculoskeletal: No clubbing, No swelling, No tenderness Neurological: confused Assessment & Plan - Problems (Diagnosis) (1) Hx of malignancy associated hypercalcemia Current Visit: Yes Status: Acute (2) AMS (altered mental status) Current Visit: No Status: Acute (3) Liver mass Current Visit: No Status: Acute - Plan Continue with POC as mentioned below: 1. Hep-Lock IV; may stop the Lasix and IV fluids and see how patient does; continue calcitonin nasally 2. Monitor labs; cultures have been negative 3. Oral antibiotics 4. CT with liver malignancy; prognosis is poor 5. Monitor electrolytes 6. Thyroid and cortisol studies unremarkable 7. Medications for hypercalcemia will continue 8. Neurochecks every 4 hours 9. Speech and physical therapy evaluation unable to be performed; poor prognosis 10. GI/DVT prophylaxis Discharge Plan: Long-Term Plan to discharge in: Greater than 2 days - Advance Directives Does patient have a Living Will: No Does patient have a Durable POA for Healthcare: No - Code Status/Comfort Care Code Status: Full Code Critical Care: No Time Spent Managing PTS Care (In Minutes): 35
--- NOTE | 2021-04-29 12:43 | P.PN ---
Date of Service: 04/29/21 Subjective Had a discussion with all the family members. Patient has 2 daughters and a son. The daughter came down from [place]. They visited with her mother. They decided that they want to proceed with hospice care once patient is discharged to nursing facility. Patient is clinically doing better. Patient is more awake and alert. She is starting to eat a little bit. Unfortunately I believe her hypercalcemia will worsen Without aggressive treatment that we done in the hospital. Patient has liver malignancy. 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 Condition will worsen. Patient really not a candidate for any treatment for liver malignancy and she has been seen at [facility] and they felt the same. At this time, plan did [facility] and we will set up hospice care once patient arrives. Review of Systems 10-point ROS is otherwise unremarkable Physical Examination - Vital Signs Reviewed - Physical Exam General: Lethargic but does wake up and open her eyes Respiratory: Upper airway noise but otherwise clear Cardiovascular: Regular rate/rhythm, Normal S1 S2, No murmurs Gastrointestinal: Normal bowel sounds, Soft and benign, Non-distended, No tenderness Musculoskeletal: No clubbing, No swelling, No tenderness Neurological: confused Assessment & Plan - Problems (Diagnosis) (1) Hx of malignancy associated hypercalcemia Current Visit: Yes Status: Acute (2) AMS (altered mental status) Current Visit: No Status: Acute (3) Liver mass Current Visit: No Status: Acute - Plan Continue with POC as mentioned below: 1. Hep-Lock IV; will stop Lasix and IV fluid and continue with diet; continue calcitonin nasally; status post pamidronate treatment 2. Monitor labs; cultures have been negative 3. Oral antibiotics 4. CT with liver malignancy; prognosis is poor. The family to proceed with hospice care 5. Monitor electrolytes 6. Thyroid and cortisol studies unremarkable 7. Medications for hypercalcemia will continue 8. Neurochecks every 4 hours 9. Speech and physical therapy evaluation unable to be performed; poor prognosis 10. GI/DVT prophylaxis Discharge Plan: [facility] Plan to discharge in: Greater than 2 days - Advance Directives Does patient have a Living Will: No Does patient have a Durable POA for Healthcare: No - Code Status/Comfort Care Code Status: Full Code Critical Care: No Time Spent Managing PTS Care (In Minutes): 35
[2021-04-29 23:48] LABS: Vitamin D 1,25-Dihydroxy Total 11 pg/mL (18-72); Vitamin D,1,25-OH2, D2 <8 pg/mL
[2021-04-30] MEDS: D5W 1,000 ML IV SCH (04:00)
--- NOTE | 2021-04-30 06:13 | P.PN ---
Date of Service: 04/30/21
[2021-04-30] MEDS: METOPROLOL TARTRATE 5 MG/5 ML INJ IV SCH ×2 (06:37→09:33)
[2021-04-30 06:38] LABS: Hematocrit 36.8 % (36.0-45.0); Lymphocytes % 7.8 % (15.3-44.8); MPV 9.8 fL (7.6-11.3); RBC Red Blood Cell Count 4.15 M/uL (3.86-4.86)
[2021-04-30 07:26] LABS: Magnesium 1.9 mg/dL (1.8-2.4); Potassium 3.6 mmol/L (3.5-5.1)
[2021-04-30 07:28] LABS: Blood Morphology Comment NOT SEEN (NOT SEEN); Platelet Estimate DECR; White Blood Cell Scan OK (OK)
[2021-04-30 08:36] VITALS: BP 144/85
[2021-04-30] MEDS: JUVEN PACKET PO SCH (09:00)
[2021-04-30] MEDS: ENSURE HIGH PROTEIN 237 ML CAN PO SCH (09:00)
[2021-04-30] MEDS: CALCITONIN NASAL SPRAY 200 IU/DOSE NAS SCH (09:00)
[2021-04-30] MEDS: FUROSEMIDE 20 MG/ 2ML VIAL IV SCH (09:33)
[2021-04-30 10:46] VITALS: O2SAT 99
[2021-04-30] MEDS: ACETAMINOPHEN 500 MG TAB PO PRN (12:01)
[2021-04-30 12:13] VITALS: TEMP 100.4
--- NOTE | 2021-04-30 18:08 | P.DS ---
Admission Date: 04/24/21 Discharge Date: 04/30/21 Disposition: HOSPICE-MEDICAL FACILITY Discharge Condition: FAIR Reason for Admission: Altered mental status; hypercalcemia Procedures: Problem list Malignancy associated hypercalcemia Liver mass Altered mental status UTI Brief History of Present Illness: 81-year-old female who came to the hospital with altered mentation. Patient had hypercalcemia. Patient has a history of malignancy unknown etiology. At this time, we will go ahead and admit the patient to the hospital for further evaluation. Hospital Course: Patient had minimal improvement throughout her hospitalization. She was treated with IV fluids, IV antibiotics medications to help with her hypercalcemia. Despite her hypercalcemia improving, she remained not very responsive as she typically is. There were multiple conversations held with the patient's family, ultimately decided to proceed with hospice due to hypercalcemia and secondary her malignancy and not wanting to proceed with aggressive measures. She was discharged to hospice on 04/30 Vital Signs/Physical Exam: Temp Pulse Resp BP Pulse Ox 100.4 F 131 H 23 H 144/85 H 96 04/30/21 12:01 04/30/21 09:33 04/30/21 12:00 04/30/21 09:33 04/30/21 12:00 General: Oriented x1, Confused HEENT: Sclerae nonicteric Respiratory: Clear to auscultation bilaterally Cardiovascular: Regular rate/rhythm Gastrointestinal: Soft and benign, No tenderness Musculoskeletal: No tenderness Integumentary: No rashes Laboratory Data at Discharge: WBC 13.00 K/uL (4.3-10.9) H D 04/30/21 06:16 Hgb 11.2 g/dL (12.0-15.0) L 04/30/21 06:16 Hct 36.8 % (36.0-45.0) 04/30/21 06:16 Plt Count 96 K/uL (152-406) L 04/30/21 06:16 PT 17.1 SECONDS (9.5-12.5) H 04/29/21 06:03 INR 1.48 04/29/21 06:03 APTT 24.1 SECONDS (24.3-36.9) L 04/29/21 06:03 Sodium Cancelled 04/30/21 07:29 Potassium Cancelled 04/30/21 07:29 BUN Cancelled 04/30/21 07:29 Creatinine Cancelled 04/30/21 07:29 Glucose Cancelled 04/30/21 07:29 Phosphorus 2.4 mg/dL (2.5-4.9) L D 04/29/21 06:03 Magnesium 1.9 mg/dL (1.8-2.4) 04/30/21 06:35 Total Bilirubin 0.4 mg/dL (0.2-1.0) 04/29/21 06:03 AST 31 U/L (15-37) 04/29/21 06:03 ALT 13 U/L (12-78) 04/29/21 06:03 Alkaline Phosphatase 94 U/L (45-117) 04/29/21 06:03 Home Medications: Anastrozole 1 mg PO DAILY 01/27/21 Apixaban [Eliquis] 5 mg PO BID 01/27/21 Albuterol Sulfate [Albuterol Sulfate 0.083% Neb Soln] 2.5 mg IH Q4HP PRN 04/24/21 Amlodipine [Norvasc*] 5 mg PO DAILY 04/24/21 Arformoterol Tartrate [Brovana] 15 mcg IH Q12H 04/24/21 Aspirin 81 mg PO DAILY 04/24/21 Atorvastatin Calcium [Lipitor*] 20 mg PO BEDTIME 04/24/21 Bisoprolol Fumarate 10 mg PO DAILY 04/24/21 Budesonide [Pulmicort*] 0.5 mg IH Q12H 04/24/21 Furosemide [Lasix*] 40 mg PO DAILY 04/24/21 Gabapentin [Neurontin*] 100 mg PO TID 04/24/21 Isosorbide Mononitrate [Isosorbide Mononitrate ER] 30 mg PO DAILY 04/24/21 Melatonin 5 mg PO BEDTIME 04/24/21 Nystatin Powder [Mycostatin (Powder)*] 1 appl TP Q12H 04/24/21 hydroCHLOROthiazide [Hydrochlorothiazide*] 12.5 mg PO BID 04/24/21 Calcitonin [Miacalcin Nasal [place]*] 1 sprays DAIANA DAILY #1 spray.pump 04/30/21 Hydrocodone/Acetaminophen [Hydrocodone-Acetamin 10-325/15] 15 ml PO BID PRN #100 solution 04/30/21 New Medications: Hydrocodone/Acetaminophen [Hydrocodone-Acetamin 10-325/15] 15 ml PO BID PRN #100 solution PRN Reason: Pain Scale 8-10 (Severe) Calcitonin [Miacalcin Nasal [place]*] 1 sprays DAIANA DAILY #1 spray.pump Physician Discharge Instructions: OK TO DC IV AND DC back to [facility] for hospice arrangements FOLLOW-UP WITH PRIMARY CARE PROVIDER IN 1-2 WEEKS Family requesting that patient be fed for her meals she is unable to feed herself Will discharge with pain control CALL or TEXT DR. ALLEN AT [phone] IF ANY QUESTIONS REGARDING HOSPITAL STAY. PLEASE CALL THE FLOOR AT [phone] IF ANY MEDICATION OR NURSING QUESTIONS. Diet: Regular Activity: Fall precautions Followup: OOT,OOT [Primary Care Provider] - Time spent managing pt's care (in minutes): 45
== END 2021-04-30 15:34 | disposition hospice, inpatient (51) | DRG 644 ==
LOC: ER 14:54 → ERHOLD 18:10 → 2ND 19:48
PROVIDERS: ADMIT Hospitalist; ATTEND Hospitalist
DX: E21.3 Hyperparathyroidism, unspecified (principal); C22.8 Malignant neoplasm of liver, primary, unspecified as to type; N39.0 Urinary tract infection, site not specified; R41.82 Altered mental status, unspecified; I48.91 Unspecified atrial fibrillation; I10 Essential (primary) hypertension; I25.10 Atherosclerotic heart disease of native coronary artery without angina pectoris; Z20.822 Contact with and (suspected) exposure to COVID-19
CPT/HCPCS: 0240U; 36415; 51702; 71045; 71260; 74177; 80048; 80053; 80076; 81015; 82105; 82140; 82306; 82652; 82947; 83519; 83605; 83735; 83880; 83970; 84100; 84132; 84484; 85025; 85610; 85730; 87040; 87070; 87077; 87086; 87088; 87186; 87205; 92610; 93005; 94760; 96361; 96374; 96375; 97161; 99285; J1940; J2270; J2430; J3475; J3480; J7030; J7040; P9047; Q9967